=== PATIENT | male | born 1940 | race Caucasian/White ===

== ENCOUNTER → 2024-06-09 10:58 | Outpatient (REF) | payer MEDICARE, SELFPAY | LOC: RAD 10:58 | PROVIDERS: ATTENDING PHYSICIAN Family Medicine | DX: R05.3 Chronic cough (principal); R06.00 Dyspnea, unspecified | CPT/HCPCS: 71046 ==

== ENCOUNTER 2024-06-13 14:07 | Inpatient (IN) | payer MEDICARE, SELFPAY ==
[2024-06-13] VITALS (38 sets, daily range): BP systolic 80–170; BP diastolic 52–147; PULSE 2–159
[2024-06-13] MEDS: NITROGLYCERIN PREMIX 250 IV (13:13)
[2024-06-13] MEDS: LASIX 40 MG IV ×3 (13:15→22:29)
[2024-06-13 13:16] LABS: % Basophils 0.7 % (0-2); % Eosinophils 1.8 % (0-6); % Immature Granulocytes 0.8 % (0-0.5); % Lymphocytes 9.5 % (20.5-51.1); % Monocytes 8.6 % (1.7-9.3); % Neutrophils 78.6 % (42.2-75.2); Absolute Basophils 0.1 10^3/uL (0-0.2); Absolute Eosinophils 0.2 10^3/uL (0-0.7); Absolute Immature Granulocytes 0.1 10^3/uL (0-0.05); Absolute Lymphocytes 1.1 10^3/uL (1.2-3.4); Absolute Neutrophils 9.4 10^3/uL (1.4-6.5); Hematocrit 46.2 % (39.0-52.0); Mean Corp Hgb Conc. 30.3 g/dL (33.0-37.0); Mean Corpuscular Hgb 27.7 pg (27.0-31.0); Mean Corpuscular Volume 91.5 fL (80.0-94.0); Mean Platelet Volume 10.5 fL (7.4-10.4); Nucleated Red Blood Cells % 0.2 % (-); Platelet Count 299 10^3/uL (130-400); Red Blood Cell Count 5.05 10^6/uL (4.70-6.10); Red Cell Dist. Width 17.2 % (11.5-14.5); White Blood Cell Count 11.9 10^3/uL (4.8-10.8)
[2024-06-13 13:26] LABS: Venous Blood Gas B.E. -7.9 mmol/L (-4 to +4); Venous Blood Gas HCO3 22.6 mmol/L (22-27); Venous Blood Gas O2 Sat % 56.8 %; Venous Blood Gas pCO2 68 mmHg (35-48); Venous Blood Gas pO2 42 mmHg (30-50)
--- NOTE | 2024-06-13 13:27 | ED.GENMED ---
History of Present Illness
<Jarrell Addison PA-C - Last Filed: 06/13/24 14:35>
General
Chief Complaint: Cold/Flu/URI Symptoms
Source: patient, records, spouse and family
Time Seen by Provider: 06/13/24 13:00
History of Present Illness
History of Present Illness:
83 year old male with PMH of atrial fibrillation, HTN, hypothyroidism presenting to ED with his for evaluation after he has been having SOB, cough, sputum production and URIAS over the last 5 weeks or so not responding to oral antibiotics, oral
steroids, nebulizers despite multiple rounds. states that today at home patient became acutely more short of breath, shaking, rapid breathing so brought patient to the ER for further evaluation. Upon arrival to the emergency department and
while in triage patient was found to have a pulse ox in the 60s, mottled, difficult time speaking full sentences and was brought back into the emergency department immediately for my evaluation. notes that the patient stopped taking his
diuretic about a month or so ago because he was having small blood in his stool which she thought was related. Patient is on Eliquis due to his A-fib and reports good compliance with this medication.
Past History
<Jarrell Addison PA-C - Last Filed: 06/13/24 14:35>
Past History
ED Past Medical History: Arrthythmia (Atrial fibrillation), HTN, Hypothyroidism, Other (renal cyst) and Other (Sepsis January 2021)
ED Past Surgical History: Cardiac (pacemaker implantation December 2020)
Social History
Tobacco: Non-smoker
Alcohol: None
Drug: None
Personal:
Living: with family
Family History
Family History: Other (reviewed and noncontributory)
Review of Systems
<Jarrell Addison PA-C - Last Filed: 06/13/24 14:35>
Review of Systems
All Other Systems: ROS reviewed and negative except as documented in HPI and ROS
Phy Exam
<Jarrell Addison PA-C - Last Filed: 06/13/24 14:35>
Physical Exam
Physical Exam:
GENERAL: Alert , significantly tachypneic, accessory muscle use, mottled and very ill in appearance
EYE: Clear conjunct
NECK: Supple
ENT: o/p clr, mmm.
CARDIAC: Tachycardic rate between 130 and 160 bpm, irregular
LUNGS: Rales throughout anterior and posterior lung cheung, tachypneic, accessory muscle use
ABDOMEN: Soft, without focal tenderness, no r/g, no cvat
NEUROLOGICAL: Alert and oriented x 3, answering questions appropriate
SKIN: Warm and dry, skin intact.
MUSCULOSKELETAL: Significant 3+ pitting edema past the knees bilateral, mottled
PSYCH: Normal and appropriate interaction.
Scores
<Jarrell Addison PA-C - Last Filed: 06/13/24 14:35>
Heart Failure Risk
Heart Failure Risk Score: Yes
History of Stroke or TIA: No
History of intubation for respiratory distress: No
Heart rate on ED arrival >/= 110: Yes
SaO2 <90% on arrival on room air: Yes
HR >/=110 during 3min walk test (or too ill to perform test): Yes
ECG has acute ischemic changes: No
Urea >/=12mmol/L (BUN 33.6mg/dL): No
Serum CO2>/=35mmol/L: No
Troponin I or T elevated to VT Level (0.4mg/dL): No
NT-proBNP >/=5,000ng/L (5,000pg/ml): Yes
HF Risk Score: 4
Admission Status: HIGH RISK 26.1% Consider SNF treatment or admission to hospital
Heart Score for Chest Pain Patients
STEMI patient?: Not applicable
Withdrawal Assessment of Alcohol
Withdrawal Assessment Completed?: Not applicable
Course
<Jarrell Addison PA-C - Last Filed: 06/13/24 14:35>
Orders/Labs/Results
Orders:
Orders
06/13/24 13:03
Cr Chest Portable [CR Chest Portable - 1 View] Urgent
Comment:
Reason For Exam: sob
Reason Study Needs to be Portable: Patient Unstable
06/13/24 13:06
Nitroglycerin 100 mg/250 ml [Nitroglycerin Premix] 100 mg in 250 ml .ROUTE .STK-MED
06/13/24 13:09
Complete Blood Count/With Diff Urgent
Comprehensive Metabolic Panel Urgent
Furosemide [Lasix] 40 mg .ROUTE .STK-MED ONE
06/13/24 13:19
NT-proBNP Urgent
Comment: ADD ON
Troponin I Urgent
Comment: ADD ON
Venous Blood Gas Urgent
%Oxygen/Room Air: bipap
06/13/24 13:21
Furosemide [Lasix] 40 mg IV NOW STA
06/13/24 13:23
Add On- LAB Urgent
Tests Added?: BNP, troponin I
06/13/24 13:30
Nitroglycerin 100 mg/250 ml [Nitroglycerin Premix] 100 mg in 250 ml IV PER PROTOCOL
Initial dose in mcg/min, then titrate:: 100
Titrate to keep:: SBP < 160 mmHg
Titrate by mcg/min:: 5 mcg/min, may increase by 10 mcg/min if dose > 20 mcg/min
Frequency of titrations (minutes):: every 3-5 minutes
Maximum dose in mcg/min:: 200
Begin to taper infusion when:: Remained at goal for 2hrs
Taper by mcg/min:: 5 mcg/min
Frequency of taper (minutes) if patient maintains goal:: 30
Taper to off?: Yes
If infusion off & no longer maintaining goal:: Contact Provider
06/13/24 13:39
Bipap [RESP] Urgent
Patient to use own unit?: No
Inspiratory Pressure (cm H2O): 14
Expiratory Pressure (cm H2O): 8
06/13/24 13:42
Ondansetron Injectable [Zofran] 8 mg .ROUTE .STK-MED ONE
06/13/24 13:44
Ondansetron Injectable [Zofran] 8 mg IV NOW STA
06/13/24 13:50
Electrocardiogram (*1) Urgent
Reason for Study: Shortness of Breath
06/13/24 13:51
EKG- Treatment ONCE
06/13/24 13:52
Admit/Transfer Patient As Directed
Co-Sign Provider:
Level of Care: Inpatient admission
Assign to:: ICU
Physician / Group: corbin
Diagnosis: hypercarcbic respiratory failure chf
Reason for Hospitalization: hypercarcbic respiratory failure chf
Expected length of stay greater than two midnights?: Yes
ELOS- Estimated Length of Stay in days: 2
I certify the patient meets the requirements for IP care: Yes
PRN Pain Medication Management As Directed
May give lesser potent ordered pain med per pt: Yes
preference::
Protocol:: Medication orders for pain may be administered in a
manner that supports deferring to patient preference
when the pt is:
- Requesting an ordered lesser potent pain medication.
Least to most potent pain medications are defined
as: acetaminophen < NSAID < tramadol < opioids
(morphine, oxycodone, hydromorphone).
- Requesting a lesser dose of the same medication IF
ORDERED.
- Requesting a less intrusive route of administration
if both routes are prescribed by the provider (PO <
IV).
06/13/24 13:53
Code Status As Directed
Resuscitation Status: Do not resuscitate
Reached after discussion with pt or family/Healthcare POA: Yes
DNR Bracelet Application ONCE
Abnormal Lab Results
06/13/24 06/13/24
13:09 13:19
WBC 11.9 H 10^3/uL
(4.8-10.8)
MCHC 30.3 L g/dL
(33.0-37.0)
RDW 17.2 H %
(11.5-14.5)
MPV 10.5 H fL
(7.4-10.4)
Abs Immat Gran (auto) 0.1 H 10^3/uL
(0-0.05)
Absolute Neuts (auto) 9.4 H 10^3/uL
(1.4-6.5)
Absolute Lymphs (auto) 1.1 L 10^3/uL
(1.2-3.4)
Absolute Monos (auto) 1.0 H 10^3/uL
(0.1-0.6)
Immature Gran % 0.8 H %
(0-0.5)
Neutrophils % 78.6 H %
(42.2-75.2)
Lymphocytes % 9.5 L %
(20.5-51.1)
VBG pH 7.13 L*
(7.32-7.43)
VBG pCO2 68 H mmHg
(35-48)
Potassium 5.2 H mmol/L
(3.5-5.1)
Carbon Dioxide 20 L mmol/L
(22-30)
BUN 22 H mg/dl
(9-20)
Glucose 180 H mg/dl
(70-99)
Total Protein 6.0 L g/dl
(6.3-8.2)
06/13/24 13:09
06/13/24 13:09
Vital Signs
Initial and Last Documented VS:
Initial Vital Signs
Pulse Resp
143 40
06/13/24 13:23 06/13/24 13:23
Last Documented Vital Signs
Pulse Resp BP Pulse Ox
108 26 98/65 98
06/13/24 14:18 06/13/24 14:18 06/13/24 14:18 06/13/24 14:18
<Arsen Wyatt MD - Last Filed: 06/13/24 13:35>
Orders/Labs/Results
Orders:
Orders
06/13/24 13:03
Cr Chest Portable [CR Chest Portable - 1 View] Urgent
Comment:
Reason For Exam: sob
Reason Study Needs to be Portable: Patient Unstable
06/13/24 13:06
Nitroglycerin 100 mg/250 ml [Nitroglycerin Premix] 100 mg in 250 ml .ROUTE .STK-MED
06/13/24 13:09
Complete Blood Count/With Diff Urgent
Comprehensive Metabolic Panel Urgent
Furosemide [Lasix] 40 mg .ROUTE .STK-MED ONE
06/13/24 13:19
NT-proBNP Urgent
Comment: ADD ON
Troponin I Urgent
Comment: ADD ON
Venous Blood Gas Urgent
%Oxygen/Room Air: bipap
06/13/24 13:21
Furosemide [Lasix] 40 mg IV NOW STA
06/13/24 13:23
Add On- LAB Urgent
Tests Added?: BNP, troponin I
06/13/24 13:30
Nitroglycerin 100 mg/250 ml [Nitroglycerin Premix] 100 mg in 250 ml IV PER PROTOCOL
Initial dose in mcg/min, then titrate:: 100
Titrate to keep:: SBP < 160 mmHg
Titrate by mcg/min:: 5 mcg/min, may increase by 10 mcg/min if dose > 20 mcg/min
Frequency of titrations (minutes):: every 3-5 minutes
Maximum dose in mcg/min:: 200
Begin to taper infusion when:: Remained at goal for 2hrs
Taper by mcg/min:: 5 mcg/min
Frequency of taper (minutes) if patient maintains goal:: 30
Taper to off?: Yes
If infusion off & no longer maintaining goal:: Contact Provider
06/13/24 13:39
Bipap [RESP] Urgent
Patient to use own unit?: No
Inspiratory Pressure (cm H2O): 14
Expiratory Pressure (cm H2O): 8
06/13/24 13:42
Ondansetron Injectable [Zofran] 8 mg .ROUTE .STK-MED ONE
06/13/24 13:44
Ondansetron Injectable [Zofran] 8 mg IV NOW STA
06/13/24 13:50
Electrocardiogram (*1) Urgent
Reason for Study: Shortness of Breath
06/13/24 13:51
EKG- Treatment ONCE
06/13/24 13:52
Admit/Transfer Patient As Directed
Co-Sign Provider:
Level of Care: Inpatient admission
Assign to:: ICU
Physician / Group: corbin
Diagnosis: hypercarcbic respiratory failure chf
Reason for Hospitalization: hypercarcbic respiratory failure chf
Expected length of stay greater than two midnights?: Yes
ELOS- Estimated Length of Stay in days: 2
I certify the patient meets the requirements for IP care: Yes
PRN Pain Medication Management As Directed
May give lesser potent ordered pain med per pt: Yes
preference::
Protocol:: Medication orders for pain may be administered in a
manner that supports deferring to patient preference
when the pt is:
- Requesting an ordered lesser potent pain medication.
Least to most potent pain medications are defined
as: acetaminophen < NSAID < tramadol < opioids
(morphine, oxycodone, hydromorphone).
- Requesting a lesser dose of the same medication IF
ORDERED.
- Requesting a less intrusive route of administration
if both routes are prescribed by the provider (PO <
IV).
06/13/24 13:53
Code Status As Directed
Resuscitation Status: Do not resuscitate
Reached after discussion with pt or family/Healthcare POA: Yes
DNR Bracelet Application ONCE
Abnormal Lab Results
06/13/24 06/13/24
13:09 13:19
WBC 11.9 H 10^3/uL
(4.8-10.8)
MCHC 30.3 L g/dL
(33.0-37.0)
RDW 17.2 H %
(11.5-14.5)
MPV 10.5 H fL
(7.4-10.4)
Abs Immat Gran (auto) 0.1 H 10^3/uL
(0-0.05)
Absolute Neuts (auto) 9.4 H 10^3/uL
(1.4-6.5)
Absolute Lymphs (auto) 1.1 L 10^3/uL
(1.2-3.4)
Absolute Monos (auto) 1.0 H 10^3/uL
(0.1-0.6)
Immature Gran % 0.8 H %
(0-0.5)
Neutrophils % 78.6 H %
(42.2-75.2)
Lymphocytes % 9.5 L %
(20.5-51.1)
VBG pH 7.13 L*
(7.32-7.43)
VBG pCO2 68 H mmHg
(35-48)
Potassium 5.2 H mmol/L
(3.5-5.1)
Carbon Dioxide 20 L mmol/L
(22-30)
BUN 22 H mg/dl
(9-20)
Glucose 180 H mg/dl
(70-99)
Total Protein 6.0 L g/dl
(6.3-8.2)
06/13/24 13:09
06/13/24 13:09
Vital Signs
Initial and Last Documented VS:
Initial Vital Signs
Pulse Resp
143 40
06/13/24 13:23 06/13/24 13:23
Last Documented Vital Signs
Pulse Resp BP Pulse Ox
108 26 98/65 98
06/13/24 14:18 06/13/24 14:18 06/13/24 14:18 06/13/24 14:18
<Jarrell Addison PA-C - Last Filed: 06/13/24 14:35>
MDM/Problems Addressed
Differential Diagnosis Includes:
Pulmonary edema, valvular dysfunction, PE, pneumonia, aspiration
MDM/Problems Addressed:
83-year-old male presenting emergency department for evaluation of respiratory symptoms that have been ongoing for the last 5 or so weeks, acutely worse this morning with significant respiratory difficulty prompting to bring him to the ER.
Patient with severe respiratory distress on arrival. I was brought into the room immediately due to patient's current condition. Patient noted to be hypertensive, suspected to be in a rapid A-fib and respiratory rate into the 40s-50s. Clinical
concern for flash pulmonary edema. Patient was immediately started on nitro infusion at 100 mcg/min. Respiratory was paged to initiate BiPAP. Radiology was notified for stat portable chest x-ray. Lasix 40 mg IV ordered.
Chronic conditions affecting care: Cardiomyopathy
Acute Exacerbation and/or Progression of Chronic Illness: Cardiomyopathy
<Jarrell Addison PA-C - Last Filed: 06/13/24 14:35>
*Radiology
Radiology exam reviewed: preliminary read by ED provider (Pulmonary edema)
*Pulse Oximetry
Patient hypoxic: yes
*EKG
Interpreted by ED Provider?: Yes
Heart Rate: 105
Rate: tachycardiac
Rhythm: a-fib and PVC's
Presho: left axis deviation
QRS Pattern: right bundle branch block
*Voice And Data Technician Interpretation
Rate: tachycardiac
Rhythm: a-fib
*Critical Care Note
Total Time (30-74mins, 75-104mins- exclusive of procedures): 40
comment:
Critical care statement: A total of 40 minutes of critical care time was provided for this patient. This includes management of unstable vital signs, evaluation of the patient at bedside, reviewing the patient's pertinent medical records, discussion
with consultants, review of old EKGs and review of pertinent medical records. This time with separate from time utilized to perform the aforementioned documented procedures
Data Reviewed
Review of Other/Old Records Reveals: Records and Radiology Studies
Source: patient
<Jarrell Addison PA-C - Last Filed: 06/13/24 14:35>
Patient Management
Discussion with other providers: Hospitalist
Escalation/DeEscalation of care consider admission/obs:
Following BiPAP and nitro infusion patient's skin color is much that her perfused, respiratory rate is significantly improved and heart rate is now down to around 115 bpm. He is still tachypneic but this is much improved from initial. Clinical
suspicion for flash pulmonary edema. Patient to be admitted to ICU for close monitoring. Hospitalist team is aware and accepts for continued evaluation and treatment.
ED Attending Note
<Jarrell Addison PA-C - Last Filed: 06/13/24 14:35>
-
Portions of this chart may have been created with voice recognition software.� Occasional wrong word or��sound alike� substitutions may have occurred due to the inherent limitations of voice recognition software.
<Arsen Wyatt MD - Last Filed: 06/13/24 13:35>
ED Attending Note
ED Attending Note:
I saw and evaluated patient independently. Patient is an 83-year-old male with a history of hypertension, atrial fibrillation on Eliquis, CHF has not been taking his furosemide for about 1-1/2 months. He presents with anasarca and respiratory
distress. He was cyanotic and hypoxic but awake on arrival. Blood pressure is noted to be in the 200s systolic. He was tachycardic to the 140s. Bedside ultrasound showed diminished EF with diffuse B-lines. This was consistent with likely acute
on chronic CHF and flash pulmonary edema. Patient placed on BiPAP and nitroglycerin drip with improvement in his color medical status. Will continue to monitor and admit to the ICU. No evidence of right heart strain and patient on Eliquis making
acute PE less likely.
Discharge Plan
Departure
Patient Disposition: Admit
Date of Disposition: 06/13/24
Time of Disposition: 13:28
Presentation/result/management discussed w/ accepting MD/DO: Hospitalist
Discharge Problem:
Flash pulmonary edema, Respiratory failure
Interventions
Interventions:
*Risk Screen - Suicide Last Done: 06/13/24 13:32
*General Assessment Last Done: 06/13/24 13:32
*Neglect/Abuse Screening Last Done: 06/13/24 13:32
*ED COVID-19 Vaccine History Last Done: 06/13/24 13:32
ED- Pulmonary Assessment Last Done: 06/13/24 13:15
[2024-06-13 13:29] LABS: ALT (SGPT) 24 U/L (0-50); AST (SGOT) 29 U/L (17-59); Alkaline Phosphatase 100 U/L (38-126); Blood Urea Nitrogen 22 mg/dl (9-20); Calcium 9.4 mg/dl (8.4-10.2); Carbon Dioxide 20 mmol/L (22-30); Chloride 99 mmol/L (98-107); Glucose 180 mg/dl (70-99); Potassium 5.2 mmol/L (3.5-5.1); Sodium 138 mmol/L (135-145); Total Bilirubin 1.3 mg/dl (0.2-1.3); eGFR > 60.00
[2024-06-13 13:35] LABS: Venous Blood Gas pH 7.13 (7.32-7.43)
[2024-06-13] MEDS: ZOFRAN 8 MG IV (13:45)
--- NOTE | 2024-06-13 13:57 | HPS.HSE ---
Addendum entered and electronically signed by Rigoberto Mac MD 06/13/24 14:00:
Patient currently in atrial fibrillation with RVR although heart rate is improved with current medications.
Original Note:
Family Physician
-
Family Physician: Stephen Bingham
Chief Complaint
-
cough, shortness of breath
History of Present Illness
83-year-old male past medical history of paroxysmal atrial fibrillation, AV block status post pacemaker, hypertension, hypothyroidism, presenting with productive cough for the past month socially with shortness of breath. He noticed blood in his
stool a month ago Lasix was causing this so he stopped taking it a month ago. He has gained 10 pounds since then. He has also been having episodes of nausea and vomiting secondary to the cough for which he saw his primary care physician. He
denies any abdominal pain or diarrhea.
He has increased lower extremity edema. He denies any chest pain or dizziness.
He used to drink alcohol. He denies smoking.
Medical History
Past Medical History
Past Medical History: Reports Other (paroxysmal atrial fibrillation, AV block status post pacemaker, hypertension, hypothyroidism)
Past Surgical History: Reports Other (pacemaker implantation December 2020))
Social History
Tobacco: Non-smoker
Alcohol: Former
Drug: None
Family History
Family History: Not pertinent
Allergies / Home Medications
Allergies reflects when Allergies were last updated in [employer].
Home Medications with original date entered in [employer]
Allergy/Medication List:
Allergies
Allergy/AdvReac Type Severity Reaction Status Date / Time
unknown antibiotic Allergy confusion Uncoded 06/13/24 12:58
Home Medications
ascorbic acid (vitamin C) 500 mg tablet (Vitamin C) 500 mg PO DAILY Supplement 01/06/21
apixaban 5 mg tablet (Eliquis) 5 mg PO BID Blood clot prevention/tx 03/21/21
cyanocobalamin (vitamin B-12) 1,000 mcg tablet 1,000 mcg PO DAILY #30 tabs 03/26/21
levothyroxine 100 mcg tablet 100 mcg PO DAILY@0700 #30 tabs 03/26/21
metoprolol succinate 50 mg tablet,extended release 24 hr 50 mg PO BID #60 tabs 03/26/21
melatonin 5 mg tablet 5 mg PO HS #14 tabs 08/26/21
zinc sulfate 50 mg zinc (220 mg) capsule 220 mg (4.4 x 50 mg zinc (220 mg)) PO DAILY #14 caps 08/26/21
cholecalciferol (vitamin D3) 25 mcg (1,000 unit) tablet 25 mcg PO DAILY 06/13/24
Review of Systems
-
History Source: Patient
A 12 point ROS was completed and negative except as noted: Yes
Constitutional: Reports No Symptoms
EENT: Reports No Symptoms
Respiratory: Reports See HPI
Cardiac: Reports See HPI
Abdomen/GI: Reports No Symptoms
: Reports No Symptoms
Musculoskeletal: Reports No Symptoms
Skin: Reports No Symptoms
Neurological: Reports No Symptoms
Endocrine: Reports No Symptoms
Hematologic/Lymphatic: Reports No Symptoms
Psych: Reports No Symptoms
Physical Exam
Vital Signs
Vital Signs
Pulse Resp BP
134 41 165/73
06/13/24 13:30 06/13/24 13:30 06/13/24 13:27
Physical Exam
General: Well Developed, Well Nourished and No Apparent Distress
HEENT: NormoCephalic, Moist mucous membranes and Atraumatic
Respiratory: Rales
Cardiac: S1/S2, Regular Rhythm and Peripheral Edema; No Murmur or Rub
GI: Soft, Non Tender, Non Distended and Normal Bowel Sounds; No Organomegaly
Rectal: Deferred by Provider
Musculoskeletal: No Clubbing, No Cyanosis and No Edema
Skin: No Rash
Neuro: Nonfocal/grossly intact
Laboratory Results
-
06/13/24 13:09
06/13/24 13:09
Laboratory Results
Total Bilirubin 1.3 mg/dl (0.2-1.3) 06/13/24 13:09
AST 29 U/L (17-59) 06/13/24 13:09
ALT 24 U/L (0-50) 06/13/24 13:09
Alkaline Phosphatase 100 U/L (38-126) 06/13/24 13:09
Data Reviewed
-
Lab Data: Labs Reviewed by me
Old Records: Reviewed
Impression/Plan
-
IMPRESSION:
PLAN:
# Flash pulmonary edema/hypercarbic respiratory failure secondary to acute on chronic HFpEF exacerbation secondary to Lasix noncompliance
# Hypertensive emergency
-Systolic blood pressure up to 170
-Chest x-ray shows pulmonary edema, report pending
-Cardiac BNP pending
-VBG shows pH of 7.13, pCO2 of 68
-Patient on BiPAP with significant improvement
-Lasix 40 IV twice daily
-Nitroglycerin drip started
-Check EKG
-Update echo
-Cardiology consulted
-Mucinex
# Nausea/vomiting secondary to coughing episodes
-Zofran as needed
# Mild hyperkalemia secondary to CHF exacerbation
-Observe with diuresis
Paroxysmal atrial fibrillation
-Continue Eliquis
-Continue metoprolol
AV block status post pacemaker
Essential hypertension
Hypothyroidism
-Continue levothyroxine
DNR/DNI
DVT prophylaxis�Eliquis
N.p.o.
[2024-06-13 13:58] LABS: NT-proBNP 5370 pg/ml; Troponin I 0.028 ng/ml
--- NOTE | 2024-06-13 14:58 | CON.INTV ---
Consultation
Consultation Request
Date/Time Consultation Requested: 06/13/2024-3 PM
Date/Time Consultation Performed: 06/13/2024-3 PM
Requesting Provider: Hospitalist
Performing Provider: Dr. Liu
Reason for Consultation: CHF/respiratory failure/critical care management
Medical History
-
Chief Complaint: Shortness of breath
History of Present Illness:
83-year-old male with a history of PAF, hypertension, hypothyroid and permanent pacemaker who noticed blood in his stool and stopped Lasix instead of Eliquis and slowly gained 10 pounds presented with CHF requiring noninvasive
ventilation-cadmium burner consulted for respiratory failure/noninvasive ventilation/CHF/critical care management 06/13/2024. Patient feels improved since he came, on noninvasive ventilation, no complaints of chest pain, chest congestion, productive
cough, abdominal pain, nausea, focal weakness but he does admit to significant weight gain and lower extremity edema since he stopped his Lasix. Stopped his Lasix accidentally as he thought he was stopping his Eliquis because he was having some GI
bleeding.
Past Medical History
Past Medical History: None (Hypertension. Hypothyroid. PAF. Chronic anticoagulation. AV block status post PPI 2020.)
Social History
Tobacco: Non-smoker
Alcohol: None
Drug: None
Living: With Family
Occupational Exposures: No known asbestos exposure
Environmental Exposures: No known tuberculosis exposure
Family History
Family History: Reviewed & Not Pertinent
Allergies / Home Medications
Allergies
Allergy/AdvReac Type Severity Reaction Status Date / Time
unknown antibiotic Allergy confusion Uncoded 06/13/24 12:58
Home Medications
�Medication �Instructions �Recorded �Confirmed �Last Taken �Type
ascorbic acid (vitamin C) 500 mg 500 mg PO DAILY Supplement 01/06/21 06/13/24 06/13/24 History
tablet (Vitamin C)
apixaban 5 mg tablet (Eliquis) 5 mg PO BID Blood clot 03/21/21 06/13/24 06/13/24 History
prevention/tx
cyanocobalamin (vitamin B-12) 1,000 mcg PO DAILY #30 tabs 03/26/21 06/13/24 06/13/24 Rx
1,000 mcg tablet
levothyroxine 100 mcg tablet 100 mcg PO DAILY@0700 #30 tabs 03/26/21 06/13/24 06/13/24 Rx
metoprolol succinate 50 mg 50 mg PO BID #60 tabs 03/26/21 06/13/24 06/13/24 Rx
tablet,extended release 24 hr
melatonin 5 mg tablet 5 mg PO HS #14 tabs 08/26/21 06/13/24 06/12/24 Rx
zinc sulfate 50 mg zinc (220 mg) 220 mg (4.4 x 50 mg zinc (220 mg)) 08/26/21 06/13/24 06/13/24 Rx
capsule PO DAILY #14 caps
cholecalciferol (vitamin D3) 25 25 mcg PO DAILY 06/13/24 06/13/24 06/13/24 History
mcg (1,000 unit) tablet
Review of Systems
-
Unable to Obtain full review of systems at this time due to: Other (Per HPI)
Vitals / Labs / Diagnostic Testing
Vital Signs
Pulse Resp BP Pulse Ox
107 20 113/77 99
06/13/24 14:30 06/13/24 14:22 06/13/24 14:30 06/13/24 14:30
Lab Data
06/13/24 13:09
06/13/24 13:09
Diagnostic Testing:
Physical Exam
-
Exam:
Well-nourished and well-developed in no apparent distress
HEENT-atraumatic, normocephalic
Neck-supple, no JVD, no bruit
Heart-regular rate and rhythm-no murmurs, rubs or gallops
Chest with diminished breath sounds, crackles, no wheezes
Back without tenderness
Abdomen-soft, nontender, nondistended, no hepatosplenomegaly
Extremities-no cyanosis, clubbing, peripheral edema
Integument-intact, no rashes, lesions or ecchymosis
Neurology-alert and oriented, nonfocal motor and sensory exam
Assessment
-
83-year-old male with a history of PAF, hypertension, hypothyroid and permanent pacemaker who noticed blood in his stool and stopped Lasix instead of Eliquis and slowly gained 10 pounds presented with CHF requiring noninvasive
ventilation-cadmium burner consulted for respiratory failure/noninvasive ventilation/CHF/critical care management 06/13/2024.
CHF preserved EF requiring noninvasive ventilation
Respiratory failure-hypoxemic and hypercapnic--VBG 06/13/2024--13
Hypertensive urgency
Metabolic acidosis
Hyperglycemia
Nausea/vomiting
Hyperkalemia
Mild leukocytosis
DNR
Conditions present prior to admission:
Hypertension.
Hypothyroid.
PAF.
Heart failure preserved EF
Mitral regurgitation-moderate
Pulmonary hypertension
Chronic anticoagulation.
Obesity
Central sleep apnea-severe
Obstructive sleep apnea
Periodic limb movements of sleep
AV block status post PPI 2020.
Plan
Respiratory decompensation likely due to CHF with preserved EF
Supplemental oxygen as needed
High flow oxygen if needed
BiPAP/noninvasive ventilation-attempt to liberate
Follow ABG
DO NOT INTUBATE-patient a DNR
Aspiration precautions
Nebulizers as needed
Mucolytic's
Follow chest x-ray
Diuresis as tolerated
Monitor renal function, electrolytes, intake/output, lower extremity edema and weight
Replace electrolytes as needed
Cardiology evaluation
Monitor blood pressure closely
Monitor for end organ effect of severe hypertension
Hydralazine as needed
Labetalol as needed
Consider nicardipine drip
Nitroprusside less attractive with potential for cyanide toxicity especially with renal insufficiency
Nitroglycerin initiated with cardiac issues
Consider Nephrology consultation if hypertension persists
Consider workup of secondary causes including renal vascular/primary hyperaldosteronism/Rodger's/pheochromocytoma/etc. if hypertension is difficult to control
DVT prophylaxis-on Eliquis
Early nutrition
Early mobilization
Last saw Dr. Sanches 08/04/2021 for severe central and obstructive sleep apnea-maintained on auto SV-he was told to follow-up but never did-he said he forgot during the COVID era-will have him follow back up-he is willing
Critical care statement: A total of 55 minutes of critical care time was provided for this patient today. This includes management of unstable vital signs, evaluation of the patient at bedside, reviewing the patient's pertinent medical records
including radiographs, management of noninvasive ventilation, microbiology, laboratory evaluations, and discussion with primary team, consultants, pharmacy, nutrition, physical therapy, case management, charge nurse, critical care nursing, and
respiratory therapy.
Diagnostic data:
Chest x-ray 06/09/2024-NAD, mild cardiomegaly
Chest x-ray 06/13/2024-right basilar interstitial airspace disease
CT chest 01/06/2021-no significant abnormalities within the chest
Brain MRI 03/22/2021-no acute intracranial abnormalities, no infarct
Echocardiogram 02/05/2023-EF 50-55%, moderate mitral regurgitation, aortic sclerosis, PA systolic 61
PSG 05/24/2021-sleep efficiency 72%, AHI-57.3, desaturation zackery 82%, 300 central apneas, 15% of time less than 90% saturation
Sleep study-complexity study 06/21/2021-sleep efficiency 81.6%, REM latency 51 minutes, AHI 2.8, desaturation zackery 90%, ASV-EPAP min 4, EPAP max 15, pressure support min 0, pressure support max 20-reduced AHI to 0.4 and 0% less than 90% saturation
PFT 08/04/21: FVC 2.45/70%, FEV1 1.83/74%, ratio 75. TLC 3.89/60%, DLCO 14.95/60%. When compared to 2020, TLC has decreased from 4.43-3.89. DLCO has decreased from 18.81 14.95.�������
[place] 05/03/21: FVC 2.48/66%, FEV1 1.96/74%, ratio 79. There is mild reactive airways disease.�������
PFT 03/10/20 (): FVC 2.72/72%, FEV1 2.13/80%, ratio 78. There is reactive airways disease.TLC 4.43/66%, DLCO 18.81/79%.
Data Reviewed
-
PFT: Report reviewed by me
EKG: Report reviewed by me
Radiology: Report reviewed by me
CT Scan: Report reviewed by me
MRI: Report reviewed by me
Medical Tests (Nuc Med, Echo etc): Report reviewed by me
Labs: Labs reviewed by me
Old Records: Reviewed
Critical Care Time (in minutes): 55
[2024-06-13 15:39] LABS: APTT 36.5 Sec (23.4-35.0); INR 2.12; PT 23.6 Sec (11.4-14.6)
--- NOTE | 2024-06-13 15:45 | PTCARENOTE ---
Received patient from ED via stretcher. Pt AAOX3. Pox: 98% 6 L NC. Afib on monitor. Pt denies pain/SOB. Call collazo within reach. Plan of care ongoing.
[2024-06-13] MEDS: FLUSH (NSS) 1 FLUSH IV (16:12)
--- NOTE | 2024-06-13 19:27 | PTCARENOTE ---
Pt with rigors, HR 140-160's. Pt cyanotic and tachypneic, pursed-lip breathing. Temp 100.8 PO, rechecked axillary 101.7. Resp therapist notified and pt placed on bipap. ICU BUSINESS EDITOR notified, Ofirmev ordered, nightshift RN updated of current events.
[2024-06-13] MEDS: OFIRMEV 100 IV (19:28)
--- NOTE | 2024-06-13 20:00 | PTCARENOTE ---
Received pt resting in bed with rigors and febrile. HR 140s, AFib. Was on 6L NC but required bipap being placed back on due to distress- 08/04 15L. Ofirmev ordered and given. Quickly recovered after ofirmev and stated he felt much better. AAOx3, CRANE
but weak. +4 LE edema and +2 UE edema. Lungs diminished throughout with crackles bibasilar. Remains on bipap. + bowel sounds. Cholesterol lowering diet ordered. Removed bipap momentarily to give pt. sip of water and try to take pills but pt. coughed
with small sip of water. Did not administer pills. PICKER AND PACKER notified. Urinal at bedside. Call collazo in reach
[2024-06-13] MEDS: ELIQUIS PO ×2 (20:09→23:57)
[2024-06-13] MEDS: DESENEX/MITRAZOL/ZEASORB 1 APPLIC TOPICAL (20:09)
[2024-06-13] MEDS: MUCINEX PO ×2 (20:09→23:57)
[2024-06-13] MEDS: TOPROL XL PO ×2 (20:09→23:57)
[2024-06-13 20:48] LABS: COVID-19 Antigen Negative (Negative)
[2024-06-13 20:49] LABS: Carbon Dioxide 23 mmol/L (22-30); Chloride 97 mmol/L (98-107); Magnesium 1.7 mg/dl (1.6-2.3); Sodium 133 mmol/L (135-145)
[2024-06-13 20:51] LABS: Lactic Acid 2.4 mmol/L (0.7-2.0)
[2024-06-13 21:05] LABS: Procalcitonin 0.98 ng/ml (0.0-0.25)
[2024-06-13] MEDS: ZOSYN 50 IV (21:35)
--- NOTE | 2024-06-13 22:00 | W.PN.UPDATE ---
Update Note
Progress Note Update
06/13/24
2129- Patient spiked temp 101.7 with rigors and diaphoresis, tachycardia and hypotension. Ordered blood cultures, sputum, UA, influenza/covid, lactic, procalcitonin, levophed gtt for hypotension, and initiated zosyn IV for possible
pneumonia/aspiration. Patient having difficulty with swallowing was unable to take some oral medications overnight, gave Ofirmev for fever.
[2024-06-13] MEDS: DEMEROL 25 MG IV (22:06)
[2024-06-13] MEDS: MELATONIN PO (23:57)
[2024-06-14] VITALS (66 sets, daily range): BP systolic 62–132; BP diastolic 42–92; PULSE 2–104; BMI 31.6
--- NOTE | 2024-06-14 | PTCARENOTE ---
~0- pt with rigors, temp 101 via rectal probe for short time. TANK CAR MECHANIC notified. Demerol given.
~2220 pt. with no urine output since start of shift. Bladder scan = 75ml. TANK CAR MECHANIC aware. 40mg IV lasix ordered. #25 condom cath placed. Voided ~100ml clear urine. UA sent. BP dropped from 130/80s to 80s/50s. Levophed gtt started. Pt. with no change in
mentation with hypotension. He is without complaints except having a dry mouth. Remains on bipap 14/8 15L. Spo2 93-97%. Intermittent cough. Monitoring
[2024-06-14 00:19] LABS: Urine Albumin Negative (Neg - Trace); Urine Bilirubin Negative (Negative); Urine Character Clear (Clear); Urine Color Yellow; Urine Glucose Negative (Negative); Urine Ketone Negative (Negative); Urine Leukocyte Negative (Negative); Urine Nitrite Negative (Negative); Urine Occult Blood Negative (Negative); Urine Urobilinogen Negative (Neg - 1+)
[2024-06-14 02:11] LABS: Lactic Acid 2.4 mmol/L (0.7-2.0)
[2024-06-14] MEDS: ZOSYN 50 IV ×4 (04:35→21:17)
[2024-06-14 05:25] LABS: Venous Blood Gas B.E. 0.8 mmol/L (-4 to +4); Venous Blood Gas HCO3 26.6 mmol/L (22-27); Venous Blood Gas O2 Sat % 80.5 %; Venous Blood Gas pCO2 46 mmHg (35-48); Venous Blood Gas pH 7.37 (7.32-7.43); Venous Blood Gas pO2 49 mmHg (30-50)
--- NOTE | 2024-06-14 05:46 | PTCARENOTE ---
Rested calmly on bipap (14/8, 6L) for the last few hours. Pt. without complaints. Weaning levophed gtt. Afebrile. HR improved 80s-90s. Bathed with CHG. Condom cath fell off. Small open area on top of penis. Did not replace condom cath. Pt. agreeable
to try to use urinal. AM labs sent.
[2024-06-14 05:59] LABS: Lactic Acid 2.5 mmol/L (0.7-2.0)
[2024-06-14] MEDS: SYNTHROID PO (06:18)
[2024-06-14 06:23] LABS: Hematocrit 40.6 % (39.0-52.0); Hemoglobin 13.1 g/dL (13.0-18.0); Mean Corp Hgb Conc. 32.3 g/dL (33.0-37.0); Mean Corpuscular Hgb 28.4 pg (27.0-31.0); Mean Corpuscular Volume 88.1 fL (80.0-94.0); Platelet Count 214 10^3/uL (130-400); Red Blood Cell Count 4.61 10^6/uL (4.70-6.10); Red Cell Dist. Width 16.8 % (11.5-14.5); White Blood Cell Count 13.6 10^3/uL (4.8-10.8)
--- NOTE | 2024-06-14 06:55 | W.PN.HOSP.TC ---
Today's Communication/Plan
-
Remains critical
Repeat Troponin, EKG and BMP
c/w empiric IV ABx, pending blood cultures
Echo of heart
Replace Mg
DC Nitro gtt
Pressure support as needed with IV Diuretic therapy
Doppler US of legs
C/w O2 support
Daily weight
Will follow
Assessment / Plan
Assessment / Plan
Physical Exam
General: On BI pap this morning, not in pain
HEENT: Normocephalic, Moist mucous membranes and Atraumatic
Respiratory: Rales, limited
Cardiac: S1/S2,
GI: Soft, Non Tender, Non Distended, obese.
Rectal: No bleeding
Musculoskeletal: ++ Edema in LEs.
Neuro: Awake, followed commands
Psych: no agitation
# Acute hypoxemic and hypercapnic respiratory failure secondary to acute on chronic HFpEF exacerbation/ cardiogenic pulmonary edema
Hx of Lasix noncompliance
# Hypertensive emergency, then became hypotensive
Hx of severe central and obstructive sleep apnea
Fever overnight.
He reports feeling better
Denies chest pain
c/w O2 support and Bi pap, adjust pressures, reviewed blood gases
Chest x-ray this morning showed mild cardiomegaly, mild interstitial pulmonary edema, mild bilateral pleural effusion. No definitive infiltrates
Daily weight, empiric IV antibiotics.
Check Troponin again this morning, initial troponin 0.028. Initial Pro-BNP 5370
EKG conduction defects, recheck this AM
Order Echo of the heart
Doppler US of legs to rule out DVT, swelling in both legs
Blood cultures pending. Negative influenza and COVID screen. Negative urine analysis
C/W aggressive Diuretic therapy as BP tolerates and monitor closely electrolytes and kidney function.
Aspiration precautions
Nebulizers as needed
Mucolytic's
Appreciate pulmonary and cardiology help
# Sepsis/septic shock/lactic acidosis present on admission
Tachycardia, hypoxia, leukocytosis, fevers
Possibly respiratory source. Negative urine. Negative influenza and COVID. Chest x-ray no definitive infiltrate
Follow-up with the blood culture
Empiric antibiotics
Pressure support
Monitor temperature curve and WBC
# Hyponatremia, mild
# Hypomagnesemia
repplace
# Nausea/vomiting secondary to coughing episodes
-Zofran as needed
# Mild hyperkalemia
Potassium is 5.0, recheck
Continue with Lasix
# Paroxysmal atrial fibrillation
-Continue Eliquis
-Continue metoprolol
#AV block status post pacemaker
#Essential hypertension
Low BP
#Hypothyroidism
-Continue levothyroxine
DNR/DNI
DVT prophylaxis�Eliquis
Total time spent to see the patient on the floor, examine the patient, review data and lab results, discuss treatment plan with patient, nursing staff around 55 minutes
Anticipated Discharge: > 48 hours
Subjective/Interval History
-
Date of Service: June 14, 2024
He feels better
Using Bipap
Objective Data
-
Labs:
Laboratory Results
06/13/24 06/14/24 06/14/24
20:24 05:17 06:43
WBC 13.6 H
Hgb 13.1
Hct 40.6
Plt Count 214 D
Sodium 133 L Cancelled Pending
Potassium 5.0 Cancelled Pending
Chloride 97 L Cancelled Pending
Carbon Dioxide 23 Cancelled Pending
BUN Cancelled Pending
Creatinine Cancelled Pending
Glucose Cancelled Pending
Calcium Cancelled Pending
Total Bilirubin Cancelled Pending
AST Cancelled Pending
ALT Cancelled Pending
Alkaline Phosphatase Cancelled Pending
Vital Signs:
Vital Signs
Temp Pulse Resp BP Pulse Ox
96.7 F L 95 27 109/75 94
06/14/24 03:37 06/14/24 04:00 06/14/24 04:00 06/14/24 04:00 06/14/24 04:00
I&O
06/12/24 06/13/24 06/14/24
06:59 06:59 06:59
Intake Total 468.9 / 468.9
Output Total 200 / 200
Balance 268.9 / 268.9
--- NOTE | 2024-06-14 07:47 | W.PN.INTV ---
Today's Communication / Plan
Recommendations
Wean nitroglycerin drip
Check cultures
Empiric antibiotics
Liberate from BiPAP-continue at nighttime
Diuresis as tolerated
Consider infectious disease consultation
Assessment
-
83-year-old male with a history of PAF, hypertension, hypothyroid and permanent pacemaker who noticed blood in his stool and stopped Lasix instead of Eliquis and slowly gained 10 pounds presented with CHF requiring noninvasive
ventilation-swimming instructor consulted for respiratory failure/noninvasive ventilation/CHF/critical care management 06/13/2024.
CHF preserved EF requiring noninvasive ventilation
Respiratory failure-hypoxemic and hypercapnic--VBG 06/13/2024--68/42/7.13
Hypertensive urgency
Sepsis with tachycardia, hypoxemia, leukocytosis, fevers, chills, rigors
Metabolic acidosis
Hyperglycemia
Nausea/vomiting
Hyperkalemia
Leukocytosis
DNR
Conditions present prior to admission:
Hypertension.
Hypothyroid.
PAF.
Heart failure preserved EF
Mitral regurgitation-moderate
Pulmonary hypertension
Chronic anticoagulation.
Obesity
Central sleep apnea-severe
Obstructive sleep apnea
Periodic limb movements of sleep
AV block status post PPI 2020.
Plan
Respiratory decompensation likely due to CHF with preserved EF in addition to sepsis-remains critically ill with blood pressure issues, sepsis, rigors, chills, nitroglycerin drip and maintained on noninvasive ventilation
Supplemental oxygen as needed
High flow oxygen if needed
BiPAP/noninvasive ventilation--tolerating at night-liberate during the daytime and continue as needed during the daytime
Follow ABG or VBG-VBG 06/14/2024--46/49/7.37
DO NOT INTUBATE-patient a DNR
Aspiration precautions
Nebulizers as needed
Mucolytic's
Chest x-ray 06/14/2024-mild cardiomegaly, mild CHF, minimal bilateral pleural effusions, no focal airspace disease
Diuresis as tolerated
Monitor renal function, electrolytes, intake/output, lower extremity edema and weight
Replace electrolytes as needed
Cardiology evaluation
Monitor blood pressure closely
Check cultures
Sputum culture 06/14/2024-pending
Influenza negative
Blood cultures negative
I do not see a urine culture, however, urine analysis 06/13/2024 was negative
Empiric antibiotics initiated-Zosyn 06/14/2024
Consider infectious disease consultation-no clear source yet
Monitor for end organ effect of severe hypertension-slowly improving
Hydralazine as needed
Labetalol as needed
Nitroglycerin initiated with cardiac issues
Consider Nephrology consultation if hypertension persists
Consider workup of secondary causes including renal vascular/primary hyperaldosteronism/Rodger's/pheochromocytoma/etc. if hypertension is difficult to control
DVT prophylaxis-on Eliquis
Early nutrition
Early mobilization
Last saw Dr. Sanches 08/04/2021 for severe central and obstructive sleep apnea-maintained on auto SV-he was told to follow-up but never did-he said he forgot during the COVID era-will have him follow back up-he is willing
Critical care statement: A total of 45 minutes of critical care time was provided for this patient today. This includes management of unstable vital signs, evaluation of the patient at bedside, reviewing the patient's pertinent medical records
including radiographs, blood pressure management, sepsis management, BiPAP management, management of noninvasive ventilation, microbiology, laboratory evaluations, and discussion with primary team, consultants, pharmacy, nutrition, physical
therapy, case management, charge nurse, critical care nursing, and respiratory therapy.
Diagnostic data:
Chest x-ray 06/09/2024-NAD, mild cardiomegaly
Chest x-ray 06/13/2024-right basilar interstitial airspace disease
CT chest 01/06/2021-no significant abnormalities within the chest
Brain MRI 03/22/2021-no acute intracranial abnormalities, no infarct
Echocardiogram 02/05/2023-EF 50-55%, moderate mitral regurgitation, aortic sclerosis, PA systolic 61
PSG 05/24/2021-sleep efficiency 72%, AHI-57.3, desaturation zackery 82%, 300 central apneas, 15% of time less than 90% saturation
Sleep study-complexity study 06/21/2021-sleep efficiency 81.6%, REM latency 51 minutes, AHI 2.8, desaturation zackery 90%, ASV-EPAP min 4, EPAP max 15, pressure support min 0, pressure support max 20-reduced AHI to 0.4 and 0% less than 90% saturation
PFT 08/04/21: FVC 2.45/70%, FEV1 1.83/74%, ratio 75. TLC 3.89/60%, DLCO 14.95/60%. When compared to 2019, TLC has decreased from 4.43-3.89. DLCO has decreased from 18.81 14.95.�������
[place] 05/03/21: FVC 2.48/66%, FEV1 1.96/74%, ratio 79. There is mild reactive airways disease.�������
PFT 03/10/20 (): FVC 2.72/72%, FEV1 2.13/80%, ratio 78. There is reactive airways disease.TLC 4.43/66%, DLCO 18.81/79%.
Subjective Dataa
Subjective Data
Date of Service:
Date of Service: June 14, 2024
Chief Complaint: Filter Filler Follow Up and Pulmonary Follow Up
Subjective:
Had episode of fever, chills, rigors, tolerated BiPAP, feels improved this morning, no complaints of shortness of breath, chest pain, productive cough, or abdominal pain
Review of Systems
General: Other (Per HPI)
Objective Data
Data Reviewed
Vital Signs / I&O / Oxygen:
Vital Signs
Temp Pulse Resp BP Pulse Ox
95.8 F L 89 22 91/67 98
06/14/24 07:00 06/14/24 07:30 06/14/24 07:30 06/14/24 07:30 06/14/24 07:30
Intake and Output
06/13/24 06/14/24 06/15/24
06:59 06:59 06:59
Intake Total 480.2 / 480.2
Output Total 200 / 200
Balance 280.2 / 280.2
SaO2 98
Nasal Cannula flow liters per 6
minute
Labs/Micro/Reports
Lab Data
06/14/24 05:17
Laboratory Results
06/13/24
15:17
PT 23.6 H
INR 2.12
APTT 36.5 H
Microbiology
06/13/24 20:24 Nasal Swab Influenza Types A & B (MEG) - Final
Negative for Influenza A & B, NAAT
Negative results must be combined with clinical observations
and patient history.
Nucleic Acid Amplification test (NAAT)performed on the
[employer] platform.
[2024-06-14 08:24] LABS: Nucleated Red Blood Cells % 0.1 % (-)
[2024-06-14 08:25] LABS: Absolute Neutrophils -Man Diff 12.1 10^3/uL (1.4-6.5); Band Neutrophils 45 % (0-3); Lymphocytes 2 % (20-51); Metamyelocytes 2 % (-); Monocytes 6 % (2-9); Myelocytes 1 % (-); Platelets Checked Yes; Segmented Neutrophils 44 % (42-75)
[2024-06-14 08:27] LABS: Normal RBC Morphology Yes; Total Cells Counted 100
[2024-06-14] MEDS: DESENEX/MITRAZOL/ZEASORB 1 APPLIC TOPICAL ×2 (08:31→20:08)
[2024-06-14] MEDS: ZINC 50 MG PO (08:31)
[2024-06-14] MEDS: VITAMIN C 500 MG PO (08:32)
[2024-06-14] MEDS: LASIX 40 MG IV ×2 (08:32→16:16)
[2024-06-14] MEDS: VITAMIN D3 (cholecalciferol) 25 MCG PO (08:32)
[2024-06-14] MEDS: MUCINEX 1200 MG PO ×2 (08:32→19:24)
[2024-06-14] MEDS: VITAMIN B-12 1000 MCG PO (08:32)
[2024-06-14] MEDS: ELIQUIS 5 MG PO ×2 (08:32→19:24)
[2024-06-14] MEDS: FLUSH (NSS) 2 FLUSH IV (08:33)
--- NOTE | 2024-06-14 09:19 | CON.CAR ---
Consultation
Consultation Request
Date/Time Consultation Requested: 06/13/2024
Date/Time Consultation Performed: 06/14/2024
Reason for Consultation: Atrial fibrillation
Medical History
-
Chief Complaint: Shortness of breath
History of Present Illness:
83-year-old male past medical history of paroxysmal atrial fibrillation, bradycardia status post single-chamber Medtronic pacemaker, hypertension, hypothyroidism, presenting with productive cough for the past month socially with shortness of breath.
He noticed blood in his stool a month ago Lasix was causing this so he stopped taking it a month ago.
He has gained 10 pounds since then. He has also been having episodes of nausea and vomiting secondary to the cough for which he saw his primary care physician. He denies any abdominal pain or diarrhea.
He has increased lower extremity edema. He denies any chest pain or dizziness.
He used to drink alcohol. He denies smoking.
Echo: 02/05/2023: Normal systolic function with LVEF of 55% moderate MR; severe biatrial enlargement
Pacemaker on 01/16/2021: Single-chamber Medtronic -(Dr. Juarez)
Past Medical History
Past Medical History: Arrhythmias (Permanent atrial fibrillation, single-chamber pacemaker for bradycardia.), HTN and Hypothyroidism
Past Surgical History: Cardiac (Status post single-chamber Medtronic pacemaker by Dr. Juarez on 12/2020)
Social History
Tobacco: Non-Smoker
Alcohol: Former
Drug: None
Family History
Family History: Reviewed & Not Pertinent
Allergies / Home Medications
Allergy/AdvReac Type Severity Reaction Status Date / Time
unknown antibiotic Allergy confusion Uncoded 06/13/24 12:58
�Medication �Instructions �Recorded �Confirmed �Type
ascorbic acid (vitamin C) 500 mg 500 mg PO DAILY Supplement 01/06/21 06/13/24 History
tablet (Vitamin C)
apixaban 5 mg tablet (Eliquis) 5 mg PO BID Blood clot 03/21/21 06/13/24 History
prevention/tx
cyanocobalamin (vitamin B-12) 1,000 mcg PO DAILY #30 tabs 03/26/21 06/13/24 Rx
1,000 mcg tablet
levothyroxine 100 mcg tablet 100 mcg PO DAILY@0700 #30 tabs 03/26/21 06/13/24 Rx
metoprolol succinate 50 mg 50 mg PO BID #60 tabs 03/26/21 06/13/24 Rx
tablet,extended release 24 hr
melatonin 5 mg tablet 5 mg PO HS #14 tabs 08/26/21 06/13/24 Rx
zinc sulfate 50 mg zinc (220 mg) 220 mg (4.4 x 50 mg zinc (220 mg)) 08/26/21 06/13/24 Rx
capsule PO DAILY #14 caps
cholecalciferol (vitamin D3) 25 25 mcg PO DAILY 06/13/24 06/13/24 History
mcg (1,000 unit) tablet
Review of Systems
-
All other systems: Negative unless noted
Physical Exam
Vital Signs
Temp Pulse Resp BP Pulse Ox
95.8 F L 87 23 103/74 99
06/14/24 07:00 06/14/24 08:32 06/14/24 08:00 06/14/24 08:32 06/14/24 08:00
Lab Results
06/14/24 05:17
Troponin I 0.028 ng/ml 06/13/24 13:19
Wbj-I-Aemmwvpwsjj Pept 5370 pg/ml 06/13/24 13:19
Physical Exam
General: Well Developed, Well Nourished and No Apparent Distress (At the time of my evaluation patient's respiratory distress has dissipated/resolved)
HEENT: Normocephalic, Anicteric and Moist Mucous Membranes
Respiratory: Clear
Cardiac: S1/S2 and Irregular Rhythm
GI: Soft, Non Tender and Non Distended
Musculoskeletal: No Clubbing, No Cyanosis and No Edema
Skin: Warm and Dry
Neuro: Awake, Alert, Oriented and AO x 3
Impression / Plan
-
83-year-old gentleman with history of permanent atrial fibrillation, history of bradycardia status post single-chamber pacemaker in 2020, hypothyroidism who presented with acute heart failure with flash pulmonary edema and 10 pound weight gain.
Acute hypoxic respiratory failure
-Likely related to pulmonary edema with fluid retention.
-Required BiPAP briefly.
-Patient had stopped Lasix and continue Eliquis when he was bleeding.
-Likely bleeding has stopped but he gained significant amount of fluid and developed pulmonary edema with respiratory distress.
-Clinically improved. He does have a history of severe central sleep apnea and obstructive sleep apnea
�Tachycardia, hypoxemia, leukocytosis, fevers and chills could be a possibility of infectious etiology as well. On antibiotics per ICU.
Hypertensive urgency
-Patient presented with respiratory failure and hypertensive of 170/117
-Nitroglycerin was started but improved clinically.
-Nitroglycerin was stopped.
-Currently somewhat hypotensive.
Pulmonary atrial fibrillation
-Patient was noted to be in RVR in the setting of respiratory failure and hypertensive urgency
-Likely high sympathetic tone responsible for RVR.
-Rates are much better controlled now.
Data Reviewed
-
EKG: Tracing Personally Visualized and interpreted and Report Reviewed by me
Radiology: Report Reviewed by me
Medical Tests (Nuc Med, Echo etc): Image Personally Visualized and interpreted
Labs: Labs Reviewed by me, Discussed with Patient and Discussed with Family
Old Records: Reviewed
Critical Care Time (in minutes): 32
[2024-06-14] MEDS: TOPROL XL PO ×2 (09:25→20:22)
[2024-06-14 10:38] LABS: ALT (SGPT) 23 U/L (0-50); AST (SGOT) 29 U/L (17-59); Albumin 2.9 g/dl (3.5-5.0); Alkaline Phosphatase 76 U/L (38-126); Blood Urea Nitrogen 33 mg/dl (9-20); Calcium 8.6 mg/dl (8.4-10.2); Carbon Dioxide 28 mmol/L (22-30); Chloride 97 mmol/L (98-107); Estimated Creatinine Clearance 40 ml/min; Glucose 151 mg/dl (70-99); Potassium 4.4 mmol/L (3.5-5.1); Sodium 135 mmol/L (135-145); Total Bilirubin 1.7 mg/dl (0.2-1.3); Total Protein 4.8 g/dl (6.3-8.2); eGFR 42.75
[2024-06-14] MEDS: MAGNESIUM SULFATE 100 IV (10:41)
[2024-06-14 10:43] LABS: Magnesium 1.6 mg/dl (1.6-2.3)
[2024-06-14 10:51] LABS: Troponin I 0.077 ng/ml
--- NOTE | 2024-06-14 12:46 | PTCARENOTE ---
Assessment unchanged. Pt AAOX3. Pox: 97% 2L NC. Patient denies pain/SOB. A fib on monitor. Patient denies pain/SOB. Levophed gtt infusing at 3mcg/min. at bedside. Call collazo within reach.
[2024-06-14] MEDS: FLUSH (NSS) 1 FLUSH IV (16:17)
[2024-06-14] MEDS: LEVOPHED 250 IV (16:52)
--- NOTE | 2024-06-14 17:54 | PTCARENOTE ---
Patient remains on 2L. Pox: 96% RA. Levophed gtt infusing at 2mcg/min. A-fib on monitor. Pt able to walk to BR with one person assist and RW. Pt had BM. See Worklist. at bedside.
--- NOTE | 2024-06-14 19:00 | PTCARENOTE ---
Cannot verify vitals captured prior to 1900.
--- NOTE | 2024-06-14 20:00 | PTCARENOTE ---
Received pt resting in bed, AAOx3. Without complaints. CRANE but weak. Afib on tele. HR 90-100s. Temp 99.1. +4 LE pitting edema, + 2 UEs. Weak DP pulses. On levophed to maintain MAP>65. See worklist. On 2L NC, spo2 95%. Lungs coarse throughout. Moist
productive cough at times. + bowel sounds. Low chol. diet. Voiding yellow urine in urinal. Groin and buttocks with rash- desenex applied. R AC # 18 and L Hand #18. Assisted w brushing teeth. Call collazo in reach
[2024-06-14] MEDS: MELATONIN 5 MG PO (20:08)
[2024-06-14] MEDS: TYLENOL 650 MG PO (20:22)
[2024-06-15] VITALS (49 sets, daily range): BP systolic 75–108; BP diastolic 55–82; PULSE 2–100; BMI 32.8
--- NOTE | 2024-06-15 01:05 | PTCARENOTE ---
Pt. placed on bipap 08/04, 3L around 2100. Tylenol administered before falling asleep due to LLE pain. Pt. assisted to bedside commode- had small loose, brown BM. Now resting comfortably. Difficulty obtaining axillary or oral temp- rectal probe
placed - temp 97.8. Remains on low dose levophed.
[2024-06-15] MEDS: ZOSYN 50 IV ×2 (03:38→10:04)
[2024-06-15 04:16] LABS: Hematocrit 42.2 % (39.0-52.0); Hemoglobin 13.9 g/dL (13.0-18.0); Mean Corp Hgb Conc. 32.9 g/dL (33.0-37.0); Mean Corpuscular Hgb 28.4 pg (27.0-31.0); Mean Corpuscular Volume 86.1 fL (80.0-94.0); Mean Platelet Volume 11.4 fL (7.4-10.4); Platelet Count 186 10^3/uL (130-400); Red Cell Dist. Width 16.8 % (11.5-14.5); White Blood Cell Count 18.3 10^3/uL (4.8-10.8)
[2024-06-15 04:31] LABS: Troponin I 0.062 ng/ml
[2024-06-15 04:37] LABS: ALT (SGPT) 20 U/L (0-50); AST (SGOT) 22 U/L (17-59); Albumin 2.5 g/dl (3.5-5.0); Alkaline Phosphatase 77 U/L (38-126); Blood Urea Nitrogen 42 mg/dl (9-20); Calcium 8.2 mg/dl (8.4-10.2); Carbon Dioxide 24 mmol/L (22-30); Chloride 95 mmol/L (98-107); Estimated Creatinine Clearance 35 ml/min; Glucose 130 mg/dl (70-99); Magnesium 1.9 mg/dl (1.6-2.3); Potassium 4.4 mmol/L (3.5-5.1); Sodium 132 mmol/L (135-145); Total Bilirubin 1.3 mg/dl (0.2-1.3); Total Protein 4.4 g/dl (6.3-8.2); eGFR 37.12
[2024-06-15] MEDS: TYLENOL 650 MG PO (05:51)
[2024-06-15] MEDS: SYNTHROID 100 MCG PO (05:51)
--- NOTE | 2024-06-15 06:13 | PTCARENOTE ---
Assisted to commode. Had small amount loose burgundy stool. H&H stable on AM labs. GLAZE CARRIER notified. Will pass onto dayshift. Remains on 3mcg levophed to maintain MAP>65. Otherwise, had uneventful night and slept calmly on bipap.
--- NOTE | 2024-06-15 08:14 | W.PN.CD ---
Today's Communication / Plan
-
- Burgandy stool reported by nursing 06/15/24
- HOLD ELIQUIS WITH GI bleeding
- hold diuretic
- montior HB
- echo
=- wean pressor as tolerated
Impression / Plan
-
83-year-old gentleman with history of permanent atrial fibrillation, history of bradycardia status post single-chamber pacemaker in 2020, hypothyroidism who presented with acute heart failure with flash pulmonary edema and 10 pound weight gain.
Acute hypoxic respiratory failure
-CXR read as HF. May be combination of HF, resp infection , RUTH
- remains on levo and had burgandy stool in morning 06/15/24. Hold diuretic
- abx per primary tem.
.
Hypotension
- remains on levo
- monitor Hb
- echo tday
- follow cultures
- wean pressor as tolerated
atrial fibrillation
-Patient was noted to be in RVR in the setting of respiratory failure and hypertensive urgency
-mildly elevated. BB held due to Low BP
Pacemaker
GI bleed .
- reported intermittent bleeding over the last month
- Burgandy stool reported by nursing 06/15/24
- HOLD ELIQUIS WITH GI bleeding
Physical Exam
Vital Signs/Labs
Vital Signs
Temp Pulse Resp BP Pulse Ox
97.1 F 103 20 104/67 99
06/15/24 04:00 06/15/24 07:00 06/15/24 07:00 06/15/24 07:00 06/15/24 07:00
06/14/24 06/15/24 06/16/24
06:59 06:59 06:59
Actual Weight 94.3 kg 97.7 kg
06/15/24 03:50
06/15/24 03:50
PT 23.6 Sec (11.4-14.6) H 06/13/24 15:17
INR 2.12 06/13/24 15:17
APTT 36.5 Sec (23.4-35.0) H 06/13/24 15:17
Magnesium 1.9 mg/dl (1.6-2.3) 06/15/24 03:50
06/13/24
13:19
Vij-L-Djsefhwqzjn Pept 5370
LAB Results
06/13/24 06/14/24 06/15/24
13:19 10:12 03:50
Troponin I 0.028 0.077 H* 0.062 H*
Physical Exam
Constitutional: No acute distress
Cardiovascular: Rhythm/rate is irregular
Respiratory: Wheeze Absent and Rhonchi Absent
GI: Soft, Distention absent and Non tender
Neuro/Psych: Alert and Oriented
Data Reviewed
-
Date of Service: June 15, 2024
Medical Decision Making: Reviewed Test Results
Echo: Report Reviewed by me
Medical Tests (PFT, Pathology etc): Report Reviewed by me
Labs: Labs Reviewed by me
--- NOTE | 2024-06-15 08:14 | W.PN.HOSP.TC ---
Today's Communication/Plan
-
Continue antibiotics, pressor support as needed, holding Eliquis and Lasix as per cardiology given burgundy stools
Assessment / Plan
Assessment / Plan
Physical Exam
General: Not in acute distress
HEENT: Normocephalic, Moist mucous membranes and Atraumatic
Respiratory: Rales, limited
Cardiac: S1/S2,
GI: Soft, Non Tender, Non Distended, obese.
Musculoskeletal: ++ Edema in LEs.
Neuro: Awake, followed commands
Psych: Calm
Assessment/Plan
# Acute hypoxemic and hypercapnic respiratory failure secondary to acute on chronic HFpEF exacerbation/ cardiogenic pulmonary edema
History of Lasix non-compliance
# Hypertensive emergency, then became hypotensive
History of severe central and obstructive sleep apnea
Fever
#Cardiomegaly
#Pulmonary Edema
#Pleural Effusion
-Was on Lasix, Nitro drip --> but then fever and hypotenion needing Levophed and antibiotics
-Daily weights, I's and O's
-Echocardiogram
-Blood cultures with no growth to date. Negative influenza and COVID screen. Negative urinalysis.
-Continue with aggressive Diuretic therapy as blood pressure tolerates and monitor closely electrolytes and kidney function.
-Aspiration precautions
-Nebulizers as needed
-Mucolytics
-Appreciate pulmonary and cardiology help
#Severe Bilateral Lower Extremity Edema
#Sepsis/septic shock/lactic acidosis present on admission
Tachycardia, hypoxia, leukocytosis, fevers
Possibly respiratory source. Negative urine. Negative influenza and COVID. Chest x-ray no definitive infiltrate
Follow-up with the blood cultures (NGTD)
Empiric antibiotics with Rocephin and Doxycycline
Levophed support for blood pressure
Monitor temperature curve and WBC
#Burgundy Stools Reported on 06/15/24
-Eliquis held, as per cardiology
#Hyponatremia, mild
#Nausea/vomiting secondary to coughing episodes
-Zofran as needed
#Mild hyperkalemia - RESOLVED
-Potassium is 5.0, recheck
-Continue with Lasix
#Paroxysmal atrial fibrillation
-Hold Eliquis given burgundy stools on 06/15/24
-Continue metoprolol
#AV block status post pacemaker
#Essential hypertension
-Low BP
#Hypothyroidism
-Continue levothyroxine
DNR/DNI
DVT prophylaxis�Eliquis on hold as above. SCDs.
Anticipated Discharge: > 48 hours
Subjective/Interval History
-
Date of Service: June 15, 2024
Patient was seen and examined. He denied any symptoms or complaints.
Objective Data
-
Labs:
Laboratory Results
06/15/24
03:50
WBC 18.3 H
Hgb 13.9
Hct 42.2
Plt Count 186
Sodium 132 L
Potassium 4.4
Chloride 95 L
Carbon Dioxide 24
BUN 42 H
Creatinine 1.8 H
Glucose 130 H
Calcium 8.2 L
Total Bilirubin 1.3
AST 22
ALT 20
Alkaline Phosphatase 77
Vital Signs:
Vital Signs
Temp Pulse Resp BP Pulse Ox
97.1 F 103 20 104/67 99
06/15/24 04:00 06/15/24 07:00 06/15/24 07:00 06/15/24 07:00 06/15/24 07:00
I&O
06/14/24 06/15/24 06/16/24
06:59 06:59 06:59
Intake Total 480.2 / 491.5 1563.3 / 1563.3
Output Total 200 / 400 1450 / 1450
Balance 280.2 / 91.5 113.3 / 113.3
--- NOTE | 2024-06-15 08:15 | W.PN.INTV ---
Today's Communication / Plan
Recommendations
Abx
Follow up sputum and blood Cx
BiPAP at night
Diuresis on hold given ZULEIKA
Cardiology on board - recs appreciated
Vasopressors; start albumin; if unable to wean off low dose levo by tomorrow then start midodrine
Assessment
-
83-year-old male with a history of PAF, hypertension, hypothyroid and permanent pacemaker who noticed blood in his stool and stopped Lasix instead of Eliquis and slowly gained 10 pounds presented with CHF requiring noninvasive
ventilation-orthopedic shoe maker consulted for respiratory failure/noninvasive ventilation/CHF/critical care management 06/13/2024.
Impression:
Axute HFmrEF exacerbation requiring noninvasive ventilation - now on room air with BiPAP use HS
Acute respiratory failure-hypoxemic and hypercapnic--VBG 06/13/2024--68/42/7.13
Hypertensive urgency
Sepsis with tachycardia, hypoxemia, leukocytosis, fevers, chills, rigors
CAP involving RLL
Metabolic acidosis
LLE non-purulent cellulitis
ZULEIKA
Hyponatremia
Elevated troponin - peaked at 0.077 on 06/14/2024
Hyperglycemia
Nausea/vomiting
Hyperkalemia - now resolved
Leukocytosis
DNR
Conditions present prior to admission:
Hypertension.
Hypothyroid.
PAF on Eliquis
Heart failure preserved EF
Mitral regurgitation-moderate
Pulmonary hypertension
Chronic anticoagulation.
Obesity
Central sleep apnea-severe
Severe obstructive sleep apnea (AHI: 57.3 events/hr via PSG from 04/2021)
Periodic limb movements of sleep
AV block status post PPI 2020.
Plan
Respiratory decompensation likely due to CHF with mildly reduced EF in addition to sepsis from RLL pneumonia
Supplemental oxygen as needed to keep SpO2 >90-94%
Continue BiPAP at night, and trend VBG to assess stability of pH and pCO2
DO NOT INTUBATE-patient a DNR/DNI
Aspiration precautions
Patient is wheezing today at bedside � start TID nebs with budesonide
Mucolytics
CXR personally reviewed from 06/13 + 06/14
Diuresis as tolerated - holding lasix given worsening ZULEIKA today
Monitor renal function, electrolytes, intake/output, lower extremity edema and weight
Replace electrolytes as needed
Cardiology consulted - recs appreciated
Monitor blood pressure closely with goal MAP>65
Apparently at home he was not taking his Eliquis, and was taking his Lasix. Story is unreliable given he p/w ADHF
Follow-up blood culture (06/13/2024 - NGTD) + sputum culture (06/14/2024 - NGTD)
Influenza negative
UA from 06/13/2024 was negative
Empiric antibiotics initiated-Zosyn 06/14/2024 --> will change ABx to ceftriaxone + doxy to cover his suspected RLL PNA and LLE cellulitis - will Tx for total of 7 days assuming he continues to clinically improve and remains afebrile for 48 hours
prior to stopping antibiotics
Continue with vasopressors and maintain MAP >65
May need vasopressin if levo requirements increase and approach 10 mcg/min
Start supplemental albumin to help improve oncotic pressure
Consider Nephrology consultation if Cr continues to worsen
Consider workup of secondary causes including renal vascular/primary hyperaldosteronism/Rodger's/pheochromocytoma/etc. if hypertension is difficult to control
Burgundy colored stool this AM - patient admits to this happening over last few weeks
Hb is stable - c/t to monitor
Hold Eliquis for now and if Hb remains stable with no e/o bleeding then can resume Eliquis tomorrow
DVT prophylaxis-SCDs; holding Eliquis (see above)
Early nutrition
Early mobilization
Last saw Dr. Sanches 08/04/2021 for severe central and obstructive sleep apnea-maintained on auto SV-he was told to follow-up but never did-he said he forgot during the COVID era-will have him follow back up-he is willing
Critical care statement: A total of 51 minutes of critical care time was provided for this patient today. This includes management of unstable vital signs, evaluation of the patient at bedside, reviewing the patient's pertinent medical records
including radiographs, blood pressure management, sepsis management, BiPAP management, management of noninvasive ventilation, microbiology, laboratory evaluations, and discussion with primary team, consultants, pharmacy, nutrition, physical
therapy, case management, charge nurse, critical care nursing, and respiratory therapy.
Diagnostic data:
Chest x-ray 06/09/2024-NAD, mild cardiomegaly
Chest x-ray 06/13/2024-right basilar interstitial airspace disease
CT chest 01/06/2021-no significant abnormalities within the chest
Brain MRI 03/22/2021-no acute intracranial abnormalities, no infarct
Echocardiogram 02/05/2023-EF 50-55%, moderate mitral regurgitation, aortic sclerosis, PA systolic 61
PSG 05/24/2021-sleep efficiency 72%, AHI-57.3, desaturation zackery 82%, 300 central apneas, 15% of time less than 90% saturation
Sleep study-complexity study 06/21/2021-sleep efficiency 81.6%, REM latency 51 minutes, AHI 2.8, desaturation zackery 90%, ASV-EPAP min 4, EPAP max 15, pressure support min 0, pressure support max 20-reduced AHI to 0.4 and 0% less than 90% saturation
PFT 08/04/21: FVC 2.45/70%, FEV1 1.83/74%, ratio 75. TLC 3.89/60%, DLCO 14.95/60%. When compared to 2019, TLC has decreased from 4.43-3.89. DLCO has decreased from 18.81 14.95.�������
Kevin 05/03/21: FVC 2.48/66%, FEV1 1.96/74%, ratio 79. There is mild reactive airways disease.�������
PFT 03/10/20 (): FVC 2.72/72%, FEV1 2.13/80%, ratio 78. There is reactive airways disease.TLC 4.43/66%, DLCO 18.81/79%.
Subjective Dataa
Subjective Data
Date of Service:
Date of Service: June 15, 2024
Chief Complaint: Tobacco Shaker Follow Up and Pulmonary Follow Up
Subjective:
Patient was seen and evaluated morning. Patient's , Daniela, at bedside. All questions were answered. Blister seen on his left lower leg this morning with some redness. He currently denies chest pain, shortness of breath, KRISHNAMURTHY, abdominal pain,
fevers or chills. Current VS show: heart rate 110, saturating 96% on room air, and BP is 92/61 on levo at 2mcg/min. Wore BiPAP overnight 08/04 bled with 3L/min.
Review of Systems
General: Other (Negative unless mentioned above)
Objective Data
Data Reviewed
Vital Signs / I&O / Oxygen:
Vital Signs
Temp Pulse Resp BP Pulse Ox
97.1 F 103 20 104/67 99
06/15/24 04:00 06/15/24 07:00 06/15/24 07:00 06/15/24 07:00 06/15/24 07:00
Intake and Output
06/14/24 06/15/24 06/16/24
06:59 06:59 06:59
Intake Total 480.2 / 491.5 1563.3 / 1563.3
Output Total 200 / 400 1450 / 1450
Balance 280.2 / 91.5 113.3 / 113.3
SaO2 99
Nasal Cannula flow liters per 2
minute
Physical Exam
General: Respiratory Distress (negative), Comfortable, Chills (negative) and Sweats (negative)
HEENT: Normocephalic, Anicteric and Moist Mucous Membranes
Cardiovascular: Irregular Rhythm (Irregularly irregular) and Peripheral Edema (+3 lower extremity pitting edema bilaterally)
Respiratory: Wheeze (Expiratory (bilaterally)), Crackles (Bibasilar), Rhonchi (negative), Non-Labored Respirations and Stridor (negative)
GI: Soft, Non Distended, Non Tender and Normal Bowel Sounds
Neurology: AO x 3 and Tremors (negative)
Skin: Warm, Dry and Other (Area of patchy/circumferential erythema in the distal left lower extremity with few areas of blistered skin which appear purple, with no purulence appreciated)
Labs/Micro/Reports
Lab Data
06/15/24 03:50
06/15/24 03:50
Microbiology
06/13/24 20:24 Blood/Venous Blood Culture - Preliminary
No Growth in 24 hours- Final report to follow
06/14/24 10:39 Sputum Gram Stain - Preliminary
06/13/24 20:24 Nasal Swab Influenza Types A & B (MEG) - Final
Negative for Influenza A & B, NAAT
Negative results must be combined with clinical observations
and patient history.
Nucleic Acid Amplification test (NAAT)performed on the
[employer] platform.
[2024-06-15] MEDS: ELIQUIS PO (08:17)
[2024-06-15] MEDS: LASIX IV (08:17)
[2024-06-15] MEDS: TOPROL XL PO ×2 (08:18→20:15)
[2024-06-15] MEDS: MUCINEX 1200 MG PO ×2 (08:20→20:11)
[2024-06-15] MEDS: DESENEX/MITRAZOL/ZEASORB 1 APPLIC TOPICAL ×2 (08:21→20:15)
--- NOTE | 2024-06-15 08:30 | PTCARENOTE ---
Assumed care of patient. Pt rec'd A&Ox3. Pleasant. Denies any pain or SOB at rest. CRANE's...LE's weak and elevated on pillows. S1 S2 irregular w/ afib on monitor. Weak PP. +2 UE edema. +3 pitting LLE. Rec'd on bipap...placed on 2L N/C...sats
97%. Lungs clear but diminished posteriorly. Occasional dry NPC. Abdomen round...+BS. Good appetite...able to feed self and take pills w/o issue. Voids in urinal. Skin pale in color...sacrum intact. Left lower leg reddened w/ purple fluid
filled blisters. 18P RAC w/ levophed gtt infusing...see intervention. 18P LFA capped. VS documented. Call collazo within reach. Will continue to monitor closely.
--- NOTE | 2024-06-15 12:00 | PTCARENOTE ---
Echo done at bedside per MD order. No major changes in physical assessment. Remains on levophed gtt..see intervention. On R/A...sats 95%. at bedside and fully updated. Call collazo within reach.
--- NOTE | 2024-06-15 13:39 | CM ---
CM following re: discharge planning.
Reviewed pt's chart, met with pt and pt's spouse at bedside.
Pt is an 83 year old male, admitted with primary dx of Acute hypoxic respiratory failure/CHF
Pt reports he lives with spouse 2SH, 2 steps to enter, has 4 supportive children and 3 stepchildren. 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 Pt expressed his desire to return back home at discharge with [facility] if
recommended. A referral to [facility] made.
PCP: Stephen Bingham
Pharmacy: [facility].
D/C plan: home with [facility] and family support Spouse to transport at discharge.
CM will follow with discharge plan updates as hospitalization progresses
[2024-06-15] MEDS: FLEXBUMIN 100 IV ×3 (13:47→20:12)
[2024-06-15] MEDS: VIBRAMYCIN 100 MG PO ×2 (13:47→20:11)
--- NOTE | 2024-06-15 15:20 | VNURNOTE ---
Home Health Liaison spoke with patient. Discussed [facility] nurse/therapy, visits, schedule and homebound status. Patient is agreeable and understands that visits at home will be 2-3 x per week to assess and teach medical management. he confirms he has
a scale at home and his outpt office rental clerk is Dr Wayne. Mr. Pollard has had [facility] in the past. Patient is aware that [facility] will contact them for start of care in 1-2 days after discharge from . [facility] referral completed in [facility].
--- NOTE | 2024-06-15 16:00 | PTCARENOTE ---
Pt remains on levophed gtt @ 2mcg....albumin infusing per MD orders. Dry NPC noted. No major changes in physical assessment. Call collazo at bedside. Will continue to monitor closely.
[2024-06-15] MEDS: STERILE WATER FOR INJECTION 20 ML IV (16:13)
[2024-06-15] MEDS: ROCEPHIN 2000 MG IV (16:16)
[2024-06-15 17:40] LABS: Hemoglobin 12.1 g/dL (13.0-18.0)
[2024-06-15] MEDS: LEVOPHED 250 IV (19:23)
--- NOTE | 2024-06-15 20:00 | PTCARENOTE ---
rec'd pt restimg in bed, cooperative, follows commands, denies pain, afib, to keep map > 65 w/ levophed, see flow sheet for titrations, weak distal pulses, + edema, skin warm/ dry, RA, lungs w/ scat exp wheezes, decr in bases, productive cough for
clear secretions, sat 95, + bowel sounds, no bm, abd obese, soft, no n/v, elise diet, voids in urinal
[2024-06-15] MEDS: PULMICORT 0.5 MG INH (20:11)
[2024-06-15] MEDS: DUONEB 3 ML INH (20:11)
--- NOTE | 2024-06-15 21:00 | PTCARENOTE ---
Changes to bipap 14/8 w/ 3 liters nc for the night
[2024-06-15] MEDS: MELATONIN 5 MG PO (21:52)
[2024-06-16] VITALS (41 sets, daily range): BP systolic 87–130; BP diastolic 52–87; PULSE 2–101; BMI 32.7
--- NOTE | 2024-06-16 | PTCARENOTE ---
sys reviewed, lungs decr in bases, CHG bath done , linens changed, levo off at 2300
--- NOTE | 2024-06-16 00:20 | PTCARENOTE ---
run of Jovany Owens NP aware, labs ordered & sent
[2024-06-16 00:42] LABS: Hematocrit 32.9 % (39.0-52.0); Hemoglobin 11.4 g/dL (13.0-18.0); Mean Corp Hgb Conc. 34.7 g/dL (33.0-37.0); Mean Corpuscular Hgb 29.6 pg (27.0-31.0); Mean Corpuscular Volume 85.5 fL (80.0-94.0); Platelet Count 154 10^3/uL (130-400); Red Blood Cell Count 3.85 10^6/uL (4.70-6.10); Red Cell Dist. Width 16.4 % (11.5-14.5); White Blood Cell Count 14.1 10^3/uL (4.8-10.8)
[2024-06-16 00:50] LABS: Blood Urea Nitrogen 50 mg/dl (9-20); Calcium 7.8 mg/dl (8.4-10.2); Carbon Dioxide 25 mmol/L (22-30); Chloride 94 mmol/L (98-107); Estimated Creatinine Clearance 40 ml/min; Glucose 116 mg/dl (70-99); Potassium 3.9 mmol/L (3.5-5.1); Sodium 131 mmol/L (135-145); eGFR 42.75
[2024-06-16 01:11] LABS: ALT (SGPT) 16 U/L (0-50); AST (SGOT) 19 U/L (17-59); Alkaline Phosphatase 58 U/L (38-126); Total Bilirubin 0.9 mg/dl (0.2-1.3); Total Protein 4.6 g/dl (6.3-8.2)
[2024-06-16] MEDS: KCL 20 MEQ PO (01:15)
--- NOTE | 2024-06-16 01:22 | PTCARENOTE ---
20 kcl po given for K-3.9
--- NOTE | 2024-06-16 01:29 | PTCARENOTE ---
assisted to BSC, had sm loose burgundy stool, back to bed, URIAS
[2024-06-16] MEDS: SYNTHROID 100 MCG PO (04:06)
--- NOTE | 2024-06-16 04:13 | PTCARENOTE ---
sys reviewed, changes noted, comf on bipap
--- NOTE | 2024-06-16 07:35 | PTCARENOTE ---
Pt AAOx3 on bipap . Levo off as of 11 pm. Pt keeps urinal propped . no needs at this time on walking rounds
[2024-06-16] MEDS: DUONEB 3 ML INH (07:49)
[2024-06-16] MEDS: PULMICORT 0.5 MG INH ×2 (07:49→19:16)
--- NOTE | 2024-06-16 08:18 | W.PN.INTV ---
Today's Communication / Plan
Recommendations
Abx
Follow up sputum and blood Cx
BiPAP at night
Diuresis on hold given ZULEIKA
Cardiology on board - recs appreciated
Start midodrine
Nebs with plans to DC home with LABA/ICS
Outpatient pulmonary follow up
PPI, trend H/H, hold Eliquis, GI consult
Patient has been off vasopressors since 06/15/2024 and remains hemodynamically stable although still hypotensive, albeit asymptomatic. Starting midodrine today. Will downgrade out of ICU to telemetry. Pulmonary service will continue to briefly
follow along and ultimately will see us in the office for further management.
Assessment
-
83-year-old male with a history of PAF, hypertension, hypothyroid and permanent pacemaker who noticed blood in his stool and stopped Lasix instead of Eliquis and slowly gained 10 pounds presented with CHF requiring noninvasive
ventilation-turret punch press operator consulted for respiratory failure/noninvasive ventilation/CHF/critical care management 06/13/2024.
Impression:
Axute HFmrEF exacerbation requiring noninvasive ventilation - now on room air with BiPAP use HS
Acute respiratory failure-hypoxemic and hypercapnic--VBG 06/13/2024--68/42/7.13
Hypertensive urgency - resolved
Sepsis with tachycardia, hypoxemia, leukocytosis, fevers, chills, rigors
CAP involving RLL
Metabolic acidosis - resolved
LLE non-purulent cellulitis
ZULEIKA - improving
Hyponatremia
Elevated troponin - peaked at 0.077 on 06/14/2024
Hyperglycemia - resolved
Nausea/vomiting
Hyperkalemia - now resolved
Leukocytosis
DNR
Conditions present prior to admission:
Hypertension.
Hypothyroid.
PAF on Eliquis
Heart failure preserved EF
Mitral regurgitation-moderate
Pulmonary hypertension
Chronic anticoagulation.
Obesity
Central sleep apnea-severe
Severe obstructive sleep apnea (AHI: 57.3 events/hr via PSG from 04/2021)
Periodic limb movements of sleep
AV block status post PPI 2020.
Plan
Respiratory decompensation likely due to CHF with mildly reduced EF in addition to sepsis from RLL pneumonia
Supplemental oxygen as needed to keep SpO2 >90-94%
Continue BiPAP at night, and trend VBG to assess stability of pH and pCO2
DO NOT INTUBATE-patient a DNR/DNI
Aspiration precautions
Patient is wheezing today at bedside � continue nebulized bronchodilators however given his tachycardia we will change albuterol to Xopenex, and continue with Atrovent + budesonide
- Given his wheezing on exam with improvement with nebulized bronchodilators + budesonide, please DC home on LABA/ICS with, for example, Symbicort, Dulera, Advair, or Breo
Mucolytics
CXR personally reviewed from 06/13 + 06/14
Diuresis as tolerated - holding lasix given worsening ZULEIKA today
Monitor renal function, electrolytes, intake/output, lower extremity edema and weight
Replace electrolytes as needed
Cardiology consulted - recs appreciated
Monitor blood pressure closely with goal MAP>65
Apparently at home he was not taking his Eliquis, and was taking his Lasix. Story is unreliable given he p/w ADHF
Follow-up blood culture (06/13/2024 - NGTD) + sputum culture (06/14/2024 - NGTD)
Influenza negative
UA from 06/13/2024 was negative
Empiric antibiotics initiated-Zosyn 06/14/2024 --> on 06/15 I changed ABx to ceftriaxone + doxy to cover his suspected RLL PNA and LLE cellulitis - will Tx for total of 7 days assuming he continues to clinically improve and remains afebrile for 48
hours prior to stopping antibiotics
Off vasopressors since 11 PM on 06/15/2024
Maintain MAP >65
s/p supplemental albumin to help improve oncotic pressure
Start midodrine with wean over the next several days to avoid him being on for a prolonged period of time
Consider Nephrology consultation if Cr continues to worsen
Consider workup of secondary causes including renal vascular/primary hyperaldosteronism/[place]'s/pheochromocytoma/etc. if hypertension is difficult to control
Burgundy colored stool overnight and yesterday AM (06/15) - patient admits to this happening over last few weeks
Hb is slowly downtrending - c/t to monitor, and transfuse if needed to keep Hb>7, plt>50k
Start PPI IV BID and consult GI given the rising BUN despite drop in sCr
Continue to hold Eliquis and if Hb remains stable with no e/o bleeding then can resume Eliquis in next 1-2 days
DVT prophylaxis-SCDs; holding Eliquis (see above)
Early nutrition
Early mobilization
Last saw Dr. Sanches 08/04/2021 for severe central and obstructive sleep apnea-maintained on auto SV-he was told to follow-up but never did-he said he forgot during the COVID era-will have him follow back up-he is willing
Patient has been off vasopressors since 06/15/2024 and remains hemodynamically stable although still hypotensive, albeit asymptomatic. Starting midodrine today. Will downgrade out of ICU to telemetry. Pulmonary service will continue to briefly
follow along and ultimately will see us in the office for further management.
Patient was seen and evaluated on 06/16/2024
Total time spent today was 75 minutes for this encounter. Time includes reviewing laboratory test/imaging results, reviewing pertinent medical records, obtaining and reviewing medical history, performing an appropriate exam, ordering medications,
tests and procedures. Time also includes documentation of this encounter, coordinating patient care and communicating with other healthcare professionals. Total time does not include separately billed tests performed on this date of service.
Diagnostic data:
Chest x-ray 06/09/2024-NAD, mild cardiomegaly
Chest x-ray 06/13/2024-right basilar interstitial airspace disease
CT chest 01/06/2021-no significant abnormalities within the chest
Brain MRI 03/22/2021-no acute intracranial abnormalities, no infarct
Echocardiogram 02/05/2023-EF 50-55%, moderate mitral regurgitation, aortic sclerosis, PA systolic 61
PSG 05/24/2021-sleep efficiency 72%, AHI-57.3, desaturation zackery 82%, 300 central apneas, 15% of time less than 90% saturation
Sleep study-complexity study 06/21/2021-sleep efficiency 81.6%, REM latency 51 minutes, AHI 2.8, desaturation zackery 90%, ASV-EPAP min 4, EPAP max 15, pressure support min 0, pressure support max 20-reduced AHI to 0.4 and 0% less than 90% saturation
PFT 08/04/21: FVC 2.45/70%, FEV1 1.83/74%, ratio 75. TLC 3.89/60%, DLCO 14.95/60%. When compared to 2019, TLC has decreased from 4.43-3.89. DLCO has decreased from 18.81 14.95.�������
Kevin 05/03/21: FVC 2.48/66%, FEV1 1.96/74%, ratio 79. There is mild reactive airways disease.�������
PFT 03/10/20 (): FVC 2.72/72%, FEV1 2.13/80%, ratio 78. There is reactive airways disease.TLC 4.43/66%, DLCO 18.81/79%.
Subjective Dataa
Subjective Data
Date of Service:
Date of Service: June 16, 2024
Chief Complaint: Premium Service Representative Follow Up and Pulmonary Follow Up
Subjective:
Patient seen and evaluated this morning. BP 93/56, heart rate 104, saturating 96% on room air. Sitting in the chair no acute distress. Brown stools noted this morning but burgundy colored stool noted overnight. Eliquis currently being held.
Daughter, Janice, and , Daniela, at bedside - all questions were answered. He feels much better overall since admission. Denies SOB, chest pain, KRISHNAMURTHY, abd pain, N/V/f/c.
Review of Systems
General: Other (Negative unless mentioned above)
Objective Data
Data Reviewed
Vital Signs / I&O / Oxygen:
Vital Signs
Temp Pulse Resp BP Pulse Ox
97.9 F 138 33 109/80 94
06/16/24 08:26 06/16/24 08:45 06/16/24 08:43 06/16/24 08:45 06/16/24 08:42
Intake and Output
06/15/24 06/16/24 06/17/24
06:59 06:59 06:59
Intake Total 1563.3 / 1574.6 1136.5 / 1136.5
Output Total 1450 / 1450 1150 / 1150
Balance 113.3 / 124.6 -13.5 / -13.5
SaO2 94
Nasal Cannula flow liters per 3
minute
Physical Exam
General: Respiratory Distress (negative), Comfortable, Chills (negative) and Sweats (negative)
HEENT: Normocephalic, Anicteric and Moist Mucous Membranes
Cardiovascular: Irregular Rhythm (Irregularly irregular) and Peripheral Edema (+2 lower extremity pitting edema bilaterally)
Respiratory: Wheeze (negative today), Crackles (Bibasilar), Rhonchi (negative), Non-Labored Respirations and Stridor (negative)
GI: Soft, Non Distended, Non Tender and Normal Bowel Sounds
Neurology: AO x 3 and Tremors (negative)
Skin: Warm, Dry and Other (Area of patchy/circumferential erythema in the distal left lower extremity with few areas of blistered skin which appear purple, with no purulence appreciated)
Labs/Micro/Reports
Lab Data
06/16/24 00:29
06/16/24 00:35
Microbiology
06/13/24 20:24 Blood/Venous Blood Culture - Preliminary
No Growth in 48 hours- Final report to follow
06/14/24 10:39 Sputum Respiratory Culture - Preliminary
Usual Respiratory Marisela
06/14/24 10:39 Sputum Gram Stain - Preliminary
06/13/24 20:24 Nasal Swab Influenza Types A & B (MEG) - Final
Negative for Influenza A & B, NAAT
Negative results must be combined with clinical observations
and patient history.
Nucleic Acid Amplification test (NAAT)performed on the
[employer] platform.
[2024-06-16] MEDS: VIBRAMYCIN 100 MG PO ×2 (08:22→21:06)
[2024-06-16] MEDS: MUCINEX 1200 MG PO ×2 (08:22→21:06)
[2024-06-16] MEDS: DESENEX/MITRAZOL/ZEASORB 1 APPLIC TOPICAL ×2 (08:23→21:09)
--- NOTE | 2024-06-16 08:33 | W.PN.CD ---
Today's Communication / Plan
-
Patient still with relatively low blood pressures which is limiting use of metoprolol.
Patient off Eliquis due to reported burgundy stool yesterday
Hemoglobin 11.4 and no report of acute bleeding this morning. Consider additional GI input regarding bleeding issue
Impression / Plan
-
83-year-old gentleman with history of permanent atrial fibrillation, history of bradycardia status post single-chamber pacemaker in 2020, hypothyroidism who presented with acute heart failure with flash pulmonary edema and 10 pound weight gain.
Acute hypoxic respiratory failure
-CXR read as HF. May be combination of HF, resp infection , RUTH
- on levo and had burgandy stool in morning 06/15/24. Diuretic held 06/15/2024. Blood pressure now stable and off pressors.
- abx per primary tem.
.
Hypotension improved. Now off pressors.
-No acute bleeding this morning. Hemoglobin 11.4 which is down from 12.1
- follow cultures
atrial fibrillation
-Patient was noted to be in RVR in the setting of respiratory failure and hypertensive urgency
-mildly elevated rates
-Estimated EF 45 to 50%. Technical limitations to wall motion analysis. Previous echo with estimated EF 50-55
-With creatinine greater than 1.5 would use Eliquis 2.5 mg twice daily when safe to restart anticoagulation
Pacemaker
GI bleed .
- reported intermittent bleeding over the last month
- Burgandy stool reported by nursing 06/15/24
-Hemoglobin currently 11.4 without active bleeding this morning.
-Eliquis remains on hold? GI input regarding bleeding issue
Physical Exam
Vital Signs/Labs
Vital Signs
Temp Pulse Resp BP Pulse Ox
97.9 F 106 18 90/61 97
06/16/24 08:26 06/16/24 07:53 06/16/24 07:53 06/16/24 06:30 06/16/24 07:53
06/15/24 06/16/24 06/17/24
06:59 06:59 06:59
Actual Weight 97.7 kg 97.4 kg
06/16/24 00:29
06/16/24 00:35
PT 23.6 Sec (11.4-14.6) H 06/13/24 15:17
INR 2.12 06/13/24 15:17
APTT 36.5 Sec (23.4-35.0) H 06/13/24 15:17
Magnesium 2.0 mg/dl (1.6-2.3) 06/16/24 00:29
06/13/24
13:19
Eax-Q-Ydswnhybsqg Pept 5370
LAB Results
06/13/24 06/14/24 06/15/24
13:19 10:12 03:50
Troponin I 0.028 0.077 H* 0.062 H*
Physical Exam
Constitutional: No acute distress
EENT: Anicteric
Cardiovascular: Rhythm/rate is irregular
Respiratory: Wheeze Absent and Rhonchi Absent
GI: Soft, Non tender and Normal bowel sounds
Neuro/Psych: Alert, Oriented and AO x 3
Data Reviewed
-
Date of Service: June 16, 2024
Medical Decision Making: Reviewed Test Results
Echo: Report Reviewed by me
Medical Tests (PFT, Pathology etc): Report Reviewed by me
Labs: Labs Reviewed by me
[2024-06-16] MEDS: TOPROL XL 50 MG PO ×2 (08:45→21:06)
--- NOTE | 2024-06-16 11:05 | PN.CDI ---
CDI
- -
CDI:
Physician Documentation Request
Admit Date: 06/13/24 14:07
Dear Doctor Ja,
Clinical Indicators:
Patient admitted with sepsis and acute on chronic HFpEF.
Troponin trend:
06/13/24 06/14/24 06/15/24
13:19 10:12 03:50
Troponin I 0.028 0.077 H* 0.062 H*
Based on the above, could you clarify in the progress notes, the appropriate diagnosis, if significant, that supports the above lab abnormalities and additional evaluation, monitoring and/or treatment rendered:
Non ischemic myocardial injury
Elevated troponin only
Other, please specify
Use of terms such as suspected, likely, concern for, or probable (associated with a specific diagnosis that is being evaluated, monitored, or treated as if it exists) are acceptable and can be coded in the inpatient setting, when documented at the
time of discharge.
Thank you,
Alea Mittal RN BSN
CDI Specialist
available via tiger text
Please use your independent medical judgment in providing your response.
--- NOTE | 2024-06-16 11:09 | PN.CDI ---
CDI
- -
CDI:
Physician Documentation Request
Admit Date: 06/13/24 14:07
Dear Doctor Ja,
Clinical Indicators:
Patient admitted with sepsis and acute on chronic HFpEF.
06/15 PN, 'Paroxysmal atrial fibrillation'
06/15 Cardiology PN,'... history of permanent atrial fibrillation'
EKG/tele monitoring: Atrial Fibrillation only
Based on the above, could you clarify in the progress notes, the appropriate diagnosis, if significant, that supports the above abnormalities and additional evaluation, monitoring and/or treatment rendered:
Permanent Atrial Fibrillation
Paroxysmal Atrial Fibrillation (documentation complete)
Other, please specify
Use of terms such as suspected, likely, concern for, or probable (associated with a specific diagnosis that is being evaluated, monitored, or treated as if it exists) are acceptable and can be coded in the inpatient setting, when documented at the
time of discharge.
Thank you,
Alea Mittal RN BSN
CDI Specialist
available via tiger text
Please use your independent medical judgment in providing your response.
[2024-06-16] MEDS: ProAmatine 5 MG PO ×3 (12:19→17:16)
[2024-06-16] MEDS: CALCIUM GLUCONATE 100 IV (12:34)
[2024-06-16] MEDS: XOPENEX 1.25 MG INHALANT SOLUTION INH ×2 (13:46→19:16)
[2024-06-16] MEDS: ATROVENT NEBULES 0.5 MG INH ×2 (13:46→19:16)
--- NOTE | 2024-06-16 13:50 | CON.GI ---
Addendum entered and electronically signed by Nitin Hood MD 06/16/24 15:58:
I saw and examined the patient.
The DRYING MACHINE OPERATOR or PA's note was reviewed and I agree with the note.
Comment: 83yo male presents with flash pulmonary edema after stopping lasix as outpt due to passing dark BM/possible blood. Treated for CHF and pulmonary edema. Nursing noted burgundy stool. Hgb down from 13 to 11. BUN increased to 50, albeit
with diuresis. Brown stool today
REC:
Continue to monitor BMs and Hgb
If not actively bleeding, would prefer to defer GI procedures after d/c when he has recovered from CHF exacerbation and respiratory status has been more stabilized
If active bleeding, will discuss EGD or colonoscopy then
Cont PPI
Hold Eliquis for now.
Original Note:
Consultation
-
Date/Time Consultation Requested: 06/16/24 1300
Date/Time Consultation Performed: 06/16/24 1400
Requesting Provider: Amos Montero MD
Performing Provider: GIOVANNA Morris, Nitin Hood MD
Reason for Consultation: anemia
Medical History
Chief Complaint / HPI
Chief Complaint: rectal bleeding
History of Present Illness:
Pt is an 83yo presents with Afib on Eliquis, AV block with prior pacer, hypothyroidism, HTN, with onset of cough for past month with concern for flash pulm edema and 10 lbs wt gain and sepsis with tachycardia/leukocytosis, fever and chills. . He
admits to stopping Lasix prior to admission with concern for bleeding. Noted on on admission with hbg 13.9 and drop to 11.4 after admission and rise in BUN to 50. He was also noted with burgundy stool. In review with patient he is noted with
intermittent rectal bleeding possible hemorrhoid over last few months. 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
Pt admits to alternating diarrhea and constipation but denies odynophagia, dysphagia, GERD, nausea, vomiting, abdominal pain or black stools.
Past Medical History
Past Medical History: Arrhythmias (PAF, AV block), HTN, Hypothyroidism and Other (sleep apnea, obesity )
Past Surgical History: Cardiac (pacer December 2020)
Social History
Tobacco: Non-Smoker
Alcohol: Former (social ETOH 1 drink daily quit last years )
Drug: None
Personal:
Living: With Family
Employment: Retired
Family History
Family History: Other (no family hx colon CA or polyps )
Allergies / Home Medications
Allergy/AdvReac Type Severity Reaction Status Date / Time
unknown antibiotic Allergy confusion Uncoded 06/13/24 12:58
�Medication �Instructions �Recorded
ascorbic acid (vitamin C) 500 mg 500 mg PO DAILY Supplement 01/06/21
tablet (Vitamin C)
apixaban 5 mg tablet (Eliquis) 5 mg PO BID Blood clot 03/21/21
prevention/tx
cyanocobalamin (vitamin B-12) 1,000 mcg PO DAILY #30 tabs 03/26/21
1,000 mcg tablet
levothyroxine 100 mcg tablet 100 mcg PO DAILY@0700 #30 tabs 03/26/21
metoprolol succinate 50 mg 50 mg PO BID #60 tabs 03/26/21
tablet,extended release 24 hr
melatonin 5 mg tablet 5 mg PO HS #14 tabs 08/26/21
zinc sulfate 50 mg zinc (220 mg) 220 mg (4.4 x 50 mg zinc (220 mg)) 08/26/21
capsule PO DAILY #14 caps
cholecalciferol (vitamin D3) 25 25 mcg PO DAILY Supplement 06/13/24
mcg (1,000 unit) tablet
Review of Systems
-
History Source: Patient
Constitutional: Reports Weight Gain
EENT: Reports No Symptoms
Respiratory: Reports Cough and Trouble Breathing
Abdomen/GI: Reports Diarrhea, Constipated and Bloody Stools
: Reports No Symptoms
Musculoskeletal: Reports No Symptoms
Neurological: Reports Weakness
Endocrine: Reports No Symptoms
Hematologic/Lymphatic: Reports Bleeding
Vital Signs
Temp Pulse Resp BP Pulse Ox
98.0 F 89 31 99/59 93
06/16/24 12:08 06/16/24 12:19 06/16/24 11:30 06/16/24 12:19 06/16/24 11:30
Physical Exam
Exam
General: Well Developed, Well Nourished and No Apparent Distress
HEENT: Normocephalic and Anicteric
Respiratory: Other (cough with slight wheeze during exam )
Cardiac: Regular Rhythm
GI: Soft, Non Tender and Non Distended
Rectal: Deferred by Provider (pt in chair )
Musculoskeletal: No Clubbing and No Cyanosis
Skin: Warm and Dry
Neuro: Awake, Alert and AO x 3
Psych: Calm
Results
WBC 14.1 10^3/uL (4.8-10.8) H 06/16/24 00:29
Hgb 11.4 g/dL (13.0-18.0) L 06/16/24 00:29
Hct 32.9 % (39.0-52.0) L 06/16/24 00:29
MCV 85.5 fL (80.0-94.0) 06/16/24 00:29
Plt Count 154 10^3/uL (130-400) 06/16/24 00:29
Absolute Neuts (auto) 9.4 10^3/uL (1.4-6.5) H 06/13/24 13:09
PT 23.6 Sec (11.4-14.6) H 06/13/24 15:17
INR 2.12 06/13/24 15:17
APTT 36.5 Sec (23.4-35.0) H 06/13/24 15:17
Sodium Cancelled 06/16/24 00:35
Potassium Cancelled 06/16/24 00:35
Chloride Cancelled 06/16/24 00:35
Carbon Dioxide Cancelled 06/16/24 00:35
BUN Cancelled 06/16/24 00:35
Creatinine Cancelled 06/16/24 00:35
Calcium Cancelled 06/16/24 00:35
Total Bilirubin Cancelled 06/16/24 00:35
AST Cancelled 06/16/24 00:35
ALT Cancelled 06/16/24 00:35
Alkaline Phosphatase Cancelled 06/16/24 00:35
Prior GI Procedures:
EGD: none
Colonoscopy: 30 + years ago
Assessment / Plan
-
Pt is an 83yo presents with Afib on Eliquis, AV block with prior pacer, hypothyroidism, HTN, with onset of cough for past month with concern for flash pulm edema and 10 lbs wt gain and sepsis with tachycardia/leukocytosis, fever, and chills. He
admits to stopping Lasix prior to admission with concern for bleeding. Noted on on admission with hbg 13.9 and drop to 11.4 after admission and rise in BUN to 50. He was also noted with burgundy stool. In review with patient he is noted with
intermittent rectal bleeding possible hemorrhoid related though last colonoscopy was over 30 years ago.
-anemia with mild drop in hbg after admission
-intermittent rectal bleeding with red and burgundy stools
-rise in BUN
-flash pulm edema/ CHF with hypoxemia on admission
-concern for sepsis on admission with tachycardia, chills, fever, leukocytosis
-afib on Eliquis prior to admission
-LE blister on leg
other med problems:
-AV block
-pacer
-hypothyroidism
-HTN
-sleep apnea
-obesity
PLAN:
etiology of rectal bleeding related to local source- hemorrhoids vs other -- upper source such as PUD
reviewed wth patient and family with no screening for 30 + years cannot exclude colon mass, polyps, etc
cont rx for resp insufficiency and afib as still with some cough and tachycardia on exam
t/c EGD/colon when optimized from medical standpoint IP vs OP
pt current stable with brown stool no blood today and hbg 11.4 no signs of aggressive bleeding
cont to trend hbg
cont PPI
cont diet as tolerated
Eliquis remains on hold
-
-
Thank you for consultation and allowing me to participate in the patient's care. Please call the real estate utilization officer GI physician during the after hours with any questions or concerns.
--- NOTE | 2024-06-16 13:55 | CM ---
CM following re: discharge planning.
Reviewed pt's chart, met with pt.
D/C plan remains unchanged - home with [facility] and family support. Spouse to transport at discharge.
CM will follow with discharge plan updates as hospitalization progresses
[2024-06-16] MEDS: NSS (PRESERVATIVE FREE) 10 ML IV ×2 (14:13→21:06)
[2024-06-16] MEDS: PROTONIX IV 40 MG IV ×2 (14:13→21:07)
[2024-06-16] MEDS: ROCEPHIN 2000 MG IV (15:30)
[2024-06-16] MEDS: STERILE WATER FOR INJECTION 20 ML IV (15:30)
--- NOTE | 2024-06-16 17:02 | PTCARENOTE ---
report to gail on . pt EATING DINNER WILL TAKE OVER IB =N wc
[2024-06-16] MEDS: STERILE WATER FOR INJECTION IV (17:21)
[2024-06-16 17:23] LABS: INR 1.53; PT 18.2 Sec (11.4-14.6)
[2024-06-16 17:24] LABS: APTT 47.4 Sec (23.4-35.0)
[2024-06-16 17:42] LABS: Hematocrit 38.1 % (39.0-52.0); Hemoglobin 12.3 g/dL (13.0-18.0); Mean Corp Hgb Conc. 32.3 g/dL (33.0-37.0); Mean Corpuscular Hgb 27.6 pg (27.0-31.0); Mean Corpuscular Volume 85.6 fL (80.0-94.0); Mean Platelet Volume 11.4 fL (7.4-10.4); Platelet Count 193 10^3/uL (130-400); Red Blood Cell Count 4.45 10^6/uL (4.70-6.10); Red Cell Dist. Width 16.5 % (11.5-14.5)
[2024-06-16 17:45] LABS: Blood Urea Nitrogen 44 mg/dl (9-20); Calcium 8.8 mg/dl (8.4-10.2); Carbon Dioxide 24 mmol/L (22-30); Chloride 91 mmol/L (98-107); Estimated Creatinine Clearance 50 ml/min; Glucose 140 mg/dl (70-99); Magnesium 2.1 mg/dl (1.6-2.3); Phosphorus 3.2 mg/dl (2.5-4.5); Potassium 4.1 mmol/L (3.5-5.1); Sodium 131 mmol/L (135-145); eGFR 54.85
--- NOTE | 2024-06-16 18:28 | PTCARENOTE ---
Received patient to 419-2 awake and alert. Had c/o nausea and severe back pain. Ultram given and patient had some relief. Oriented to unit, accompanied by dtr. No distress at present.
--- NOTE | 2024-06-16 18:33 | PTCARENOTE ---
Patient received to [facility] at 1800 accompanied by . 1 assist to transfer from wheelchair to bed . at bedside at present . Oriented to room .
--- NOTE | 2024-06-16 18:35 | W.PN.HOSP.TC ---
Today's Communication/Plan
-
Continue antibiotics
Midodrine
Monitor Hgb
Assessment / Plan
Assessment / Plan
Physical Exam
General: Not in acute distress
HEENT: Normocephalic, Moist mucous membranes and Atraumatic
Respiratory: Rales, limited
Cardiac: S1/S2,
GI: Soft, Non Tender, Non Distended, obese.
Musculoskeletal: ++ Edema in LEs.
Neuro: Awake, followed commands
Psych: Calm
Assessment/Plan
# Acute hypoxemic and hypercapnic respiratory failure secondary to acute on chronic HFpEF exacerbation/ cardiogenic pulmonary edema
History of Lasix non-compliance
# Hypertensive emergency, then became hypotensive
History of severe central and obstructive sleep apnea
Fever
#Cardiomegaly
#Pulmonary Edema
#Pleural Effusion
-Was on Lasix, Nitro drip --> but then fever and hypotenion needing Levophed and antibiotics
-Daily weights, I's and O's
-Echocardiogram
-Blood cultures with no growth to date. Negative influenza and COVID screen. Negative urinalysis.
-Continue with aggressive Diuretic therapy as blood pressure tolerates and monitor closely electrolytes and kidney function.
-Aspiration precautions
-Nebulizers as needed
-Mucolytics
-Appreciate pulmonary and cardiology help
#Severe Bilateral Lower Extremity Edema
#Sepsis/septic shock/lactic acidosis present on admission
#Pneumonia
#LLE Cellulitis
Tachycardia, hypoxia, leukocytosis, fevers
Possibly respiratory source. Negative urine. Negative influenza and COVID. Chest x-ray no definitive infiltrate
Follow-up with the blood cultures (NGTD)
Empiric antibiotics with Rocephin and Doxycycline
Levophed weaned off
Monitor temperature curve and WBC
#Hypotension
-Continue Midodrine
#Burgundy Stools Reported on 06/15/24
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
-Eliquis held, as per cardiology
-GI consulted, appreciate recommendations: continue to hold anticoagulation
-Monitor CBC
#Non-ischemic myocardial injury
#Hyponatremia, mild
-Monitor BMP
#Nausea/vomiting secondary to coughing episodes
-Zofran as needed
#Mild hyperkalemia - RESOLVED
-Potassium is 5.0, recheck
-Continue with Lasix
#Paroxysmal atrial fibrillation
-Hold Eliquis given burgundy stools on 06/15/24
-Continue metoprolol
#AV block status post pacemaker
#Essential hypertension
-Low BP
#Hypothyroidism
-Continue levothyroxine
DNR/DNI
DVT prophylaxis�Eliquis on hold as above. SCDs cancelled by ICU team likely because of bilateral lower extremity edema and lower extremity cellulitis.
Anticipated Discharge: > 48 hours
Subjective/Interval History
-
Date of Service: June 16, 2024
Patient was seen and examined. He denied any new symptoms or complaints.
Objective Data
-
Labs:
Laboratory Results
06/16/24
17:05
WBC 15.0 H
Hgb 12.3 L
Hct 38.1 L
Plt Count 193 D
PT 18.2 H
INR 1.53
APTT 47.4 H
Sodium 131 L
Potassium 4.1
Chloride 91 L
Carbon Dioxide 24
BUN 44 H
Creatinine 1.3
Glucose 140 H
Calcium 8.8
Vital Signs:
Vital Signs
Temp Pulse Resp BP Pulse Ox
98.4 F 104 20 130/64 96
06/16/24 18:10 06/16/24 18:10 06/16/24 18:10 06/16/24 18:10 06/16/24 18:10
I&O
06/15/24 06/16/24 06/17/24
06:59 06:59 06:59
Intake Total 1563.3 / 1574.6 1136.5 / 1136.5 340 / 340
Output Total 1450 / 1450 1150 / 1150 700 / 700
Balance 113.3 / 124.6 -13.5 / -13.5 -360 / -360
[2024-06-16] MEDS: MELATONIN 5 MG PO (21:07)
[2024-06-17] VITALS (8 sets, daily range): BP systolic 97–114; BP diastolic 64–78; PULSE 2–101; BMI 32.1
[2024-06-17] MEDS: SYNTHROID 100 MCG PO (05:28)
[2024-06-17] MEDS: ATROVENT NEBULES 0.5 MG INH ×3 (07:22→19:41)
[2024-06-17] MEDS: XOPENEX 1.25 MG INHALANT SOLUTION INH ×3 (07:22→19:41)
[2024-06-17] MEDS: PULMICORT 0.5 MG INH ×2 (07:23→19:40)
[2024-06-17 07:48] LABS: Venous Blood Gas B.E. 2.8 mmol/L (-4 to +4); Venous Blood Gas HCO3 27.9 mmol/L (22-27); Venous Blood Gas pCO2 44 mmHg (35-48); Venous Blood Gas pH 7.41 (7.32-7.43); Venous Blood Gas pO2 67 mmHg (30-50)
[2024-06-17] MEDS: MUCINEX 1200 MG PO ×2 (08:48→19:58)
[2024-06-17] MEDS: VIBRAMYCIN 100 MG PO ×2 (08:48→19:59)
[2024-06-17] MEDS: ProAmatine 5 MG PO ×2 (08:48→12:57)
[2024-06-17] MEDS: TOPROL XL 50 MG PO ×2 (08:49→21:59)
[2024-06-17] MEDS: PROTONIX IV 40 MG IV ×2 (08:49→19:58)
[2024-06-17] MEDS: NSS (PRESERVATIVE FREE) 10 ML IV ×2 (08:49→19:58)
[2024-06-17] MEDS: DESENEX/MITRAZOL/ZEASORB 1 APPLIC TOPICAL ×2 (08:50→20:05)
[2024-06-17 09:31] LABS: % Basophils 0.5 % (0-2); % Eosinophils 0.8 % (0-6); % Immature Granulocytes 0.7 % (0-0.5); % Lymphocytes 3.3 % (20.5-51.1); % Monocytes 3.4 % (1.7-9.3); % Neutrophils 91.3 % (42.2-75.2); Absolute Basophils 0.1 10^3/uL (0-0.2); Absolute Eosinophils 0.1 10^3/uL (0-0.7); Absolute Immature Granulocytes 0.1 10^3/uL (0-0.05); Absolute Lymphocytes 0.5 10^3/uL (1.2-3.4); Absolute Monocytes 0.5 10^3/uL (0.1-0.6); Absolute Neutrophils 13.5 10^3/uL (1.4-6.5); Hematocrit 38.7 % (39.0-52.0); Hemoglobin 12.7 g/dL (13.0-18.0); Mean Corp Hgb Conc. 32.8 g/dL (33.0-37.0); Mean Corpuscular Hgb 28.3 pg (27.0-31.0); Mean Corpuscular Volume 86.4 fL (80.0-94.0); Nucleated Red Blood Cells % 0 % (-); Platelet Count 184 10^3/uL (130-400); Red Blood Cell Count 4.48 10^6/uL (4.70-6.10); Red Cell Dist. Width 16.4 % (11.5-14.5); White Blood Cell Count 14.8 10^3/uL (4.8-10.8)
--- NOTE | 2024-06-17 10:13 | W.PN.GI.CBS2 ---
Addendum entered and electronically signed by Nitin Hood MD 06/17/24 14:42:
I saw and examined the patient.
The SUPERVISOR FORMING AND TEMPERING or PA's note was reviewed and I agree with the note.
Comment: No complaints. Did have some more bleeding
RECTAL- firm mass in posterior position rectum
REC:
Hgb stable
Can proceed with colonoscopy if stable to have procedure this admission. Otherwise will set up as outpatient to dx likely rectal CA
Original Note:
Today's Communication / Plan
-
etiology of rectal bleeding with concern for mass noted on rectal exam today with some dark red blood, will have Dr. Hood repeat to confirm
reviewed with patient and family with no screening for 30 + years cannot exclude colon mass, polyps, etc
hbg stable 12.7 and noted burgundy stools overnight
t/c flex vs colon when medically stable
cont to trend hbg
cont PPI
cont diet as tolerated til medically optimized
Eliquis remains on hold
updated
Assessment / Plan
-
Pt is an 83yo presents with Afib on Eliquis, AV block with prior pacer, hypothyroidism, HTN, with onset of cough for past month with concern for flash pulm edema and 10 lbs wt gain and sepsis with tachycardia/leukocytosis, fever, and chills. He
admits to stopping Lasix prior to admission with concern for bleeding. Noted on on admission with hbg 13.9 and drop to 11.4 after admission and rise in BUN to 50. He was also noted with burgundy stool. In review with patient he is noted with
intermittent rectal bleeding possible hemorrhoid related though last colonoscopy was over 30 years ago.
-anemia with mild drop in hbg after admission
-intermittent rectal bleeding with red and burgundy stools
-rectal mass on exam
-rise in BUN
-flash pulm edema/ CHF with hypoxemia on admission
-LLE swelling, redness with blister
-concern for sepsis on admission with tachycardia, chills, fever, leukocytosis
-afib on Eliquis prior to admission
-LE blister on leg
other med problems:
-AV block
-pacer
-hypothyroidism
-HTN
-sleep apnea
-obesity
PLAN:
etiology of rectal bleeding with concern for mass noted on rectal exam today with some dark red blood, will have Dr. Hood repeat to confirm
reviewed with patient and family with no screening for 30 + years cannot exclude colon mass, polyps, etc
hbg stable 12.7 and noted burgundy stools overnight
t/c flex vs colon when medically stable
cont to trend hbg
cont PPI
cont diet as tolerated til medically optimized
Eliquis remains on hold
updated
Subjective
Subjective
Date of Service: June 17, 2024
06/17 burgundy stool on cholesterol lowering diet
Objective
Data Reviewed
Laboratory Data:
Laboratory Results
06/17/24 09:01
Laboratory Results
PT 18.2 Sec (11.4-14.6) H 06/16/24 17:05
INR 1.53 06/16/24 17:05
APTT 47.4 Sec (23.4-35.0) H 06/16/24 17:05
Phosphorus 3.2 mg/dl (2.5-4.5) 06/16/24 17:05
Magnesium 2.1 mg/dl (1.6-2.3) 06/16/24 17:05
Total Bilirubin Cancelled 06/16/24 00:35
AST Cancelled 06/16/24 00:35
ALT Cancelled 06/16/24 00:35
Alkaline Phosphatase Cancelled 06/16/24 00:35
Vital Signs and I&O:
Vital Signs
Temp Pulse Resp BP Pulse Ox
97.4 F 100 26 102/64 98
06/17/24 08:14 06/17/24 08:14 06/17/24 08:14 06/17/24 08:14 06/17/24 08:14
I&O
06/16/24 06/17/24 06/18/24
06:59 06:59 06:59
Intake Total 1136.5 / 1136.5 340 / 340
Output Total 1150 / 1150 700 / 700
Balance -13.5 / -13.5 -360 / -360
Physical Exam
Physical Exam
HEENT: Anicteric and Moist mucous membranes
Cardiology: Normal Sinus Rhythm
Pulmonary: Other (decreased )
GI: Soft, Non Distended and Non Tender
Rectal: Other (palpable rectal mass on exam with blood on finger )
Extremities: Edema and Other (LLQ with increased redness and blistered area )
Neuro: Non Focal
--- NOTE | 2024-06-17 10:46 | W.PN.CD ---
Today's Communication / Plan
-
- Low BP limiting med adjustment, on midodrine to support BP
- Will add SGLT2-I and MRA that should be well tolerated
- Continue diuresis
- Resume Eliquis once OK with GI
Impression / Plan
-
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
- Stopped his Lasix for 1 month
- Still with LOTS of edema
- Low BP limiting med adjustment, on midodrine to support BP
- Will add SGLT2-I and MRA that should be well tolerated
- Continue diuresis
Low BP
- On midodrine
Nonischemic cardiomyopathy
Permanent AFib
- Eliquis on hold
- GI anticipates resuming Eliquis soon
NSVT, asymptomatic
- No syncope, EF more than 40. No ICD for now
Bifascicular heart block (RBBB/LAFB)
Single chamber MDT pacer in place for periods of second degree AV block/pauses
Suspected intermittent rectal bleeding
- GI involved
Subjective:
No CP, no syncope/palps. URIAS.
Data:
Echo 06/15/2024: TDS, LVEF 45-50%, mild M
Single chamber PPM placed 01/16/2021, MDT
Cath 11/30/2020: No obstructive CAD, luminal diseasse present, LVEDP 16 mmHg
Physical Exam
Vital Signs/Labs
Vital Signs
Temp Pulse Resp BP Pulse Ox
97.4 F 100 26 102/64 98
06/17/24 08:14 06/17/24 08:14 06/17/24 08:14 06/17/24 08:14 06/17/24 08:14
06/16/24 06/17/24 06/18/24
06:59 06:59 06:59
Actual Weight 97.4 kg 95.85 kg
06/17/24 09:01
PT 18.2 Sec (11.4-14.6) H 06/16/24 17:05
INR 1.53 06/16/24 17:05
APTT 47.4 Sec (23.4-35.0) H 06/16/24 17:05
Magnesium 2.1 mg/dl (1.6-2.3) 06/16/24 17:05
06/13/24
13:19
Kda-A-[id number] Pept 5370
LAB Results
06/14/24 06/15/24
10:12 03:50
Troponin I 0.077 H* 0.062 H*
Physical Exam
Constitutional: No acute distress
EENT: Anicteric
Cardiovascular: Rhythm/rate is irregular and Pedal edema present (3+)
Respiratory: Respiratory effort normal and Lungs clear to auscul.
GI: Soft and Distention absent
Neuro/Psych: AO x 3
Other: Cardiac Device Site (normal pacer site)
Data Reviewed
-
Date of Service: June 17, 2024
[2024-06-17 11:22] LABS: Blood Urea Nitrogen 36 mg/dl (9-20); Calcium 8.9 mg/dl (8.4-10.2); Carbon Dioxide 26 mmol/L (22-30); Chloride 92 mmol/L (98-107); Estimated Creatinine Clearance 58 ml/min; Glucose 106 mg/dl (70-99); Magnesium 2.1 mg/dl (1.6-2.3); Potassium 4.2 mmol/L (3.5-5.1); Sodium 131 mmol/L (135-145); eGFR > 60.00
[2024-06-17] MEDS: STERILE WATER FOR INJECTION 20 ML IV (14:52)
[2024-06-17] MEDS: ROCEPHIN 2000 MG IV (14:52)
--- NOTE | 2024-06-17 15:56 | CM ---
Chart reviewed and plan is to home with [facility] when stable, Cost of Jardiance $158 copay and Farxiga $151 copay information provided to patient and physician, and patient is ok with copays and feels cardiology will choose the best drug for him.
Plan; Home with [facility].
--- NOTE | 2024-06-17 16:40 | W.PN.PUL3 ---
Today's Communication / Plan
-
Cleared for colonoscopy but remains high risk given severe sleep apnea
BiPAP therapy during procedure and head of bed elevated if possible
Continue with inhaler/nebulized therapy
If no improvement in cough with the above, will require CT chest. Hold for now
Eventual follow-up in pulmonary office. Patient has not been seen in 3 years
Assessment
-
83-year-old male with a history of PAF, hypertension, hypothyroid and permanent pacemaker who noticed blood in his stool and stopped Lasix instead of Eliquis and slowly gained 10 pounds presented with CHF requiring noninvasive
ventilation-wire drawing die maker consulted for respiratory failure/noninvasive ventilation/CHF/critical care management 06/13/2024.
Impression:
Axute HFmrEF exacerbation requiring noninvasive ventilation - now on room air with BiPAP use HS
Acute respiratory failure-hypoxemic and hypercapnic--VBG 06/13/2024--68/42/7.13
Hypertensive urgency - resolved
Sepsis with tachycardia, hypoxemia, leukocytosis, fevers, chills, rigors
CAP involving RLL
Metabolic acidosis - resolved
LLE non-purulent cellulitis
ZULEIKA - improving
Hyponatremia
Elevated troponin - peaked at 0.077 on 06/14/2024
Hyperglycemia - resolved
Nausea/vomiting
Hyperkalemia - now resolved
Leukocytosis
DNR
Conditions present prior to admission:
Hypertension.
Hypothyroid.
PAF on Eliquis
Heart failure preserved EF
Mitral regurgitation-moderate
Pulmonary hypertension
Chronic anticoagulation.
Obesity
Central sleep apnea-severe
Severe obstructive sleep apnea (AHI: 57.3 events/hr via PSG from 04/2021)
Periodic limb movements of sleep
AV block status post PPI 2020.
Plan
Respiratory decompensation likely due to CHF with mildly reduced EF in addition to sepsis from RLL pneumonia
Supplemental oxygen as needed to keep SpO2 >90-94%
Continue BiPAP at night, and trend VBG to assess stability of pH and pCO2
DO NOT INTUBATE-patient a DNR/DNI
Aspiration precautions
Patient appears to be improved with less wheeze on exam today
continue nebulized bronchodilators however given his tachycardia we will continue with Xopenex, and continue with Atrovent + budesonide
Given his wheezing on exam with improvement with nebulized bronchodilators please DC home on LABA/ICS with, for example, Symbicort, Dulera, Advair, or Breo
Mucolytics
CXR personally reviewed from 06/13 + 06/14
Diuresis as tolerated - holding lasix given worsening ZULEIKA today
Monitor renal function, electrolytes, intake/output, lower extremity edema and weight
Replace electrolytes as needed
Cardiology consulted - recs appreciated
Monitor blood pressure closely with goal MAP>65
Apparently at home he was not taking his Eliquis, and was taking his Lasix. Story is unreliable given he p/w ADHF
Follow-up blood culture (06/13/2024 - NGTD) + sputum culture (06/14/2024 - NGTD)
Influenza negative
UA from 06/13/2024 was negative
Empiric antibiotics initiated-Zosyn 06/14/2024 --> on 06/15 I changed ABx to ceftriaxone + doxy to cover his suspected RLL PNA and LLE cellulitis - will Tx for total of 7 days assuming he continues to clinically improve and remains afebrile for 48
hours prior to stopping antibiotics
Of note, if symptoms do not improve will require CT chest to rule out underlying pulmonary mass
Burgundy colored stool overnight and yesterday AM (06/15) - patient admits to this happening over last few weeks
Hb is slowly downtrending - c/t to monitor, and transfuse if needed to keep Hb>7, plt>50k
GI evaluation noted. Rectal mass.
Colonoscopy is recommended
Okay to proceed from pulmonary standpoint for colonoscopy
Patient cannot recall any issues with anesthesia but has not received in the last few years
Severe sleep apnea noted
Will require BiPAP during procedure and close monitoring with anesthesia, head of bed elevated if possible during colonoscopy
DVT prophylaxis-SCDs; holding Eliquis (see above)
Early nutrition
Early mobilization
Last saw Dr. Sanches 08/04/2021 for severe central and obstructive sleep apnea-maintained on auto SV-he was told to follow-up but never did-he said he forgot during the COVID era-will have him follow back up-he is willing
Diagnostic data:
Chest x-ray 06/09/2024-NAD, mild cardiomegaly
Chest x-ray 06/13/2024-right basilar interstitial airspace disease
CT chest 01/06/2021-no significant abnormalities within the chest
Brain MRI 03/22/2021-no acute intracranial abnormalities, no infarct
Echocardiogram 02/05/2023-EF 50-55%, moderate mitral regurgitation, aortic sclerosis, PA systolic 61
PSG 05/24/2021-sleep efficiency 72%, AHI-57.3, desaturation zackery 82%, 300 central apneas, 15% of time less than 90% saturation
Sleep study-complexity study 06/21/2021-sleep efficiency 81.6%, REM latency 51 minutes, AHI 2.8, desaturation zackery 90%, ASV-EPAP min 4, EPAP max 15, pressure support min 0, pressure support max 20-reduced AHI to 0.4 and 0% less than 90% saturation
PFT 08/04/21: FVC 2.45/70%, FEV1 1.83/74%, ratio 75. TLC 3.89/60%, DLCO 14.95/60%. When compared to 2019, TLC has decreased from 4.43-3.89. DLCO has decreased from 18.81 14.95.�������
[place] 05/03/21: FVC 2.48/66%, FEV1 1.96/74%, ratio 79. There is mild reactive airways disease.�������
PFT 03/10/20 (): FVC 2.72/72%, FEV1 2.13/80%, ratio 78. There is reactive airways disease.TLC 4.43/66%, DLCO 18.81/79%.
Subjective Data
-
Date of Service:
Date of Service: June 17, 2024
Subjective:
Patient continues to have dry cough. Chronic lower extremity swelling noted. Presently on room air. Tolerating CPAP overnight. at bedside
Objective Data
Data Reviewed
Vital Signs / I&O / Oxygen:
Vital Signs
Temp Pulse Resp BP Pulse Ox
98.0 F 76 16 107/71 94
06/17/24 15:30 06/17/24 15:30 06/17/24 15:30 06/17/24 15:30 06/17/24 15:30
Intake and Output
06/16/24 06/17/24 06/18/24
06:59 06:59 06:59
Intake Total 1136.5 / 1136.5 340 / 340
Output Total 1150 / 1150 700 / 700
Balance -13.5 / -13.5 -360 / -360
SaO2 94
Nasal Cannula flow liters per 3
minute
Physical Exam
General: Comfortable
HEENT: Normocephalic and Anicteric
Cardiovascular: S1-S2, Regular Rhythm, Murmur (n), Rub and Peripheral Edema (Anasarca)
Respiratory: Wheeze (n), Crackles (n), Rhonchi (n), Non-Labored Respirations and Other (Decreased at base)
GI: Soft and Non Distended
Neurology: Awake, Alert and No Motor Deficits (Generally weak)
Skin: Cyanosis (n), Jaundice (n) and Rash (Left lower extremity erythema)
Labs/Micro/Reports
Lab Data
06/17/24 09:01
06/17/24 09:01
Laboratory Results
06/16/24
17:05
PT 18.2 H
INR 1.53
APTT 47.4 H
Microbiology
06/13/24 20:24 Blood/Venous Blood Culture - Preliminary
No Growth in 72 hours- Final report to follow
06/14/24 10:39 Sputum Respiratory Culture - Final
Usual Respiratory Marisela
06/14/24 10:39 Sputum Gram Stain - Final
[2024-06-17] MEDS: ProAmatine PO (17:10)
--- NOTE | 2024-06-17 19:09 | W.PN.HOSP.TC ---
Today's Communication/Plan
-
Continue antibiotics
Lovenox for DVT Prophylaxis -- okay to do Lovenox as per GI
Continue to hold Eliquis as per GI
Assessment / Plan
Assessment / Plan
Physical Exam
General: Not in acute distress
HEENT: Normocephalic, Moist mucous membranes and Atraumatic
Respiratory: Rales, limited
Cardiac: S1/S2,
GI: Soft, Non Tender, Non Distended, obese.
Musculoskeletal: ++ Edema in LEs.
Neuro: Awake, followed commands
Psych: Calm
Assessment/Plan
# Acute hypoxemic and hypercapnic respiratory failure secondary to acute on chronic HFpEF exacerbation/ cardiogenic pulmonary edema
History of Lasix non-compliance
# Hypertensive emergency, then became hypotensive
History of severe central and obstructive sleep apnea
Fever
#Cardiomegaly
#Pulmonary Edema
#Pleural Effusion
-Was on Lasix, Nitro drip --> but then fever and hypotenion needing Levophed and antibiotics, weaned off Levophed and transferred out from the ICU
-Daily weights, I's and O's
-Echocardiogram
-Blood cultures with no growth to date. Negative influenza and COVID screen. Negative urinalysis.
-Continue with aggressive Diuretic therapy as blood pressure tolerates and monitor closely electrolytes and kidney function.
-Aspiration precautions
-Nebulizers as needed
-Mucolytics
-Appreciate pulmonary and cardiology help
#Severe Bilateral Lower Extremity Edema
#Sepsis/septic shock/lactic acidosis present on admission
#Pneumonia
#LLE Cellulitis
Tachycardia, hypoxia, leukocytosis, fevers
Possibly respiratory source. Negative urine. Negative influenza and COVID. Chest x-ray no definitive infiltrate
Follow-up with the blood cultures (NGTD)
-Empiric antibiotics with Rocephin and Doxycycline to cover patient's suspected RLL PNA and LLE cellulitis - total of 7 days of antibiotics, assuming patient continues to clinically improve and remains afebrile for 48 hours prior to stopping
antibiotics
-Levophed weaned off previously
Monitor temperature curve and WBC
#Hypotension
-Continue Midodrine
#Burgundy Stools Reported on 06/15/24
#Blood stools for a few weeks REINFORCING STEEL PLACER
-Eliquis held, as per cardiology and GI
-GI consulted, appreciate recommendations: continue to hold anticoagulation
-Monitor CBC
#Non-ischemic myocardial injury
#Hyponatremia, mild
-Monitor BMP
#Nausea/vomiting secondary to coughing episodes
-Zofran as needed
#Mild hyperkalemia - RESOLVED
-Potassium is 5.0, recheck
-Continue with Lasix
#Paroxysmal atrial fibrillation
-Hold Eliquis given burgundy stools on 06/15/24 -- will need to continue holding Eliquis as per GI
-Continue metoprolol
#AV block status post pacemaker
#Essential hypertension
-Low BP
#Hypothyroidism
-Continue levothyroxine
DNR/DNI
DVT prophylaxis�Eliquis on hold as above. Lovenox for DVT Prophylaxis started (confirmed that this is okay, as per GI). SCDs cancelled by ICU team because of bilateral lower extremity edema and lower extremity cellulitis.
Anticipated Discharge: > 48 hours
Subjective/Interval History
-
Date of Service: June 17, 2024
Patient was seen and examined. He denied any fever, chest pain, shortness of breath or any other complaints.
Objective Data
-
Labs:
Laboratory Results
06/17/24
09:01
WBC 14.8 H
Hgb 12.7 L
Hct 38.7 L
Plt Count 184
Sodium 131 L
Potassium 4.2
Chloride 92 L
Carbon Dioxide 26
BUN 36 H
Creatinine 1.1
Glucose 106 H
Calcium 8.9
Vital Signs:
Vital Signs
Temp Pulse Resp BP Pulse Ox
98.0 F 76 16 107/71 94
06/17/24 15:30 06/17/24 15:30 06/17/24 15:30 06/17/24 17:10 06/17/24 15:30
I&O
06/16/24 06/17/24 06/18/24
06:59 06:59 06:59
Intake Total 1136.5 / 1136.5 340 / 340 1440 / 1440
Output Total 1150 / 1150 700 / 700 480 / 480
Balance -13.5 / -13.5 -360 / -360 960 / 960
[2024-06-17] MEDS: LOVENOX 40 MG SC (19:59)
[2024-06-17] MEDS: MELATONIN 5 MG PO (21:59)
[2024-06-17] MEDS: TYLENOL 650 MG PO (22:00)
[2024-06-18] VITALS (10 sets, daily range): BP systolic 77–130; BP diastolic 62–82; PULSE 2; BMI 32.3
[2024-06-18] MEDS: SYNTHROID 100 MCG PO (05:47)
[2024-06-18] MEDS: XOPENEX 1.25 MG INHALANT SOLUTION INH ×3 (07:23→19:10)
[2024-06-18] MEDS: PULMICORT 0.5 MG INH ×2 (07:23→19:10)
[2024-06-18] MEDS: ATROVENT NEBULES 0.5 MG INH ×3 (07:23→19:10)
[2024-06-18] MEDS: FARXIGA 10 MG PO (09:06)
[2024-06-18] MEDS: PROTONIX IV 40 MG IV ×2 (09:10→20:46)
[2024-06-18] MEDS: VIBRAMYCIN 100 MG PO (09:11)
[2024-06-18] MEDS: NSS (PRESERVATIVE FREE) 10 ML IV ×2 (09:11→20:46)
--- NOTE | 2024-06-18 09:17 | W.PN.GI.CBS2 ---
Addendum entered and electronically signed by Nitin Hood MD 06/18/24 12:41:
I saw and examined the patient.
The MACHINE HEEL SPRAYER or PA's note was reviewed and I agree with the note.
Comment: Denies complaints
ABD soft NT
REC:
Plan colonoscopy tomorrow to evaluate rectal mass palpated on rectal exam
Continue to hold eliquis for now
Will keep HOB elevated and plan Bipap per pulmonary recommendations
Daughter in law concerned about LE wounds and will cover LE to prevent soilage during colonoscopy
Original Note:
Today's Communication / Plan
-
Plan for colonoscopy 06/19 for eval of rectal mass and GI bleeding
will give Miralax now then colyte later today
appreciate pulm and cards input for optimization-- sent pulm rec to GI lab for procedure tomorrow (bipap/upright as able)
hbg stable 12.7
cont PPI
clear diet with prep then NPO in AM
Eliquis remains on hold
family updated at bedside
LLE with redness/blistered area will consult wound care-- discussed with nursing to protect with bowel prep
Assessment / Plan
-
Pt is an 83yo presents with Afib on Eliquis, AV block with prior pacer, hypothyroidism, HTN, with onset of cough for past month with concern for flash pulm edema and 10 lbs wt gain and sepsis with tachycardia/leukocytosis, fever, and chills. He
admits to stopping Lasix prior to admission with concern for bleeding. Noted on on admission with mild drop in hbg and rise in BUN that is improving. . He was also noted with burgundy stool. In review with patient he is noted with
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 Last colonoscopy was over 30 years ago. 06/17 rectal mass noted on exam.
-anemia with mild drop in hbg after admission
-intermittent rectal bleeding with red and burgundy stools
-rectal mass on exam 06/17
-rise in BUN on admission improving
-flash pulm edema/ CHF with hypoxemia on admission
-LLE swelling, redness with blister -cellulitis
-concern for sepsis on admission with tachycardia, chills, fever, leukocytosis
-afib on Eliquis prior to admission
-LE blister on leg
-hyponatremia
other med problems:
-AV block
-pacer
-hypothyroidism
-HTN
-sleep apnea
-obesity
PLAN:
Plan for colonoscopy 06/19 for eval of rectal mass and GI bleeding
will give Miralax now then colyte later today
appreciate pulm and cards input for optimization-- sent pulm rec to GI lab for procedure tomorrow (bipap/upright as able)
hbg stable 12.7
cont PPI
clear diet with prep then NPO in AM
Eliquis remains on hold
family updated at bedside
LLE with redness/blistered area will consult wound care-- discussed with nursing to protect with bowel prep
Subjective
Subjective
Date of Service: June 18, 2024
06/17 burgundy stool on clear diet
Objective
Data Reviewed
Laboratory Data:
Laboratory Results
06/17/24 09:01
06/17/24 09:01
Laboratory Results
PT 18.2 Sec (11.4-14.6) H 06/16/24 17:05
INR 1.53 06/16/24 17:05
APTT 47.4 Sec (23.4-35.0) H 06/16/24 17:05
Phosphorus 3.2 mg/dl (2.5-4.5) 06/16/24 17:05
Magnesium 2.1 mg/dl (1.6-2.3) 06/17/24 09:01
Total Bilirubin Cancelled 06/16/24 00:35
AST Cancelled 06/16/24 00:35
ALT Cancelled 06/16/24 00:35
Alkaline Phosphatase Cancelled 06/16/24 00:35
Vital Signs and I&O:
Vital Signs
Temp Pulse Resp BP Pulse Ox
97.6 F 107 20 77/64 95
06/18/24 07:30 06/18/24 07:30 06/18/24 07:30 06/18/24 07:30 06/18/24 07:30
I&O
06/17/24 06/18/24 06/19/24
06:59 06:59 06:59
Intake Total 340 / 340 1720 / 1720
Output Total 700 / 700 1280 / 1280
Balance -360 / -360 440 / 440
Physical Exam
Physical Exam
HEENT: Anicteric and Moist mucous membranes
Cardiology: Other (tachy)
Pulmonary: Clear
GI: Soft, Non Distended and Non Tender
Extremities: Edema (with left redness and blistered area )
Neuro: Non Focal
[2024-06-18] MEDS: TOPROL XL PO (09:22)
[2024-06-18] MEDS: MUCINEX 1200 MG PO ×2 (09:25→20:46)
[2024-06-18] MEDS: ProAmatine 2.5 MG PO ×3 (09:25→17:20)
--- NOTE | 2024-06-18 09:27 | PN.CDI ---
CDI
- -
CDI:
Physician Documentation Request
Admit Date: 06/13/24 14:07
Dear Doctor Ja,
Clinical Indicators:
Patient admitted with sepsis.
06/15 Echocardiogram Report,'Left ventricular ejection fraction is 45-50%'
06/17 PN, '...acute on chronic HFpEF exacerbation'
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
Due to potentially conflicting documentation, please clarify type of CHF you are evaluating, treating or monitoring.
HFmrEF
HFpEF (documentation complete)
Other, pleas specify
Use of terms such as suspected, likely, concern for, or probable (associated with a specific diagnosis that is being evaluated, monitored, or treated as if it exists) are acceptable and can be coded in the inpatient setting, when documented at the
time of discharge.
Thank you,
Alea Mittal RN BSN
CDI Specialist
available via tiger text
Please use your independent medical judgment in providing your response.
[2024-06-18] MEDS: ALDACTONE PO (09:29)
[2024-06-18] MEDS: DESENEX/MITRAZOL/ZEASORB 1 APPLIC TOPICAL ×2 (09:31→20:47)
[2024-06-18] MEDS: MIRALAX 34 GRAMS PO (10:09)
--- NOTE | 2024-06-18 10:33 | W.PN.CD ---
Today's Communication / Plan
-
GI evaluation in progress. Plan for colonoscopy as scheduled
Cautious use of diuretics considering issues noted above
Continue to monitor edema closely. Note ultrasound negative for DVT
Wound care for left lower extremity.
Additional CARE left lower extremity being directed by primary team
Impression / Plan
-
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
-Still with significant edema. Patient initially placed on Lasix with some bleeding and lower blood pressure as it is held.
-Cautious with diuretic and GI prep.
-Resume IV Lasix with close monitoring of blood pressure and continued midodrine
- Will add SGLT2-I and MRA that should be well tolerated
GI bleeding. Noted earlier this admission. Rectal mass noted on exam GI evaluation in progress
-Plan for colonoscopy
-Remains off anticoagulation as GI workup in progress
Low BP
- On midodrine
Nonischemic cardiomyopathy
Permanent AFib
- Eliquis on hold
-Timing of restart of Eliquis depending on GI evaluation.
Bilateral lower extremity edema marked lower extremity edema. Left leg with significant erythema and areas of blistering
-Wound care
-Assess for possible cellulitis. Will review with primary team
NSVT, asymptomatic
- No syncope, EF more than 40. No ICD for now
Bifascicular heart block (RBBB/LAFB)
Single chamber MDT pacer in place for periods of second degree AV block/pauses
Suspected intermittent rectal bleeding
- GI involved
Subjective:
No CP, no syncope/palps. URIAS.
Data:
Echo 06/15/2024: TDS, LVEF 45-50%, mild M
Single chamber PPM placed 01/16/2021, MDT
Cath 11/30/2020: No obstructive CAD, luminal diseasse present, LVEDP 16 mmHg
Physical Exam
Vital Signs/Labs
Vital Signs
Temp Pulse Resp BP Pulse Ox
97.6 F 105 20 98/62 95
06/18/24 07:30 06/18/24 09:20 06/18/24 07:30 06/18/24 09:22 06/18/24 07:30
06/17/24 06/18/24 06/19/24
06:59 06:59 06:59
Actual Weight 95.85 kg 96.332 kg
06/17/24 09:01
06/17/24 09:01
PT 18.2 Sec (11.4-14.6) H 06/16/24 17:05
INR 1.53 06/16/24 17:05
APTT 47.4 Sec (23.4-35.0) H 06/16/24 17:05
Magnesium 2.1 mg/dl (1.6-2.3) 06/17/24 09:01
06/13/24
13:19
Ukh-H-Ecequdpdaxl Pept 5370
Physical Exam
Constitutional: No acute distress
Cardiovascular: Rhythm/rate is irregular
Respiratory: Wheeze Absent and Rhonchi Absent
GI: Soft, Non tender and Normal bowel sounds
Neuro/Psych: Alert, Oriented and AO x 3
Data Reviewed
-
Date of Service: June 18, 2024
Medical Decision Making: Reviewed Test Results
Medical Tests (PFT, Pathology etc): Report Reviewed by me
Labs: Labs Reviewed by me
--- NOTE | 2024-06-18 10:42 | W.PN.HOSP.TC ---
Today's Communication/Plan
-
SPECIAL CARE MUST BE TAKEN TO PREVENT STOOL OR ANY BOWEL MOVEMENTS OR URINE OR ANY OTHER CONTAMINANT FROM TOUCHING PATIENT'S LEFT LOWER EXTREMITY DUE TO WORSENING CELLULITIS AND WOUNDS ON THE LLE
Antibiotics broadened, ID consulted, appreciate their evaluation and recommendations
Appreciate cardiology
Colonoscopy planned for tomorrow
Continue to hold Eliquis as per GI
Lovenox for DVT prophylaxis
Assessment / Plan
Assessment / Plan
Physical Exam
General: Not in acute distress
HEENT: Normocephalic, Moist mucous membranes and Atraumatic
Respiratory: Rales, limited
Cardiac: S1/S2,
GI: Soft, Non Tender, Non Distended, obese.
Musculoskeletal: ++ Edema in LEs.
Skin: LLE with cellulitis with wounds and weeping, spreading erythema up the LLE
Neuro: Awake, followed commands
Psych: Calm
Assessment/Plan
# Acute hypoxemic and hypercapnic respiratory failure secondary to acute on chronic HFpEF exacerbation/ cardiogenic pulmonary edema
History of Lasix non-compliance
# Hypertensive emergency, then became hypotensive
History of severe central and obstructive sleep apnea
Fever
#Cardiomegaly
#Pulmonary Edema
#Pleural Effusion
-Was on Lasix, Nitro drip --> but then fever and hypotenion needing Levophed and antibiotics, weaned off Levophed and transferred out from the ICU
-Daily weights, I's and O's
-Echocardiogram noted
-Blood cultures with no growth to date. Negative influenza and COVID screen. Negative urinalysis.
-Continue with aggressive Diuretic therapy as blood pressure tolerates and monitor closely electrolytes and kidney function.
-Aspiration precautions
-Nebulizers as needed
-Mucolytics
-Appreciate pulmonary and cardiology help
#Severe Bilateral Lower Extremity Edema
#Sepsis/septic shock/lactic acidosis present on admission
#Pneumonia
#LLE Cellulitis - WORSENING
Tachycardia, hypoxia, leukocytosis, fevers
-Follow-up with the blood cultures (NGTD)
-Previously was on empiric antibiotics with Rocephin and Doxycycline to cover patient's suspected RLL PNA and LLE cellulitis
-Patient's pneumonia symptoms improved but LLE cellulitis symptoms have significantly worsened with erythema spreading up the LLE
-Therefore, switched antibiotics to Vancomycin, Cefepime and Flagyl for now
-ID consulted, appreciate their evaluation and recommendations
-Levophed weaned off previously
#Hypotension
-Continue Midodrine
#Burgundy Stools Reported on 06/15/24
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
-Eliquis held, as per cardiology and GI
-GI consulted, appreciate recommendations: continue to hold anticoagulation, colonoscopy for tomorrow
-Monitor CBC
-SPECIAL CARE MUST BE TAKEN TO PREVENT STOOL OR ANY BOWEL MOVEMENTS OR URINE FROM TOUCHING PATIENT'S LEFT LOWER EXTREMITY DUE TO WORSENING CELLULITIS AND WOUNDS
#Non-ischemic myocardial injury
#Hyponatremia, mild
-Monitor BMP
#Nausea/vomiting secondary to coughing episodes
-Zofran as needed
#Mild hyperkalemia - RESOLVED
-Potassium is 5.0, recheck
-Continue with Lasix
#Paroxysmal atrial fibrillation
-Hold Eliquis given burgundy stools on 06/15/24 -- will need to continue holding Eliquis as per GI, colonoscopy tomorrow
-Continue metoprolol
#AV block status post pacemaker
#Essential hypertension
-Low BP
#Hypothyroidism
-Continue levothyroxine
DNR/DNI
DVT prophylaxis�Eliquis on hold as above. Lovenox for DVT Prophylaxis started (confirmed that this is okay, as per GI). SCDs cancelled by ICU team because of bilateral lower extremity edema and lower extremity cellulitis.
I spoke with patient's family, including patient's daughter, all questions and concerns were answered to satisfaction.
Total time spent today on chart review, seeing and examining patient, speaking with patient's family, talking with cardiology and infectious disease, placing orders and documentation, was 65 minutes.
Anticipated Discharge: > 48 hours
Subjective/Interval History
-
Date of Service: June 18, 2024
Patient was seen and examined. His cough and respiratory symptoms have improved, but his left lower extremity cellulitis has been getting worse, with more drainage, wounds, and spreading erythema.
Objective Data
-
Vital Signs:
Vital Signs
Temp Pulse Resp BP Pulse Ox
97.6 F 105 20 98/62 95
06/18/24 07:30 06/18/24 09:20 06/18/24 07:30 06/18/24 09:22 06/18/24 07:30
I&O
06/17/24 06/18/24 06/19/24
06:59 06:59 06:59
Intake Total 340 / 340 1720 / 1720
Output Total 700 / 700 1280 / 1280
Balance -360 / -360 440 / 440
[2024-06-18 11:18] LABS: % Basophils 0.5 % (0-2); % Eosinophils 0.8 % (0-6); % Immature Granulocytes 1.7 % (0-0.5); % Lymphocytes 3.9 % (20.5-51.1); % Monocytes 4.7 % (1.7-9.3); % Neutrophils 88.4 % (42.2-75.2); Absolute Basophils 0.1 10^3/uL (0-0.2); Absolute Eosinophils 0.1 10^3/uL (0-0.7); Absolute Immature Granulocytes 0.2 10^3/uL (0-0.05); Absolute Lymphocytes 0.5 10^3/uL (1.2-3.4); Absolute Monocytes 0.6 10^3/uL (0.1-0.6); Absolute Neutrophils 12.1 10^3/uL (1.4-6.5); Hematocrit 38.2 % (39.0-52.0); Hemoglobin 12.5 g/dL (13.0-18.0); Mean Corp Hgb Conc. 32.7 g/dL (33.0-37.0); Mean Corpuscular Hgb 28.4 pg (27.0-31.0); Mean Corpuscular Volume 86.8 fL (80.0-94.0); Mean Platelet Volume 10.9 fL (7.4-10.4); Nucleated Red Blood Cells % 0.1 % (-); Platelet Count 212 10^3/uL (130-400); Red Cell Dist. Width 16.2 % (11.5-14.5); White Blood Cell Count 13.7 10^3/uL (4.8-10.8)
[2024-06-18 11:29] LABS: Blood Urea Nitrogen 26 mg/dl (9-20); Calcium 8.7 mg/dl (8.4-10.2); Carbon Dioxide 26 mmol/L (22-30); Chloride 94 mmol/L (98-107); Estimated Creatinine Clearance 64 ml/min; Glucose 139 mg/dl (70-99); Potassium 4.1 mmol/L (3.5-5.1); Sodium 131 mmol/L (135-145); eGFR > 60.00
--- NOTE | 2024-06-18 12:02 | WOUNDNOTE ---
[facility] RN note: Patient admitted with respiratory failure, CHF, increased LE edema. Patient is . Plan is home with VN if goes home when discharged.
See H&P for complete history.
PMH: a fib (Eliquis), pacer, HTN.
Wound Location and type/assessment: Patient admitted with: L medial calf with serous and purple ecchymotic intact and broken blisters with large amount of yellow serous drainage. +3 L leg edema. +2 RLE edema. L leg with diffuse erythema. Patient
denies leg pain. +Pedal pulses easily heard via portable Doppler. WBC trending down. 06/14/24 LE venous Doppler negative for DVT. Emohoiru-jr-gra stated the LLE blisters and redness started 2 days ago but looks worse today. ID has been consulted.
Sacrum with mild MASD.
Appetite: currently NPO. He has a colonoscopy planned tomorrow for GI bleed, mass.
Pressure redistribution devices in place: [employer] Air bed. Patient helps with turning.
Plan: Herman texted Dr. Ja Farmer leg pics indicated changes from Saturday as per family member. Hospitalist approved local wound care. Defer to ID if and when leg compression indicated. Dressing applied LLE. Patient turned with help from RN
Misty. Heels off bed with pillow.
Care plan to be updated and will follow as needed.
Note to case management of equipment requested for discharge: Air mattress at SNF unless mobility improves.
Recommend follow up at wound care center upon discharge.
--- NOTE | 2024-06-18 12:11 | PHA.VAN.IN ---
Assessment
- Assessment
Renal Function: Appears similar to baseline (resolving ZULEIKA)
Concomitant Antimicrobials: ceftriaxone
AUC Dosing Plan
- Dosing Variables
Dosing Weight (kg): 96
Dosing CrCl (ml/min): 64
Vd coefficient (L/kg): 0.6
- Empiric Dosing
Initial / Loading Dose: 1500mg - administration pending
Maintenance Regimen: Vanc 750mg Q12H starting 06/19 06
Estimated AUC (mcg*h/mL): 466
Estimated Peak (mcg*h/mL): 26.1
Estimated Trough (mcg/ml): 13.9
Estimated Half Life (H): 12
Patient currently borderline for Q12 vs Q24 dosing interval
SCR has been on downward trend since peaking at 1.8 on 06/15
Will tentatively schedule Q12H dosing. Patient may require further dose adjustment depending on trend of SCR over next few days
Pharmacokinetics Vancomycin I
- -
Patient Age: 83
Patient Sex: Male
Vancomycin Day #: 1
Indication: Skin And Soft Tissue
Requesting Provider: Dr. Peres
Pertinent Antimicrobial Allergies:
unknown antibiotic - confusion
Height / Weight:
Height 5 ft 8 in
Actual Weight 96.332 kg
Pertinent Past Medical History: BMI ~32
- Vital Signs / Lab Results
Temp Pulse Resp BP Pulse Ox
97.7 F 99 18 108/70 97
06/18/24 11:45 06/18/24 11:45 06/18/24 11:45 06/18/24 11:45 06/18/24 11:45
Lab Results - Hematology
06/16/24 06/16/24 06/17/24
00:29 17:05 09:01
WBC 14.1 H 15.0 H 14.8 H
06/18/24
10:58
WBC 13.7 H
Lab Results - Chemistry
06/16/24 06/16/24 06/16/24
00:29 00:35 17:05
BUN 50 H Cancelled 44 H
Creatinine 1.6 H Cancelled 1.3
Estimated Creat Clear 40 Cancelled 50
Albumin 3.0 L Cancelled
06/17/24 06/18/24
09:01 10:58
BUN 36 H 26 H
Creatinine 1.1 1.0
Estimated Creat Clear 58 64
Albumin
Microbiology Results
06/13/24 20:24 Blood Culture - Preliminary
Blood/Venous No Growth in 4 days- Final report to follow
06/14/24 10:39 Respiratory Culture - Final
Sputum Usual Respiratory Marisela
Gram Stain - Final
[2024-06-18] MEDS: VANCOCIN 300 MG IV (12:37)
[2024-06-18] MEDS: VANCOCIN 300 ML IV (12:37)
--- NOTE | 2024-06-18 14:39 | CM ---
Plan home with family and [facility].
Plan; Home with family and [facility].
--- NOTE | 2024-06-18 15:23 | W.PN.PUL3 ---
Today's Communication / Plan
-
Continue antibiotics until tomorrow
Colonoscopy
Continue nocturnal BiPAP
Avoid sedatives
Cautious diuresis as able
Nebulizers
Secretion clearance intervention
Will follow
Assessment
-
83-year-old male with a history of PAF, hypertension, hypothyroid and permanent pacemaker who noticed blood in his stool and stopped Lasix instead of Eliquis and slowly gained 10 pounds presented with CHF requiring noninvasive
ventilation-specialty sales representative consulted for respiratory failure/noninvasive ventilation/CHF/critical care management 06/13/2024.
Impression:
Axute HFmrEF exacerbation requiring noninvasive ventilation - now on room air with BiPAP use HS
Acute respiratory failure-hypoxemic and hypercapnic--VBG 06/13/2024--68/42/7.13
Hypertensive urgency - resolved
Sepsis with tachycardia, hypoxemia, leukocytosis, fevers, chills, rigors
CAP involving RLL
Metabolic acidosis - resolved
LLE non-purulent cellulitis
ZULEIKA - improving
Hyponatremia
Elevated troponin - peaked at 0.077 on 06/14/2024
Hyperglycemia - resolved
Nausea/vomiting
Hyperkalemia - now resolved
Leukocytosis
DNR
Conditions present prior to admission:
Hypertension.
Hypothyroid.
PAF on Eliquis
Heart failure preserved EF
Mitral regurgitation-moderate
Pulmonary hypertension
Chronic anticoagulation.
Obesity
Central sleep apnea-severe
Severe obstructive sleep apnea (AHI: 57.3 events/hr via PSG from 04/2021)
Periodic limb movements of sleep
AV block status post PPI 2020.
Plan
Respiratory decompensation likely due to CHF with mildly reduced EF in addition to sepsis from RLL pneumonia
Supplemental oxygen as needed to keep SpO2 >90-94%
Continue BiPAP at night while in the hospital, VBG compensated 06/17/2024
DO NOT INTUBATE-patient a DNR/DNI
Aspiration precautions
Improved bronchospasm.
On room air.
continue nebulized bronchodilators however given his tachycardia we will continue with Xopenex, and continue with Atrovent + budesonide
Given his wheezing on exam with improvement with nebulized bronchodilators would DC home on LABA/ICS with, - Dulera, Advair, or Breo
Continue mucolytics
Secretion clearance interventions-incentive spirometry
Acapella device.
Cautious diuresis.
Monitor renal function, electrolytes, intake/output, lower extremity edema and weight
Cardiology consulted - recs appreciated
Apparently at home he was not taking his Eliquis, and was taking his Lasix. Story is unreliable given he p/w ADHF
Cultures: (06/13/2024 - NGTD) + sputum culture (06/14/2024 - NGTD)
Influenza negative
UA from 06/13/2024 was negative
Empiric antibiotics initiated-Zosyn 06/14/2024 --> on 06/15 I changed ABx to ceftriaxone to cover his suspected RLL PNA and LLE cellulitis -he is clinically improving.
initially on doxycycline, now discontinued.
Now on vancomycin for left lower extremity erythema and swelling. Per primary team.
Complete antibiotics 06/19/2024 from the pulmonary perspective.
Of note, if symptoms do not improve will require CT chest to rule out underlying pulmonary mass, will need radiographic follow-up in the outpatient setting.
GI bleed/rectal mass:
Burgundy colored stool overnight and yesterday AM (06/15) - patient admits to this happening over last few weeks
Hb is slowly downtrending - c/t to monitor, and transfuse if needed to keep Hb>7, plt>50k
GI evaluation noted. Rectal mass.
Colonoscopy for tomorrow.
Okay to proceed from pulmonary standpoint for colonoscopy
Patient cannot recall any issues with anesthesia but has not received in the last few years
-
Severe sleep apnea noted
Will require BiPAP during procedure and close monitoring with anesthesia, head of bed elevated if possible during colonoscopy
DVT prophylaxis-SCDs; holding Eliquis (see above)
Last saw Dr. Sanches 08/04/2021 for severe central and obstructive sleep apnea-maintained on auto SV-he was told to follow-up but never did-he said he forgot during the COVID era-will have him follow back up-he is willing

Diagnostic data:
Chest x-ray 06/09/2024-NAD, mild cardiomegaly
Chest x-ray 06/13/2024-right basilar interstitial airspace disease
CT chest 01/06/2021-no significant abnormalities within the chest
Brain MRI 03/22/2021-no acute intracranial abnormalities, no infarct
Echocardiogram 02/05/2023-EF 50-55%, moderate mitral regurgitation, aortic sclerosis, PA systolic 61
PSG 05/24/2021-sleep efficiency 72%, AHI-57.3, desaturation zackery 82%, 300 central apneas, 15% of time less than 90% saturation
Sleep study-complexity study 06/21/2021-sleep efficiency 81.6%, REM latency 51 minutes, AHI 2.8, desaturation zackery 90%, ASV-EPAP min 4, EPAP max 15, pressure support min 0, pressure support max 20-reduced AHI to 0.4 and 0% less than 90% saturation
PFT 08/04/21: FVC 2.45/70%, FEV1 1.83/74%, ratio 75. TLC 3.89/60%, DLCO 14.95/60%. When compared to 2019, TLC has decreased from 4.43-3.89. DLCO has decreased from 18.81 14.95.�������
Kevin 05/03/21: FVC 2.48/66%, FEV1 1.96/74%, ratio 79. There is mild reactive airways disease.�������
PFT 03/10/20 (): FVC 2.72/72%, FEV1 2.13/80%, ratio 78. There is reactive airways disease.TLC 4.43/66%, DLCO 18.81/79%.
Subjective Data
-
Date of Service:
Date of Service: June 18, 2024
Chief Complaint: Pulmonary Follow Up (Hypoxemic respiratory failure)
Review of Systems
Cardiopulmonary: Dyspnea, Cough and Chest Pain (n)
GI: Abdominal Pain (n) and Nausea
Neuro: Headache (n)
Objective Data
Data Reviewed
Vital Signs / I&O / Oxygen:
Vital Signs
Temp Pulse Resp BP Pulse Ox
97.7 F 102 18 108/70 95
06/18/24 11:45 06/18/24 14:04 06/18/24 14:04 06/18/24 11:45 06/18/24 14:04
Intake and Output
06/17/24 06/18/24 06/19/24
06:59 06:59 06:59
Intake Total 340 / 340 1720 / 1720
Output Total 700 / 700 1280 / 1280
Balance -360 / -360 440 / 440
SaO2 95
Nasal Cannula flow liters per 3
minute
Physical Exam
General: Comfortable
HEENT: Normocephalic and Anicteric
Cardiovascular: S1-S2, Regular Rhythm, Murmur (n), Rub and Peripheral Edema (Anasarca)
Respiratory: Wheeze (n), Crackles (n), Rhonchi (n), Non-Labored Respirations and Other (Decreased at base)
GI: Soft and Non Distended
Neurology: Awake, Alert and No Motor Deficits (Generally weak)
Skin: Cyanosis (n), Jaundice (n) and Rash (Left lower extremity erythema)
Labs/Micro/Reports
Lab Data
06/18/24 10:58
06/18/24 10:58
Microbiology
06/13/24 20:24 Blood/Venous Blood Culture - Preliminary
No Growth in 4 days- Final report to follow
06/14/24 10:39 Sputum Respiratory Culture - Final
Usual Respiratory Marisela
06/14/24 10:39 Sputum Gram Stain - Final
--- NOTE | 2024-06-18 17:11 | WOUNDNOTE ---
[facility] RN note: [facility] texted ID Dr. Daly re: defer to ID if knee or thigh high compression (i.e. Valerio) appropriate for patient.
[2024-06-18] MEDS: STERILE WATER FOR INJECTION 20 ML IV (17:19)
[2024-06-18] MEDS: ROCEPHIN 2000 MG IV (17:19)
[2024-06-18] MEDS: LOVENOX 40 MG SC (17:20)
[2024-06-18] MEDS: NULYTELY SOLUTION 4 LITERS PO (17:20)
[2024-06-18] MEDS: FLAGYL 500 MG 100 IV (17:46)
--- NOTE | 2024-06-18 17:59 | CON.ID ---
Consultation
-
Date/Time Consultation Requested: 06/18/2024 1039
Date/Time Consultation Performed: 06/14/2024 1730
Requesting Provider: Dr. Wayne
Performing Provider: Dr. Gurrola
Reason for Consultation: Left leg cellulitis
Chief Complaint / Past History
History of Present Illness
Peter Pollard is an 83-year-old man being evaluated at the request of Dr. Wayne in regards to left lower extremity cellulitis. History is obtained from chart review, along with patient interview. Additional history was obtained from the patient's
who is at the bedside.
The patient evidently was in his usual state of health until approximately 6 weeks ago when he developed a cough. Approximately 10 days later he saw his PCP and was started on an antibiotic along with a course of steroids. The at present does
not know which antibiotic was prescribed. The patient took antibiotics for 10 days and seemed to improve and approximately 5 days after finishing his course he was back to see his PCP where a chest x-ray reportedly was clear. Despite this, he
thereafter developed worsening shortness of breath and generalized weakness. Ultimately, he presented to the emergency room on 06/13 following the acute worsening of shortness of breath associated with shaking. While in the ER the patient was
found to have a pulse ox in the 60s and was noted to be mottled. He was stabilized, and admitted to the intensive care unit where he remained for approximately 4 days. While there he began to have increasing lower extremity edema along with left
lower extremity erythema. He thereafter developed some blistering along the medial aspect of his left calf area. Since that time there has been spread of the erythema up the leg and along the lateral thigh. Currently there is noted to be some
serous drainage from the leg and bullae formation.
The patient admits to whitish sputum production. He denies any chest pain. He notes mild tenderness with palpation of the left lateral thigh area. He denies any inguinal pain or swelling.
Past History
Additional Past Medical History:
A-fib
HTN
Hypothyroidism
Renal cyst
Additional Past Surgical History:
PPM
Allergy History:
'unknown antibiotic' Allergy (Uncoded 06/13/24 12:58)
confusion
Medications Reviewed: Yes
Current Antibiotics:
Vancomycin
Cefepime
Metronidazole
Ceftriaxone (DC'd)
Social History
Tobacco: Non-Smoker
Alcohol: None
Drug: None
Personal:
Living: With Family
Employment: Retired
Family History
Family History: Not Pertinent
Review of Systems
Vital Signs
Temp Pulse Resp BP Pulse Ox
98.9 F 99 22 106/69 94
06/18/24 16:25 06/18/24 16:25 06/18/24 16:25 06/18/24 16:25 06/18/24 16:25
Physical Exam
Physical Exam
Constitutional: No Acute Distress, Comfortable and Non-toxic
Eyes: No Conjunctival Hemorrhage and Sclera Anicteric
Oral: No Thrush and No Ulcers
Cardiovascular: Regular Rate and S1/S2; Negative S3/S4
Pulmonary: Clear; Negative Wheezes, Rales or Rhonchi
Gastrointestinal: Soft, Non Tender and Non Distended
Genito-Urinary: Negative Hodges
Extremities: Edema (LLE) and Erythema (LLE); Negative Calf Swelling or Venous Insufficiency
Musculoskeletal: Negative Joint Swelling
Wound: Other (Medial left calf area with superficial wound and several areas of bullae formation.)
Neurological: Awake and Alert; Negative Meningeal Signs
Psychological: Calm
.
Lab / Diagnostic Study Results
06/18/24 10:58
06/18/24 10:58
Abs Immat Gran (auto) 0.2 10^3/uL (0-0.05) H 06/18/24 10:58
Absolute Neuts (auto) 12.1 10^3/uL (1.4-6.5) H 06/18/24 10:58
Absolute Lymphs (auto) 0.5 10^3/uL (1.2-3.4) L 06/18/24 10:58
Absolute Monos (auto) 0.6 10^3/uL (0.1-0.6) 06/18/24 10:58
Absolute Basos (auto) 0.1 10^3/uL (0-0.2) 06/18/24 10:58
Total Counted 100 06/14/24 05:17
Immature Gran % 1.7 % (0-0.5) H 06/18/24 10:58
Neutrophils % 88.4 % (42.2-75.2) H 06/18/24 10:58
Lymphocytes % 3.9 % (20.5-51.1) L 06/18/24 10:58
Monocytes % 4.7 % (1.7-9.3) 06/18/24 10:58
Eosinophils % 0.8 % (0-6) 06/18/24 10:58
Basophils % 0.5 % (0-2) 06/18/24 10:58
Abs Neuts (Manual) 12.1 10^3/uL (1.4-6.5) H 06/14/24 05:17
Segmented Neutrophils 44 % (42-75) 06/14/24 05:17
Band Neutrophils 45 % (0-3) H 06/14/24 05:17
Lymphocytes (Manual) 2 % (20-51) L 06/14/24 05:17
PT 18.2 Sec (11.4-14.6) H 06/16/24 17:05
INR 1.53 06/16/24 17:05
Lactic Acid 2.5 mmol/L (0.7-2.0) H 06/14/24 05:17
Procalcitonin 0.98 ng/ml (0.0-0.25) H 06/13/24 20:24
Microbiology Results
Micro:
06/13/24 20:24 Blood Culture - Preliminary
Blood/Venous No Growth in 4 days- Final report to follow
06/14/24 10:39 Respiratory Culture - Final
Sputum Usual Respiratory Marisela
Gram Stain - Final
06/13/24 20:24 Influenza Types A & B (MEG) - Final
Nasal Swab Negative for Influenza A & B, NAAT
Negative results must be combined with clinical observations
and patient history.
Nucleic Acid Amplification test (NAAT)performed on the
[employer] platform.
Imaging:
06/14/2024 CXR (portable): Mild cardiomegaly with suggestion of mild interstitial cardiogenic pulmonary edema. Minimal bilateral pleural effusions. Left-sided cardiac pacemaker in place. No focal dense airspace consolidation noted. Please see
full dictation for additional detail. Film personally viewed.
Assessment / Plan
Left lower extremity cellulitis
-Given appearance, suspect streptococcal or staphylococcal in etiology
Leukocytosis
-Overall improving with a downward trend.
Acute exacerbation CHF
Rectal mass/GI bleed
� For colonoscopy tomorrow
A-fib
HTN
Hypothyroidism
Hx Renal cyst
Recommendations:
Continue with vancomycin to cover for potential MRSA. Follow levels closely.
Discontinue further cefepime and metronidazole. Transition antibiotic to cefazolin 2 g IV every 8 hours for coverage of streptococcal and susceptible staphylococcal isolates.
Continue with local care to the wound.
Lower extremity elevation above the level of the heart to facilitate drainage.
Will apply Valerio wrap to the lower extremity (foot to above-knee) to decrease overall edema.
Monitor white count temperature curve.
[2024-06-18] MEDS: TOPROL XL 50 MG PO (20:45)
[2024-06-18] MEDS: ANCEF 10 IV (20:46)
[2024-06-18] MEDS: MELATONIN 5 MG PO (21:00)
[2024-06-19] VITALS (14 sets, daily range): BP systolic 22–145; BP diastolic 54–80; PULSE 2–101; BMI 32.8
[2024-06-19] MEDS: ANCEF 10 IV ×3 (04:36→20:37)
[2024-06-19] MEDS: SYNTHROID 100 MCG PO (05:08)
[2024-06-19] MEDS: VANCOCIN 150 IV ×2 (05:08→17:57)
--- NOTE | 2024-06-19 06:37 | PTCARENOTE ---
Patient is scheduled for today. But patient still having brown soft BM. Dr Mejias made aware. See MAR for orders.
[2024-06-19] MEDS: GAVILAX 125 GM PO (07:22)
[2024-06-19] MEDS: XOPENEX 1.25 MG INHALANT SOLUTION INH ×3 (07:50→20:19)
[2024-06-19] MEDS: ATROVENT NEBULES 0.5 MG INH ×3 (07:50→20:20)
[2024-06-19] MEDS: PULMICORT 0.5 MG INH ×2 (07:50→20:20)
[2024-06-19 08:14] LABS: Hematocrit 39.4 % (39.0-52.0); Hemoglobin 12.7 g/dL (13.0-18.0); Mean Corp Hgb Conc. 32.2 g/dL (33.0-37.0); Mean Corpuscular Hgb 27.3 pg (27.0-31.0); Mean Corpuscular Volume 84.7 fL (80.0-94.0); Mean Platelet Volume 10.4 fL (7.4-10.4); Platelet Count 245 10^3/uL (130-400); Red Blood Cell Count 4.65 10^6/uL (4.70-6.10); Red Cell Dist. Width 16.3 % (11.5-14.5); White Blood Cell Count 12.7 10^3/uL (4.8-10.8)
[2024-06-19] MEDS: NSS (PRESERVATIVE FREE) 10 ML IV ×2 (08:51→20:31)
[2024-06-19] MEDS: PROTONIX IV 40 MG IV ×2 (08:51→20:31)
[2024-06-19] MEDS: ProAmatine 2.5 MG PO ×3 (08:51→17:57)
[2024-06-19] MEDS: MUCINEX 1200 MG PO ×2 (08:52→20:24)
[2024-06-19] MEDS: ALDACTONE 12.5 MG PO (08:52)
[2024-06-19] MEDS: TOPROL XL 50 MG PO (08:52)
[2024-06-19] MEDS: DESENEX/MITRAZOL/ZEASORB 1 APPLIC TOPICAL ×2 (08:55→20:34)
[2024-06-19] MEDS: HYDROPHOR 1 APPLIC TOPICAL (08:59)
[2024-06-19 09:14] LABS: Blood Urea Nitrogen 23 mg/dl (9-20); Calcium 8.5 mg/dl (8.4-10.2); Carbon Dioxide 27 mmol/L (22-30); Chloride 94 mmol/L (98-107); Estimated Creatinine Clearance 65 ml/min; Glucose 119 mg/dl (70-99); Potassium 4.4 mmol/L (3.5-5.1); Sodium 131 mmol/L (135-145); eGFR > 60.00
--- NOTE | 2024-06-19 10:45 | PTCARENOTE ---
patient had 16 beat run of vtach, pt laying in bed, asymptomatic, MD Palomares notified. pt sent to colonoscopy. will check tele
--- NOTE | 2024-06-19 11:00 | PHA.VAN.FU ---
Vancomycin Assessment / Plan
- Assessment
Renal Function: Stable
WBC's are: Trending Down
In the past 24 hrs, patient has been: Afebrile
Concomitant Antimicrobials: cefazolin
- Dosing Plan
Continue: Vanc 750mg Q12H
- Monitoring Plan
No level(s) ordered at this time: consider levels in next few days
- Follow Up
Pharmacy will continue to follow.
Vancomycin Follow UP
- -
Patient Age: 83
Patient Sex: Male
Vancomycin Day #: 2
Indication: Skin And Soft Tissue
Requesting Provider: Dr. Peres
Pertinent Antimicrobial Allergies:
unknown antibiotic - confusion
Height / Weight:
Height 5 ft 8 in
Actual Weight 97.976 kg
Pertinent Past Medical History: BMI ~32
- Vital Signs / Lab Results
Temp Pulse Resp BP Pulse Ox
97.6 F 109 20 125/77 98
06/19/24 07:30 06/19/24 08:52 06/19/24 07:50 06/19/24 07:30 06/19/24 07:50
Lab Results - Hematology
06/16/24 06/17/24 06/18/24
17:05 09:01 10:58
WBC 15.0 H 14.8 H 13.7 H
06/19/24
07:51
WBC 12.7 H
Lab Results - Chemistry
06/16/24 06/17/24 06/18/24
17:05 09:01 10:58
BUN 44 H 36 H 26 H
Creatinine 1.3 1.1 1.0
Estimated Creat Clear 50 58 64
06/19/24
07:51
BUN 23 H
Creatinine 1.0
Estimated Creat Clear 65
Microbiology Results
06/13/24 20:24 Blood Culture - Final
Blood/Venous No Growth - Final Report
--- NOTE | 2024-06-19 11:27 | W.PN.HOSP.TC ---
Today's Communication/Plan
-
Continue Lasix
Continue antibiotics
Large rectal mass on colonoscopy today -- GI requested colorectal surgery and oncology to evaluate patient
Possibly resume Eliquis tomorrow
Continue Lovenox for DVT prophylaxis
Assessment / Plan
Assessment / Plan
Physical Exam
General: Not in acute distress
HEENT: Normocephalic, Moist mucous membranes and Atraumatic
Respiratory: Rales, limited
Cardiac: S1/S2,
GI: Soft, Non Tender, Non Distended, obese.
Musculoskeletal: ++ Edema in LEs.
Skin: LLE with cellulitis with wounds and weeping, spreading erythema up the LLE
Neuro: AAOx3
Psych: Calm
Assessment/Plan
# Acute hypoxemic and hypercapnic respiratory failure secondary to acute on chronic HFpEF exacerbation/ cardiogenic pulmonary edema
History of Lasix non-compliance
# Hypertensive emergency, then became hypotensive
History of severe central and obstructive sleep apnea
Fever
#Cardiomegaly
#Severe Bilateral Lower Extremity Edema
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
#Pulmonary Edema
#Pleural Effusion
-Was on Lasix, Nitro drip --> but then fever and hypotension needing Levophed and antibiotics, weaned off Levophed and transferred out from the ICU
-IV Lasix resumed on 06/19/24. Also continue SGLT2-I and MRA
-PO sodium and fluid restriction
-Daily weights, I's and O's
-Echocardiogram noted
-Continue with aggressive diuretic therapy as blood pressure tolerates and monitor closely electrolytes and kidney function.
-Aspiration precautions
-Continue nebulizers while in the hospital, transition to Symbicort 160/4.5 upon discharge
-Appreciate pulmonary
-Mucolytics
-Appreciate pulmonary and cardiology help
#Sepsis/septic shock/lactic acidosis present on admission
#Pneumonia
#LLE Cellulitis - WORSENING
-Tachycardia, hypoxia, leukocytosis, fevers
-Previously was on empiric antibiotics with Rocephin and Doxycycline to cover patient's suspected RLL PNA and LLE cellulitis
-Patient's pneumonia symptoms improved but LLE cellulitis symptoms have significantly worsened with erythema spreading up the LLE
-Now on Vancomycin and Cefazolin antibiotics
-ID consulted, appreciate their evaluation and recommendations
-Wound care, lower extremity elevation above the level of the heart, continue Valerio wrap to the lower extremity (foot to above-knee)
#Hypotension
-Continue Midodrine
#Burgundy Stools Reported on 06/15/24
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
#Diverticulosis in the sigmoid colon and in the descending colon.
-Continue Low Residue Diet
-Eliquis held, as per cardiology and GI --> per GI, do not resume Eliquis until maybe tomorrow, given colonoscopy today
-Monitor CBC
-SPECIAL CARE MUST BE TAKEN TO PREVENT STOOL OR ANY BOWEL MOVEMENTS OR URINE FROM TOUCHING PATIENT'S LEFT LOWER EXTREMITY DUE TO WORSENING CELLULITIS AND WOUNDS
-Due to large rectal mass, patient needs colorectal and oncology consult, and CT Chest/Abdomen/Pelvis with contrast imaging as per gastroenterology on 06/19/24
-Await biopsy results from colonoscopy on 06/19/24
#Non-ischemic myocardial injury
#Hyponatremia, mild
-Monitor BMP
#Nausea/vomiting secondary to coughing episodes
-Zofran as needed
#Mild hyperkalemia - RESOLVED
-Potassium is 5.0, recheck
-Continue with Lasix
#Permanent atrial fibrillation
-Hold Eliquis given GI bleed above -- will need to continue holding Eliquis as per GI
-Continue metoprolol
#AV block status post pacemaker
#NSVT
#Essential hypertension
-Low BP
#Hypothyroidism
-Continue levothyroxine
Code Status: DNR/DNI
DVT prophylaxis�Eliquis on hold as above. Lovenox for DVT Prophylaxis started (confirmed that this is okay, as per GI). No SCDs given bilateral lower extremity edema and lower extremity cellulitis.
Anticipated Discharge: > 48 hours
Subjective/Interval History
-
Date of Service: June 19, 2024
Patient was seen and examined. He reported that his left leg feels better, and overall, he feels better than when he came in.
Objective Data
-
Labs:
Laboratory Results
06/19/24
07:51
WBC 12.7 H
Hgb 12.7 L
Hct 39.4
Plt Count 245
Sodium 131 L
Potassium 4.4
Chloride 94 L
Carbon Dioxide 27
BUN 23 H
Creatinine 1.0
Glucose 119 H
Calcium 8.5
Vital Signs:
Vital Signs
Temp Pulse Resp BP Pulse Ox
97.6 F 109 20 125/77 98
06/19/24 07:30 06/19/24 08:52 06/19/24 07:50 06/19/24 07:30 06/19/24 07:50
I&O
06/18/24 06/19/24 06/20/24
06:59 06:59 06:59
Intake Total 1720 / 1720 1200 / 1200
Output Total 1280 / 1280
Balance 440 / 440 1200 / 1200
--- NOTE | 2024-06-19 12:33 | W.PN.PUL3 ---
Today's Communication / Plan
-
Continue nebulizers while in the hospital, transition to Symbicort 160/4.5 upon discharge.
Completed antibiotics for pneumonia 06/19/2024
Outpatient pulmonary follow-up
Sign off
Assessment
-
83-year-old male with a history of PAF, hypertension, hypothyroid and permanent pacemaker who noticed blood in his stool and stopped Lasix instead of Eliquis and slowly gained 10 pounds presented with CHF requiring noninvasive
ventilation-atm manager consulted for respiratory failure/noninvasive ventilation/CHF/critical care management 06/13/2024.
Impression:
Axute HFmrEF exacerbation requiring noninvasive ventilation - now on room air with BiPAP use HS
Acute respiratory failure-hypoxemic and hypercapnic--VBG 06/13/2024--68/42/7.13
Hypertensive urgency - resolved
Sepsis with tachycardia, hypoxemia, leukocytosis, fevers, chills, rigors
CAP involving RLL
Metabolic acidosis - resolved
LLE non-purulent cellulitis
ZULEIKA - improving
Hyponatremia
Elevated troponin - peaked at 0.077 on 06/14/2024
Hyperglycemia - resolved
Nausea/vomiting
Hyperkalemia - now resolved
Leukocytosis
DNR
Conditions present prior to admission:
Hypertension.
Hypothyroid.
PAF on Eliquis
Heart failure preserved EF
Mitral regurgitation-moderate
Pulmonary hypertension
Chronic anticoagulation.
Obesity
Central sleep apnea-severe
Severe obstructive sleep apnea (AHI: 57.3 events/hr via PSG from 04/2021)
Periodic limb movements of sleep
AV block status post PPI 2020.
Plan
Respiratory decompensation likely due to CHF with mildly reduced EF in addition to sepsis from RLL pneumonia
Supplemental oxygen as needed to keep SpO2 >90-94%
Continue BiPAP at night while in the hospital, VBG compensated 06/17/2024
DO NOT INTUBATE-patient a DNR/DNI
Aspiration precautions
Bronchospasm resolved.
Oxygen has been weaned off.
continue nebulized bronchodilators -Xopenex, and continue with Atrovent + budesonide
Given his wheezing on exam with improvement with nebulized bronchodilators would DC home on LABA/ICS with, - Dulera, Advair, or Breo
Continue mucolytics
Secretion clearance interventions-incentive spirometry
Acapella device.
Cautious diuresis. Diuresis as able.
Cardiology following
Cultures: (06/13/2024 - NGTD) + sputum culture (06/14/2024 - NGTD)
Influenza negative
UA from 06/13/2024 was negative
Empiric antibiotics initiated-Zosyn 06/14/2024 --> on 06/15 I changed ABx to ceftriaxone to cover his suspected RLL PNA and LLE cellulitis -he is clinically improving.
initially on doxycycline, now discontinued.
Now on vancomycin for left lower extremity erythema and swelling. Per primary team.
Completed antibiotics 06/19/2024 from the pulmonary perspective.
Of note, if symptoms do not improve will require CT chest to rule out underlying pulmonary mass, will need radiographic follow-up in the outpatient setting.
GI bleed/rectal mass:
Burgundy colored stool overnight and yesterday AM (06/15) - patient admits to this happening over last few weeks
Hb is slowly downtrending - c/t to monitor, and transfuse if needed to keep Hb>7, plt>50k
GI evaluation noted. Rectal mass.
Colonoscopy 06/19/2024-confirm rectal mass. Status post biopsy. Likely malignant
-
Severe sleep apnea noted
Will require BiPAP during procedure and close monitoring with anesthesia, head of bed elevated if possible during colonoscopy
DVT prophylaxis-SCDs; holding Eliquis (see above)
Last saw Dr. Sanches 08/04/2021 for severe central and obstructive sleep apnea-maintained on auto SV-he was told to follow-up but never did-he said he forgot during the COVID era-will have him follow back up-he is willing.
-
No additional recommendation from the pulmonary perspective.
At this point I will sign off.
Please call with questions.

Diagnostic data:
Chest x-ray 06/09/2024-NAD, mild cardiomegaly
Chest x-ray 06/13/2024-right basilar interstitial airspace disease
CT chest 01/06/2021-no significant abnormalities within the chest
Brain MRI 03/22/2021-no acute intracranial abnormalities, no infarct
Echocardiogram 02/05/2023-EF 50-55%, moderate mitral regurgitation, aortic sclerosis, PA systolic 61
PSG 05/24/2021-sleep efficiency 72%, AHI-57.3, desaturation zackery 82%, 300 central apneas, 15% of time less than 90% saturation
Sleep study-complexity study 06/21/2021-sleep efficiency 81.6%, REM latency 51 minutes, AHI 2.8, desaturation zackery 90%, ASV-EPAP min 4, EPAP max 15, pressure support min 0, pressure support max 20-reduced AHI to 0.4 and 0% less than 90% saturation
PFT 08/04/21: FVC 2.45/70%, FEV1 1.83/74%, ratio 75. TLC 3.89/60%, DLCO 14.95/60%. When compared to 2019, TLC has decreased from 4.43-3.89. DLCO has decreased from 18.81 14.95.�������
Kevin 05/03/21: FVC 2.48/66%, FEV1 1.96/74%, ratio 79. There is mild reactive airways disease.�������
PFT 03/10/20 (): FVC 2.72/72%, FEV1 2.13/80%, ratio 78. There is reactive airways disease.TLC 4.43/66%, DLCO 18.81/79%.
Subjective Data
-
Date of Service:
Date of Service: June 19, 2024
Chief Complaint: Pulmonary Follow Up (Hypoxemic respiratory failure)
Objective Data
Data Reviewed
Vital Signs / I&O / Oxygen:
Vital Signs
Temp Pulse Resp BP Pulse Ox
97.8 F 98 24 105/69 98
06/19/24 11:25 06/19/24 11:55 06/19/24 11:55 06/19/24 11:55 06/19/24 11:55
Intake and Output
06/18/24 06/19/24 06/20/24
06:59 06:59 06:59
Intake Total 1720 / 1720 1200 / 1200
Output Total 1280 / 1280
Balance 440 / 440 1200 / 1200
SaO2 98
Nasal Cannula flow liters per 3
minute
Physical Exam
General: Comfortable
HEENT: Normocephalic and Anicteric
Cardiovascular: S1-S2, Regular Rhythm, Murmur (n), Rub and Peripheral Edema (Anasarca)
Respiratory: Wheeze (n), Crackles (n), Rhonchi (n), Non-Labored Respirations and Other (Decreased at base)
GI: Soft and Non Distended
Neurology: Awake, Alert and No Motor Deficits (Generally weak)
Skin: Cyanosis (n), Jaundice (n) and Rash (Left lower extremity erythema)
Labs/Micro/Reports
Lab Data
06/19/24 07:51
06/19/24 07:51
Microbiology
06/13/24 20:24 Blood/Venous Blood Culture - Final
No Growth - Final Report
06/14/24 10:39 Sputum Respiratory Culture - Final
Usual Respiratory Marisela
06/14/24 10:39 Sputum Gram Stain - Final
[2024-06-19] MEDS: FARXIGA 10 MG PO (12:39)
[2024-06-19 13:05] LABS: CEA 14.6 ng/ml
--- NOTE | 2024-06-19 14:12 | W.PN.CD ---
Today's Communication / Plan
-
IV diuresis to resume
Eliquis resumption when OK with GI
Impression / Plan
-
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
- Still with significant edema. Patient initially placed on Lasix with some bleeding and lower blood pressure as it is held.
- Resume IV Lasix with close monitoring of blood pressure and continued midodrine
- Continue SGLT2-I and low dose MRA that should be well tolerated
- Na+/fluid restriction/education
GI bleeding=> h/h stable
Rectal mass
- Bx pending
- GI plans colorectal surgery eval/oncology eval/CT scans
Low BP
- On midodrine
Nonischemic cardiomyopathy
Permanent AFib
- Eliquis on hold
- Timing of restart of Eliquis depending on GI evaluation.
Bilateral lower extremity edema marked lower extremity edema.
- Suspect mostly hear failure
- But likely some lymphedema as well
- L>R
- Ultimately compression/lymphedema therapy
Left leg cellulitis
- ID now involved
NSVT, asymptomatic
- No syncope, EF more than 40. No ICD at this time
Bifascicular heart block (RBBB/LAFB)
Single chamber MDT pacer in place for periods of second degree AV block/pauses
Subjective:
No CP, no syncope/palps. URIAS. Still with lots of edema L>R
Data:
Echo 06/15/2024: TDS, LVEF 45-50%, mild M
Single chamber PPM placed 01/16/2021, MDT
Cath 11/30/2020: No obstructive CAD, luminal diseasse present, LVEDP 16 mmHg
Physical Exam
Vital Signs/Labs
Vital Signs
Temp Pulse Resp BP Pulse Ox
97.8 F 98 24 105/69 98
06/19/24 11:25 06/19/24 11:55 06/19/24 11:55 06/19/24 11:55 06/19/24 11:55
06/18/24 06/19/24 06/20/24
06:59 06:59 06:59
Actual Weight 96.332 kg 97.976 kg
06/19/24 07:51
06/19/24 07:51
PT 18.2 Sec (11.4-14.6) H 06/16/24 17:05
INR 1.53 06/16/24 17:05
APTT 47.4 Sec (23.4-35.0) H 06/16/24 17:05
Magnesium 2.1 mg/dl (1.6-2.3) 06/17/24 09:01
06/13/24
13:19
Uen-F-Umzlkeizloa Pept [id number]
Physical Exam
Constitutional: No acute distress
EENT: Anicteric
Cardiovascular: Rhythm/rate is irregular, Pedal edema present (3++ on left and 2+ on right. Edema involves the feet.) and S1S2 is normal
Respiratory: Respiratory effort normal and Crackles Present (at bases)
GI: Soft and Distention absent
Data Reviewed
-
Date of Service: June 19, 2024
--- NOTE | 2024-06-19 14:41 | W.PN.ID1 ---
Date of Service
Date of Service: June 19, 2024
Today's Communication
Continue antibiotics
Assessment / Plan
Left lower extremity cellulitis
-Given appearance, suspect streptococcal or staphylococcal in etiology
Leukocytosis
-Overall improving with a downward trend.
Acute exacerbation CHF
Rectal mass/GI bleed
� For colonoscopy tomorrow
A-fib
HTN
Hypothyroidism
Hx Renal cyst
Recommendations:
Continue with vancomycin to cover for potential MRSA. Follow levels closely.
Continue cefazolin 2 g IV q8 hours for coverage of streptococcal and susceptible staphylococcal isolates.
Continue with local care to the wound.
Lower extremity elevation above the level of the heart to facilitate drainage.
Continue Valerio wrap to the lower extremity (foot to above-knee) to decrease overall edema.
Monitor white count temperature curve.
Chief Complaint
-: Cellulitis
Subjective / Review of Systems
Patient seen and examined. Overall feels slightly improved from yesterday. Status post colonoscopy with finding of rectal mass.
Denies pain in leg.
Vital Signs / Physical Exam
Vital Signs
Vital Signs
Temp Pulse Resp BP Pulse Ox
97.8 F 98 24 105/69 98
06/19/24 11:25 06/19/24 11:55 06/19/24 11:55 06/19/24 11:55 06/19/24 11:55
Physical Exam
Constitutional: No Acute Distress and Comfortable
Eyes: Sclera Anicteric
Cardiovascular: S1/S2; Negative S3/S4
Pulmonary: Non Labored
Gastrointestinal: Soft and Non Tender
Extremities: Edema and Erythema
Neurological: Awake and Alert
Psychological: Calm
Objective Data
Lab Data
Lab Results
06/19/24 07:51
06/19/24 07:51
PT 18.2 Sec (11.4-14.6) H 06/16/24 17:05
INR 1.53 06/16/24 17:05
APTT 47.4 Sec (23.4-35.0) H 06/16/24 17:05
Estimated Creat Clear 65 ml/min 06/19/24 07:51
Lactic Acid 2.5 mmol/L (0.7-2.0) H 06/14/24 05:17
Total Bilirubin Cancelled 06/16/24 00:35
AST Cancelled 06/16/24 00:35
ALT Cancelled 06/16/24 00:35
Alkaline Phosphatase Cancelled 06/16/24 00:35
Most recent labs reviewed.
Micro Results:
06/13/24 20:24 Blood Culture - Final
Blood/Venous No Growth - Final Report
06/14/24 10:39 Respiratory Culture - Final
Sputum Usual Respiratory Marisela
Gram Stain - Final
06/13/24 20:24 Influenza Types A & B (MEG) - Final
Nasal Swab Negative for Influenza A & B, NAAT
Negative results must be combined with clinical observations
and patient history.
Nucleic Acid Amplification test (NAAT)performed on the
[employer] platform.
Imaging:
06/14/2024 CXR (portable): Mild cardiomegaly with suggestion of mild interstitial cardiogenic pulmonary edema. Minimal bilateral pleural effusions. Left-sided cardiac pacemaker in place. No focal dense airspace consolidation noted. Please see
full dictation for additional detail. Film personally viewed.
--- NOTE | 2024-06-19 15:55 | CM ---
Chart reviewed and plan is to home with [facility].
Plan; Home with [facility].
[2024-06-19] MEDS: LASIX 40 MG IV (16:05)
[2024-06-19] MEDS: LOVENOX 40 MG SC (17:57)
[2024-06-19] MEDS: FLUSH (NSS) 1 FLUSH IV (20:34)
[2024-06-19] MEDS: TOPROL XL PO (20:42)
[2024-06-19] MEDS: MELATONIN 5 MG PO (20:54)
[2024-06-20] VITALS (9 sets, daily range): BP systolic 102–129; BP diastolic 64–83; PULSE 2–100; BMI 32.8
[2024-06-20] MEDS: ANCEF 10 IV ×3 (04:10→20:03)
[2024-06-20] MEDS: VANCOCIN 150 IV ×2 (05:58→18:10)
[2024-06-20] MEDS: FLUSH (NSS) 2 FLUSH IV ×2 (05:59→20:04)
--- NOTE | 2024-06-20 06:03 | CON.ONC ---
Impression
Impression
Rectal mass/cancer
LLE Cellulitis
Permanent atrial fibrillation - Eliquis on HOLD
Acute on chronic HFpEF exacerbation/ cardiogenic pulmonary edema
Hypertensive emergency, then became hypotensive
Obstructive sleep apnea - CPAP
AV block status post pacemaker
Hypothyroidism
Code Status: DNR/DNI
Plan
Plan
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 CEA elevated. Staging CT C/A/P (ordered).
Patient once path confirmed will require MELCHOR most likely with combo chemo, XRT, and eventual surgery.
Card given. Office to be notified. Will need office F/U to review in more detail once workup completed.
Will need Port-O-Cath inserted prior to resuming Eliquis (currently on hold). No evidence for anemia.
Patient History
History of Present Illness
CC: Rectal mass
HPI: 83yo male presents with flash pulmonary edema after stopping Lasix as outpt due to passing dark BM/possible blood. Eliquis (Hx Perm AF) stopped. Treated for CHF and pulmonary edema. Nursing noted burgundy stool. Rectal exam revealed a 5 cm
rectal mass. Underwent colonoscopy yesterday 06/19. Findings showed a villous, fungating, infiltrative, polypoid and ulcerated non-obstructing large mass in the distal rectum. Biopsies pending. CEA = 14.6. LFTs WNL. For CT C/A/P scheduled for
today. Patient noted 10# weight gain (CHF).
Past-Medical/Surgical History
PMH: Perm Afib on Eliquis, AV block with prior pacer, hypothyroidism, HTN, sleep apnea uses CPAP, obesity
PSH: Cardiac pacemaker December 2020
SH
Tobacco: Non-Smoker
Alcohol: Former (social ETOH 1 drink daily quit last year
Drug: None
Personal:
Living: With Family
Employment: Retired
Patient Medication
�Medication �Instructions �Recorded �Confirmed �Last Taken �Type
ascorbic acid (vitamin C) 500 mg 500 mg PO DAILY Supplement 01/06/21 06/13/24 06/13/24 History
tablet (Vitamin C)
apixaban 5 mg tablet (Eliquis) 5 mg PO BID Blood clot 03/21/21 06/13/24 06/13/24 History
prevention/tx
cyanocobalamin (vitamin B-12) 1,000 mcg PO DAILY #30 tabs 03/26/21 06/13/24 06/13/24 Rx
1,000 mcg tablet
levothyroxine 100 mcg tablet 100 mcg PO DAILY@0700 #30 tabs 03/26/21 06/13/24 06/13/24 Rx
metoprolol succinate 50 mg 50 mg PO BID #60 tabs 03/26/21 06/13/24 06/13/24 Rx
tablet,extended release 24 hr
melatonin 5 mg tablet 5 mg PO HS #14 tabs 08/26/21 06/13/24 06/12/24 Rx
zinc sulfate 50 mg zinc (220 mg) 220 mg (4.4 x 50 mg zinc (220 mg)) 08/26/21 06/13/24 06/13/24 Rx
capsule PO DAILY #14 caps
cholecalciferol (vitamin D3) 25 25 mcg PO DAILY Supplement 06/13/24 06/13/24 06/13/24 History
mcg (1,000 unit) tablet
Active Medications
Generic Name Dose Route Start Last Admin
Trade Name Freq PRN Reason Stop Dose Admin
Acetaminophen 650 mg 06/14/24 20:18 06/17/24 22:00
Acetaminophen 325 Mg Tablet PO 07/12/24 20:17 650 mg
Q4HPRN PRN Administration
fever>100.3/mild pain
Apixaban 2.5 mg 06/15/24 20:00
Apixaban (Eliquis) 2.5 Mg Tablet PO 07/13/24 19:59
BID CHAD
Budesonide 0.5 mg 06/15/24 20:00 06/19/24 20:20
Budesonide (Pulmicort Respules) 0.5 Mg/2 Ml INH 0.5 mg
R BID CHAD Administration
Protocol
Dapagliflozin 10 mg 06/18/24 08:00 06/19/24 12:39
Dapagliflozin (Farxiga) 10 Mg Tablet PO 07/16/24 07:59 10 mg
DAILY CHAD Administration
Emollient Ointment 0 applic 06/19/24 08:00 06/19/24 08:59
Petrolatum/Mineral Oil (Hydrophor) Oint 100 Gram TOPICAL 07/17/24 07:59 1 applic
DAILY CHAD Administration
Enoxaparin Sodium 40 mg 06/17/24 20:00 06/19/24 17:57
Enoxaparin Sodium 40 Mg/0.4 Ml Syringe SC 07/15/24 19:59 40 mg
QPM CHAD Administration
Furosemide 40 mg 06/13/24 16:00 06/19/24 16:05
Furosemide 40 Mg (10 Mg/Ml) 4 Ml Vial IV 07/11/24 15:59 40 mg
BID AT 0800,1600 CHAD Administration
Guaifenesin 1,200 mg 06/13/24 20:00 06/19/24 20:24
Guaifenesin 600 Mg Extended Release Tablet PO 07/11/24 19:59 1,200 mg
Q12 CHAD Administration
Vancomycin HCl 750 mg in 150 mls @ 150 mls/hr 06/19/24 06:00 06/19/24 17:57
Vancocin IV 150 mls
Q12H CHAD Administration
Protocol
Cefazolin Sodium 2 grams in 10 mls @ 120 mls/hr 06/18/24 20:00 06/20/24 04:10
Ancef IV 10 mls
Q8H CHAD Administration
Ipratropium [place] 0.5 mg 06/16/24 14:00 06/19/24 20:20
Ipratropium Nebs 0.5 Mg/2.5 Ml Ampul INH 0.5 mg
R TID CHAD Administration
Protocol
Levalbuterol HCl 1.25 mg 06/16/24 14:00 06/19/24 20:19
Levalbuterol 1.25 Mg/3 Ml Ampul INH 1.25 mg
R TID CHAD Administration
Protocol
Levothyroxine Sodium 100 mcg 06/14/24 07:00 06/19/24 05:08
Levothyroxine 100 Mcg Tablet PO 07/12/24 06:59 100 mcg
DAILY@0700 CHAD Administration
Melatonin 5 mg 06/13/24 22:00 06/19/24 20:54
Melatonin 5 Mg Tablet PO 07/11/24 21:59 5 mg
HS CHAD Administration
Metoprolol Succinate 50 mg 06/13/24 20:00 06/19/24 20:42
Metoprolol 50 Mg Extended Release Tablet PO 07/11/24 19:59 Not Given
BID CHAD
Miconazole Nitrate 0 applic 06/13/24 20:00 06/19/24 20:34
Miconazole Powder Bottle TOPICAL 07/11/24 19:59 1 applic
BID CHAD Administration
Pantoprazole Sodium 40 mg 06/16/24 13:13 06/19/24 20:31
Pantoprazole Sodium 40 Mg/10 Ml Vial IV 07/14/24 13:12 40 mg
BID CHAD Administration
Sodium Chloride 0 flush 06/13/24 16:00 06/19/24 20:34
Sodium Chloride 0.9% (Flush) Syringe IV 07/11/24 15:59 1 flush
PER PROTOCOL CHAD Administration
Sodium Chloride 10 ml 06/16/24 13:13 06/19/24 20:31
Sodium Chloride 0.9% (Preservative Free) 10 Ml Vial IV 07/14/24 13:12 10 ml
BID CHAD Administration
Spironolactone 12.5 mg 06/18/24 08:00 06/19/24 08:52
Spironolactone 12.5 Mg Dose (1/2 Of 25 Mg Tablet) PO 07/16/24 07:59 12.5 mg
DAILY CHAD Administration
Physical Exam
-
General: Well Developed, Well Nourished and No Apparent Distress
HEENT: Negative Jaundice
Cardiology: Irregular Rate/Rhythm
Pulmonary: Clear
GI: Soft
Musculoskeletal: Edema. Left Upper Extrem
Extremities: Edema (LLE celllulitis)
Hematologic / Lymphatic: No Lymphadenopathy (neck or supraclav)
Labs
Lab Results
WBC 12.7 10^3/uL (4.8-10.8) H 06/19/24 07:51
RBC 4.65 10^6/uL (4.70-6.10) L 06/19/24 07:51
Hgb 12.7 g/dL (13.0-18.0) L 06/19/24 07:51
Hct 39.4 % (39.0-52.0) 06/19/24 07:51
MCV 84.7 fL (80.0-94.0) 06/19/24 07:51
MCH 27.3 pg (27.0-31.0) 06/19/24 07:51
MCHC 32.2 g/dL (33.0-37.0) L 06/19/24 07:51
RDW 16.3 % (11.5-14.5) H 06/19/24 07:51
Plt Count 245 10^3/uL (130-400) 06/19/24 07:51
MPV 10.4 fL (7.4-10.4) 06/19/24 07:51
Abs Immat Gran (auto) 0.2 10^3/uL (0-0.05) H 06/18/24 10:58
Absolute Neuts (auto) 12.1 10^3/uL (1.4-6.5) H 06/18/24 10:58
Absolute Lymphs (auto) 0.5 10^3/uL (1.2-3.4) L 06/18/24 10:58
Absolute Monos (auto) 0.6 10^3/uL (0.1-0.6) 06/18/24 10:58
Absolute Eos (auto) 0.1 10^3/uL (0-0.7) 06/18/24 10:58
Absolute Basos (auto) 0.1 10^3/uL (0-0.2) 06/18/24 10:58
Immature Gran % 1.7 % (0-0.5) H 06/18/24 10:58
Neutrophils % 88.4 % (42.2-75.2) H 06/18/24 10:58
Lymphocytes % 3.9 % (20.5-51.1) L 06/18/24 10:58
Monocytes % 4.7 % (1.7-9.3) 06/18/24 10:58
Eosinophils % 0.8 % (0-6) 06/18/24 10:58
Basophils % 0.5 % (0-2) 06/18/24 10:58
Creatinine 1.0 mg/dL (0.7-1.3) 06/19/24 07:51
Laboratory Tests
06/19/24
07:51
Carcinoembryonic Ag 14.6
Vital Signs
Vital Signs
Temp Pulse Resp BP Pulse Ox
98 F 112 20 102/64 95
06/20/24 03:45 06/20/24 03:45 06/20/24 03:45 06/20/24 03:45 06/20/24 03:45
[2024-06-20] MEDS: SYNTHROID 100 MCG PO (06:17)
[2024-06-20] MEDS: PULMICORT 0.5 MG INH ×2 (08:00→19:31)
[2024-06-20] MEDS: XOPENEX 1.25 MG INHALANT SOLUTION INH ×3 (08:00→19:27)
[2024-06-20] MEDS: ATROVENT NEBULES 0.5 MG INH ×2 (08:00→19:27)
[2024-06-20 08:28] LABS: Blood Urea Nitrogen 21 mg/dl (9-20); Carbon Dioxide 25 mmol/L (22-30); Chloride 96 mmol/L (98-107); Estimated Creatinine Clearance 65 ml/min; Glucose 118 mg/dl (70-99); Potassium 3.9 mmol/L (3.5-5.1); Sodium 131 mmol/L (135-145); eGFR > 60.00
[2024-06-20] MEDS: OMNIPAQUE 50 ML PO (11:17)
[2024-06-20] MEDS: NSS (PRESERVATIVE FREE) 10 ML IV (11:18)
[2024-06-20] MEDS: LASIX 40 MG IV ×2 (11:19→18:09)
[2024-06-20] MEDS: PROTONIX IV 40 MG IV (11:19)
[2024-06-20] MEDS: FARXIGA 10 MG PO (11:19)
[2024-06-20] MEDS: DESENEX/MITRAZOL/ZEASORB 1 APPLIC TOPICAL ×2 (11:20→20:05)
[2024-06-20] MEDS: ALDACTONE 12.5 MG PO (11:20)
[2024-06-20] MEDS: TOPROL XL 50 MG PO ×2 (11:20→20:31)
[2024-06-20] MEDS: HYDROPHOR 1 APPLIC TOPICAL (11:21)
[2024-06-20] MEDS: MUCINEX 1200 MG PO ×2 (11:22→20:04)
--- NOTE | 2024-06-20 11:57 | W.PN.ID1 ---
Date of Service
Date of Service: June 20, 2024
Today's Communication
Continue antibiotics. Follow-up for clinical improvement.
Assessment / Plan
Left lower extremity cellulitis
-Given appearance, suspect streptococcal or staphylococcal in etiology
Leukocytosis
-Overall improving with a downward trend.
Acute exacerbation CHF
Rectal mass/GI bleed
� For colonoscopy tomorrow
A-fib
HTN
Hypothyroidism
Hx Renal cyst
Recommendations:
Continue with vancomycin to cover for potential MRSA. Follow levels closely.
Continue cefazolin 2 g IV q8 hours for coverage of streptococcal and susceptible staphylococcal isolates.
Continue with local care to the wound.
Lower extremity elevation above the level of the heart to facilitate drainage.
Continue Valerio wrap to the lower extremity (foot to above-knee) to decrease overall edema. Would maintain on for 24 hours continuous.
Monitor white count temperature curve.
Chief Complaint
-: Cellulitis
Subjective / Review of Systems
Review of Systems: No Fever and No Chills
Vital Signs / Physical Exam
Vital Signs
Vital Signs
Temp Pulse Resp BP Pulse Ox
97 F 110 18 113/75 95
06/20/24 07:40 06/20/24 08:03 06/20/24 08:03 06/20/24 07:40 06/20/24 08:03
Physical Exam
Constitutional: No Acute Distress and Comfortable
Eyes: Sclera Anicteric
Cardiovascular: S1/S2; Negative S3/S4
Pulmonary: Non Labored
Gastrointestinal: Soft and Non Tender
Extremities: Edema and Erythema (Foot to proximal thigh. Swelling persists, but areas of erythema are not especially tender to touch.)
Neurological: Awake and Alert
Psychological: Calm
Objective Data
Lab Data
Lab Results
06/19/24 07:51
06/20/24 07:26
PT 18.2 Sec (11.4-14.6) H 06/16/24 17:05
INR 1.53 06/16/24 17:05
APTT 47.4 Sec (23.4-35.0) H 06/16/24 17:05
Estimated Creat Clear 65 ml/min 06/20/24 07:26
Lactic Acid 2.5 mmol/L (0.7-2.0) H 06/14/24 05:17
Total Bilirubin Cancelled 06/16/24 00:35
AST Cancelled 06/16/24 00:35
ALT Cancelled 06/16/24 00:35
Alkaline Phosphatase Cancelled 06/16/24 00:35
Most recent labs reviewed.
Micro Results:
06/13/24 20:24 Blood Culture - Final
Blood/Venous No Growth - Final Report
06/14/24 10:39 Respiratory Culture - Final
Sputum Usual Respiratory Marisela
Gram Stain - Final
06/13/24 20:24 Influenza Types A & B (MEG) - Final
Nasal Swab Negative for Influenza A & B, NAAT
Negative results must be combined with clinical observations
and patient history.
Nucleic Acid Amplification test (NAAT)performed on the
[employer] platform.
Imaging:
06/14/2024 CXR (portable): Mild cardiomegaly with suggestion of mild interstitial cardiogenic pulmonary edema. Minimal bilateral pleural effusions. Left-sided cardiac pacemaker in place. No focal dense airspace consolidation noted. Please see
full dictation for additional detail. Film personally viewed.
Care Review
Plan reviewed with: Nurse
--- NOTE | 2024-06-20 12:23 | PHA.VAN.FU ---
Vancomycin Assessment / Plan
- Assessment
Renal Function: Stable (1.0 to 1.0 (no CBC ordered))
In the past 24 hrs, patient has been: Afebrile
Concomitant Antimicrobials: Cefazolin
- Dosing Plan
Continue: Vancomcyin 750mg IV Q12hrs
- Monitoring Plan
Peak Level: Ordered for 06/20/24 today at 20:30
Trough Level: Ordered for 06/21/24 at 05:30
- Follow Up
Pharmacy will continue to follow.
Vancomycin Follow UP
- -
Patient Age: 83
Patient Sex: Male
Vancomycin Day #: 3
Indication: Skin And Soft Tissue
Requesting Provider: Dr. Peres
Pertinent Antimicrobial Allergies:
unknown antibiotic - confusion
Height / Weight:
Height 5 ft 8 in
Actual Weight 97.749 kg
Pertinent Past Medical History: BMI ~32
- Vital Signs / Lab Results
Temp Pulse Resp BP Pulse Ox
97 F 110 18 113/75 95
06/20/24 07:40 06/20/24 08:03 06/20/24 08:03 06/20/24 07:40 06/20/24 08:03
Lab Results - Hematology
06/18/24 06/19/24
10:58 07:51
WBC 13.7 H 12.7 H
Lab Results - Chemistry
06/18/24 06/19/24 06/20/24
10:58 07:51 07:26
BUN 26 H 23 H 21 H
Creatinine 1.0 1.0 1.0
Estimated Creat Clear 64 65 65
Microbiology Results
06/13/24 20:24 Blood Culture - Final
Blood/Venous No Growth - Final Report
--- NOTE | 2024-06-20 12:29 | W.PN.CD ---
Today's Communication / Plan
-
Add 3 days of metolazone
increase Aldactone
follow BMP
Impression / Plan
-
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
- Still with significant edema.
- Weight loss is minimal on Lasix 40 IV BID. Will add metolazone 5 mg for 3 days
- Continue SGLT2-I and low dose MRA that should be well tolerated
- Na+/fluid restriction/education
GI bleeding=> h/h stable
Rectal mass
- Bx pending
- GI plans colorectal surgery eval/oncology eval/CT scans
Low BP
- On midodrine
Nonischemic cardiomyopathy
Permanent AFib
- Eliquis on hold
- Timing of restart of Eliquis depending on GI evaluation.
Bilateral lower extremity edema marked lower extremity edema.
- Suspect mostly hear failure
- But likely some lymphedema as well
- L>R
- Ultimately compression/lymphedema therapy
Left leg cellulitis
- ID now involved
NSVT, asymptomatic
- No syncope, EF more than 40. No ICD at this time
Bifascicular heart block (RBBB/LAFB)
Single chamber MDT pacer in place for periods of second degree AV block/pauses
Subjective:
No CP, no syncope/palps. URIAS. Still with lots of edema L>R
Data:
Echo 06/15/2024: TDS, LVEF 45-50%, mild M
Single chamber PPM placed 01/16/2021, MDT
Cath 11/30/2020: No obstructive CAD, luminal diseasse present, LVEDP 16 mmHg
Physical Exam
Vital Signs/Labs
Vital Signs
Temp Pulse Resp BP Pulse Ox
97 F 110 18 113/75 95
06/20/24 07:40 06/20/24 08:03 06/20/24 08:03 06/20/24 07:40 06/20/24 08:03
06/19/24 06/20/24 06/21/24
06:59 06:59 06:59
Actual Weight 97.976 kg 97.749 kg
06/19/24 07:51
06/20/24 07:26
PT 18.2 Sec (11.4-14.6) H 06/16/24 17:05
INR 1.53 06/16/24 17:05
APTT 47.4 Sec (23.4-35.0) H 06/16/24 17:05
Magnesium 2.1 mg/dl (1.6-2.3) 06/17/24 09:01
06/13/24
13:19
[id number] Pept 5370
Physical Exam
Constitutional: No acute distress
Cardiovascular: Rhythm/rate is irregular, Pedal edema present (2-3+ left and 2+ right) and S1S2 is normal
Respiratory: Respiratory effort normal and Lungs clear to auscul.
GI: Soft and Distention absent
Neuro/Psych: AO x 3
Data Reviewed
-
Date of Service: June 20, 2024
--- NOTE | 2024-06-20 12:31 | W.PN.HOSP.TC ---
Today's Communication/Plan
-
Continue IV antibiotics
No need to get Port-O-Cath right now, as discussed via [place] Text with oncology, gastroenterology and colorectal surgery today -- port can be placed outpatient
CT imaging with no metastatic disease
RESUME ELIQUIS 5 MG BID TODAY
Assessment / Plan
Assessment / Plan
Physical Exam
General: Not in acute distress
HEENT: Normocephalic, Moist mucous membranes and Atraumatic
Respiratory: Rales, limited
Cardiac: S1/S2,
GI: Soft, Non Tender, Non Distended, obese.
Musculoskeletal: ++ Edema in LEs.
Skin: LLE with cellulitis with wounds (covered in wrap), spreading erythema up the left thigh
Neuro: AAOx3
Psych: Calm
Assessment/Plan
# Acute hypoxemic and hypercapnic respiratory failure secondary to acute on chronic HFpEF exacerbation/ cardiogenic pulmonary edema
History of Lasix non-compliance
# Hypertensive emergency, then became hypotensive
History of severe central and obstructive sleep apnea
Fever
#Cardiomegaly
#Severe Bilateral Lower Extremity Edema
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
#Pulmonary Edema
#Pleural Effusion
-Was on Lasix, Nitro drip --> but then fever and hypotension needing Levophed and antibiotics, weaned off Levophed and transferred out from the ICU
-IV Lasix resumed on 06/19/24. Also continue SGLT2-I
-Continue Aldactone -- dose increased
-Metolazone added on 06/20/24 for fluid overload and minimal weight loss so far
-PO sodium and fluid restriction
-Daily weights, I's and O's
-Echocardiogram noted
-Continue with aggressive diuretic therapy as blood pressure tolerates and monitor closely electrolytes and kidney function.
-Aspiration precautions
-Continue nebulizers while in the hospital, transition to Symbicort 160/4.5 upon discharge
-Appreciate pulmonary
-Mucolytics
-Appreciate pulmonary and cardiology help
#Sepsis/septic shock/lactic acidosis present on admission
#Pneumonia
#LLE Cellulitis - WORSENING
-Tachycardia, hypoxia, leukocytosis, fevers
-Previously was on empiric antibiotics with Rocephin and Doxycycline to cover patient's suspected RLL PNA and LLE cellulitis
-Patient's pneumonia symptoms improved but LLE cellulitis symptoms have significantly worsened with erythema spreading up the LLE
-Now on Vancomycin and Cefazolin antibiotics
-ID consulted, appreciate their evaluation and recommendations
-Wound care, lower extremity elevation above the level of the heart, continue Valerio wrap to the lower extremity (foot to above-knee)
#Hypotension
-If need for hypotension, continue Midodrine
#Burgundy Stools Reported on 06/15/24
#Blood stools for a few weeks [employer]
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
#Diverticulosis in the sigmoid colon and in the descending colon.
-Continue Low Residue Diet
-CEA elevated
-Eliquis held, as per cardiology and GI --> per GI, do not resume Eliquis until maybe tomorrow, given colonoscopy today
-Monitor CBC
-SPECIAL CARE MUST BE TAKEN TO PREVENT STOOL OR ANY BOWEL MOVEMENTS OR URINE FROM TOUCHING PATIENT'S LEFT LOWER EXTREMITY DUE TO WORSENING CELLULITIS AND WOUNDS
-Due to large rectal mass, CT Chest/Abdomen/Pelvis was done showing no metastatic disease
-Colorectal surgery and oncology consulted, appreciate their evaluation and recommendations
-Await biopsy results from colonoscopy on 06/19/24
-Patient will need MRI pelvis with/without contrast, can be done as an outpatient
-Colorectal surgery said they will place port as an outpatient, it is not a good idea to place the port while patient has a cellulitis.
-Okay to resume Eliquis on 06/20/24 evening (as discussed with GI, colorectal surgery and oncology who are all in agreement with this)
#Mild left hydroureteronephrosis with distal tapering without overt obstructing cause identified, as per radiologist report on CT Imaging
-Consulted urology, appreciate their evaluation and recommendations
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
-GI following
#Non-ischemic myocardial injury
#Hyponatremia, mild
-Monitor BMP
#Nausea/vomiting secondary to coughing episodes
-Zofran as needed
#Mild hyperkalemia - RESOLVED
-Potassium is 5.0, recheck
-Continue with Lasix
#Permanent atrial fibrillation
-RESUME ELIQUIS
-Continue metoprolol
#AV block status post pacemaker
#NSVT
#Essential hypertension
-Low BP
#Hypothyroidism
-Continue levothyroxine
Code Status: DNR/DNI
DVT prophylaxis�Eliquis. No SCDs given bilateral lower extremity edema and lower extremity cellulitis.
Anticipated Discharge: > 48 hours
Subjective/Interval History
-
Date of Service: June 20, 2024
Patient was seen and examined. He denied any new complaints, including no chest pain and no shortness of breath.
Objective Data
-
Labs:
Laboratory Results
06/20/24
07:26
Sodium 131 L
Potassium 3.9
Chloride 96 L
Carbon Dioxide 25
BUN 21 H
Creatinine 1.0
Glucose 118 H
Calcium 8.0 L
Vital Signs:
Vital Signs
Temp Pulse Resp BP Pulse Ox
97 F 110 18 113/75 95
06/20/24 07:40 06/20/24 08:03 06/20/24 08:03 06/20/24 07:40 06/20/24 08:03
I&O
06/19/24 06/20/24 06/21/24
06:59 06:59 06:59
Intake Total 1200 / 1200 1340 / 1340
Balance 1200 / 1200 1340 / 1340
--- NOTE | 2024-06-20 13:21 | CON.CRS ---
Medical History
-
Chief Complaint: bloody stools
History of Present Illness:
Mr Pollard is an 83 yo male with h/o AFib on Xarelto, HF, PPM who presented with pulmonary and cellulitis of the LLE with noted bloody stools. AC was held on admission and he was subsequently underwent colonoscopy by gastroenterology with distal
rectal fungating tumor noted and biopsied. NICO with palpable mass noted at bedside today. He has been evaluated by oncology this admission to begin oncologic work up. He denies nausea or vomiting. He denies abdominal pain. He notes passage of
flatus, no recent stool since colonoscopy prep.
Past Medical History
Past Medical History: Arrhythmias (AF on Elqiuis, AVB with PPM), CHF, HTN, Hypothyroidism and Other (RUTH, obesity)
Past Surgical History: Cardiac (PPM 12/2020)
Social History
Tobacco: Non-Smoker
Alcohol: None
Allergies / Home Medications
Allergy/AdvReac Type Severity Reaction Status Date / Time
unknown antibiotic Allergy confusion Uncoded 06/13/24 12:58
�Medication �Instructions �Recorded �Confirmed �Type
ascorbic acid (vitamin C) 500 mg 500 mg PO DAILY Supplement 01/06/21 06/13/24 History
tablet (Vitamin C)
apixaban 5 mg tablet (Eliquis) 5 mg PO BID Blood clot 03/21/21 06/13/24 History
prevention/tx
cyanocobalamin (vitamin B-12) 1,000 mcg PO DAILY #30 tabs 03/26/21 06/13/24 Rx
1,000 mcg tablet
levothyroxine 100 mcg tablet 100 mcg PO DAILY@0700 #30 tabs 03/26/21 06/13/24 Rx
metoprolol succinate 50 mg 50 mg PO BID #60 tabs 03/26/21 06/13/24 Rx
tablet,extended release 24 hr
melatonin 5 mg tablet 5 mg PO HS #14 tabs 08/26/21 06/13/24 Rx
zinc sulfate 50 mg zinc (220 mg) 220 mg (4.4 x 50 mg zinc (220 mg)) 08/26/21 06/13/24 Rx
capsule PO DAILY #14 caps
cholecalciferol (vitamin D3) 25 25 mcg PO DAILY Supplement 06/13/24 06/13/24 History
mcg (1,000 unit) tablet
Review of Systems
-
History Source: Patient
All other systems: Negative unless noted
A 10 point review of systems was completed, and was negative except as per HPI.
Physical Exam
Vital Signs
Temp 98.1 F 06/20/24 11:30
Pulse 107 06/20/24 11:30
Resp Rate 18 06/20/24 11:30
Blood pressure 105/69 06/20/24 11:30
SaO2 96 06/20/24 11:30
06/19/24 06/20/24 06/21/24
06:59 06:59 06:59
Actual Weight 97.976 kg 97.749 kg
Body Mass Index (BMI) 32.8
Lab Results / Allergies
06/19/24 07:51
06/20/24 07:26
WBC 12.7 10^3/uL (4.8-10.8) H 06/19/24 07:51
Hgb 12.7 g/dL (13.0-18.0) L 06/19/24 07:51
Hct 39.4 % (39.0-52.0) 06/19/24 07:51
Plt Count 245 10^3/uL (130-400) 06/19/24 07:51
Abs Immat Gran (auto) 0.2 10^3/uL (0-0.05) H 06/18/24 10:58
Neutrophils % 88.4 % (42.2-75.2) H 06/18/24 10:58
Allergy/AdvReac Type Severity Reaction Status Date / Time
unknown antibiotic Allergy confusion Uncoded 06/13/24 12:58
Physical Exam
General: Well Developed and Well Nourished
HEENT: Normocephalic
Respiratory: Non Labored Respirations
GI: Soft, Non Tender and Non Distended
Rectal: Brown and Other (mass palpated)
Skin: Warm and Other (Redness/weeping, from foot to lower abdomen on the left)
Neuro: Awake, Alert and AO x 3
Psych: Calm
Data Reviewed
-
CT Scan: Image Personally Visualized and interpreted, Report Reviewed by me, Discussed with Physician and Discussed with Patient
Labs: Labs Reviewed by me, Discussed with Physician and Discussed with Patient
Old Records: Reviewed
Assessment / Plan
-
Mr Pollard is an 83 yo male with h/o AFib on Xarelto, HF, PPM who presents with pulmonary edema and cellulitis of the LLE with noted bloody stools. Work up of melena with fungating rectal mass with biopsy taken during colonoscopy on 06/19. Await
pathology but suspected adenocarcinoma. CEA elevated at 14.6.
--Oncology following with us
--Staging CT C/A/P ordered and pending
--Will need OP MRI of pelvis
--Continued off Eliquis for port-o-cath placement
--Patient to be reviewed in tumor board, will continue to follow as outpatient
--- NOTE | 2024-06-20 13:46 | W.PN.GI.CBS2 ---
Today's Communication / Plan
-
Recommendation: - Await pathology results.
- Low residue diet.
-Await CT scan (computed tomography) of the Chest/Abdomen/Pelvis with contrast.
-CEA elevated at 14.6. Noted oncology evaluation. Outpatient follow-up.
-Okay to start anticoagulation from a GI standpoint but I do see plan for a port. Might need to start anticoagulation after the port placement.
Assessment / Plan
-
Pt is an 83yo presents with Afib on Eliquis, AV block with prior pacer, hypothyroidism, HTN, with onset of cough for past month with concern for flash pulm edema and 10 lbs wt gain and sepsis with tachycardia/leukocytosis, fever, and chills. He
admits to stopping Lasix prior to admission with concern for bleeding. Noted on on admission with mild drop in hbg and rise in BUN that is improving. . He was also noted with burgundy stool. In review with patient he is noted with
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 Last colonoscopy was over 30 years ago. 06/17 rectal mass noted on exam.
-anemia with mild drop in hbg after admission
-intermittent rectal bleeding with red and burgundy stools
-rectal mass on exam 06/17
-rise in BUN on admission improving
-flash pulm edema/ CHF with hypoxemia on admission
-LLE swelling, redness with blister -cellulitis
-concern for sepsis on admission with tachycardia, chills, fever, leukocytosis
-afib on Eliquis prior to admission
-LE blister on leg
-hyponatremia
other med problems:
-AV block
-pacer
-hypothyroidism
-HTN
-sleep apnea
-obesity
Colonoscopy 06/19/2024- Likely malignant tumor in the distal rectum.
Biopsied.
- Diverticulosis in the sigmoid colon and in the
descending colon.
Recommendation: - Await pathology results.
- Low residue diet.
-Await CT scan (computed tomography) of the Chest/Abdomen/Pelvis with contrast.
-CEA elevated at 14.6. Noted oncology evaluation. Outpatient follow-up.
-Okay to start anticoagulation from a GI standpoint but I do see plan for a port. Might need to start anticoagulation after the port placement.
Subjective
Subjective
Date of Service: June 20, 2024
Patient denies any complaints. Tolerated diet. No bowel movements yet
Objective
Data Reviewed
Laboratory Data:
Laboratory Results
06/19/24 07:51
06/20/24 07:26
Laboratory Results
PT 18.2 Sec (11.4-14.6) H 06/16/24 17:05
INR 1.53 06/16/24 17:05
APTT 47.4 Sec (23.4-35.0) H 06/16/24 17:05
Phosphorus 3.2 mg/dl (2.5-4.5) 06/16/24 17:05
Magnesium 2.1 mg/dl (1.6-2.3) 06/17/24 09:01
Total Bilirubin Cancelled 06/16/24 00:35
AST Cancelled 06/16/24 00:35
ALT Cancelled 06/16/24 00:35
Alkaline Phosphatase Cancelled 06/16/24 00:35
Vital Signs and I&O:
Vital Signs
Temp Pulse Resp BP Pulse Ox
98.1 F 107 18 105/69 96
06/20/24 11:30 06/20/24 11:30 06/20/24 11:30 06/20/24 11:30 06/20/24 11:30
I&O
06/19/24 06/20/24 06/21/24
06:59 06:59 06:59
Intake Total 1200 / 1200 1340 / 1340
Balance 1200 / 1200 1340 / 1340
Physical Exam
Physical Exam
GI: Soft, Non Distended and Non Tender
[2024-06-20] MEDS: ATROVENT NEBULES INH (14:10)
--- NOTE | 2024-06-20 17:50 | CON.MD ---
Consultation - Medical
-
see dictated note
pt admitted with CHF/pneumonia and cellulitis
developed rectal bleeding- colonoscopy + for 5cm rectal carcinoma
staging CT- no mets- but mild left hydro- ureteral dilation- bladder very distended
admit ua negative
pt reports some freq/urgency and leak
ALSO REPORTS HX OF PROSTATE CANCER- appears to have bx in 2018 with yasmine grade 6 dz- he has had no f/u since
plan
alvarez placed- 500cc clear urine
start flomax
check psa
hydro may be due to bladder distension- but malig obstruction- rectal/prostate- also possible
plan to leave alvarez and recheck ct with contrast in 48hrs- if hydro resolved- no further eval needed
if hydro persists despite bladder decompression- would plan for OR saturday for cysto/retograde and ureteroscopy
pt to maintained on sub lovenox for now
[2024-06-20] MEDS: ZAROXOLYN 5 MG PO (18:09)
[2024-06-20] MEDS: LOVENOX 40 MG SC (18:10)
[2024-06-20] MEDS: PROTONIX 40 MG PO (20:04)
[2024-06-20] MEDS: MELATONIN 5 MG PO (20:07)
[2024-06-20 20:54] LABS: Vancomycin Peak 22.3 ug/ml (18-26)
[2024-06-21] VITALS (8 sets, daily range): BP systolic 94–143; BP diastolic 61–77; PULSE 2–88; BMI 31.1
[2024-06-21] MEDS: FLUSH (NSS) 1 FLUSH IV (04:48)
[2024-06-21] MEDS: ANCEF 10 IV ×3 (04:48→20:19)
[2024-06-21] MEDS: SYNTHROID 100 MCG PO (06:26)
[2024-06-21 07:31] LABS: Vancomycin Trough 13.9 ug/ml (5-20)
[2024-06-21] MEDS: PULMICORT 0.5 MG INH ×2 (07:44→19:51)
[2024-06-21] MEDS: ATROVENT NEBULES 0.5 MG INH ×3 (07:44→19:51)
[2024-06-21] MEDS: XOPENEX 1.25 MG INHALANT SOLUTION INH ×3 (07:44→19:51)
[2024-06-21] MEDS: VANCOCIN 150 IV ×2 (08:00→17:38)
[2024-06-21] MEDS: ZAROXOLYN 5 MG PO (08:01)
[2024-06-21 08:16] LABS: Blood Urea Nitrogen 21 mg/dl (9-20); Calcium 8.3 mg/dl (8.4-10.2); Carbon Dioxide 25 mmol/L (22-30); Chloride 94 mmol/L (98-107); Estimated Creatinine Clearance 57 ml/min; Glucose 83 mg/dl (70-99); Potassium 3.9 mmol/L (3.5-5.1); Sodium 132 mmol/L (135-145); eGFR > 60.00
[2024-06-21 08:16] LABS: % Basophils 0.4 % (0-2); % Eosinophils 1.2 % (0-6); % Immature Granulocytes 3.9 % (0-0.5); % Lymphocytes 6.2 % (20.5-51.1); % Monocytes 3.4 % (1.7-9.3); % Neutrophils 84.9 % (42.2-75.2); Absolute Basophils 0.1 10^3/uL (0-0.2); Absolute Eosinophils 0.2 10^3/uL (0-0.7); Absolute Immature Granulocytes 0.6 10^3/uL (0-0.05); Absolute Monocytes 0.5 10^3/uL (0.1-0.6); Absolute Neutrophils 13.4 10^3/uL (1.4-6.5); Hematocrit 37.9 % (39.0-52.0); Hemoglobin 12.3 g/dL (13.0-18.0); Mean Corp Hgb Conc. 32.5 g/dL (33.0-37.0); Mean Corpuscular Volume 83.3 fL (80.0-94.0); Mean Platelet Volume 11.2 fL (7.4-10.4); Nucleated Red Blood Cells % 0 % (-); Platelet Count 363 10^3/uL (130-400); Red Blood Cell Count 4.55 10^6/uL (4.70-6.10); Red Cell Dist. Width 16.3 % (11.5-14.5); White Blood Cell Count 15.8 10^3/uL (4.8-10.8)
[2024-06-21] MEDS: FARXIGA 10 MG PO (08:30)
[2024-06-21] MEDS: PROTONIX 40 MG PO ×2 (08:30→20:19)
[2024-06-21] MEDS: ALDACTONE 25 MG PO (08:30)
[2024-06-21] MEDS: HYDROPHOR 1 APPLIC TOPICAL (08:31)
[2024-06-21] MEDS: DESENEX/MITRAZOL/ZEASORB 1 APPLIC TOPICAL ×2 (08:31→20:22)
[2024-06-21] MEDS: TOPROL XL 50 MG PO ×2 (08:32→20:20)
[2024-06-21] MEDS: LASIX 40 MG IV ×2 (08:32→17:37)
[2024-06-21] MEDS: MUCINEX 1200 MG PO ×2 (08:32→20:19)
--- NOTE | 2024-06-21 08:39 | W.PN.URO.CBU ---
Today's Communication / Plan
-
continue alvarez and flomax
start casodex
repeat urogram tomorrow
Assessment / Plan
-
recently diagnosed rectal ca
known prostate cancer- dx'd in 2018- no known intervening psa's
urinary retention
left hydro
pt's psa elevated- could be due to alvarez/retention- but in setting of known prostate cancer- will begin bicalutamide
continue alvarez and flomax- likely will need at time of d/c and when UOOB- TOV
in terms of hydro- possible due to retention- plan to repeat urogram tomorrow with delayed images- if resolved with alvarez- no further intervention needed- if not resolved- then would hold lovenox and take to OR saturday for cysto/retrograde/stent
hold eliquis until this determination is made
Diagnosis
-
Date of Service: June 21, 2024
-
Patient Diagnosis:
rectal cancer
urinary retention
prostate cancer
left hydro
Subjective
-
pt comfortable
high output from alvarez- fortunately clear
psa=17
Objective
-
Vital Signs
Temp Pulse Resp BP Pulse Ox
97.8 F 83 18 143/76 97
06/21/24 07:25 06/21/24 08:01 06/21/24 07:25 06/21/24 08:01 06/21/24 03:00
Intake and Output
06/20/24 06/21/24 06/22/24
06:59 06:59 06:59
Intake Total 1340 / 1340 1230 / 1230
Output Total 2100 / 2100
Balance 1340 / 1340 -870 / -870
Intake:
Oral fluids 1190 / 1190 1080 / 1080
IV piggybacks 150 / 150 150 / 150
Output:
Urine, Alvarez 2099 / 2099
Other:
How many times incontinent 4
MODERATE amount urine
How many times incontinent 2 4
SATURATED amount urine
Number of unmeasured liquid
stools
Rectum 1
Laboratory Results
06/21/24 05:23
06/21/24 07:55
Review of Systems
-
Constitutional: Fatigue
Respiratory: No Symptoms
Cardiac: No Symptoms
Abdomen/GI: No Symptoms
: Other (alvarez)
Physical Exam
-
General - no acute distress
Abdomen - soft, non-tender
Genitalia - normal- alvarez in place
Rectal - performed 06/20- prostate mildly enlarged- no discreet mass or nodule noted
Neuro - AOx3, no motor deficits
Extremities - swollen/red left leg
--- NOTE | 2024-06-21 10:01 | W.PN.CD ---
Today's Communication / Plan
-
Metolazone 06/21 and 06/22/2024. Lasix 40 IV BID
Once aggressive diuresis completed then 1-3 days later add RAAS-i (ARNI or JOCELYN-I or ARB)
Restart Eliquis when reasonable from /colorectal cancer perspective
Impression / Plan
-
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
- Edema is finally improved after metolazone 06/20/2024. Plan metolazone 06/21 and 06/22/2024
- Weight loss was minimal on Lasix 40 IV BID.
- Weight 97.7 => 92.7, still needs more diuresis
- Continue SGLT2-I, HF BB, and MRA
- Once aggressive diuresis completed then 1-3 days later add RAAS-i (ARNI or JOCELYN-I or ARB)
- Na+/fluid restriction/education
GI bleeding=> h/h stable
Hydronephrosis
- Urology now involved
Rectal mass
- Bx pending
- GI plans colorectal surgery eval/oncology eval/CT scans
Low BP
- On midodrine
Nonischemic cardiomyopathy
Permanent AFib
- Eliquis on hold
- Restart Eliquis when reasonable from /colorectal cancer perspective
Bilateral lower extremity edema marked lower extremity edema.
- Suspect mostly hear failure
- But likely some lymphedema as well
- L>R
- Ultimately compression/lymphedema therapy
Left leg cellulitis
- ID now involved
NSVT, asymptomatic
- No syncope, EF more than 40. No ICD at this time
Bifascicular heart block (RBBB/LAFB)
Single chamber MDT pacer in place for periods of second degree AV block/pauses
Subjective:
No CP, no syncope/palps. URIAS. Still with lots of edema L>R
Data:
Echo 06/15/2024: TDS, LVEF 45-50%, mild M
Single chamber PPM placed 01/16/2021, MDT
Cath 11/30/2020: No obstructive CAD, luminal diseasse present, LVEDP 16 mmHg
Physical Exam
Vital Signs/Labs
Vital Signs
Temp Pulse Resp BP Pulse Ox
97.8 F 78 16 143/76 100
06/21/24 07:25 06/21/24 09:02 06/21/24 09:02 06/21/24 08:30 06/21/24 09:02
06/20/24 06/21/24 06/22/24
06:59 06:59 06:59
Actual Weight 97.749 kg 92.76 kg
06/21/24 05:23
06/21/24 07:55
PT 18.2 Sec (11.4-14.6) H 06/16/24 17:05
INR 1.53 06/16/24 17:05
APTT 47.4 Sec (23.4-35.0) H 06/16/24 17:05
Magnesium Cancelled 06/21/24 07:55
06/13/24
13:19
Bks-[id number]-Epebxlghtkz Pept 5370
Physical Exam
Constitutional: No acute distress
EENT: Anicteric
Cardiovascular: Rhythm & rate is regular and Pedal edema present (still significant but clearly improved)
Respiratory: Respiratory effort normal and Lungs clear to auscul.
GI: Soft and Distention absent
Neuro/Psych: AO x 3
Data Reviewed
-
Date of Service: June 21, 2024
--- NOTE | 2024-06-21 10:28 | PHA.VAN.FU ---
Addendum entered and electronically signed by [facility] 06/21/24 10:40:
Will start new vancomycin 1250mg IV daily regimen tomorrow 06/22/24 at 06:00 continue vanco 750mg IV Q12h to complete tonight's 18:00 dose.
Original Note:
Vancomycin Assessment / Plan
- Assessment
Renal Function: SCR Increasing (1.0>1.1)
WBC's are: Trending Up (12.7>15.8)
In the past 24 hrs, patient has been: Hypothermic (96.6 06/21/24 AT 03:00 Axillary)
Concomitant Antimicrobials: Cefazolin
- Assessment - Therapeutic Drug Monitoring
Extrapolated Cmax (mcg/mL): 24
Peak level was drawn: Appropriately
Extrapolated Cmin (mcg/mL): 13
Trough Drawn: Appropriately
Levels were drawn: At steady state
Calculated AUC (mcg*h/mL): 434
Calculated ke: 0.0523
Calculated half life (H): 13.2
Calculated Vd (L): 66
Calculated Vanc CL (ml/min): 57.6
- Dosing Plan
Adjust Regimen to: Vancomycin 1250mg IV daily (13.5mg/kg)
Dosing Comments: changing dosing interval based on half life and possible accumulation
- Monitoring Plan
No level(s) ordered at this time: Will check levels according to vancomycin dosing protocol.
- Follow Up
Pharmacy will continue to follow.
Vancomycin Follow UP
- -
Patient Age: 83
Patient Sex: Male
Vancomycin Day #: 4
Indication: Skin And Soft Tissue
Requesting Provider: Dr. Peres
Pertinent Antimicrobial Allergies:
unknown antibiotic - confusion
Height / Weight:
Height 5 ft 8 in
Actual Weight 92.76 kg
Pertinent Past Medical History: BMI ~32
- Vital Signs / Lab Results
Temp Pulse Resp BP Pulse Ox
97.8 F 78 16 143/76 100
06/21/24 07:25 06/21/24 09:02 06/21/24 09:02 06/21/24 08:30 06/21/24 09:02
Lab Results - Hematology
06/18/24 06/19/24 06/21/24
10:58 07:51 05:23
WBC 13.7 H 12.7 H 15.8 H
Lab Results - Chemistry
06/18/24 06/19/24 06/20/24
10:58 07:51 07:26
BUN 26 H 23 H 21 H
Creatinine 1.0 1.0 1.0
Estimated Creat Clear 64 65 65
06/21/24 06/21/24
05:24 07:55
BUN 21 H Cancelled
Creatinine 1.1 Cancelled
Estimated Creat Clear 57 Cancelled
Therapeutic Drug Monitoring
Vancomycin Peak 22.3 ug/ml (18-26) 06/20/24 20:21
Vancomycin Trough 13.9 ug/ml (5-20) 06/21/24 05:23
--- NOTE | 2024-06-21 11:47 | W.PN.ID1 ---
Date of Service
Date of Service: June 21, 2024
Today's Communication
Continue antibiotics
Assessment / Plan
Left lower extremity cellulitis
-Given appearance, suspect streptococcal or staphylococcal in etiology
Leukocytosis
Acute exacerbation CHF
Rectal mass/GI bleed
A-fib
HTN
Hypothyroidism
Hx Renal cyst
Recommendations:
Continue with vancomycin to cover for potential MRSA. Follow levels closely.
Continue cefazolin 2 g IV q8 hours for coverage of streptococcal and susceptible staphylococcal isolates.
Continue with local care to the anterior medial leg wound wound.
Lower extremity elevation above the level of the heart to facilitate drainage.
Continue Valerio wrap to the lower extremity (foot to above-knee) to decrease overall edema. Would maintain on for 24 hours continuous.
Monitor white count temperature curve.
����������������������������������������������������������
Chief Complaint
-: Cellulitis
Subjective / Review of Systems
Review of Systems: No Fever and No Chills
Vital Signs / Physical Exam
Vital Signs
Vital Signs
Temp Pulse Resp BP Pulse Ox
97.7 F 96 18 106/66 100
06/21/24 11:29 06/21/24 11:29 06/21/24 11:29 06/21/24 11:29 06/21/24 11:29
Physical Exam
Constitutional: No Acute Distress and Comfortable
Eyes: Sclera Anicteric
Cardiovascular: S1/S2; Negative S3/S4
Pulmonary: Non Labored
Gastrointestinal: Soft and Non Tender
Extremities: Edema (Persists in left lower extremity) and Erythema (Foot to proximal thigh. Swelling persists, but areas of erythema are not especially tender to touch. Mild improvement in overall erythema intensity.)
Neurological: Awake and Alert
Psychological: Calm
Objective Data
Lab Data
Lab Results
06/21/24 05:23
06/21/24 07:55
PT 18.2 Sec (11.4-14.6) H 06/16/24 17:05
INR 1.53 06/16/24 17:05
APTT 47.4 Sec (23.4-35.0) H 06/16/24 17:05
Estimated Creat Clear Cancelled 06/21/24 07:55
Lactic Acid 2.5 mmol/L (0.7-2.0) H 06/14/24 05:17
Total Bilirubin Cancelled 06/16/24 00:35
AST Cancelled 06/16/24 00:35
ALT Cancelled 06/16/24 00:35
Alkaline Phosphatase Cancelled 06/16/24 00:35
Most recent labs reviewed.
Micro Results:
06/13/24 20:24 Blood Culture - Final
Blood/Venous No Growth - Final Report
06/14/24 10:39 Respiratory Culture - Final
Sputum Usual Respiratory Marisela
Gram Stain - Final
06/13/24 20:24 Influenza Types A & B (MEG) - Final
Nasal Swab Negative for Influenza A & B, NAAT
Negative results must be combined with clinical observations
and patient history.
Nucleic Acid Amplification test (NAAT)performed on the
[employer] platform.
Imaging:
06/14/2024 CXR (portable): Mild cardiomegaly with suggestion of mild interstitial cardiogenic pulmonary edema. Minimal bilateral pleural effusions. Left-sided cardiac pacemaker in place. No focal dense airspace consolidation noted. Please see
full dictation for additional detail. Film personally viewed.
--- NOTE | 2024-06-21 12:19 | W.PN.GS2 ---
Addendum entered and electronically signed by Ramses Bashir MD 06/21/24 13:14:
I saw and examined the patient.
The YACHT RIGGER's note was reviewed and I agree with the note.
Comment:
83-year-old male with PMH of A-fib (on Eliquis), CHF, AV block, HTN, RUTH, who initially presented after having episodes of blood per rectum and stopped his Lasix instead of his Eliquis, subsequently developing fluid retention and CHF exacerbation.
Additionally, developed a left lower extremity cellulitis. For workup of hematochezia, he underwent a colonoscopy, which showed a large, fungating ulcerated rectal mass, which was biopsied, and a poor prep of the remainder of the colon. He is
receiving Lasix and antibiotics for the left lower extremity. He has not had a BM since yesterday, no hematochezia either. Denies any abdominal pain, nausea or vomiting.
Afebrile, HR 100s to 110s, BP low normal, ABD S/ND/NT;
Rectal (performed 06/20)�palpable rectal mass in the left posterior position, fixed, ulcerated, distal extent at the edge of the anorectal ring, proximal extent is not palpable, no gross blood
� Rectal mass, biopsied, concerning for rectal cancer
�Follow-up path
�CEA 14.6, CT CAP - no evidence of disease
�Will need MRI pelvis with/without contrast, can be done as an outpatient
�Appreciate oncology; depending on results of CT scans and MRI, patient will likely need neoadjuvant chemo and radiation
�I can place port as an outpatient
-Due to the patient's current cellulitis, I would recommend resolution of the cellulitis prior to placing port to decrease risk of port infection
� Okay to restart Eliquis from colorectal standpoint; currently holding per urology due to hydroureter and possible need for procedure
� Okay for regular diet
� Appreciate hospitalist, urology and cardiology
Original Note:
Today's Communication / Plan
-
Continue diet
Assessment / Plan
-
Patient is an 83-year-old male with PMH of prostate ca, A-fib (on Eliquis), CHF, AV block, HTN, RUTH, who initially presented after having episodes of blood per rectum and stopped his Lasix instead of his Eliquis, subsequently developing fluid
retention and CHF exacerbation. Additionally, developed a left lower extremity cellulitis. For workup of hematochezia, he underwent a colonoscopy, which showed a large, fungating ulcerated rectal mass, which was biopsied, and a poor prep of the
remainder of the colon. He is receiving Lasix and antibiotics for the left lower extremity (cellulitis present).
+BM/Flatus
No abdominal pain
CT for staging with new hydro with urinary retention present. Urology following
� Rectal mass, pending biopsies, concerning for rectal cancer. Follow-up path
� CEA 14.6, no overt metastatic disease on CT's done for staging
�Will need MRI pelvis with/without contrast, can be done as an outpatient
� Appreciate oncology; patient will likely need neoadjuvant chemo and radiation
� Surgical team can place port as an outpatient once cellulitis resolved
� Okay to restart Eliquis from CRS standpoint once cleared by urology
� Okay for regular diet
� Appreciate hospitalist and cardiology
Subjective Data
-
Date of Service: June 21, 2024
Patient seen and examined at bedside with Dr. Bashir. Passing flatus/stools without pain. Denies n/v. Denies abdominal pain.
Objective Data
-
Intake and Output
06/20/24 06/21/24 06/22/24
06:59 06:59 06:59
Intake Total 1340 / 1340 1230 / 1230
Output Total 2099
Balance 1340 / 1340 -870 / -870
Intake:
Oral fluids 1190 / 1190 1080 / 1080
IV piggybacks 150 / 150 150 / 150
Output:
Urine, Hodges 2099
Other:
How many times incontinent 4
MODERATE amount urine
How many times incontinent 2 4
SATURATED amount urine
Number of unmeasured liquid
stools
Rectum 1
Vital Signs
Temp Pulse Resp BP Pulse Ox
97.7 F 96 18 106/66 100
06/21/24 11:29 06/21/24 11:29 06/21/24 11:29 06/21/24 11:29 06/21/24 11:29
Lab Results
06/21/24 05:23
06/21/24 07:55
Calcium Cancelled 06/21/24 07:55
Phosphorus 3.2 mg/dl (2.5-4.5) 06/16/24 17:05
Magnesium Cancelled 06/21/24 07:55
Total Bilirubin Cancelled 06/16/24 00:35
AST Cancelled 06/16/24 00:35
ALT Cancelled 06/16/24 00:35
Alkaline Phosphatase Cancelled 06/16/24 00:35
Total Protein Cancelled 06/16/24 00:35
Albumin Cancelled 06/16/24 00:35
Physical Exam
-
NAD
ABD soft, nt, nd
[2024-06-21] MEDS: CASODEX 50 MG PO (13:06)
--- NOTE | 2024-06-21 14:03 | W.PN.GI.CBS2 ---
Today's Communication / Plan
-
Recommendation: - Await pathology results.
- Low residue diet.
-CT scan of the abdomen and pelvis showing rectal wall thickening without any evidence of metastatic disease, mild left hydro uretero nephrosis noted. Nodularity of the liver, questionable cirrhosis
-CEA elevated at 14.6. Noted oncology evaluation. Outpatient follow-up.
-On Lovenox currently.
-Neurology workup in progress as well for this left mild hydro uretero nephrosis
-Colorectal surgery on board as well.
-Labs showing normal platelets and LFTs. Can do outpatient workup with FibroScan if there is any concern for cirrhosis. Will check hepatitis serologies for now
Assessment / Plan
-
Pt is an 83yo presents with Afib on Eliquis, AV block with prior pacer, hypothyroidism, HTN, with onset of cough for past month with concern for flash pulm edema and 10 lbs wt gain and sepsis with tachycardia/leukocytosis, fever, and chills. He
admits to stopping Lasix prior to admission with concern for bleeding. Noted on on admission with mild drop in hbg and rise in BUN that is improving. . He was also noted with burgundy stool. In review with patient he is noted with
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 Last colonoscopy was over 30 years ago. 06/17 rectal mass noted on exam.
-anemia with mild drop in hbg after admission
-intermittent rectal bleeding with red and burgundy stools
-rectal mass on exam 06/17
-rise in BUN on admission improving
-flash pulm edema/ CHF with hypoxemia on admission
-LLE swelling, redness with blister -cellulitis
-concern for sepsis on admission with tachycardia, chills, fever, leukocytosis
-afib on Eliquis prior to admission
-LE blister on leg
-hyponatremia
other med problems:
-AV block
-pacer
-hypothyroidism
-HTN
-sleep apnea
-obesity
Colonoscopy 06/19/2024- Likely malignant tumor in the distal rectum.
Biopsied.
- Diverticulosis in the sigmoid colon and in the
descending colon.
Recommendation: - Await pathology results.
- Low residue diet.
-CT scan of the abdomen and pelvis showing rectal wall thickening without any evidence of metastatic disease, mild left hydro uretero nephrosis noted. Nodularity of the liver, questionable cirrhosis
-CEA elevated at 14.6. Noted oncology evaluation. Outpatient follow-up.
-On Lovenox currently.
-Neurology workup in progress as well for this left mild hydro uretero nephrosis
-Colorectal surgery on board as well.
-Labs showing normal platelets and LFTs. Can do outpatient workup with FibroScan if there is any concern for cirrhosis. Will check hepatitis serologies for now
Subjective
Subjective
Date of Service: June 21, 2024
No new symptoms
Objective
Data Reviewed
Laboratory Data:
Laboratory Results
06/21/24 05:23
06/21/24 07:55
Laboratory Results
PT 18.2 Sec (11.4-14.6) H 06/16/24 17:05
INR 1.53 06/16/24 17:05
APTT 47.4 Sec (23.4-35.0) H 06/16/24 17:05
Phosphorus 3.2 mg/dl (2.5-4.5) 06/16/24 17:05
Magnesium Cancelled 06/21/24 07:55
Total Bilirubin Cancelled 06/16/24 00:35
AST Cancelled 06/16/24 00:35
ALT Cancelled 06/16/24 00:35
Alkaline Phosphatase Cancelled 06/16/24 00:35
Vital Signs and I&O:
Vital Signs
Temp Pulse Resp BP Pulse Ox
97.7 F 96 18 106/66 100
06/21/24 11:29 06/21/24 11:29 06/21/24 11:29 06/21/24 11:29 06/21/24 11:29
I&O
06/20/24 06/21/24 06/22/24
06:59 06:59 06:59
Intake Total 1340 / 1340 1230 / 1230
Output Total 2099 / 2099
Balance 1340 / 1340 -870 / -870
Physical Exam
Physical Exam
GI: Soft, Non Distended and Non Tender
[2024-06-21] MEDS: LOVENOX 40 MG SC (17:38)
--- NOTE | 2024-06-21 17:39 | W.PN.HOSP.TC ---
Today's Communication/Plan
-
Urogram tomorrow, appreciate urology
Continue Lovenox DVT prophylaxis. Hold Eliquis.
Continue antibiotics
Continue IV diuresis with Lasix and PO Diuresis with Metolazone
Assessment / Plan
Assessment / Plan
Physical Exam
General: Not in acute distress
HEENT: Normocephalic, Moist mucous membranes and Atraumatic
Respiratory: Rales, limited
Cardiac: S1/S2,
GI: Soft, Non Tender, Non Distended, obese.
Musculoskeletal: ++ Edema in LEs.
Skin: LLE with cellulitis with wounds (covered in wrap), spreading erythema up the left thigh
Neuro: AAOx3
Psych: Calm
Assessment/Plan
# Acute hypoxemic and hypercapnic respiratory failure secondary to acute on chronic HFpEF exacerbation/ cardiogenic pulmonary edema
History of Lasix non-compliance
# Hypertensive emergency, then became hypotensive
History of severe central and obstructive sleep apnea
Fever
#Cardiomegaly
#Severe Bilateral Lower Extremity Edema
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
#Pulmonary Edema
#Pleural Effusion
-Was on Lasix, Nitro drip --> but then fever and hypotension needing Levophed and antibiotics, weaned off Levophed and transferred out from the ICU
-IV Lasix resumed on 06/19/24. Also continue SGLT2-I
-Continue Aldactone -- dose was previously increased
-Metolazone added on 06/20/24 ---> continue
-PO sodium and fluid restriction
-Daily weights, I's and O's
-Echocardiogram noted
-Continue with aggressive diuretic therapy as blood pressure tolerates and monitor closely electrolytes and kidney function.
-Aspiration precautions
-Continue nebulizers while in the hospital, transition to Symbicort 160/4.5 upon discharge
-Appreciate pulmonary
-Mucolytics
-Appreciate pulmonary and cardiology help
#Sepsis/septic shock/lactic acidosis present on admission
#Pneumonia
#LLE Cellulitis - WORSENING
-Tachycardia, hypoxia, leukocytosis, fevers
-Previously was on empiric antibiotics with Rocephin and Doxycycline to cover patient's suspected RLL PNA and LLE cellulitis
-Patient's pneumonia symptoms improved but LLE cellulitis symptoms have significantly worsened with erythema spreading up the LLE
-Now on Vancomycin and Cefazolin antibiotics -- continue
-ID consulted, appreciate their evaluation and recommendations
-Wound care, lower extremity elevation above the level of the heart, continue Valerio wrap to the lower extremity (foot to above-knee)
#Hypotension
-If needs for hypotension, resume Midodrine
#Burgundy Stools Reported on 06/15/24
#Blood stools for a few weeks [employer]ING [employer]
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
#History of prostate cancer- diagnosed in 2018
#Diverticulosis in the sigmoid colon and in the descending colon.
-Continue Low Residue Diet
-CEA elevated
-Eliquis held, as per cardiology and GI --> per GI, do not resume Eliquis until maybe tomorrow, given colonoscopy today
-Monitor CBC
-SPECIAL CARE MUST BE TAKEN TO PREVENT STOOL OR ANY BOWEL MOVEMENTS OR URINE FROM TOUCHING PATIENT'S LEFT LOWER EXTREMITY DUE TO WORSENING CELLULITIS AND WOUNDS
-Due to large rectal mass, CT Chest/Abdomen/Pelvis was done showing no metastatic disease
-Colorectal surgery and oncology consulted, appreciate their evaluation and recommendations
-Await biopsy results from colonoscopy on 06/19/24
-Patient will need MRI pelvis with/without contrast, can be done as an outpatient
-Colorectal surgery said they will place port as an outpatient, it is not a good idea to place the port while patient has a cellulitis.
-Continue to hold Eliquis as per urology (see below), and no Heparin Drip at this time as per urology and GI recommendation (via [facility] [facility] on 06/20/24 and
06/21/24) due to high risk of bleeding
#Mild left hydroureteronephrosis with distal tapering without overt obstructing cause identified, as per radiologist report on CT Imaging
#Urinary Retention
#History of prostate cancer- diagnosed in 2018
-Consulted urology, appreciate their evaluation and recommendations
-Continue Alvarez catheter and Flomax as per urology
-Start Casodex given patient's history of known prostate cancer
-Repeat urogram tomorrow (because of patient's hydronephrosis which is possibly due to urinary retention) - urology plans to repeat urogram on 06/21/24 with
delayed images - if resolved with alvarez- no further intervention needed - but if not resolved- then would need to hold Lovenox and urology would need to take
patient to the operating room on 06/23/24 for cysto/retrograde/stent
-Given the above, will need to continue to hold Eliquis
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
-GI following
#Non-ischemic myocardial injury
#Hyponatremia, mild
-Monitor BMP
#Nausea/vomiting secondary to coughing episodes
-Zofran as needed
#Mild hyperkalemia - RESOLVED
-Monitor BMP
#Permanent atrial fibrillation
-Hold Eliquis as per urology, and hold Heparin Drip as per urology recommendation (via [facility] [facility]) given high risk of bleeding with Heparin Drip at this time
-Continue metoprolol
#AV block status post pacemaker
#NSVT
#Essential hypertension
-Low BP
#Hypothyroidism
-Continue levothyroxine
Code Status: DNR/DNI
DVT Prophylaxis: Lovenox subq for now. Hold Eliquis since urology intervention may be needed. No SCDs given bilateral lower extremity edema and lower extremity cellulitis.
Anticipated Discharge: > 48 hours
Subjective/Interval History
-
Date of Service: June 21, 2024
Patient was seen and examined. He denied any symptoms or complaints.
Objective Data
-
Labs:
Laboratory Results
06/21/24 06/21/24 06/21/24
05:23 05:24 07:55
WBC 15.8 H
Hgb 12.3 L
Hct 37.9 L
Plt Count 363 D
Sodium 132 L Cancelled
Potassium 3.9 Cancelled
Chloride 94 L Cancelled
Carbon Dioxide 25 Cancelled
BUN 21 H Cancelled
Creatinine 1.1 Cancelled
Glucose 83 Cancelled
Calcium 8.3 L Cancelled
Vital Signs:
Vital Signs
Temp Pulse Resp BP Pulse Ox
97.7 F 96 18 106/66 100
06/21/24 11:29 06/21/24 11:29 06/21/24 11:29 06/21/24 11:29 06/21/24 11:29
I&O
06/20/24 06/21/24 06/22/24
06:59 06:59 06:59
Intake Total 1340 / 1340 1230 / 1230 300 / 300
Output Total 2100 / 2100 1800 / 1800
Balance 1340 / 1340 -870 / -870 -1500 / -1500
[2024-06-21] MEDS: MELATONIN 5 MG PO (20:20)
[2024-06-22] VITALS (11 sets, daily range): BP systolic 87–113; BP diastolic 54–91; PULSE 2–88; O2SAT 97; BMI 31.1
[2024-06-22] MEDS: ANCEF 10 IV ×2 (03:07→11:57)
[2024-06-22] MEDS: VANCOCIN 275 MG IV (05:00)
[2024-06-22] MEDS: SYNTHROID 100 MCG PO (06:29)
--- NOTE | 2024-06-22 07:44 | W.PN.URO.CBU ---
Today's Communication / Plan
-
urogram
Assessment / Plan
-
recently diagnosed rectal ca
known prostate cancer- dx'd in 2018- no known intervening psa's
urinary retention
left hydro
pt's psa elevated- could be due to alvarez/retention- but in setting of known prostate cancer- will begin bicalutamide
continue alvarez and flomax- likely will need at time of d/c and when UOOB- TOV
in terms of hydro- possible due to retention- repeat urogram today- if hydro persists- plan for OR tomorrow for cysto/retrograde/ureteroscopy to determine etiology
Diagnosis
-
Date of Service: June 22, 2024
-
Patient Diagnosis:
rectal cancer
urinary retention
prostate cancer
left hydro
Subjective
-
pt stable
urine clear
on flomax and casodex
for urogram today
Objective
-
Vital Signs
Temp Pulse Resp BP Pulse Ox
97.4 F 96 20 90/71 97
06/22/24 03:39 06/22/24 03:39 06/22/24 03:39 06/22/24 03:39 06/22/24 03:39
Intake and Output
06/21/24 06/22/24 06/23/24
06:59 06:59 06:59
Intake Total 1230 / 1230 300 / 300
Output Total 2099 4650 / 4650
Balance -870 / -870 -4350 / -4350
Intake:
Oral fluids 1080 / 1080 300 / 300
IV piggybacks 150 / 150
Output:
Urine, Alvarez 2099 2850 / 2850
Urine, Voided 1800 / 1800
Other:
How many times incontinent 4
SATURATED amount urine
Number of unmeasured liquid
stools
Rectum 1
Review of Systems
-
Constitutional: Fatigue
Respiratory: No Symptoms
Cardiac: No Symptoms
Abdomen/GI: No Symptoms
Physical Exam
-
General - no acute distress
[2024-06-22] MEDS: ZAROXOLYN 5 MG PO (07:57)
[2024-06-22 08:02] LABS: % Basophils 0.6 % (0-2); % Eosinophils 1.3 % (0-6); % Immature Granulocytes 2.6 % (0-0.5); % Lymphocytes 6.1 % (20.5-51.1); % Monocytes 3.7 % (1.7-9.3); % Neutrophils 85.7 % (42.2-75.2); Absolute Basophils 0.1 10^3/uL (0-0.2); Absolute Eosinophils 0.2 10^3/uL (0-0.7); Absolute Immature Granulocytes 0.4 10^3/uL (0-0.05); Absolute Monocytes 0.6 10^3/uL (0.1-0.6); Absolute Neutrophils 13.5 10^3/uL (1.4-6.5); Hematocrit 39.1 % (39.0-52.0); Hemoglobin 13.1 g/dL (13.0-18.0); Mean Corp Hgb Conc. 33.5 g/dL (33.0-37.0); Mean Corpuscular Hgb 28.1 pg (27.0-31.0); Mean Corpuscular Volume 83.9 fL (80.0-94.0); Nucleated Red Blood Cells % 0 % (-); Platelet Count 375 10^3/uL (130-400); Red Blood Cell Count 4.66 10^6/uL (4.70-6.10); Red Cell Dist. Width 15.9 % (11.5-14.5); White Blood Cell Count 15.7 10^3/uL (4.8-10.8)
[2024-06-22] MEDS: XOPENEX 1.25 MG INHALANT SOLUTION INH ×3 (08:02→19:53)
[2024-06-22] MEDS: PULMICORT 0.5 MG INH ×2 (08:02→19:52)
[2024-06-22] MEDS: ATROVENT NEBULES 0.5 MG INH ×3 (08:02→19:52)
[2024-06-22 08:37] LABS: Blood Urea Nitrogen 22 mg/dl (9-20); Calcium 8.6 mg/dl (8.4-10.2); Carbon Dioxide 33 mmol/L (22-30); Chloride 89 mmol/L (98-107); Estimated Creatinine Clearance 52 ml/min; Glucose 113 mg/dl (70-99); Magnesium 1.8 mg/dl (1.6-2.3); Sodium 132 mmol/L (135-145); eGFR > 60.00
[2024-06-22] MEDS: MUCINEX 1200 MG PO ×2 (08:37→21:15)
[2024-06-22] MEDS: PROTONIX 40 MG PO ×2 (08:38→21:15)
[2024-06-22] MEDS: FARXIGA 10 MG PO (08:38)
[2024-06-22] MEDS: CASODEX 50 MG PO (08:38)
[2024-06-22] MEDS: HYDROPHOR 1 APPLIC TOPICAL (08:39)
[2024-06-22] MEDS: TOPROL XL PO (08:39)
[2024-06-22] MEDS: DESENEX/MITRAZOL/ZEASORB 1 APPLIC TOPICAL ×2 (08:40→22:12)
[2024-06-22] MEDS: LASIX IV (08:54)
--- NOTE | 2024-06-22 09:25 | W.PN.HOSP.TC ---
Today's Communication/Plan
-
dc planning
Assessment / Plan
Assessment / Plan
Physical Exam
General: Not in acute distress
HEENT: Normocephalic, Moist mucous membranes and Atraumatic
Respiratory: Rales, limited
Cardiac: S1/S2,
GI: Soft, Non Tender, Non Distended, obese.
Musculoskeletal: ++ Edema in LEs.
Skin: LLE with cellulitis with wounds (covered in wrap), spreading erythema up the left thigh
Neuro: AAOx3
Psych: Calm
Assessment/Plan
# Acute hypoxemic and hypercapnic respiratory failure secondary to acute on chronic HFpEF exacerbation/ cardiogenic pulmonary edema
History of Lasix non-compliance
# Hypertensive emergency, then became hypotensive
History of severe central and obstructive sleep apnea
Fever
#Cardiomegaly
#Severe Bilateral Lower Extremity Edema
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
#Pulmonary Edema
#Pleural Effusion
-Was on Lasix, Nitro drip --> but then fever and hypotension needing Levophed and antibiotics, weaned off Levophed and transferred out from the ICU
-IV Lasix resumed on 06/19/24. Also continue SGLT2-I
-Continue Aldactone -- dose was previously increased
-Metolazone added on 06/20/24 ---> continue
-PO sodium and fluid restriction
-Daily weights, I's and O's
-Echocardiogram noted
-Continue with aggressive diuretic therapy as blood pressure tolerates and monitor closely electrolytes and kidney function.
-Aspiration precautions
-Continue nebulizers while in the hospital, transition to Symbicort 160/4.5 upon discharge
-Appreciate pulmonary
-Mucolytics
-Appreciate pulmonary and cardiology help
#Sepsis/septic shock/lactic acidosis present on admission
#Pneumonia
#LLE Cellulitis - WORSENING
-Tachycardia, hypoxia, leukocytosis, fevers
-Previously was on empiric antibiotics with Rocephin and Doxycycline to cover patient's suspected RLL PNA and LLE cellulitis
-Patient's pneumonia symptoms improved but LLE cellulitis symptoms have significantly worsened with erythema spreading up the LLE
-Now on Vancomycin and Cefazolin antibiotics -- continue
-ID consulted, appreciate their evaluation and recommendations
-Wound care, lower extremity elevation above the level of the heart, continue Valerio wrap to the lower extremity (foot to above-knee)
#Hypotension
-If needs for hypotension, resume Midodrine
#Burgundy Stools Reported on 06/15/24
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
#History of prostate cancer- diagnosed in 2018
#Diverticulosis in the sigmoid colon and in the descending colon.
-Continue Low Residue Diet
-CEA elevated
-Eliquis held, as per cardiology and GI --> per GI, do not resume Eliquis until maybe tomorrow, given colonoscopy today
-Monitor CBC
-SPECIAL CARE MUST BE TAKEN TO PREVENT STOOL OR ANY BOWEL MOVEMENTS OR URINE FROM TOUCHING PATIENT'S LEFT LOWER EXTREMITY DUE TO WORSENING CELLULITIS AND WOUNDS
-Due to large rectal mass, CT Chest/Abdomen/Pelvis was done showing no metastatic disease
-Colorectal surgery and oncology consulted, appreciate their evaluation and recommendations
-Patient will need MRI pelvis with/without contrast, can be done as an outpatient
-Colorectal surgery said they will place port as an outpatient, it is not a good idea to place the port while patient has a cellulitis.
-Continue to hold Eliquis as per urology (see below), and no Heparin Drip at this time as per urology and GI recommendation (via [facility] on 06/20/24 and
06/21/24) due to high risk of bleeding
#Mild left hydroureteronephrosis with distal tapering without overt obstructing cause identified, as per radiologist report on CT Imaging
#Urinary Retention
#History of prostate cancer- diagnosed in 2018
-Consulted urology, appreciate their evaluation and recommendations
-Continue Hodges catheter and Flomax as per urology
-Started Casodex given patient's history of known prostate cancer
-Repeat urogram today, no need for intervention
patient to the operating room on 06/23/24 for cysto/retrograde/stent
- ok to resume Eliquis.
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
-GI followed. No nausea or jaundice.
#Non-ischemic myocardial injury
#Hyponatremia, mild
-Monitor BMP
#Nausea/vomiting secondary to coughing episodes
Resolved.
-Zofran as needed
#Mild hyperkalemia - RESOLVED
-Monitor BMP
#Permanent atrial fibrillation
resume Eliquis
-Continue metoprolol
#AV block status post pacemaker
#NSVT
#Essential hypertension
-Low BP
#Hypothyroidism
-Continue levothyroxine
Code Status: DNR/DNI
DVT Prophylaxis: back on Eliquis.
Total time spent to see the patient, examine the patient on the floor, review data and lab results, discuss treatment plan with patient, family at bed side, nursing staff around 55 minutes
Anticipated Discharge: 24 - 48 hours
Subjective/Interval History
-
Date of Service: June 22, 2024
No chest pain
No sob
No headache
Objective Data
-
Labs:
Laboratory Results
06/22/24
07:49
WBC 15.7 H
Hgb 13.1
Hct 39.1
Plt Count 375
Sodium 132 L
Potassium 4.0
Chloride 89 L
Carbon Dioxide 33 H
BUN 22 H
Creatinine 1.2
Glucose 113 H
Calcium 8.6
Vital Signs:
Vital Signs
Temp Pulse Resp BP Pulse Ox
97.4 F 89 18 97/66 98
06/22/24 07:51 06/22/24 08:31 06/22/24 08:31 06/22/24 07:57 06/22/24 08:31
I&O
06/21/24 06/22/24 06/23/24
06:59 06:59 06:59
Intake Total 1230 / 1230 300 / 300
Output Total 2099 / 2099 4650 / 4650
Balance -870 / -870 -4350 / -4350
--- NOTE | 2024-06-22 09:35 | PHA.VAN.FU ---
Vancomycin Assessment / Plan
- Assessment
Renal Function: Stable
WBC's are: Stable
In the past 24 hrs, patient has been: Afebrile
Concomitant Antimicrobials: cefazolin
- Dosing Plan
Continue: Vanc 1250mg Q24H
- Monitoring Plan
No level(s) ordered at this time: consider repeat levels in next few days
- Follow Up
Pharmacy will continue to follow.
Vancomycin Follow UP
- -
Patient Age: 83
Patient Sex: Male
Vancomycin Day #: 5
Indication: Skin And Soft Tissue
Requesting Provider: Dr. Peres / Izabela
Pertinent Antimicrobial Allergies:
unknown antibiotic - confusion
Height / Weight:
Height 5 ft 8 in
Actual Weight 92.618 kg
Pertinent Past Medical History: BMI ~32
- Vital Signs / Lab Results
Temp Pulse Resp BP Pulse Ox
97.4 F 89 18 97/66 98
06/22/24 07:51 06/22/24 08:31 06/22/24 08:31 06/22/24 07:57 06/22/24 08:31
Lab Results - Hematology
06/21/24 06/22/24
05:23 07:49
WBC 15.8 H 15.7 H
Lab Results - Chemistry
06/20/24 06/21/24 06/21/24
07:26 05:24 07:55
BUN 21 H 21 H Cancelled
Creatinine 1.0 1.1 Cancelled
Estimated Creat Clear 65 57 Cancelled
06/22/24
07:49
BUN 22 H
Creatinine 1.2
Estimated Creat Clear 52
Therapeutic Drug Monitoring
Vancomycin Peak 22.3 ug/ml (18-26) 06/20/24 20:21
Vancomycin Trough 13.9 ug/ml (5-20) 06/21/24 05:23
[2024-06-22] MEDS: ALDACTONE 25 MG PO (09:42)
--- NOTE | 2024-06-22 10:13 | W.PN.CD ---
Today's Communication / Plan
-
will slow diuresis given softer BP.�
Will stop diuretics now and start again with Lasix 60 mg once a day starting on 06/24/2024.��
We might find he needs Zaroxolyn 1-2 times a week
Hope to add RAAS-i (ARNI or JOCELYN-I or ARB) in several days if BP permits
Restart Eliquis when reasonable from /colorectal cancer perspective
Impression / Plan
-
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
- Edema is finally improved after metolazone with IV Lasix for 2 days
- Weight loss was minimal on Lasix 40 IV BID.
- Weight 97.7 => 92.6, still needs more diuresis => will slow diuresis given softer BP
- Continue SGLT2-I, HF BB, and MRA
- Hope to add RAAS-i (ARNI or JOCELYN-I or ARB) in several days if BP permits
- Na+/fluid restriction/education
- Will stop diuretics now and start again with Lasix 60 mg once a day starting on 06/24/2024. We might find he needs Zaroxolyn 1-2 times a week
GI bleeding=> h/h stable
Hydronephrosis
- Urology now involved
Rectal mass
- Bx pending
- GI plans colorectal surgery eval/oncology eval/CT scans
Low BP
- On midodrine
Nonischemic cardiomyopathy
Permanent AFib
- Eliquis on hold
- Restart Eliquis when reasonable from /colorectal cancer perspective
Bilateral lower extremity edema marked lower extremity edema.
- Suspect mostly hear failure
- But likely some lymphedema as well
- L>R
- Ultimately compression/lymphedema therapy
Left leg cellulitis
- ID now involved
NSVT, asymptomatic
- No syncope, EF more than 40. No ICD at this time
Bifascicular heart block (RBBB/LAFB)
Single chamber MDT pacer in place for periods of second degree AV block/pauses
Subjective:
No CP, no syncope/palps. URIAS. Edema much improved still L>R
Data:
Echo 06/15/2024: TDS, LVEF 45-50%, mild M
Single chamber PPM placed 01/16/2021, MDT
Cath 11/30/2020: No obstructive CAD, luminal diseasse present, LVEDP 16 mmHg
Physical Exam
Vital Signs/Labs
Vital Signs
Temp Pulse Resp BP Pulse Ox
97.4 F 93 18 106/70 98
06/22/24 07:51 06/22/24 09:41 06/22/24 08:31 06/22/24 09:41 06/22/24 08:31
06/21/24 06/22/24 06/23/24
06:59 06:59 06:59
Actual Weight 92.76 kg 92.618 kg
06/22/24 07:49
06/22/24 07:49
PT 18.2 Sec (11.4-14.6) H 06/16/24 17:05
INR 1.53 06/16/24 17:05
APTT 47.4 Sec (23.4-35.0) H 06/16/24 17:05
Magnesium 1.8 mg/dl (1.6-2.3) 06/22/24 07:49
06/13/24
13:19
Ryo-O-Zegtmonxwds Pept 5370
Physical Exam
Constitutional: No acute distress
Cardiovascular: Rhythm/rate is irregular, Pedal edema present (much improved) and S1S2 is normal
Respiratory: Respiratory effort normal and Lungs clear to auscul.
GI: Soft
Data Reviewed
-
Date of Service: June 22, 2024
--- NOTE | 2024-06-22 10:39 | W.PN.UPDATE ---
Addendum entered and electronically signed by Capo Hobbs Jr., MD 06/22/24 10:41:
may resume eliquis at any time
Original Note:
Update Note
Progress Note Update
ct urogram reviewed
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
plan to discharge with alvarez/flomax and casodex
f/u after discharge to discuss alvarez removal/prostate cancer f/u
--- NOTE | 2024-06-22 13:25 | W.PN.ONC2 ---
Today's Communication / Plan
-
Awaiting pathology. Will need port regardless of whether his treatment will be total neoadjuvant chemotherapy or, if MMR deficiency, immunotherapy.
Patient states that he has not been out of bed much at all, cannot walk due to leg difficulty.
Hopefullly he will recover performance status.
Impression
Impression
Rectal mass/cancer
LLE Cellulitis
Permanent atrial fibrillation - Eliquis on HOLD
Acute on chronic HFpEF exacerbation/ cardiogenic pulmonary edema
Hypertensive emergency, then became hypotensive
Obstructive sleep apnea - CPAP
AV block status post pacemaker
Hypothyroidism
Code Status: DNR/DNI
Plan
Plan
CT C/A/P reviewed with no evidence of metastatic disease.
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 This has the appearance of hydronephrosis on the CAT scan abdomen and pelvis. There is no hydronephrosis.
Case discussed with pathology, requested that microsatellite instability testing be performed as the path is resulted, assuming it is confirmed to be rectal cancer.
Discussed with patient and that treatment would usually be total neoadjuvant chemotherapy, pending performance status recovery. However, if there is evidence of mismatch repair enzyme deficiency, then he would be treated with immunotherapy
alone.
Await path.
Will need Port-A-Cath inserted prior to resuming Eliquis which is currently on hold.
Subjective/Objective
Chief Complaint
Hematology/oncology follow-up of rectal mass
Subjective
Patient states unable to walk due to pain in leg, otherwise without complaint.
Vital Signs:
Vital Signs
Temp Pulse Resp BP Pulse Ox
97.9 F 109 17 100/65 95
06/22/24 11:41 06/22/24 11:41 06/22/24 11:41 06/22/24 11:41 06/22/24 11:41
Lab Results:
Laboratory Data
WBC 15.7 10^3/uL (4.8-10.8) H 06/22/24 07:49
Hgb 13.1 g/dL (13.0-18.0) 06/22/24 07:49
Plt Count 375 10^3/uL (130-400) 06/22/24 07:49
PT 18.2 Sec (11.4-14.6) H 06/16/24 17:05
INR 1.53 06/16/24 17:05
APTT 47.4 Sec (23.4-35.0) H 06/16/24 17:05
eGFR > 60.00 06/22/24 07:49
Physical Exam
Awake, alert, nontoxic-appearing
Review of Systems
Review of Systems
Constitutional: Reports Fatigue; Denies Fever
--- NOTE | 2024-06-22 13:57 | W.PN.ID1 ---
Date of Service
Date of Service: June 22, 2024
Today's Communication
Continue antibiotics. Consolidate to once daily daptomycin.
Assessment / Plan
Left lower extremity cellulitis
-Given appearance, suspect streptococcal or staphylococcal in etiology
Leukocytosis
Acute exacerbation CHF
Rectal mass/GI bleed
A-fib
HTN
Hypothyroidism
Hx Renal cyst
Recommendations:
Remains on vancomycin and cefazolin at present.
Narrow to daptomycin 1 g IV every 24 hours
Check CPK.
May ultimately need a short course of IV antibiotics following discharge.
Continue with local care to the anterior medial leg wound wound.
Lower extremity elevation above the level of the heart to facilitate drainage.
Continue Valerio wrap to the lower extremity (foot to above-knee) to decrease overall edema. Would maintain on for 24 hours continuous.
Monitor white count temperature curve.
����������������������������������������������������������
Chief Complaint
-: Cellulitis
Subjective / Review of Systems
Patient seen and examined. Reports left leg is feeling somewhat improved.
Review of Systems: No Fever and No Chills
Vital Signs / Physical Exam
Vital Signs
Vital Signs
Temp Pulse Resp BP Pulse Ox
97.9 F 86 18 100/65 96
06/22/24 11:41 06/22/24 13:34 06/22/24 13:34 06/22/24 11:41 06/22/24 13:34
Physical Exam
Constitutional: No Acute Distress, Comfortable and Non-toxic
Eyes: No Conjunctival Hemorrhage and Sclera Anicteric
Cardiovascular: S1/S2; Negative S3/S4
Pulmonary: Non Labored
Gastrointestinal: Soft and Non Tender
Extremities: Edema (Improved with use of Valerio wrap's) and Erythema (Foot to proximal thigh. Swelling persists, but areas of erythema are not especially tender to touch. Mild improvement in overall erythema intensity continues today.)
Neurological: Awake and Alert
Psychological: Calm
Objective Data
Lab Data
Lab Results
06/22/24 07:49
06/22/24 07:49
PT 18.2 Sec (11.4-14.6) H 06/16/24 17:05
INR 1.53 06/16/24 17:05
APTT 47.4 Sec (23.4-35.0) H 06/16/24 17:05
Estimated Creat Clear 52 ml/min 06/22/24 07:49
Lactic Acid 2.5 mmol/L (0.7-2.0) H 06/14/24 05:17
Total Bilirubin Cancelled 06/16/24 00:35
AST Cancelled 06/16/24 00:35
ALT Cancelled 06/16/24 00:35
Alkaline Phosphatase Cancelled 06/16/24 00:35
Most recent labs reviewed.
Micro Results:
06/13/24 20:24 Blood Culture - Final
Blood/Venous No Growth - Final Report
06/14/24 10:39 Respiratory Culture - Final
Sputum Usual Respiratory Marisela
Gram Stain - Final
06/13/24 20:24 Influenza Types A & B (MEG) - Final
Nasal Swab Negative for Influenza A & B, NAAT
Negative results must be combined with clinical observations
and patient history.
Nucleic Acid Amplification test (NAAT)performed on the
[id number] NOW platform.
Imaging:
06/14/2024 CXR (portable): Mild cardiomegaly with suggestion of mild interstitial cardiogenic pulmonary edema. Minimal bilateral pleural effusions. Left-sided cardiac pacemaker in place. No focal dense airspace consolidation noted. Please see
full dictation for additional detail. Film personally viewed.
[2024-06-22] MEDS: CUBICIN 20 MG IV (15:06)
--- NOTE | 2024-06-22 16:08 | W.PN.GI.CBS2 ---
Today's Communication / Plan
-
Recommendation: - Await pathology results.
- continue Low residue diet.
-CT scan of the abdomen and pelvis showing rectal wall thickening without any evidence of metastatic disease,
mild left hydro uretero nephrosis noted. Nodularity of the liver, questionable cirrhosis
-CEA elevated at 14.6. Noted oncology evaluation. Outpatient follow-up.
-On Lovenox currently.
-Neurology workup in progress as well for this left mild hydro uretero nephrosis
-Colorectal surgery on board as well.
-Labs showing normal platelets and LFTs. Can do outpatient workup with FibroScan if there is any concern
for cirrhosis. hepatitis serologies pending
Assessment / Plan
-
Pt is an 83yo presents with Afib on Eliquis, AV block with prior pacer, hypothyroidism, HTN, with onset of cough for past month with concern for flash pulm edema and 10 lbs wt gain and sepsis with tachycardia/leukocytosis, fever, and chills. He
admits to stopping Lasix prior to admission with concern for bleeding. Noted on on admission with mild drop in hbg and rise in BUN that is improving. . He was also noted with burgundy stool. In review with patient he is noted with
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 Last colonoscopy was over 30 years ago. 06/17 rectal mass noted on exam.
-anemia with mild drop in hbg after admission
-intermittent rectal bleeding with red and burgundy stools
-rectal mass on exam 06/17
-rise in BUN on admission improving
-flash pulm edema/ CHF with hypoxemia on admission
-LLE swelling, redness with blister -cellulitis
-concern for sepsis on admission with tachycardia, chills, fever, leukocytosis
-afib on Eliquis prior to admission
-LE blister on leg
-hyponatremia
other med problems:
-AV block
-pacer
-hypothyroidism
-HTN
-sleep apnea
-obesity
Colonoscopy 06/19/2024- Likely malignant tumor in the distal rectum.
Biopsied.
- Diverticulosis in the sigmoid colon and in the
descending colon.
Recommendation: - Await pathology results.
- continue Low residue diet.
-CT scan of the abdomen and pelvis showing rectal wall thickening without any evidence of metastatic disease,
mild left hydro uretero nephrosis noted. Nodularity of the liver, questionable cirrhosis
-CEA elevated at 14.6. Noted oncology evaluation. Outpatient follow-up.
-On Lovenox currently.
-Neurology workup in progress as well for this left mild hydro uretero nephrosis
-Colorectal surgery on board as well.
-Labs showing normal platelets and LFTs. Can do outpatient workup with FibroScan if there is any concern
for cirrhosis. hepatitis serologies pending
Subjective
Subjective
Date of Service: June 22, 2024
No events overnight
Objective
Data Reviewed
Laboratory Data:
Laboratory Results
06/22/24 07:49
06/22/24 07:49
Laboratory Results
PT 18.2 Sec (11.4-14.6) H 06/16/24 17:05
INR 1.53 06/16/24 17:05
APTT 47.4 Sec (23.4-35.0) H 06/16/24 17:05
Phosphorus 3.2 mg/dl (2.5-4.5) 06/16/24 17:05
Magnesium 1.8 mg/dl (1.6-2.3) 06/22/24 07:49
Total Bilirubin Cancelled 06/16/24 00:35
AST Cancelled 06/16/24 00:35
ALT Cancelled 06/16/24 00:35
Alkaline Phosphatase Cancelled 06/16/24 00:35
Vital Signs and I&O:
Vital Signs
Temp Pulse Resp BP Pulse Ox
98.8 F 88 18 87/54 97
06/22/24 15:42 06/22/24 15:42 06/22/24 15:42 06/22/24 15:42 06/22/24 15:42
I&O
06/21/24 06/22/24 06/23/24
06:59 06:59 06:59
Intake Total 1230 / 1230 300 / 300
Output Total 2099 / 2099 4650 / 4650
Balance -870 / -870 -4350 / -4350
--- NOTE | 2024-06-22 17:00 | CM ---
funeral home general manager reviewed patient's chart and recommendation is for skilled placement options reviewed with patient and he has selected [facility].
Plan; Referral sent to [facility].
[2024-06-22 19:16] LABS: Hepatitis B Surface Antigen Negative (Negative)
[2024-06-22 19:33] LABS: Hepatitis B Surface Antibody Negative; Hepatitis C Antibody Negative (Negative)
[2024-06-22] MEDS: MELATONIN 5 MG PO (21:15)
[2024-06-22] MEDS: TOPROL XL 50 MG PO (21:15)
[2024-06-22] MEDS: ELIQUIS 5 MG PO (21:15)
--- NOTE | 2024-06-22 23:19 | PTCARENOTE ---
Patient ekg monitor alarmed a 16 beat of VTach, then back into AFib. Pt asymptomatic. afebrile, HR 90-100s, BP 113/71, pox 96% CPAP. No c/o pain. 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 Mag rider ordered (Mag 1.8).
[2024-06-22] MEDS: MAGNESIUM SULFATE 102 GRAMS IV (23:43)
[2024-06-23] VITALS (9 sets, daily range): BP systolic 95–120; BP diastolic 68–83; PULSE 2–105; O2SAT 94–95
[2024-06-23 05:35] LABS: Blood Urea Nitrogen 25 mg/dl (9-20); Calcium 8.8 mg/dl (8.4-10.2); Carbon Dioxide 31 mmol/L (22-30); Chloride 92 mmol/L (98-107); Estimated Creatinine Clearance 51 ml/min; Glucose 126 mg/dl (70-99); Potassium 3.9 mmol/L (3.5-5.1); Sodium 132 mmol/L (135-145); eGFR > 60.00
[2024-06-23 05:36] LABS: Creatine Phosphokinase 22 U/L (55-170)
--- NOTE | 2024-06-23 06:16 | PTCARENOTE ---
Pt ran 10 beat [facility] [employer] ordered second Mag Josep
[2024-06-23] MEDS: MAGNESIUM SULFATE 50 IV (06:17)
[2024-06-23] MEDS: SYNTHROID 100 MCG PO (06:17)
[2024-06-23] MEDS: PULMICORT 0.5 MG INH ×2 (08:01→19:18)
[2024-06-23] MEDS: ATROVENT NEBULES 0.5 MG INH ×3 (08:02→19:15)
[2024-06-23] MEDS: XOPENEX 1.25 MG INHALANT SOLUTION INH ×3 (08:02→19:15)
[2024-06-23] MEDS: FARXIGA 10 MG PO (08:05)
[2024-06-23] MEDS: ALDACTONE 25 MG PO (08:05)
[2024-06-23] MEDS: ELIQUIS 5 MG PO ×2 (08:05→21:00)
[2024-06-23] MEDS: CASODEX 50 MG PO (08:05)
[2024-06-23] MEDS: PROTONIX 40 MG PO ×2 (08:05→21:00)
[2024-06-23] MEDS: MUCINEX 1200 MG PO ×2 (08:05→21:00)
[2024-06-23] MEDS: TOPROL XL PO (08:06)
[2024-06-23] MEDS: DESENEX/MITRAZOL/ZEASORB 1 APPLIC TOPICAL ×2 (08:09→21:00)
[2024-06-23] MEDS: HYDROPHOR 1 APPLIC TOPICAL (08:10)
--- NOTE | 2024-06-23 09:59 | W.PN.HOSP.TC ---
Today's Communication/Plan
-
DC planning
Will likely need one week of Daptomycin
Resuming diuretics slowly , will accept low BP due to underlying liver disease ( expected )
Assessment / Plan
Assessment / Plan
Physical Exam
General: Not in acute distress
HEENT: Normocephalic, Moist mucous membranes and Atraumatic
Respiratory: Rales, limited
Cardiac: S1/S2,
GI: Soft, Non Tender, Non Distended, obese.
Musculoskeletal: less edema in LEs.
Skin: LLE with cellulitis with wounds (covered in wrap), no spreading erythema up the left thigh
Neuro: AAOx3
Psych: Calm
Assessment/Plan
# Acute hypoxemic and hypercapnic respiratory failure secondary to acute on chronic HFpEF exacerbation/ cardiogenic pulmonary edema
History of Lasix non-compliance
# Hypertensive emergency, then became hypotensive
History of severe central and obstructive sleep apnea
Fever
#Cardiomegaly
#Severe Bilateral Lower Extremity Edema
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
#Pulmonary Edema
#Pleural Effusion
-Was on Lasix, Nitro drip --> but then fever and hypotension needing Levophed and antibiotics, weaned off Levophed and transferred out from the ICU
-IV Lasix resumed on 06/19/24. Also continue SGLT2-I
-Continue Aldactone -- dose was previously increased
-Metolazone added on 06/20/24 ---> continue
-PO sodium and fluid restriction
-Daily weights, I's and O's
-Echocardiogram noted
-Continue with aggressive diuretic therapy as blood pressure tolerates and monitor closely electrolytes and kidney function.
-Aspiration precautions
-Continue nebulizers while in the hospital, transition to Symbicort 160/4.5 upon discharge
-Appreciate pulmonary
-Mucolytics
-Appreciate pulmonary and cardiology help
#Sepsis/septic shock/lactic acidosis present on admission
#Pneumonia
#LLE Cellulitis - WORSENING
Per ID, Given appearance, suspect streptococcal or staphylococcal in etiology, changed to Daptomycin. Midline placed 06/22, will need another week.
-Patient's pneumonia symptoms improved but LLE cellulitis symptoms have significantly worsened with erythema spreading up the LLE
-s/p Vancomycin and Cefazolin antibiotics.
-ID consulted, appreciate their evaluation and recommendations
-Wound care, lower extremity elevation above the level of the heart, continue Valerio wrap to the lower extremity (foot to above-knee)
#Hypotension
-If needs for hypotension, resume Midodrine
#Burgundy Stools Reported on 06/15/24
#Blood stools for a few weeks [facility]
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
#History of prostate cancer- diagnosed in 2018
#Diverticulosis in the sigmoid colon and in the descending colon.
-Continue Low Residue Diet
-CEA elevated
-Eliquis held, as per cardiology and GI --> per GI, do not resume Eliquis until maybe tomorrow, given colonoscopy today
-Monitor CBC
-SPECIAL CARE MUST BE TAKEN TO PREVENT STOOL OR ANY BOWEL MOVEMENTS OR URINE FROM TOUCHING PATIENT'S LEFT LOWER EXTREMITY DUE TO WORSENING CELLULITIS AND WOUNDS
-Due to large rectal mass, CT Chest/Abdomen/Pelvis was done showing no metastatic disease
-Colorectal surgery and oncology consulted, appreciate their evaluation and recommendations
-Patient will need MRI pelvis with/without contrast, can be done as an outpatient
-Colorectal surgery said they will place port as an outpatient, it is not a good idea to place the port while patient has a cellulitis.
-Continue to hold Eliquis as per urology (see below), and no Heparin Drip at this time as per urology and GI recommendation (via [place] Text on 06/20/24 and
06/21/24) due to high risk of bleeding
#Mild left hydroureteronephrosis with distal tapering without overt obstructing cause identified, as per radiologist report on CT Imaging
#Urinary Retention
#History of prostate cancer- diagnosed in 2018
-Consulted urology, appreciate their evaluation and recommendations
-Continue Hodges catheter and Flomax as per urology
-Started Casodex given patient's history of known prostate cancer
-Repeat urogram today, no need for intervention
patient to the operating room on 06/23/24 for cysto/retrograde/stent
- ok to resume Eliquis.
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
-GI followed. No nausea or jaundice.
#Non-ischemic myocardial injury
#Hyponatremia, mild
-Monitor BMP
#Nausea/vomiting secondary to coughing episodes
Resolved.
-Zofran as needed
#Mild hyperkalemia - RESOLVED
#Permanent atrial fibrillation
resume Eliquis
-Continue metoprolol, lower the dose as BP on low side.
#AV block status post pacemaker
#NSVT
c/w BB but will lower dose as BP tolerates.
#Essential hypertension
#Hypothyroidism
-Continue levothyroxine
Code Status: DNR/DNI
DVT Prophylaxis: back on Eliquis.
Total time spent to see the patient, examine the patient on the floor, review data and lab results, discuss treatment plan with patient, family at bed side, nursing staff around 55 minutes
Anticipated Discharge: Within 24 hours
Subjective/Interval History
-
Date of Service: June 23, 2024
No chest pain
No sob
Objective Data
-
Labs:
Laboratory Results
06/23/24
04:28
Sodium 132 L
Potassium 3.9
Chloride 92 L
Carbon Dioxide 31 H
BUN 25 H
Creatinine 1.2
Glucose 126 H
Calcium 8.8
Vital Signs:
Vital Signs
Temp Pulse Resp BP Pulse Ox
98.3 F 91 18 95/68 97
06/23/24 07:24 06/23/24 08:07 06/23/24 08:07 06/23/24 08:06 06/23/24 08:07
I&O
06/22/24 06/23/24 06/24/24
06:59 06:59 06:59
Intake Total 300 / 300 1058 / 1058
Output Total 4650 / 4650 1900 / 1900
Balance -4350 / -4350 -842 / -842
--- NOTE | 2024-06-23 10:08 | W.PN.CD ---
Today's Communication / Plan
-
-
Lasix 60 mg once a day starting on 06/24/2024.��
Continue current metoprolol ER, SGLT2-I (may need to switch to the other for insurance reasons), MRA (Aldactone)
Watch for the need to use Zaroxolyn (metolazone) 1-2 times a week
At discharge he should use bilateral compression to LE as some edema is likely venous insuf or lymphedema
Add RAAS-i (ARNI or JOCELYN-I or ARB) as outpatient (Dr. Wayne)
He is back on Eliquis
Cardiology will sign off. We will have office reach out to the patient for a followup OV in 2-3 weeks
Impression / Plan
-
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
- Edema much improved (took some Zaroxolyn on top of BID Lasix)
- Weight 97.7 => 92.6 => 89.4 if scale correct
- Continue SGLT2-I, HF BB, and MRA
- Hope to add RAAS-i (ARNI or JOCELYN-I or ARB) as outpatient
- Na+/fluid restriction/education
- Lasix 60 mg once a day starting on 06/24/2024.
- We might find he needs Zaroxolyn 1-2 times a week
Colorectal cancer/GI bleeding=> h/h stable, rectal mass
- Bx pending
- G/ colorectal surgery/oncology involved
- Back on Eliquis
- Outpatient workup and treatment
Hx of prostate Ca/Hydronephrosis (perhaps pseudo)
- Urology now involved
Low BP
- On midodrine has been used earlier, none recently, no symptoms
Nonischemic cardiomyopathy
Permanent AFib
- Eliquis on hold
- Back on Eliquis
Bilateral lower extremity edema marked lower extremity edema.
- Suspect mostly hear failure
- But likely some lymphedema or venous insuf as well
- L>R
- Ultimately compression/lymphedema therapy
Left leg cellulitis
- ID now involved, ATBs, improving
NSVT, asymptomatic
- No syncope, EF more than 40. No ICD at this time
Bifascicular heart block (RBBB/LAFB)
Single chamber MDT pacer in place for periods of second degree AV block/pauses
Subjective:
No CP, no syncope/palps. URIAS. Edema much improved still L>R
Data:
Echo 06/15/2024: TDS, LVEF 45-50%, mild M
Single chamber PPM placed 01/16/2021, MDT
Cath 11/30/2020: No obstructive CAD, luminal diseasse present, LVEDP 16 mmHg
Physical Exam
Vital Signs/Labs
Vital Signs
Temp Pulse Resp BP Pulse Ox
98.3 F 91 18 95/68 97
06/23/24 07:24 06/23/24 08:07 06/23/24 08:07 06/23/24 08:06 06/23/24 08:07
06/22/24 06/23/24 06/24/24
06:59 06:59 06:59
Actual Weight 92.618 kg 89.358 kg
06/22/24 07:49
06/23/24 04:28
PT 18.2 Sec (11.4-14.6) H 06/16/24 17:05
INR 1.53 06/16/24 17:05
APTT 47.4 Sec (23.4-35.0) H 06/16/24 17:05
Magnesium 1.8 mg/dl (1.6-2.3) 06/22/24 07:49
06/13/24
13:19
Fzh-[id number]-Etljrdspyzl Pept 5370
Physical Exam
Constitutional: No acute distress
EENT: Anicteric
Cardiovascular: Rhythm/rate is irregular and Pedal edema present (RLE minimal edema, left still some but wrapped)
Respiratory: Respiratory effort normal and Lungs clear to auscul.
GI: Soft and Distention absent
Neuro/Psych: AO x 3
Data Reviewed
-
Date of Service: June 23, 2024
--- NOTE | 2024-06-23 10:22 | W.PN.URO.CBU ---
Today's Communication / Plan
-
discharge with alvarez/meds when medically cleared
Assessment / Plan
-
recently diagnosed rectal ca
known prostate cancer- dx'd in 2018- no known intervening psa's
urinary retention
left hydro
pt's psa elevated- could be due to alvarez/retention- but in setting of known prostate cancer- will begin bicalutamide
continue alvarez and flomax- likely will need at time of d/c and when UOOB- TOV
no hydro on f/u ct
pt should be discharged with alvarez/flomax and bicalutamide and schedule outpt f/u with dr villeda
Diagnosis
-
Date of Service: June 23, 2024
-
\\
Patient Diagnosis:
rectal cancer
urinary retention
prostate cancer
left hydro
Subjective
-
pt's urine clear
CT yesterday showed no hydro- bilateral partial ureteral duplication
Objective
-
Vital Signs
Temp Pulse Resp BP Pulse Ox
98.3 F 91 18 95/68 97
06/23/24 07:24 06/23/24 08:07 06/23/24 08:07 06/23/24 08:06 06/23/24 08:07
Intake and Output
06/22/24 06/23/24 06/24/24
06:59 06:59 06:59
Intake Total 300 / 300 1058 / 1058
Output Total 4650 / 4650 1900 / 1900
Balance -4350 / -4350 -842 / -842
Intake:
Oral fluids 300 / 300 360 / 360
IV piggybacks 698 / 698
Output:
Urine, Alvarez 2850 / 2850 1900 / 1900
Urine, Voided 1800 / 1800
Laboratory Results
06/22/24 07:49
06/23/24 04:28
Physical Exam
-
General -no acute distress
Abdomen - soft, non-tender
Genitalia - alvarez in place
--- NOTE | 2024-06-23 11:24 | CM ---
Chart reviewed and recommendation from physicila therapy is skilled placement, options reviewed with patient and he has selected [facility], referral sent to [facility] for skilled placement. Needs Auth for skilled placement.
Plan; Skilled placement when stable.
[2024-06-23] MEDS: TYLENOL 650 MG PO (11:33)
[2024-06-23 11:35] LABS: NT-proBNP 4160 pg/ml
[2024-06-23] MEDS: CUBICIN 20 MG IV (14:46)
--- NOTE | 2024-06-23 15:17 | W.PN.ID1 ---
Date of Service
Date of Service: June 23, 2024
Today's Communication
Continue daptomycin 1 g IV every 24 hours (d2 of 7 to 10)
Assessment / Plan
Left lower extremity cellulitis
-Given appearance, suspect streptococcal or staphylococcal in etiology
Leukocytosis
Acute exacerbation CHF
Rectal mass/GI bleed
A-fib
HTN
Hypothyroidism
Hx Renal cyst
Recommendations:
s/p cefazolin/Vancomycin with slow improvement of cellulitis.
Continue daptomycin 1 g IV every 24 hours (d2 of 7 to 10)
CPK 22
Continue with local care to the anterior medial leg wound wound.
Lower extremity elevation above the level of the heart to facilitate drainage.
Continue Valerio wrap to the lower extremity (foot to above-knee) to decrease overall edema. Would maintain on for 24 hours continuous.
Monitor white count temperature curve.
����������������������������������������������������������
Chief Complaint
-: Cellulitis
Subjective / Review of Systems
Leg is better.
Vital Signs / Physical Exam
Vital Signs
Vital Signs
Temp Pulse Resp BP Pulse Ox
97.5 F 105 17 106/70 93
06/23/24 11:14 06/23/24 11:14 06/23/24 11:14 06/23/24 11:14 06/23/24 11:14
Physical Exam
Constitutional: No Acute Distress and Comfortable
Gastrointestinal: Non Tender and Non Distended
Extremities: Edema (LLE 3+) and Erythema (pink erythema to above knee, mildly warm)
Neurological: AO x 3
Objective Data
Lab Data
Lab Results
06/22/24 07:49
06/23/24 04:28
PT 18.2 Sec (11.4-14.6) H 06/16/24 17:05
INR 1.53 06/16/24 17:05
APTT 47.4 Sec (23.4-35.0) H 06/16/24 17:05
Estimated Creat Clear 51 ml/min 06/23/24 04:28
Lactic Acid 2.5 mmol/L (0.7-2.0) H 06/14/24 05:17
Total Bilirubin Cancelled 06/16/24 00:35
AST Cancelled 06/16/24 00:35
ALT Cancelled 06/16/24 00:35
Alkaline Phosphatase Cancelled 06/16/24 00:35
Most recent labs reviewed.
Micro Results:
06/13/24 20:24 Blood Culture - Final
Blood/Venous No Growth - Final Report
06/14/24 10:39 Respiratory Culture - Final
Sputum Usual Respiratory Marisela
Gram Stain - Final
06/13/24 20:24 Influenza Types A & B (MEG) - Final
Nasal Swab Negative for Influenza A & B, NAAT
Negative results must be combined with clinical observations
and patient history.
Nucleic Acid Amplification test (NAAT)performed on the
[employer] platform.
Imaging:
06/14/2024 CXR (portable): Mild cardiomegaly with suggestion of mild interstitial cardiogenic pulmonary edema. Minimal bilateral pleural effusions. Left-sided cardiac pacemaker in place. No focal dense airspace consolidation noted. Please see
full dictation for additional detail. Film personally viewed.
--- NOTE | 2024-06-23 17:14 | W.PN.ONC2 ---
Today's Communication / Plan
-
OP follow up upon discharge
follow for path
Impression
Impression
Rectal mass/cancer
LLE Cellulitis
Permanent atrial fibrillation on doac
Acute on chronic HFpEF exacerbation
Hypertensive emergency, then became hypotensive
Obstructive sleep apnea - CPAP
AV block status post pacemaker
Hypothyroidism
Code Status: DNR/DNI
Plan
Plan
CT C/A/P reviewed with no evidence of metastatic disease.
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 This has the appearance of hydronephrosis on the CAT scan abdomen and pelvis. There is no hydronephrosis.
Case discussed with pathology, requested that microsatellite instability testing be performed as the path is resulted, assuming it is confirmed to be rectal cancer.
Discussed with patient and that treatment would usually be total neoadjuvant chemotherapy, pending performance status recovery. However, if there is evidence of mismatch repair enzyme deficiency, then he would be treated with immunotherapy
alone.
Await path.
Will need Port-A-Cath
Subjective/Objective
Subjective
non-productive cough unchanged
at bedside during visit provided updates
Vital Signs:
Vital Signs
Temp Pulse Resp BP Pulse Ox
97.5 F 80 16 106/70 93
06/23/24 11:14 06/23/24 15:00 06/23/24 15:00 06/23/24 11:14 06/23/24 11:14
Lab Results:
Laboratory Data
WBC 15.7 10^3/uL (4.8-10.8) H 06/22/24 07:49
Hgb 13.1 g/dL (13.0-18.0) 06/22/24 07:49
Plt Count 375 10^3/uL (130-400) 06/22/24 07:49
PT 18.2 Sec (11.4-14.6) H 06/16/24 17:05
INR 1.53 06/16/24 17:05
APTT 47.4 Sec (23.4-35.0) H 06/16/24 17:05
eGFR > 60.00 06/23/24 04:28
Physical Exam
HEENT: Moist Mucous Membranes; No Jaundice
Cardiology: S1 and S2
GI: Soft
Extremities: No Edema
[2024-06-23] MEDS: TOPROL XL 50 MG PO (21:00)
[2024-06-23] MEDS: MELATONIN 5 MG PO (21:08)
[2024-06-24] VITALS (8 sets, daily range): BP systolic 99–116; BP diastolic 64–77; PULSE 2–95; BMI 30.4
[2024-06-24 06:01] LABS: Blood Urea Nitrogen 23 mg/dl (9-20); Calcium 8.8 mg/dl (8.4-10.2); Carbon Dioxide 29 mmol/L (22-30); Chloride 93 mmol/L (98-107); Estimated Creatinine Clearance 56 ml/min; Glucose 130 mg/dl (70-99); Potassium 4.3 mmol/L (3.5-5.1); Sodium 131 mmol/L (135-145); eGFR > 60.00
[2024-06-24] MEDS: SYNTHROID 100 MCG PO (06:04)
[2024-06-24 07:51] LABS: Glucose - Point of Care 134 mg/dl (70-99)
[2024-06-24] MEDS: ATROVENT NEBULES 0.5 MG INH ×2 (07:52→13:44)
[2024-06-24] MEDS: PULMICORT 0.5 MG INH (07:52)
[2024-06-24] MEDS: XOPENEX 1.25 MG INHALANT SOLUTION INH ×2 (07:52→13:45)
--- NOTE | 2024-06-24 09:29 | W.PN.HOSP.TC ---
Today's Communication/Plan
-
Dc planning today or tomorrow
Assessment / Plan
Assessment / Plan
Physical Exam
General: Not in acute distress
HEENT: Normocephalic, Moist mucous membranes and Atraumatic
Respiratory: Rales, limited
Cardiac: S1/S2,
GI: Soft, Non Tender, Non Distended, obese.
Musculoskeletal: less edema in LEs.
Skin: LLE with cellulitis with wounds (covered in wrap), no spreading erythema up the left thigh
Neuro: AAOx3
Psych: Calm
Assessment/Plan
# Acute hypoxemic and hypercapnic respiratory failure secondary to acute on chronic HFpEF exacerbation/ cardiogenic pulmonary edema
History of Lasix non-compliance
# Hypertensive emergency, then became hypotensive
History of severe central and obstructive sleep apnea
Fever
#Cardiomegaly
#Severe Bilateral Lower Extremity Edema
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
#Pulmonary Edema
#Pleural Effusion
-Was on Lasix, Nitro drip --> but then fever and hypotension needing Levophed and antibiotics, weaned off Levophed and transferred out from the ICU
-IV Lasix resumed on 06/19/24. Also continue SGLT2-I
-Continue Aldactone -- dose was previously increased
-Metolazone added on 06/20/24 ---> continue
-PO sodium and fluid restriction
-Daily weights, I's and O's
-Echocardiogram noted
-Continue with aggressive diuretic therapy as blood pressure tolerates and monitor closely electrolytes and kidney function.
-Aspiration precautions
-Continue nebulizers while in the hospital, transition to Symbicort 160/4.5 upon discharge
-Appreciate pulmonary
-Mucolytics
-Appreciate pulmonary and cardiology help
#Sepsis/septic shock/lactic acidosis present on admission
#Pneumonia
#LLE Cellulitis , c/w wound care
Per ID, Given appearance, suspect streptococcal or staphylococcal in etiology, changed to Daptomycin. Midline placed 06/22.
-Patient's pneumonia symptoms improved but LLE cellulitis symptoms have significantly worsened with erythema spreading up the LLE
-s/p Vancomycin and Cefazolin antibiotics.
-ID consulted, appreciate their evaluation and recommendations
-Wound care, lower extremity elevation above the level of the heart, continue Valerio wrap to the lower extremity (foot to above-knee)
#Hypotension
-If needs for hypotension, use Midodrine
#Burgundy Stools Reported on 06/15/24
#Blood stools for a few weeks [facility]
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
#History of prostate cancer- diagnosed in 2018
#Diverticulosis in the sigmoid colon and in the descending colon.
-Continue Low Residue Diet
-CEA elevated
-Eliquis held, as per cardiology and GI --> per GI, do not resume Eliquis until maybe tomorrow, given colonoscopy today
-Monitored CBC
-SPECIAL CARE MUST BE TAKEN TO PREVENT STOOL OR ANY BOWEL MOVEMENTS OR URINE FROM TOUCHING PATIENT'S LEFT LOWER EXTREMITY DUE TO WORSENING CELLULITIS AND WOUNDS
-Due to large rectal mass, CT Chest/Abdomen/Pelvis was done showing no metastatic disease
-Colorectal surgery and oncology consulted, appreciate their evaluation and recommendations
-Patient will need MRI pelvis with/without contrast, can be done as an outpatient
-Colorectal surgery said they will place port as an outpatient, it is not a good idea to place the port while patient has a cellulitis.
-Continue to hold Eliquis as per urology (see below), and no Heparin Drip at this time as per urology and GI recommendation (via [place] [facility] on 06/20/24 and
06/21/24) due to high risk of bleeding
#Mild left hydroureteronephrosis with distal tapering without overt obstructing cause identified, as per radiologist report on CT Imaging
#Urinary Retention
#History of prostate cancer- diagnosed in 2018
-Consulted urology, appreciate their evaluation and recommendations
-Continue Hodges catheter and Flomax as per urology
-Started Casodex given patient's history of known prostate cancer
-Repeat urogram today, no need for intervention
patient to the operating room on 06/23/24 for cysto/retrograde/stent
- ok to resume Eliquis.
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
-GI followed. No nausea or jaundice.
#Non-ischemic myocardial injury
#Hyponatremia, mild
-Monitor BMP
#Nausea/vomiting secondary to coughing episodes
Resolved.
-Zofran as needed
#Mild hyperkalemia - RESOLVED
#Permanent atrial fibrillation
resume Eliquis
-Continue metoprolol, lower the dose as BP on low side.
#AV block status post pacemaker
#NSVT
c/w BB but will lower dose as BP tolerates.
#Essential hypertension
#Hypothyroidism
-Continue levothyroxine
Code Status: DNR/DNI
DVT Prophylaxis: back on Eliquis.
Total time spent to see the patient, examine the patient on the floor, review data and lab results, discuss treatment plan with patient, family at bed side, nursing staff around 55 minutes
Anticipated Discharge: Today
Subjective/Interval History
-
Date of Service: June 24, 2024
No chest pain, No sob
No fevers
Objective Data
-
Labs:
Laboratory Results
06/24/24
05:15
Sodium 131 L
Potassium 4.3
Chloride 93 L
Carbon Dioxide 29
BUN 23 H
Creatinine 1.1
Glucose 130 H
Calcium 8.8
Vital Signs:
Vital Signs
Temp Pulse Resp BP Pulse Ox
97.8 F 73 17 116/77 96
06/24/24 07:00 06/24/24 07:54 06/24/24 07:54 06/24/24 07:00 06/24/24 07:54
I&O
06/23/24 06/24/24 06/25/24
06:59 06:59 06:59
Intake Total 1058 / 1058 840 / 840
Output Total 0 / 1900 2099 / 2099
Balance -842 / -842 -1260 / -1260
[2024-06-24] MEDS: ELIQUIS 5 MG PO ×2 (09:38→21:34)
[2024-06-24] MEDS: CASODEX 50 MG PO (09:38)
[2024-06-24] MEDS: TOPROL XL 50 MG PO ×2 (09:38→21:33)
[2024-06-24] MEDS: PROTONIX 40 MG PO ×2 (09:38→21:33)
[2024-06-24] MEDS: FARXIGA 10 MG PO (09:38)
[2024-06-24] MEDS: LASIX 60 MG PO (09:39)
[2024-06-24] MEDS: ALDACTONE 25 MG PO (09:39)
[2024-06-24] MEDS: MUCINEX 1200 MG PO ×2 (09:39→21:34)
[2024-06-24] MEDS: DESENEX/MITRAZOL/ZEASORB 1 APPLIC TOPICAL ×2 (09:40→21:33)
[2024-06-24] MEDS: HYDROPHOR 1 APPLIC TOPICAL (09:41)
[2024-06-24 11:24] LABS: Glucose - Point of Care 118 mg/dl (70-99)
--- NOTE | 2024-06-24 12:23 | W.PN.ID1 ---
Date of Service
Date of Service: June 24, 2024
Today's Communication
replace daptomycin with Linezolid 600mg po bid x 10 more days through 07/03/24.
Check CBCP x 1 while on Linezolid.
Avoid tyramine-rich foods while on Linezolid.
Assessment / Plan
Left lower extremity cellulitis
-Given appearance, suspect streptococcal or staphylococcal in etiology
Leukocytosis -
Acute exacerbation CHF
Rectal mass/GI bleed
A-fib
HTN
Hypothyroidism
Hx Renal cyst
Recommendations:
s/p cefazolin/Vancomycin with slow improvement of cellulitis.
On daptomycin 1 g IV every 24 hours (d3), however cost-prohibitive for [facility] ([facility])
Will replace daptomycin with Linezolid 600mg po bid x 10 more days through 07/03/24.
Cellulitis improving.
Check CBCP x 1 while on Linezolid.
Avoid tyramine-rich foods while on Linezolid.
Continue with local care to the anterior medial leg wound wound.
Lower extremity elevation above the level of the heart to facilitate drainage.
Continue Valerio wrap to the lower extremity (foot to above-knee) to decrease overall edema. Would maintain on for 24 hours continuous.
Monitor white count temperature curve.
����������������������������������������������������������
Chief Complaint
-: Cellulitis
Subjective / Review of Systems
No complaints today.
Vital Signs / Physical Exam
Vital Signs
Vital Signs
Temp Pulse Resp BP Pulse Ox
98.7 F 102 22 99/73 94
06/24/24 11:51 06/24/24 11:51 06/24/24 11:51 06/24/24 11:51 06/24/24 11:51
Physical Exam
Constitutional: No Acute Distress and Comfortable
Extremities: Edema (LLE decreased edema) and Erythema (LLE; decreasing, receding from upper leg, less warmth)
Wound: Other (LLE superficial wounds dry)
Objective Data
Lab Data
Lab Results
06/22/24 07:49
06/24/24 05:15
PT 18.2 Sec (11.4-14.6) H 06/16/24 17:05
INR 1.53 06/16/24 17:05
APTT 47.4 Sec (23.4-35.0) H 06/16/24 17:05
Estimated Creat Clear 56 ml/min 06/24/24 05:15
Lactic Acid 2.5 mmol/L (0.7-2.0) H 06/14/24 05:17
Total Bilirubin Cancelled 06/16/24 00:35
AST Cancelled 06/16/24 00:35
ALT Cancelled 06/16/24 00:35
Alkaline Phosphatase Cancelled 06/16/24 00:35
Most recent labs reviewed.
Micro Results:
06/13/24 20:24 Blood Culture - Final
Blood/Venous No Growth - Final Report
06/14/24 10:39 Respiratory Culture - Final
Sputum Usual Respiratory Marisela
Gram Stain - Final
06/13/24 20:24 Influenza Types A & B (MEG) - Final
Nasal Swab Negative for Influenza A & B, NAAT
Negative results must be combined with clinical observations
and patient history.
Nucleic Acid Amplification test (NAAT)performed on the
[employer] platform.
Imaging:
06/14/2024 CXR (portable): Mild cardiomegaly with suggestion of mild interstitial cardiogenic pulmonary edema. Minimal bilateral pleural effusions. Left-sided cardiac pacemaker in place. No focal dense airspace consolidation noted. Please see
full dictation for additional detail. Film personally viewed.
Care Review
Plan reviewed with: Nurse (Grecia Hi)
--- NOTE | 2024-06-24 13:09 | W.PN.UPDATE ---
Update Note
Progress Note Update
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
Sent message to colorectal/oncology/primary team.
GI will sign off, please call back if needed.
[2024-06-24] MEDS: ZYVOX 600 MG PO ×2 (15:09→21:33)
--- NOTE | 2024-06-24 15:40 | CM ---
Patient has been accepted at [facility], patient's benefit for skilled placement is as follows 1-20 days zero copay, 21-100 days $203 per day, patient made aware. coffee shop manager contacted patient's insurance for Auth for skilled placement at
[facility].
Plan; Skilled placement at [facility] pending Auth.
[2024-06-24 16:53] LABS: Glucose - Point of Care 137 mg/dl (70-99)
[2024-06-24] MEDS: MELATONIN 5 MG PO (21:34)
[2024-06-25 02:48] VITALS: BP 134/69
[2024-06-25 03:26] VITALS: PULSE 2
[2024-06-25] MEDS: SYNTHROID 100 MCG PO (04:33)
[2024-06-25 06:00] VITALS: BMI 29.1
[2024-06-25 07:30] VITALS: BP 115/64
--- NOTE | 2024-06-25 08:57 | W.PN.HOSP.TC ---
Today's Communication/Plan
-
DC
Assessment / Plan
Assessment / Plan
Physical Exam
General: Not in acute distress
HEENT: Normocephalic, Moist mucous membranes and Atraumatic
Respiratory: Rales, limited
Cardiac: S1/S2,
GI: Soft, Non Tender, Non Distended, obese.
Musculoskeletal: less edema in LEs.
Skin: LLE with cellulitis with wounds (covered in wrap), no spreading erythema up the left thigh, less swelling
Neuro: AAOx3
Psych: Calm
Assessment/Plan
# Acute hypoxemic and hypercapnic respiratory failure secondary to acute on chronic HFpEF exacerbation/ cardiogenic pulmonary edema
History of Lasix non-compliance
# Hypertensive emergency, then became hypotensive
History of severe central and obstructive sleep apnea
Fever
#Cardiomegaly
#Severe Bilateral Lower Extremity Edema
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
#Pulmonary Edema
#Pleural Effusion
-Was on Lasix, Nitro drip --> but then fever and hypotension needing Levophed and antibiotics, weaned off Levophed and transferred out from the ICU
- s/p IV Lasix, now on 60 mg oral Lasix & Aldactone. Continue Farxiga.
-Continue Aldactone -- dose was previously increased
-PO sodium and fluid restriction
-Echocardiogram noted
-Continue nebulizers while in the hospital, transition to Symbicort 160/4.5 upon discharge
-Appreciate pulmonary and cardiology help
#Sepsis/septic shock/lactic acidosis present on admission
#Pneumonia
#LLE Cellulitis , c/w wound care
Per ID, Given appearance, suspect streptococcal or staphylococcal in etiology, changed to Daptomycin then changed Linezolid 600mg po bid x 10 more days through 07/03/24. Midline placed 06/22. Check CBCP x 1 while on Linezolid.
-ID consulted, appreciate their evaluation and recommendations
-Wound care, lower extremity elevation above the level of the heart, continue Valerio wrap to the lower extremity (foot to above-knee)
#Hypotension
-If needs for hypotension, use Midodrine
#[place] Stools Reported on 06/15/24
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
#Large Rectal Mass, pathology showed intramucosal adenocarcinoma.
#History of prostate cancer- diagnosed in 2018
#Diverticulosis in the sigmoid colon and in the descending colon.
-Continue diet.
-CEA elevated
-Monitored CBC
-SPECIAL CARE MUST BE TAKEN TO PREVENT STOOL OR ANY BOWEL MOVEMENTS OR URINE FROM TOUCHING PATIENT'S LEFT LOWER EXTREMITY DUE TO WORSENING CELLULITIS AND WOUNDS
-Due to large rectal mass, CT Chest/Abdomen/Pelvis was done showing no metastatic disease
-Colorectal surgery and oncology consulted, appreciate their evaluation and recommendations
-Patient will need MRI pelvis with/without contrast, can be done as an outpatient
-Colorectal surgery said they will place port as an outpatient, it is not a good idea to place the port while patient has a cellulitis.
- No rectal bleeding.
#Mild left hydroureteronephrosis with distal tapering without overt obstructing cause identified, as per radiologist report on CT Imaging
#Urinary Retention
#History of prostate cancer- diagnosed in 2018
-Consulted urology, appreciate their evaluation and recommendations
-Continue Hodges catheter and Flomax as per urology
-Started Casodex given patient's history of known prostate cancer
-Repeat urogram, no need for intervention
patient went to the operating room on 06/23/24 for cysto/retrograde/stent
- ok to resume Eliquis.
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
-GI followed. No nausea or jaundice.
#Non-ischemic myocardial injury
#Hyponatremia, mild
#Nausea/vomiting secondary to coughing episodes
Resolved.
#Mild hyperkalemia - RESOLVED
#Permanent atrial fibrillation
resumed Eliquis
-Continue metoprolol.
#AV block status post pacemaker
#NSVT
c/w BB.
#Essential hypertension
#Hypothyroidism
-Continue levothyroxine
Code Status: DNR/DNI
[facility]
Total discharge time spent to see the patient, examine the patient on the floor, review data and lab results, discuss discharge plan with patient, family, showcase trimmer, nursing staff around 65 minutes
Anticipated Discharge: Today
Subjective/Interval History
-
Date of Service: June 25, 2024
He feels better
No chest pain
No sob
Objective Data
-
Vital Signs:
Vital Signs
Temp Pulse Resp BP Pulse Ox
97.5 F 78 22 115/64 97
06/25/24 07:30 06/25/24 07:30 06/25/24 07:30 06/25/24 07:30 06/25/24 07:30
I&O
06/24/24 06/25/24 06/26/24
06:59 06:59 06:59
Intake Total 840 / 840 1680 / 1680
Output Total 2099 / 2099 3700 / 3700
Balance -1260 / -1260 -2019 /
[2024-06-25] MEDS: MUCINEX 1200 MG PO (09:20)
[2024-06-25] MEDS: PROTONIX 40 MG PO (09:21)
[2024-06-25] MEDS: LASIX 60 MG PO (09:21)
--- NOTE | 2024-06-25 09:21 | WOUNDNOTE ---
L CALF (POSTERIOR0
[2024-06-25] MEDS: TOPROL XL 50 MG PO (09:22)
[2024-06-25] MEDS: CASODEX 50 MG PO (09:23)
[2024-06-25] MEDS: ZYVOX 600 MG PO (09:23)
[2024-06-25] MEDS: FARXIGA 10 MG PO (09:23)
[2024-06-25] MEDS: ALDACTONE 25 MG PO (09:23)
[2024-06-25] MEDS: ELIQUIS 5 MG PO (09:24)
[2024-06-25] MEDS: DESENEX/MITRAZOL/ZEASORB 1 APPLIC TOPICAL (09:24)
[2024-06-25] MEDS: HYDROPHOR 1 APPLIC TOPICAL (09:24)
--- NOTE | 2024-06-25 09:30 | WOUNDNOTE ---
WO RN note: Patient's LLE less red and less swollen. Distal half of L medial calf wounds have evolved to necrotic tissue (wounds had a purple hue last week). Moderate serous drainage. No odor. Patient's mobility has improved. +L palpable pedal
pulse. +1 LE edema. Sacral crease less red. Miconazole powder applied to sacrum. Skin on heels intact. L heel blanchable mild red and intact. LLE dressing changed and L thigh high Valerio applied with help from nurse Melissa. Heels off bed with pillows.
Patient instructed to follow up with [facility] (Dr. Cardenas rounds on Wednesdays at [facility]) and to take air chair cushion with him when discharged. [place] texted Dr. John and Dr. Daly wound picture asking hospitalist if Santyl can be added to wound care
and also R knee high Tubigrip as tolerated (may remove q hs). Await response.
--- NOTE | 2024-06-25 09:30 | WOUNDNOTE ---
WOC RN note: Patient's LLE less red and less swollen. Distal half of L medial calf wounds have evolved to necrotic tissue. Moderate serous drainage. No odor. Patient's mobility has improved. +L palpable pedal pulse. +1 LE edema.
--- NOTE | 2024-06-25 11:33 | W.PN.ONC ---
Today's Communication / Plan
-
Anticipate follow-up [facility] post rehab
As discussed potential neoadjuvant therapy
Will contact from new patient scheduling
Impression
Impression
Rectal mass/cancer
LLE Cellulitis
Permanent atrial fibrillation on doac
Acute on chronic HFpEF exacerbation
Hypertensive emergency, then became hypotensive
Obstructive sleep apnea - CPAP
AV block status post pacemaker
Hypothyroidism
Code Status: DNR/DNI
Subjective/Objective
Subjective/Objective
Patient comfortable eating breakfast.
Vital Signs:
Vital Signs
Temp Pulse Resp BP Pulse Ox
97.5 F 78 22 115/64 97
06/25/24 07:30 06/25/24 09:23 06/25/24 07:30 06/25/24 09:23 06/25/24 07:30
Physical examination
HEENT no scleral icterus
Heart regular
Lungs clear
Extremities symmetrical left extremity wrapped for edema
Lab Results:
Laboratory Data
WBC 15.7 10^3/uL (4.8-10.8) H 06/22/24 07:49
Hgb 13.1 g/dL (13.0-18.0) 06/22/24 07:49
Plt Count 375 10^3/uL (130-400) 06/22/24 07:49
PT 18.2 Sec (11.4-14.6) H 06/16/24 17:05
INR 1.53 06/16/24 17:05
APTT 47.4 Sec (23.4-35.0) H 06/16/24 17:05
eGFR > 60.00 06/24/24 05:15
--- NOTE | 2024-06-25 11:35 | CM ---
Addendum entered by Grecia Hi 06/25/24 15:11:
Patient has been approved for skilled placement at [facility], 06/25/24-06/29/24, NRD 06/29/24, refer # [id number], follow up with Maureen Flor [phone], .
[facility]
[phone]

Original Note:
Patient has been accepted at [facility]. Bed is available today. Patient to continue on po ABX, patient does require Bipap and has a Bipap machine at home, spouse to bring Bipap to [facility], Auth submitted to [facility],
pending reference number [id number].
Plan; Waiting on Auth from insurance, [facility] has a bed for patient.
[2024-06-25 12:00] VITALS: BP 93/56
[2024-06-25 12:01] VITALS: BP 93/56
--- NOTE | 2024-06-25 12:17 | W.PN.ID1 ---
Date of Service
Date of Service: June 25, 2024
Today's Communication
Continue Linezolid 600mg po bid x 9 more days through 07/03/24.
Assessment / Plan
Left lower extremity cellulitis
-Given appearance, suspect streptococcal or staphylococcal in etiology
Leukocytosis -
Acute exacerbation CHF
Rectal mass/GI bleed
A-fib
HTN
Hypothyroidism
Hx Renal cyst
Recommendations:
s/p cefazolin/Vancomycin with slow improvement of cellulitis.
s/p daptomycin 1 g IV every 24 hours (d3), however cost-prohibitive for SNF ([facility])
Continue Linezolid 600mg po bid x 9 more days through 07/03/24.
Check CBCP x 1 while on Linezolid.
Avoid tyramine-rich foods while on Linezolid.
Cellulitis improving.
Continue with local care to the anterior medial leg wound wound.
Appreciate wound care recs. Will follow-up with Dr. Cardenas at [facility].
Lower extremity elevation above the level of the heart to facilitate drainage.
Continue Valerio wrap to the lower extremity (foot to above-knee) to decrease overall edema.
����������������������������������������������������������
Chief Complaint
-: Cellulitis
Subjective / Review of Systems
No new complaints.
Vital Signs / Physical Exam
Vital Signs
Vital Signs
Temp Pulse Resp BP Pulse Ox
97.7 F 93 20 93/56 96
06/25/24 12:00 06/25/24 12:00 06/25/24 12:00 06/25/24 12:00 06/25/24 12:00
Physical Exam
Constitutional: No Acute Distress and Comfortable
Wound: Other (Reviewed today's wound photos: LLE wound now with areas of necrotic tissue)
Objective Data
Lab Data
Lab Results
06/22/24 07:49
06/24/24 05:15
PT 18.2 Sec (11.4-14.6) H 06/16/24 17:05
INR 1.53 06/16/24 17:05
APTT 47.4 Sec (23.4-35.0) H 06/16/24 17:05
Estimated Creat Clear 56 ml/min 06/24/24 05:15
Lactic Acid 2.5 mmol/L (0.7-2.0) H 06/14/24 05:17
Total Bilirubin Cancelled 06/16/24 00:35
AST Cancelled 06/16/24 00:35
ALT Cancelled 06/16/24 00:35
Alkaline Phosphatase Cancelled 06/16/24 00:35
Most recent labs reviewed.
Micro Results:
06/13/24 20:24 Blood Culture - Final
Blood/Venous No Growth - Final Report
06/14/24 10:39 Respiratory Culture - Final
Sputum Usual Respiratory Marisela
Gram Stain - Final
06/13/24 20:24 Influenza Types A & B (MEG) - Final
Nasal Swab Negative for Influenza A & B, NAAT
Negative results must be combined with clinical observations
and patient history.
Nucleic Acid Amplification test (NAAT)performed on the
[employer] platform.
Imaging:
06/14/2024 CXR (portable): Mild cardiomegaly with suggestion of mild interstitial cardiogenic pulmonary edema. Minimal bilateral pleural effusions. Left-sided cardiac pacemaker in place. No focal dense airspace consolidation noted. Please see
full dictation for additional detail. Film personally viewed.
Care Review
Plan reviewed with: Nurse (Carmen) and Physician (Dr. John)
[2024-06-25 13:21] LABS: Blood Urea Nitrogen 27 mg/dl (9-20); Calcium 8.7 mg/dl (8.4-10.2); Carbon Dioxide 32 mmol/L (22-30); Chloride 89 mmol/L (98-107); Estimated Creatinine Clearance 45 ml/min; Glucose 162 mg/dl (70-99); Magnesium 1.8 mg/dl (1.6-2.3); Potassium 4.3 mmol/L (3.5-5.1); Sodium 132 mmol/L (135-145); eGFR > 60.00
--- NOTE | 2024-06-25 15:09 | W.DCSUMMARY ---
Discharge Summary
Discharge Data
Date of Admission: 06/13/24
Date of Discharge: 06/25/24
-
Pending Results: No
Hospital Course
83years old male presented to the emergency room with history of rectal bleeding, weight gain, not taking Lasix and shortness of breath. He was in respiratory distress requiring noninvasive ventilation. He was found to have heart failure,
respiratory failure-hypoxemic and hypercapnic, hypertensive urgency, metabolic acidosis, hyperglycemia, nausea/vomiting, hyperkalemia and leukocytosis. Patient was admitted to ICU, seen by pulmonary, cardiology and GI doctors. He received Diuretic
therapy, nitroglycerine gtt, antibiotics, O2 support. He developed hypotension and was given Levophed. Patient was diagnosed with sepsis due to left lower extremity cellulitis. He was followed by ID doctor. Patient had colonoscopy that showed
rectal tumor. CT abdomen and pelvis with IV contrast that showed rectal wall thickening, no overt evidence for metastatic disease in the abdomen or pelvis, mild left hydroureteronephrosis with distal tapering without overt obstructing cause
identified and hepatic cirrhosis. Rectal bleeding stopped. Urologist evaluated the patient and after repeating CT urogram showed no evidence of hydronephrosis on either side. Scan of chest showed no metastatic disease. Echocardiogram showed LVEF
45-50%, Mild mitral regurgitation. Crusher [employer] Mica recommended to continue with Lasix, added Aldactone and Farxiga. Pathology of rectal mass showed adenocarcinoma. Oncology saw the patient and recommended therapy post rehab therapy. Patient remained
hemodynamically stable and was maintained on Toprol dose. His blood pressure was borderline low that prevented from add more medications for heart failure. Wound care nurse followed with patient and recommended outpatient wound care follow up.
Patient remained hemodynamically stable and was discharged to SNF in a stable condition.
Discharge Plan
-
Patient Disposition: Alf/SNF
Discharge Diagnosis/Procedures: Acute hypoxemic and hypercapnic respiratory failure secondary to acute on chronic HFpEF exacerbation/ cardiogenic pulmonary edema/Severe Bilateral Lower Extremity Edema
Permanent atrial fibrillation
Obstructive sleep apnea - CPAP
Sepsis/ left lower extremity cellulitis (Continue Linezolid 600mg po bid x 9 more days through 07/03/24. Check CBCP x 1 while on Linezolid. Avoid tyramine-rich foods while on Linezolid)
AV block status post pacemaker
Hypothyroidism
Lower GI bleeding/ diverticulosis
Rectal mass/cancer, adenocarcinoma
Diet: As tolerated
Activity Restrictions/Additional Instructions:
1. Linezolid 600mg po bid through 07/03/2024.
2. Check CBC with plt on 06/30/24.
3. Avoid tyramine-rich foods while on Linezolid.
Wound Care Instructions
LLE blisters/wounds-clean with saline or Vashe wound cleanser, Aquaphor ointment to surrounding skin, Santyl ointment to necrotic tissue, adaptic, alginate, ABD pad, secure with Kerlix, change twice a day and as needed for drainage. Elevate LLE on
pillows.
L thigh high Valerio wrap as tolerated; re-wrap daily.
R knee high Tubigrip as tolerated (may remove q hs; reapply q am).
Miconazole powder to abdominal/groin folds, sacral crease twice a day.
Elevate heels off bed with pillows and air chair cushion.
Pressure redistributing chair cushion (i.e. Air chair cushion).
Follow up at wound care center call for an appointment. Add to Dr. Cardenas's wound round list at [facility].
Instructions: *CBC Heart Failure Instructions
Referrals:
Erlin Sanches MD [Active] - in two to four weeks
(Sleep ELECTRICAL INSTALLATION INSPECTOR-on auto SV-needs checkup
and work up for cough
)
Joyce Whaley NP [Specified Professional Personl] - 07/14/24 11:40 am
Stephen Bingham MD [Family Provider] -
Nam Abad MD [Active] - in two to four weeks
Prescriptions:
New
furosemide 20 mg Tablet
60 mg PO DAILY Qty: 30 0RF
white petrolatum [Hydrophor] 42 % Ointment
1 applic topical DAILY Qty: 100 0RF
Santyl 250 unit/gram Ointment
1 applic topical BID Qty: 90 0RF
acetaminophen 325 mg Tablet
650 mg PO Q4HPRN PRN (Reason: fever>100.3/mild pain) Qty: 20 0RF
linezolid 600 mg Tablet
600 mg PO BID Qty: 17 0RF
dapagliflozin propanediol 10 mg Tablet
10 mg PO DAILY Qty: 30 0RF
miconazole nitrate [Miconazorb AF] 2 % Powder
1 applic topical BID Qty: 85 0RF
bicalutamide 50 mg Tablet
50 mg PO DAILY Qty: 30 0RF
spironolactone 25 mg Tablet
25 mg PO DAILY Qty: 30 0RF
Continued
ascorbic acid (vitamin C) [Vitamin C] 500 MG tablet
500 mg PO DAILY
Eliquis 5 MG tablet
5 mg PO BID
metoprolol succinate 50 MG tablet extended release 24 hr
50 mg PO BID Qty: 60 0RF
cyanocobalamin (vitamin B-12) 1,000 MCG tablet
1,000 mcg PO DAILY Qty: 30 0RF
levothyroxine 100 MCG tablet
100 mcg PO DAILY@0700 Qty: 30 0RF
zinc sulfate 220 MG capsule
220 mg PO DAILY Qty: 14 0RF
melatonin 5 MG tablet
5 mg PO HS Qty: 14 0RF
cholecalciferol (vitamin D3) 25 mcg (1,000 unit) Tablet
25 mcg PO DAILY
Discharge Orders:
Discharge Patient (As Directed); Ordered 06/25/24
Ordered By: Oscar John
Discharge Date and Time
Print Language: PANAMANIAN
[2024-06-25 15:42] VITALS: BP 96/66
--- NOTE | 2024-06-25 15:52 | VATNOTE ---
Per Primary care Nurse, patient transitioned to oral antibiotics and no longer needs Midline. Midline removed without incident.
--- NOTE | 2024-06-26 12:08 | W.HF.CON ---
Heart Failure
- LV Function
Left ventricular function study result: LV Ejection fraction 41-49%
Ejection Fraction Percentage: 45-50
- ARNI
Patient already on ARNI: No
Heart Failure ARNI Not Indicated: LV Ejection Fraction >/= 40%
- ACEI/ARB
Patient already on ACEI/ARB: No
Heart Failure ACEI/ARB Not Indicated: LV Ejection Fraction > 40%
- Beta Karol
Patient already on Evidence Based Beta Karol: Yes
- Mineralocorticord Receptor Antagonist
Patient already on MRA: Yes
- SGLT-2 Inhibitor
Patient already on SGLT-2 Inhibitor: Yes
- Afib Anticoagulation
Patient already on Anticoagulation for Afib: Yes
- NYHA CHF Classification
NYHA CHF Classification Level: Class III - Symptoms w/ min exertion, interferes w/ nml daily activity
- ACC/AHA Stage
ACC/AHA Stage: Stage C: Symptomatic Heart Failure
== END 2024-06-25 17:11 | DRG 871 ==
LOC: 4 WEST ACU 14:07
PROVIDERS: Hospitalist; Internal Medicine Cardiovascular Disease; Internal Medicine Critical Care Medicine; Internal Medicine Gastroenterology; Nurse Practitioner Adult Health; Nurse Practitioner Family; Nurse Practitioner Primary Care; Physician Assistant Medical; ADMITTING PHYSICIAN Hospitalist; ATTENDING PHYSICIAN Internal Medicine; CONSULT PHYSICIAN Internal Medicine Cardiovascular Disease; CONSULT PHYSICIAN Internal Medicine Hematology & Oncology; CONSULT PHYSICIAN Internal Medicine Infectious Disease; CONSULT PHYSICIAN Specialist; CONSULT PHYSICIAN Surgery; EMERGENCY PHYSICIAN Emergency Medicine; FAMILY PHYSICIAN Family Medicine; OTHER PHYSICIAN Internal Medicine Critical Care Medicine
PROC: 5A09357 Assistance with Respiratory Ventilation, Less than 24 Consecutive Hours, Continuous Positive Airway Pressure (ICD-10-PCS; 2024-06-13)
PROC: 0DBP8ZX Excision of Rectum, Via Natural or Artificial Opening Endoscopic, Diagnostic (ICD-10-PCS; 2024-06-19)
DX: A41.9 Sepsis, unspecified organism (principal); I50.23 Acute on chronic systolic (congestive) heart failure; J18.9 Pneumonia, unspecified organism; J96.01 Acute respiratory failure with hypoxia; J96.02 Acute respiratory failure with hypercapnia; R65.21 Severe sepsis with septic shock; I16.1 Hypertensive emergency; Z66 Do not resuscitate; E87.20 Acidosis, unspecified; E87.1 Hypo-osmolality and hyponatremia; L03.116 Cellulitis of left lower limb; N17.9 Acute kidney failure, unspecified; C20 Malignant neoplasm of rectum; I5A Non-ischemic myocardial injury (non-traumatic); I42.8 Other cardiomyopathies; I45.2 Bifascicular block; I47.19 Other supraventricular tachycardia; N13.30 Unspecified hydronephrosis; I48.21 Permanent atrial fibrillation; I11.0 Hypertensive heart disease with heart failure; E03.9 Hypothyroidism, unspecified; I44.30 Unspecified atrioventricular block; E87.5 Hyperkalemia; Z95.0 Presence of cardiac pacemaker; Z91.148 Patient's other noncompliance with medication regimen for other reason; Z85.46 Personal history of malignant neoplasm of prostate; Z79.890 Hormone replacement therapy; Z79.01 Long term (current) use of anticoagulants; Z79.899 Other long term (current) drug therapy; T50.1X6A Underdosing of loop [high-ceiling] diuretics, initial encounter; Z91.128 Patient's intentional underdosing of medication regimen for other reason; I34.0 Nonrheumatic mitral (valve) insufficiency; G47.31 Primary central sleep apnea; E83.42 Hypomagnesemia; R73.9 Hyperglycemia, unspecified; I95.9 Hypotension, unspecified; D50.9 Iron deficiency anemia, unspecified; K64.9 Unspecified hemorrhoids; Z11.52 Encounter for screening for COVID-19; K57.30 Diverticulosis of large intestine without perforation or abscess without bleeding
CPT/HCPCS: 88305; 71045; 71270; 74177; 74178; 80048; 80051; 80053; 80202; 81003; 82378; 82550; 82805; 82962; 83605; 83735; 83880; 84100; 84145; 84153; 84484; 85018; 85025; 85027; 85610; 85730; 86706; 86803; 87040; 87070; 87205; 87340; 87502; 87811; 88342; 93005; 93306; 93970; 94640; 94660; 96365; 96375; 97116; 97162; 97167; 99291; J0878; P9047; Q9967

== ENCOUNTER → 2024-06-30 11:01 | Outpatient (REF) | payer OTHER, MEDICARE, SELFPAY ==
[2024-06-30 11:48] LABS: % Basophils 3.1 % (0-2); % Eosinophils 5.9 % (0-6); % Immature Granulocytes 0.5 % (0-0.5); % Lymphocytes 15.8 % (20.5-51.1); % Monocytes 10.5 % (1.7-9.3); % Neutrophils 64.2 % (42.2-75.2); Absolute Basophils 0.2 10^3/uL (0-0.2); Absolute Eosinophils 0.3 10^3/uL (0-0.7); Absolute Lymphocytes 0.9 10^3/uL (1.2-3.4); Absolute Monocytes 0.6 10^3/uL (0.1-0.6); Absolute Neutrophils 3.7 10^3/uL (1.4-6.5); Hematocrit 36.4 % (39.0-52.0); Mean Corpuscular Hgb 27.8 pg (27.0-31.0); Mean Corpuscular Volume 84.3 fL (80.0-94.0); Mean Platelet Volume 11.2 fL (7.4-10.4); Nucleated Red Blood Cells % 0 % (-); Platelet Count 437 10^3/uL (130-400); Red Blood Cell Count 4.32 10^6/uL (4.70-6.10); Red Cell Dist. Width 15.5 % (11.5-14.5); White Blood Cell Count 5.8 10^3/uL (4.8-10.8)
== END ==
LOC: CLAB 11:01
PROVIDERS: ATTENDING PHYSICIAN Family Medicine
DX: I50.33 Acute on chronic diastolic (congestive) heart failure (principal); A41.9 Sepsis, unspecified organism; J81.0 Acute pulmonary edema; J18.9 Pneumonia, unspecified organism; N13.30 Unspecified hydronephrosis; K74.60 Unspecified cirrhosis of liver; E87.1 Hypo-osmolality and hyponatremia; E87.5 Hyperkalemia; I48.21 Permanent atrial fibrillation; I10 Essential (primary) hypertension; I44.2 Atrioventricular block, complete; Z95.0 Presence of cardiac pacemaker; I47.29 Other ventricular tachycardia; Z85.46 Personal history of malignant neoplasm of prostate
CPT/HCPCS: 36415; 85025

== ENCOUNTER 2024-06-30 15:02 | Inpatient (IN) | payer MEDICARE, SELFPAY ==
[2024-06-30 12:00] VITALS: BP 100/71
[2024-06-30 12:09] VITALS: BP 100/71
[2024-06-30 12:39] LABS: % Basophils 2.6 % (0-2); % Eosinophils 3.7 % (0-6); % Immature Granulocytes 0.4 % (0-0.5); % Lymphocytes 10.6 % (20.5-51.1); % Monocytes 9.1 % (1.7-9.3); % Neutrophils 73.6 % (42.2-75.2); Absolute Basophils 0.2 10^3/uL (0-0.2); Absolute Eosinophils 0.3 10^3/uL (0-0.7); Absolute Lymphocytes 0.8 10^3/uL (1.2-3.4); Absolute Monocytes 0.7 10^3/uL (0.1-0.6); Absolute Neutrophils 5.4 10^3/uL (1.4-6.5); Hematocrit 39.1 % (39.0-52.0); Hemoglobin 12.9 g/dL (13.0-18.0); Mean Corpuscular Hgb 26.6 pg (27.0-31.0); Mean Corpuscular Volume 80.6 fL (80.0-94.0); Mean Platelet Volume 10.3 fL (7.4-10.4); Nucleated Red Blood Cells % 0 % (-); Platelet Count 453 10^3/uL (130-400); Red Blood Cell Count 4.85 10^6/uL (4.70-6.10); Red Cell Dist. Width 15.6 % (11.5-14.5); White Blood Cell Count 7.3 10^3/uL (4.8-10.8)
[2024-06-30 12:56] LABS: Lactic Acid 2.4 mmol/L (0.7-2.0)
[2024-06-30 12:57] LABS: ALT (SGPT) 19 U/L (0-50); AST (SGOT) 25 U/L (17-59); Albumin 3.4 g/dl (3.5-5.0); Alkaline Phosphatase 91 U/L (38-126); Blood Urea Nitrogen 35 mg/dl (9-20); Calcium 9.2 mg/dl (8.4-10.2); Carbon Dioxide 25 mmol/L (22-30); Chloride 92 mmol/L (98-107); Glucose 150 mg/dl (70-99); Potassium 4.4 mmol/L (3.5-5.1); Sodium 130 mmol/L (135-145); Total Bilirubin 0.6 mg/dl (0.2-1.3); Total Protein 6.3 g/dl (6.3-8.2); eGFR 54.51
[2024-06-30 13:00] VITALS: BP 100/68
[2024-06-30 14:00] VITALS: BP 100/80
--- NOTE | 2024-06-30 14:44 | ED.GENMED ---
History of Present Illness
General
Chief Complaint: Skin Problem
Source: patient
Time Seen by Provider: 06/30/24 12:40
History of Present Illness
History of Present Illness:
84-year-old male presents the emergency room from [facility] due to concerns infection of his left leg is not improving and possibly worsening. Patient was hospitalized here at [place] on June 13 with his initial presentation being for
respiratory failure. While hospitalized patient developed sepsis thought to be secondary to left lower extremity DVT as well as some other complications. Patient was discharged from the hospital on oral antibiotics. He has been receiving dressing
changes but feels that the wounds are not getting better and in fact getting worse. His leg is quite erythematous. He does not believe that the erythema has gotten significantly worse. No fever nausea or vomiting.
Past History
Past History
ED Past Medical History: Arrthythmia (Atrial fibrillation), HTN, Hypothyroidism, Other (renal cyst) and Other (Sepsis January 2021)
ED Past Surgical History: Cardiac (pacemaker implantation December 2020)
Social History
Tobacco: Non-smoker
Alcohol: None
Drug: None
Personal:
Living: with family
Family History
Family History: Other (reviewed and noncontributory)
Phy Exam
Physical Exam
Physical Exam:
General: Awake, Alert, Oriented X3. No acute distress.
Vitals: unremarkable
Head: Atraumatic
Eyes: Pupils equal, EOMI
Throat: Airway intact, no exudates
Neck: Trachea midline
Lungs: Clear and equal b/l
Heart: Regular rate, no murmurs
Abd: Soft, Nontender, No pulsatile mass
Neuro: Nonfocal
Skin: Warm, dry, no rash
Extremities: Right lower extremity appears essentially normal. Left lower extremity has significant erythema from the foot up to the mid thigh. There is some red streaking medially. Lower extremity has several ulcerated wounds with thick black
eschar in the wounds. There is no apparent purulent material at this time.
Course
Orders/Labs/Results
Orders:
Orders
06/30/24 12:26
Complete Blood Count/With Diff Urgent
Comprehensive Metabolic Panel Urgent
Lactic Acid Urgent
06/30/24 14:57
Admit/Transfer Patient As Directed
Co-Sign Provider:
Level of Care: Inpatient admission
Assign to:: Medical/Surgical
Physician / Group: corbin
Diagnosis: left lower extremity wounds
Reason for Hospitalization: left lower extremity wounds
Expected length of stay greater than two midnights?: Yes
ELOS- Estimated Length of Stay in days: 2
I certify the patient meets the requirements for IP care: Yes
PRN Pain Medication Management As Directed
May give lesser potent ordered pain med per pt: Yes
preference::
Protocol:: Medication orders for pain may be administered in a
manner that supports deferring to patient preference
when the pt is:
- Requesting an ordered lesser potent pain medication.
Least to most potent pain medications are defined
as: acetaminophen < NSAID < tramadol < opioids
(morphine, oxycodone, hydromorphone).
- Requesting a lesser dose of the same medication IF
ORDERED.
- Requesting a less intrusive route of administration
if both routes are prescribed by the provider (PO <
IV).
06/30/24 14:58
Code Status As Directed
Resuscitation Status: Full Code
Abnormal Lab Results
06/30/24
12:26
Hgb 12.9 L g/dL
(13.0-18.0)
MCH 26.6 L pg
(27.0-31.0)
RDW 15.6 H %
(11.5-14.5)
Plt Count 453 H 10^3/uL
(130-400)
Absolute Lymphs (auto) 0.8 L 10^3/uL
(1.2-3.4)
Absolute Monos (auto) 0.7 H 10^3/uL
(0.1-0.6)
Lymphocytes % 10.6 L %
(20.5-51.1)
Basophils % 2.6 H %
(0-2)
Sodium 130 L mmol/L
(135-145)
Chloride 92 L mmol/L
(98-107)
BUN 35 H mg/dl
(9-20)
Glucose 150 H mg/dl
(70-99)
Lactic Acid 2.4 H mmol/L
(0.7-2.0)
Albumin 3.4 L g/dl
(3.5-5.0)
06/30/24 12:26
06/30/24 12:26
Vital Signs
Initial and Last Documented VS:
Initial Vital Signs
Pulse Resp BP
80 21 100/71
06/30/24 12:00 06/30/24 12:00 06/30/24 12:00
Last Documented Vital Signs
Temp Pulse Resp BP Pulse Ox
97.8 F 78 16 100/80 96
06/30/24 12:09 06/30/24 14:00 06/30/24 14:00 06/30/24 14:00 06/30/24 14:00
MDM/Problems Addressed
Differential Diagnosis Includes:
Worsening cellulitis, chronic wounds,
MDM/Problems Addressed:
Patient presents with left lower extremity cellulitis wounds. I sent some pictures of the patient's lower extremity Dr. Daly who is on for infectious disease today and cared for the patient during his hospitalization. She feels like his legs look
pretty similar to when he was discharged. However she agrees that the wounds themselves require debridement. Patient is supposed to see wound care at [facility] tomorrow. I communicated with Dr. Leal who is the wound care physician there. He
responded that he is unable to perform debridement of these wounds at [facility]. We will therefore hospitalize the patient to the hospitalist service with general surgery consultation. I sent a [place] text to general surgery to inform them about the
patient
*Pulse Oximetry
Patient hypoxic: no
*Critical Care Note
Total Time (30-74mins, 75-104mins- exclusive of procedures): Not Applicable
ED Attending Note
-
Portions of this chart may have been created with voice recognition software.� Occasional wrong word or��sound alike� substitutions may have occurred due to the inherent limitations of voice recognition software.
Discharge Plan
Departure
Patient Disposition: Admit
Date of Disposition: 06/30/24
Time of Disposition: 14:44
Admit to: Med/Surg
Presentation/result/management discussed w/ accepting MD/DO: Hospitalist
Condition: Fair
Discharge Problem:
Cellulitis, Open wound of lower extremity
Interventions
Interventions:
*Risk Screen - Suicide Last Done: 06/30/24 12:12
*General Assessment Last Done: 06/30/24 12:11
*Neglect/Abuse Screening Last Done: 06/30/24 12:12
*ED COVID-19 Vaccine History Last Done: 06/30/24 12:11
--- NOTE | 2024-06-30 15:01 | HPS.HSE ---
Family Physician
-
Family Physician: Larry Starr MD
Chief Complaint
-
left leg wounds
History of Present Illness
84-year-old male past medical history of chronic HFpEF, permanent atrial fibrillation, AV block status post pacemaker, nonsustained ventricular tachycardia, essential hypertension, hypothyroidism, rectal intramucosal adenocarcinoma, prostate cancer,
diverticulosis, hyponatremia, presenting for nonhealing/worsening wounds on the left lower extremity. He thinks the redness has been increasing but he is not sure. He denies any fevers or chills. He states that he was supposed to have Dr.
Theresa a wound care debride the wounds appointment was not set up to do that.
Patient was recently admitted from 06/13 to 06/25 for rectal bleeding, weight gain and shortness of breath. He was in hypercapnic/hypoxemic respiratory failure, hypertensive urgency treated with diuretics, nitroglycerin drip, antibiotics and BiPAP.
He developed hypotension and was on Levophed. He was diagnosed with sepsis secondary to left lower extremity cellulitis. He had a colonoscopy that showed rectal tumor and CT abdomen pelvis showed rectal wall thickening without evidence of
metastatic disease. In the abdomen pelvis. There is mild left hydroureteronephrosis with distal tapering without overt obstruction hepatic cirrhosis. Urologist repeated CT urogram which showed no evidence of hydronephrosis on either side.
Cardiology added Aldactone and Farxiga. Pathology of rectal mass showed adenocarcinoma. Oncology recommended therapy after rehab.
He denies smoking or alcohol use in the recent future.
Medical History
Past Medical History
Past Medical History: Reports Other (chronic HFpEF, permanent atrial fibrillation, AV block status post pacemaker, nonsustained ventricular tachycardia, essential hypertension, hypothyroidism, rectal intramucosal adenocarcinoma, prostate cancer,
diverticulosis, hyponatremia)
Past Surgical History: Reports Other (Cardiac (pacemaker implantation December 2020))
Social History
Tobacco: Non-smoker
Alcohol: None
Drug: None
Family History
Family History: Not pertinent
Allergies / Home Medications
Allergies reflects when Allergies were last updated in [facility].
Home Medications with original date entered in [facility]
Allergy/Medication List:
Allergies
Allergy/AdvReac Type Severity Reaction Status Date / Time
unknown antibiotic Allergy confusion Uncoded 06/13/24 12:58
Home Medications
ascorbic acid (vitamin C) 500 mg tablet (Vitamin C) 500 mg PO DAILY Supplement 01/06/21
apixaban 5 mg tablet (Eliquis) 5 mg PO BID Blood clot prevention/tx 03/21/21
cyanocobalamin (vitamin B-12) 1,000 mcg tablet 1,000 mcg PO DAILY #30 tabs 03/26/21
levothyroxine 100 mcg tablet 100 mcg PO DAILY@0700 #30 tabs 03/26/21
metoprolol succinate 50 mg tablet,extended release 24 hr 50 mg PO BID #60 tabs 03/26/21
melatonin 5 mg tablet 5 mg PO HS #14 tabs 08/26/21
zinc sulfate 50 mg zinc (220 mg) capsule 220 mg (4.4 x 50 mg zinc (220 mg)) PO DAILY #14 caps 08/26/21
cholecalciferol (vitamin D3) 25 mcg (1,000 unit) tablet 25 mcg PO DAILY Supplement 06/13/24
acetaminophen 325 mg tablet 650 mg (2 x 325 mg) PO Q4HPRN PRN fever>100.3/mild pain #20 tabs 06/25/24
bicalutamide 50 mg tablet 50 mg PO DAILY #30 tabs 06/25/24
dapagliflozin propanediol 10 mg tablet 10 mg PO DAILY #30 tabs 06/25/24
furosemide 20 mg tablet 60 mg (3 x 20 mg) PO DAILY #30 tabs 06/25/24
linezolid 600 mg tablet 600 mg PO BID #17 tabs 06/25/24
spironolactone 25 mg tablet 25 mg PO DAILY #30 tabs 06/25/24
bisacodyl 10 mg rectal suppository (Dulcolax (bisacodyl)) 10 mg [place] DAILYPRN PRN if no bm aftr mom 06/30/24
collagenase clostridium histo. 250 unit/gram topical ointment (Santyl) 1 applic topical BID l le wound 06/30/24
miconazole nitrate 2 % topical powder (Miconazorb AF) 1 applic topical BID rash 06/30/24
sodium phosphates 19 gram-7 gram/118 mL enema (Fleet Enema) 118 ml [place] DAILYPRN PRN if no on 6th day 06/30/24
white petrolatum 42 % topical ointment (Hydrophor) 1 applic topical DAILY lle intact skin 06/30/24
Review of Systems
-
History Source: Patient
A 12 point ROS was completed and negative except as noted: Yes
Constitutional: Reports No Symptoms
EENT: Reports No Symptoms
Respiratory: Reports No Symptoms
Cardiac: Reports No Symptoms
Abdomen/GI: Reports No Symptoms
: Reports No Symptoms
Musculoskeletal: Reports No Symptoms
Skin: Reports See HPI and Other
Neurological: Reports No Symptoms
Endocrine: Reports No Symptoms
Hematologic/Lymphatic: Reports No Symptoms
Psych: Reports No Symptoms
Physical Exam
Vital Signs
Vital Signs
Temp Pulse Resp BP Pulse Ox
97.8 F 78 16 100/80 96
06/30/24 12:09 06/30/24 14:00 06/30/24 14:00 06/30/24 14:00 06/30/24 14:00
Physical Exam
General: Well Developed, Well Nourished and No Apparent Distress
HEENT: NormoCephalic, Moist mucous membranes and Atraumatic
Respiratory: Clear
Cardiac: S1/S2 and Regular Rhythm; No Murmur or Rub
GI: Soft, Non Tender, Non Distended and Normal Bowel Sounds; No Organomegaly
Rectal: Deferred by Provider
Musculoskeletal: No Clubbing, No Cyanosis and No Edema
Skin: Other (left lower extremity wounds/blisters with surround erythema); No Rash
Neuro: Nonfocal/grossly intact
Laboratory Results
-
06/30/24 12:26
06/30/24 12:26
Laboratory Results
Lactic Acid 2.4 mmol/L (0.7-2.0) H 06/30/24 12:26
Total Bilirubin 0.6 mg/dl (0.2-1.3) 06/30/24 12:26
AST 25 U/L (17-59) 06/30/24 12:26
ALT 19 U/L (0-50) 06/30/24 12:26
Alkaline Phosphatase 91 U/L (38-126) 06/30/24 12:26
Data Reviewed
-
Lab Data: Labs Reviewed by me
Old Records: Reviewed
Impression/Plan
-
IMPRESSION:
PLAN:
# Worsening/chronic left lower extremity blisters/wounds
-Patient discharged on linezolid which is to be continued until 07/03
-Wound care consulted
-General Surgery for potential debridement
-Hold Eliquis
-ID consulted
Chronic HFpEF with recent hypercarbic/hypoxemic respiratory failure since resolved
-Continue spironolactone
-Continue Lasix
-Continue dapagliflozin
Permanent atrial fibrillation
-Continue metoprolol
-Hold Eliquis for potential debridement
AV block status post pacemaker
Nonsustained ventricular tachycardia
Essential hypertension
Hypothyroidism
-Continue levothyroxine
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
-Patient intends on pursuing treatment once the wounds are treated
Prostate cancer
-Continue clindamycin
History of diverticulosis
History of hyponatremia
Full code
DVT prophylaxis�heparin
Cardiac diet
[2024-06-30] MEDS: ZYVOX 600 MG PO (15:15)
--- NOTE | 2024-06-30 16:09 | CON.ID ---
Consultation
-
Date/Time Consultation Requested: June 30, 2024 1615
Date/Time Consultation Performed: June 30, 2024 1600
Requesting Provider: Dr. Rigoberto Traylor
Performing Provider: Dr. Cassidy Daly
Reason for Consultation: LLE wound necrosis
Chief Complaint / Past History
Chief Complaint
Left leg wound
History of Present Illness
84 year old male with hx Afib, HFpEF, PPM who was recently hospitalized 06/13 to 06/25 when he presented with heart failure, LE edema, respiratory failure-hypoxemic and hypercapnic, hypertensive urgency. Pt also with GIB; CT a/p with incidental
finding of rectal mass which was biopsied and showed adenocarcinoma. During hospital stay, ID was consulted for severe LLE cellulitis. He had blisters on LLE which drained leaving wounds. Cellulitis was slow to improve and therefore abx changed to
IV daptomycin. However, daptomycin was too costly for [facility] ([facility]) acceptance and therefore replaced with linezolid. The wound developed some necrosis and wound RN recommended collagenase. He was discharged to SNF 06/25. Today at [facility], wound noted
to be necrotic and he was sent to ED. Pt reports leg is feeling better. No fever or chills. He is tolerating the linezolid without visual changes or neuropathy.
Past History
Additional Past Medical History:
New dx of rectal cancer (05/2024)
A-fib
HTN
HFpEF
AV block s/p PPM
Hypothyroidism
Renal cyst
hx prostate CA
Additional Past Surgical History:
PPM
Allergy History:
unknown antibiotic Allergy (Uncoded 06/13/24 12:58)
confusion
Medications Reviewed: Yes
Current Antibiotics:
Linezolid
Social History
Tobacco: Non-Smoker
Alcohol: None
Drug: None
Personal:
Living: With Family
Employment: Retired
Family History
Family History: Not Pertinent
Review of Systems
Review of Systems
General: Negative Fever, Chills or Change in Appetite
HEENT: Negative Sinus Problems, Headache or Pharyngitis
Cardiovascular: Negative Chest Pain
Respiratory: Negative Dyspnea or Cough
Gasteroenterology: Negative Nausea, Vomiting or Diarrhea
Genital / Urological: Negative Dysuria or Flank Pain
Endocrine: Weakness
Neurological: Negative Dizziness
All systems: All other systems were reviewed and were negative
Vital Signs
Temp Pulse Resp BP Pulse Ox
97.8 F 78 16 100/80 96
06/30/24 12:09 06/30/24 14:00 06/30/24 14:00 06/30/24 14:00 06/30/24 14:00
Physical Exam
Physical Exam
Constitutional: No Acute Distress and Comfortable
Eyes: No Conjunctival Hemorrhage and Sclera Anicteric
Cardiovascular: Irregular Rate and S1/S2
Pulmonary: Other (Decreased BS at bases)
Gastrointestinal: Soft, Non Tender and Non Distended
Extremities: Edema (LLE edema significantly improved now 1+) and Erythema (LLE erythema resolving -light pink)
Wound: Other (LLE: 3 wounds; the distal two wounds covered with necrotic tissue, no malodor)
Neurological: AO x 3
Lab / Diagnostic Study Results
06/30/24 12:26
06/30/24 12:26
Abs Immat Gran (auto) 0.0 10^3/uL (0-0.05) 06/30/24 12:26
Absolute Neuts (auto) 5.4 10^3/uL (1.4-6.5) 06/30/24 12:26
Absolute Lymphs (auto) 0.8 10^3/uL (1.2-3.4) L 06/30/24 12:26
Absolute Monos (auto) 0.7 10^3/uL (0.1-0.6) H 06/30/24 12:26
Absolute Basos (auto) 0.2 10^3/uL (0-0.2) 06/30/24 12:26
Immature Gran % 0.4 % (0-0.5) 06/30/24 12:26
Neutrophils % 73.6 % (42.2-75.2) 06/30/24 12:26
Lymphocytes % 10.6 % (20.5-51.1) L 06/30/24 12:26
Monocytes % 9.1 % (1.7-9.3) 06/30/24 12:26
Eosinophils % 3.7 % (0-6) 06/30/24 12:
Basophils % 2.6 % (0-2) H 06/30/24 12:26
Lactic Acid 2.4 mmol/L (0.7-2.0) H 06/30/24 12:26
Assessment / Plan
# Left lower extremity cellulitis
- resolving
- continue linezolid through 07/03/24 as previously planned.
# LLE wounds with necrosis
- Needs wound debridement
# Conditions [employer]
New dx of rectal cancer (05/2024)
A-fib
HTN
HFpEF
AV block s/p PPM
Hypothyroidism
Renal cyst
hx prostate CA
[2024-06-30 16:23] VITALS: BP 108/77
[2024-06-30] MEDS: HEPARIN 5000 UNITS SC (19:23)
[2024-06-30] MEDS: DESENEX/MITRAZOL/ZEASORB 1 APPLIC TOPICAL (19:37)
[2024-06-30] MEDS: TOPROL XL PO (19:37)
[2024-06-30] MEDS: SANTYL OINTMENT 1 APPLIC TOPICAL (19:38)
[2024-06-30] MEDS: MELATONIN 5 MG PO (21:32)
--- NOTE | 2024-06-30 22:00 | PTCARENOTE ---
Patient has a bloody stool. Patient stated this was normal for him. TRANSCRIPTION TYPIST Vidya Guzmán notified, gi consult added and TRANSCRIPTION TYPIST trending hemoglobin. Will continue with current plan.
--- NOTE | 2024-06-30 22:54 | W.PN.UPDATE ---
Update Note
Progress Note Update
Reported by the nursing staff that the patient has bloody bm.
-Patient has history of rectal tumor and adenocarcinoma.
-Per chart review, patient was hospitalized recently, had rectal bleeding that was stopped before discharge time on 06/25.
-Will monitor h&h, started daily IV pantoprazole. Discussed with the admitting physician and will add GI consult.
[2024-06-30] MEDS: PROTONIX IV 40 MG IV (23:05)
[2024-06-30] MEDS: NSS (PRESERVATIVE FREE) 10 ML IV (23:06)
[2024-06-30 23:12] VITALS: BP 109/71
[2024-06-30 23:18] LABS: Hematocrit 39.4 % (39.0-52.0)
[2024-07-01] MEDS: SYNTHROID 100 MCG PO (05:11)
[2024-07-01 07:00] VITALS: BP 107/74
[2024-07-01 08:13] LABS: % Basophils 2.9 % (0-2); % Eosinophils 4.9 % (0-6); % Immature Granulocytes 0.3 % (0-0.5); % Lymphocytes 11.7 % (20.5-51.1); % Monocytes 8.3 % (1.7-9.3); % Neutrophils 71.9 % (42.2-75.2); Absolute Basophils 0.2 10^3/uL (0-0.2); Absolute Eosinophils 0.3 10^3/uL (0-0.7); Absolute Lymphocytes 0.7 10^3/uL (1.2-3.4); Absolute Monocytes 0.5 10^3/uL (0.1-0.6); Absolute Neutrophils 4.2 10^3/uL (1.4-6.5); Hematocrit 39.2 % (39.0-52.0); Mean Corp Hgb Conc. 33.2 g/dL (33.0-37.0); Mean Corpuscular Hgb 27.5 pg (27.0-31.0); Mean Corpuscular Volume 83.1 fL (80.0-94.0); Mean Platelet Volume 10.1 fL (7.4-10.4); Nucleated Red Blood Cells % 0 % (-); Platelet Count 409 10^3/uL (130-400); Red Blood Cell Count 4.72 10^6/uL (4.70-6.10); Red Cell Dist. Width 15.3 % (11.5-14.5); White Blood Cell Count 5.9 10^3/uL (4.8-10.8)
[2024-07-01] MEDS: PROTONIX IV 40 MG IV (08:39)
[2024-07-01] MEDS: ALDACTONE 25 MG PO (08:40)
[2024-07-01] MEDS: FARXIGA 10 MG PO (08:40)
[2024-07-01] MEDS: VITAMIN B-12 1000 MCG PO (08:40)
[2024-07-01] MEDS: NSS (PRESERVATIVE FREE) 10 ML IV (08:40)
[2024-07-01] MEDS: CASODEX 50 MG PO (08:40)
[2024-07-01] MEDS: ZYVOX 600 MG PO ×2 (08:40→20:51)
[2024-07-01] MEDS: LASIX 60 MG PO (08:40)
[2024-07-01] MEDS: VITAMIN C 500 MG PO (08:40)
[2024-07-01] MEDS: TOPROL XL 50 MG PO ×2 (08:41→20:44)
[2024-07-01] MEDS: HYDROPHOR 1 APPLIC TOPICAL (08:41)
[2024-07-01] MEDS: HEPARIN 5000 UNITS SC ×2 (08:41→20:43)
[2024-07-01] MEDS: VITAMIN D3 (cholecalciferol) 25 MCG PO (08:41)
[2024-07-01] MEDS: DESENEX/MITRAZOL/ZEASORB 1 APPLIC TOPICAL ×2 (08:42→20:52)
[2024-07-01] MEDS: SANTYL OINTMENT TOPICAL (09:01)
[2024-07-01] MEDS: SANTYL OINTMENT 1 APPLIC TOPICAL ×2 (09:05→20:51)
[2024-07-01] MEDS: ZINC 50 MG PO (09:40)
[2024-07-01 09:45] VITALS: BMI 28.0
[2024-07-01 09:49] LABS: ALT (SGPT) 20 U/L (0-50); AST (SGOT) 25 U/L (17-59); Albumin 3.3 g/dl (3.5-5.0); Alkaline Phosphatase 97 U/L (38-126); Blood Urea Nitrogen 31 mg/dl (9-20); Calcium 9.2 mg/dl (8.4-10.2); Carbon Dioxide 26 mmol/L (22-30); Chloride 92 mmol/L (98-107); Estimated Creatinine Clearance 42 ml/min; Glucose 93 mg/dl (70-99); Potassium 4.9 mmol/L (3.5-5.1); Sodium 132 mmol/L (135-145); Total Bilirubin 0.6 mg/dl (0.2-1.3); Total Protein 6.3 g/dl (6.3-8.2); eGFR 54.51
--- NOTE | 2024-07-01 09:51 | WOUNDNOTE ---
[facility] RN note: Patient admitted with cellulitis of L leg wound.
See H&P for complete history.
PMH: a fib (Eliquis), pacer, HTN, L leg wound.
Wound Location and type/assessment: Patient known to service, last seen 06/25/24 for same L leg surgical wound, debrided last admission. Today appears more shallow with sanchez and brown eschar, less redness and swelling to leg. Periwound with dry
flaky skin, mineral oil on order. Assessed patient along with Dr. Cormier, plan is for bedside debridement in next few days, patient was on Eliquis. Santyl already on order confirmed to continue with Santyl and local wound care. Hold off on
compression for now per Dr. Cormier. Patient turned self in bed, brief removed, has Hodges and patient continent with stool. Sacrum with mild MASD. Heels are intact.
Appetite: Good.
Pressure redistribution devices in place: Accumax, pillows under calves. Ambulated self to BR using walker.
Plan: L leg wound care with Santyl and local wound care, leg elevation.
Care plan to be updated and will follow along with surgery and update wound care as needed.
Note to case management of equipment requested for discharge: wound care.
Recommend follow up at wound care center upon discharge.
--- NOTE | 2024-07-01 11:17 | CON.GS ---
Consultation
-
Requesting Provider: amelie
Performing Provider: elyse
Reason for Consultation: LLE superficial wound eschar
Medical History
-
Chief Complaint: LLE wound eschar
History of Present Illness:
84M with slow healing LLE wound. It began with LLE cellulitis during his last admission. Eventually developed bullae that ruptured and now has some dark eschar. He was directed to the wound center but never set anything up. He denies f/c/n/v. He is
on eliquis. He has a recently dx'ed rectal tumor, he is on eliquis.
From ID consultation last admit 06/13/24): He presented to the emergency room on 06/13 following the acute worsening of shortness of breath associated with shaking. While in the ER the patient was found to have a pulse ox in the 60s and was noted
to be mottled. He was stabilized, and admitted to the intensive care unit... While there he began to have increasing lower extremity edema along with left lower extremity erythema. He thereafter developed some blistering along the medial aspect
of his left calf area. Since that time there has been spread of the erythema up the leg and along the lateral thigh. Currently there is noted to be some serous drainage from the leg and bullae formation.
Past Medical History
Past Medical History: Other (chronic HFpEF, permanent atrial fibrillation, AV block status post pacemaker, nonsustained ventricular tachycardia, essential hypertension, hypothyroidism, rectal intramucosal adenocarcinoma, prostate cancer,
diverticulosis, hyponatremia)
Past Surgical History: Other (Cardiac (pacemaker implantation December 2020))
Social History
Tobacco: Non-Smoker
Alcohol: None
Drug: None
Family History
Family History: Reviewed & Noncontributory
Allergies / Home Medications
Allergy/AdvReac Type Severity Reaction Status Date / Time
unknown antibiotic Allergy confusion Uncoded 06/13/24 12:58
�Medication �Instructions �Recorded �Confirmed �Type
ascorbic acid (vitamin C) 500 mg 500 mg PO DAILY Supplement 01/06/21 06/30/24 History
tablet (Vitamin C)
apixaban 5 mg tablet (Eliquis) 5 mg PO BID Blood clot 03/21/21 06/30/24 History
prevention/tx
cholecalciferol (vitamin D3) 25 25 mcg PO DAILY Supplement 06/13/24 06/30/24 History
mcg (1,000 unit) tablet
acetaminophen 325 mg tablet 650 mg (2 x 325 mg) PO Q4HPRN PRN 06/25/24 06/30/24 Rx
fever>100.3/mild pain #20 tabs
bicalutamide 50 mg tablet 50 mg PO DAILY Cancer 06/30/24 06/30/24 History
bisacodyl 10 mg rectal suppository 10 mg [place] DAILYPRN PRN if no bm 06/30/24 06/30/24 History
(Dulcolax (bisacodyl)) aftr mom
collagenase clostridium histo. 250 1 applic topical BID l le wound 06/30/24 06/30/24 History
unit/gram topical ointment (Santyl)
cyanocobalamin (vitamin B-12) 1,000 mcg PO DAILY Supplement 06/30/24 06/30/24 History
1,000 mcg tablet
dapagliflozin propanediol 10 mg 10 mg PO DAILY Heart Failure 06/30/24 06/30/24 History
tablet
furosemide 20 mg tablet 60 mg PO DAILY Fluid 06/30/24 06/30/24 History
Retention/Swelling
levothyroxine 100 mcg tablet 100 mcg PO DAILY@0700 Thyroid 06/30/24 06/30/24 History
linezolid 600 mg tablet 600 mg PO BID infection 06/30/24 06/30/24 History
melatonin 5 mg tablet 5 mg PO HS sleep 06/30/24 06/30/24 History
metoprolol succinate 50 mg 50 mg PO BID Blood Pressure 06/30/24 06/30/24 History
tablet,extended release 24 hr
miconazole nitrate 2 % topical 1 applic topical BID rash 06/30/24 06/30/24 History
powder (Miconazorb AF)
sodium phosphates 19 gram-7 118 ml [place] DAILYPRN PRN if no on 06/30/24 06/30/24 History
gram/118 mL enema (Fleet Enema) 6th day
spironolactone 25 mg tablet 25 mg PO DAILY heart failure/BP 06/30/24 06/30/24 History
white petrolatum 42 % topical 1 applic topical DAILY lle intact 06/30/24 06/30/24 History
ointment (Hydrophor) skin
zinc sulfate 50 mg zinc (220 mg) 220 mg PO DAILY Supplement 06/30/24 06/30/24 History
capsule
Review of Systems
-
A 10 point review of systems was completed, and was negative except as per HPI.
Physical Exam
Vital Signs
Temp Pulse Resp BP Pulse Ox
97.7 F 61 18 107/74 96
07/01/24 07:00 07/01/24 08:40 07/01/24 07:00 07/01/24 08:40 07/01/24 07:00
06/30/24 07/01/24 07/02/24
06:59 06:59 06:59
Actual Weight 87.4 kg 83.659 kg
Body Mass Index (BMI) 28.0
Lab Results
07/01/24 07:31
07/01/24 07:31
WBC 5.9 10^3/uL (4.8-10.8) 07/01/24 07:31
Hgb 13.0 g/dL (13.0-18.0) 07/01/24 07:31
Hct 39.2 % (39.0-52.0) 07/01/24 07:31
Plt Count 409 10^3/uL (130-400) H 07/01/24 07:31
Abs Immat Gran (auto) 0.0 10^3/uL (0-0.05) 07/01/24 07:31
Neutrophils % 71.9 % (42.2-75.2) 07/01/24 07:31
Physical Exam
General: Well Developed, Well Nourished and No Apparent Distress
Skin: Other (LLE medial aspect, patchy areas of apparently thin dark eschar, no erythema or fluctuance, no odor, no drainage)
Neuro: AO x 3
Psych: Calm
Data Reviewed
-
Old Records: Reviewed
Assessment / Plan
-
84M with slow healing wounds to LLE on eliquis
AFVSS, thin dark eschar in patchy areas to medial left calf
Last dose eliquis yesterday am
Wound will benefit from debridement. Difficult to discern the depth of the wound given the dark eschar, but could consider bedside debridement after eliquis washout
Hold eliquis
Will follow
--- NOTE | 2024-07-01 14:07 | W.PN.CD ---
Today's Communication / Plan
-
-
H and P dictated
Will add back his HF meds that he should be on per very recent discharge summary
Eliquis hold was underway for LLE wound debridement
Colorectal surgery feels rectal cancer will bleed until it is treated but amount of bleeding may not preclude anticoagulation
I suggest no heparin bridge. Resume Eliquis once OK with wound debridement
80 min spent caring for pt today: review records, studies, discuss with team members, prepare document
-
-
Impression / Plan
-
Chronic HFmidrangeEF
- Last admit his severe edema needed some Zaroxolyn on top of BID Lasix
- Dry weight still uncertain and may change as nutritional status changes. Looks good from HF standpoint at 83.7 kg
- Should be on SGLT2-I, HF BB, and MRA
- Hope to add RAAS-i (ARNI or JOCELYN-I or ARB) as outpatient
- Na+/fluid restriction/education
- Watch for need of Zaroxolyn 1-2 times a week
Colorectal cancer/GI bleeding
Hx of prostate Ca/Hydronephrosis (perhaps pseudo), urology saw pt last admit
Hypotension
- Last admit he required some midodrine
- Watch for need to add midodrine
Nonischemic cardiomyopathy
Permanent AFib, on metoprolol for rate control
- Eliquis on hold
- Resume when OK with surgery
LLE wound, likely a venous wound
- Wound care
- Surgery
- Was complicated by cellulitis => ATBs
LE edema, mostly heart failure but some lymphedema seems likely
- compression, later lymphedema therapy if needed
Hx of NSVT, asymptomatic: No syncope, EF more than 40. No ICD at this time
Bifascicular heart block (RBBB/LAFB)
Single chamber MDT pacer in place for periods of second degree AV block/pauses
Subjective:
No CP, no syncope/palps. URIAS. Edema much improved compared to when I saw him last on 06/23/2024
Data:
Echo 06/15/2024: TDS, LVEF 45-50%, mild M
Single chamber PPM placed 01/16/2021, MDT
Cath 11/30/2020: No obstructive CAD, luminal disease present, LVEDP 16 mmHg
Physical Exam
Vital Signs/Labs
Vital Signs
Temp Pulse Resp BP Pulse Ox
97.7 F 61 18 107/74 96
07/01/24 07:00 07/01/24 08:40 07/01/24 07:00 07/01/24 08:40 07/01/24 07:00
06/30/24 07/01/24 07/02/24
06:59 06:59 06:59
Actual Weight 87.4 kg 83.659 kg
07/01/24 07:31
07/01/24 07:31
Data Reviewed
-
Date of Service: July 01, 2024
[2024-07-01 14:58] VITALS: BP 92/60
--- NOTE | 2024-07-01 16:27 | CM ---
general merchandise manager reviewed patient's chart and met with patient and patient was transferred from [facility], prior to skilled placement, patient lived with spouse in a 2 story home with 2 steps to enter, patient is independent with
adl's and ambulation. Patient needed BID wound care and ABX, along with PT and OT patient was sent to [facility], rn field case manager will follow with patient and assist with discharge planning.
PCP; Dr Bingham
Pharmacy [facility] in [place].
Plan: To follow with progress and assist with discharge planning.
--- NOTE | 2024-07-01 17:16 | CON.CRS ---
Consultation
-
Date/Time Consultation Requested: 07/01/2024 @ 9:47
Date/Time Consultation Performed: 07/01/2024 @11:00
Requesting Provider: Pee Peres MD
Performing Provider: Wale Mitchell MD
Reason for Consultation: Bleeding rectal cancer
Medical History
-
Chief Complaint: Rectal bleeding/cancer
History of Present Illness:
84-year-old male with multiple medical problems recently discharged (06/25/24) with rectal bleeding and CHF. He was found to have a rectal cancer on a colonoscopy performed for burgundy stools and a drop in hemoglobin from 13 to 11 g/dL. His Eliquis
was held and he underwent a colonoscopy on 06/13/24 and was found a large distal rectal mass. Biopsies reveal at least intramucosal carcinoma. He was seen by Dr. Bashir from colorectal surgery and there was a large rectal mass in the left posterior
quadrant that was fixed, ulcerated with the distal edge at the anorectal ring. The proximal extent was not palpable. A CT scan of the abdomen and pelvis with contrast on 06/20/24 was negative for metastatic disease. There was mild left
hydroureteronephrosis and mild hepatic cirrhosis. A chest CT the same day revealed small bilateral pleural effusions, a hiatal hernia, and no mets. A CEA was 14.6 ng/ml. His hemoglobin remained stable and he was discharged with the plan for an
outpatient pelvic MRI. 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
follow-up. An Infusaport was not placed as the patient had a significant LLE cellulitis
He was discharged to [facility] but returns with worsening of the cellulitis. He continues on Eliquis and has had intermittent rectal bleeding. He remains hemodynamically stable and his hemoglobin remains at 13 g/dL on since last admission. General
surgery is planning on surgery tomorrow and the Eliquis is on hold. We have been consulted for the management of his rectal bleeding.
Past Medical History
Past Medical History: Arrhythmias (atrial fibrillation), Cancer (rectal, prostate), CHF, HTN, Hypothyroidism and Other (LLL cellulitis)
Past Surgical History: Cardiac (PPM)
Social History
Tobacco: Non-Smoker
Alcohol: None
Personal:
Living: With Family
Family History
Family History: Reviewed & Not Pertinent
Allergies / Home Medications
Allergy/AdvReac Type Severity Reaction Status Date / Time
unknown antibiotic Allergy confusion Uncoded 06/13/24 12:58
�Medication �Instructions �Recorded �Confirmed �Type
ascorbic acid (vitamin C) 500 mg 500 mg PO DAILY Supplement 01/06/21 06/30/24 History
tablet (Vitamin C)
apixaban 5 mg tablet (Eliquis) 5 mg PO BID Blood clot 03/21/21 06/30/24 History
prevention/tx
cholecalciferol (vitamin D3) 25 25 mcg PO DAILY Supplement 06/13/24 06/30/24 History
mcg (1,000 unit) tablet
acetaminophen 325 mg tablet 650 mg (2 x 325 mg) PO Q4HPRN PRN 06/25/24 06/30/24 Rx
fever>100.3/mild pain #20 tabs
bicalutamide 50 mg tablet 50 mg PO DAILY Cancer 06/30/24 06/30/24 History
bisacodyl 10 mg rectal suppository 10 mg CA DAILYPRN PRN if no bm 06/30/24 06/30/24 History
(Dulcolax (bisacodyl)) aftr mom
collagenase clostridium histo. 250 1 applic topical BID l le wound 06/30/24 06/30/24 History
unit/gram topical ointment (Santyl)
cyanocobalamin (vitamin B-12) 1,000 mcg PO DAILY Supplement 06/30/24 06/30/24 History
1,000 mcg tablet
dapagliflozin propanediol 10 mg 10 mg PO DAILY Heart Failure 06/30/24 06/30/24 History
tablet
furosemide 20 mg tablet 60 mg PO DAILY Fluid 06/30/24 06/30/24 History
Retention/Swelling
levothyroxine 100 mcg tablet 100 mcg PO DAILY@0700 Thyroid 06/30/24 06/30/24 History
linezolid 600 mg tablet 600 mg PO BID infection 06/30/24 06/30/24 History
melatonin 5 mg tablet 5 mg PO HS sleep 06/30/24 06/30/24 History
metoprolol succinate 50 mg 50 mg PO BID Blood Pressure 06/30/24 06/30/24 History
tablet,extended release 24 hr
miconazole nitrate 2 % topical 1 applic topical BID rash 06/30/24 06/30/24 History
powder (Miconazorb AF)
sodium phosphates 19 gram-7 118 ml CA DAILYPRN PRN if no on 06/30/24 06/30/24 History
gram/118 mL enema (Fleet Enema) 6th day
spironolactone 25 mg tablet 25 mg PO DAILY heart failure/BP 06/30/24 06/30/24 History
white petrolatum 42 % topical 1 applic topical DAILY lle intact 06/30/24 06/30/24 History
ointment (Hydrophor) skin
zinc sulfate 50 mg zinc (220 mg) 220 mg PO DAILY Supplement 06/30/24 06/30/24 History
capsule
Review of Systems
-
History Source: Patient
All other systems: Negative unless noted
A 10 point review of systems was completed, and was negative except as per HPI.
Physical Exam
Vital Signs
Temp 97.5 F 07/01/24 14:58
Pulse 89 07/01/24 14:58
Resp Rate 18 07/01/24 14:58
Blood pressure 92/60 07/01/24 14:58
SaO2 96 07/01/24 14:58
06/30/24 07/01/24 07/02/24
06:59 06:59 06:59
Actual Weight 87.4 kg 83.659 kg
Body Mass Index (BMI) 28.0
Lab Results / Allergies
07/01/24 07:
07/01/24:
WBC 5.9 10^3/uL (4.8-10.8) 07/01/24 07:
Hgb 13.0 g/dL (13.0-18.0) 07/01/24:
Hct 39.2 % (39.0-52.0) 07/01/24:
Plt Count 409 10^3/uL (130-400) H 07/01/24:
Abs Immat Gran (auto) 0.0 10^3/uL (0-0.05) 07/01/24:
Neutrophils % 71.9 % (42.2-75.2) 07/01/24:
Allergy/AdvReac Type Severity Reaction Status Date / Time
unknown antibiotic Allergy confusion Uncoded 06/13/24 12:58
Physical Exam
General: Well Developed, Well Nourished and No Apparent Distress
HEENT: Anicteric
Cardiac: Irregular Rhythm
GI: Soft, Non Tender and Non Distended
Neuro: Awake and Alert
Data Reviewed
-
Labs: Labs Reviewed by me, Discussed with Patient and Discussed with Family
Assessment / Plan
-
Rectal mass with bleeding, on OAC for atrial fibrillation.
I suspect there will be some bleeding until the mass is managed, either with radiation, surgery, or a combination. He needs a pelvic MRI to complete staging and I will arrange for one in the near future. For now, the plan is for surgery tomorrow
with general surgery.
Resume anticoagulation when able and will continue to monitor the bleeding. His family was present, all questions answered.
--- NOTE | 2024-07-01 19:22 | W.PN.HOSP.TC ---
Today's Communication/Plan
-
Holding Eliquis for debridement
Continue chemical DVT prophylaxis
Monitor for any significant bleeding
Assessment / Plan
Assessment / Plan
Physical Exam
General: Not in acute distress
HEENT: Normocephalic
Respiratory: Clear
Cardiac: S1/S2 and Regular Rhythm
GI: Soft, Non Tender, Non Distended and Normal Bowel Sounds
Musculoskeletal: No Cyanosis and No Edema
Skin: Left lower extremity wounds/blisters with surround erythema -- covered in dressing
Neuro: Nonfocal/grossly intact
Assessment/Plan
# Worsening/chronic left lower extremity blisters/wounds
# Lower extremity edema
-Patient discharged on linezolid which is to be continued until 07/03
-Wound care consulted
-General Surgery for potential debridement
-Hold Eliquis in preparation of surgery for necrotic wounds (last dose of Eliquis was 06/30/24 morning)
-ID consulted, appreciate their evaluation and recommendations
-Continue linezolid through 07/03/24 as previously planned in recent hospitalization
Chronic HFpEF with recent hypercarbic/hypoxemic respiratory failure since resolved
-Continue spironolactone
-Continue Lasix
-Continue dapagliflozin
-Watch for need for Zaroxylyn
-Cardiology hopes to add RAAS-i (ARNI or JOCELYN-I or ARB) as outpatient
-Na+/fluid restriction/education
Permanent atrial fibrillation
-Continue metoprolol
-Hold Eliquis for potential debridement (last dose of Eliquis was 06/30/24 morning)
AV block status post pacemaker
Nonsustained ventricular tachycardia
History of NSVT, asymptomatic: No syncope, EF more than 40. No ICD at this time
Bifascicular heart block (RBBB/LAFB)
Single chamber MDT pacer in place for periods of second degree AV block/pauses
Essential hypertension
Hypothyroidism
-Continue levothyroxine
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
Bloody bowel movements secondary to rectal mass
-Patient intends on pursuing treatment once the wounds are treated
-Discussed case with GI, no need for GI consult at this time, and no need for PPI
-Colorectal surgery consulted, appreciate their evaluation and recommendations
Prostate cancer
-Continue Casodex
History of diverticulosis
History of hyponatremia
Renal cyst
Code Status: Full code
DVT prophylaxis�heparin
Cardiac diet
Anticipated Discharge: > 48 hours
Subjective/Interval History
-
Date of Service: July 01, 2024
Patient was seen and examined. He reported doing okay, denied any new symptoms or complaints. He was noted to have a bloody bowel movement earlier.
Objective Data
-
Labs:
Laboratory Results
07/01/24
07:31
WBC 5.9
Hgb 13.0
Hct 39.2
Plt Count 409 H
Sodium 132 L
Potassium 4.9
Chloride 92 L
Carbon Dioxide 26
BUN 31 H
Creatinine 1.3
Glucose 93
Calcium 9.2
Total Bilirubin 0.6
AST 25
ALT 20
Alkaline Phosphatase 97
Vital Signs:
Vital Signs
Temp Pulse Resp BP Pulse Ox
97.5 F 89 18 92/60 96
07/01/24 14:58 07/01/24 14:58 07/01/24 14:58 07/01/24 14:58 07/01/24 14:58
I&O
06/30/24 07/01/24 07/02/24
06:59 06:59 06:59
Intake Total 900 / 900 1440 / 1440
Output Total 2400 / 2400 2400 / 2400
Balance -1500 / -1500 -960 / -960
[2024-07-01 20:12] VITALS: BMI 28.0
[2024-07-01] MEDS: MELATONIN 5 MG PO (21:02)
[2024-07-01 22:54] VITALS: BP 105/72
[2024-07-02] MEDS: SYNTHROID 100 MCG PO (05:05)
[2024-07-02 06:00] VITALS: BMI 27.8
[2024-07-02 07:00] VITALS: BP 103/69
[2024-07-02] MEDS: DESENEX/MITRAZOL/ZEASORB 1 APPLIC TOPICAL ×2 (08:17→21:14)
[2024-07-02] MEDS: CASODEX 50 MG PO (08:17)
[2024-07-02] MEDS: ALDACTONE 25 MG PO (08:17)
[2024-07-02] MEDS: FARXIGA 10 MG PO (08:18)
[2024-07-02] MEDS: HEPARIN 5000 UNITS SC (08:18)
[2024-07-02] MEDS: LASIX 60 MG PO (08:19)
[2024-07-02] MEDS: SANTYL OINTMENT 1 APPLIC TOPICAL ×2 (08:19→21:14)
[2024-07-02] MEDS: TOPROL XL 50 MG PO ×2 (08:20→20:39)
[2024-07-02] MEDS: VITAMIN B-12 1000 MCG PO (08:20)
[2024-07-02] MEDS: VITAMIN D3 (cholecalciferol) 25 MCG PO (08:20)
[2024-07-02] MEDS: VITAMIN C 500 MG PO (08:20)
[2024-07-02] MEDS: ZYVOX 600 MG PO ×2 (08:20→20:40)
[2024-07-02] MEDS: ZINC 50 MG PO (08:20)
[2024-07-02] MEDS: HYDROPHOR 1 APPLIC TOPICAL (08:22)
[2024-07-02 09:36] LABS: ALT (SGPT) 18 U/L (0-50); AST (SGOT) 22 U/L (17-59); Albumin 3.4 g/dl (3.5-5.0); Alkaline Phosphatase 98 U/L (38-126); Blood Urea Nitrogen 27 mg/dl (9-20); Calcium 9.1 mg/dl (8.4-10.2); Carbon Dioxide 30 mmol/L (22-30); Chloride 89 mmol/L (98-107); Estimated Creatinine Clearance 39 ml/min; Glucose 140 mg/dl (70-99); Magnesium 1.9 mg/dl (1.6-2.3); Potassium 4.7 mmol/L (3.5-5.1); Sodium 129 mmol/L (135-145); Total Bilirubin 0.8 mg/dl (0.2-1.3); Total Protein 6.3 g/dl (6.3-8.2); eGFR 49.87
[2024-07-02 09:39] LABS: % Basophils 2.6 % (0-2); % Eosinophils 4.8 % (0-6); % Immature Granulocytes 0.7 % (0-0.5); % Lymphocytes 14.8 % (20.5-51.1); % Monocytes 8.4 % (1.7-9.3); % Neutrophils 68.7 % (42.2-75.2); Absolute Basophils 0.1 10^3/uL (0-0.2); Absolute Eosinophils 0.3 10^3/uL (0-0.7); Absolute Lymphocytes 0.8 10^3/uL (1.2-3.4); Absolute Monocytes 0.5 10^3/uL (0.1-0.6); Absolute Neutrophils 3.8 10^3/uL (1.4-6.5); Hematocrit 39.4 % (39.0-52.0); Hemoglobin 12.8 g/dL (13.0-18.0); Mean Corp Hgb Conc. 32.5 g/dL (33.0-37.0); Mean Corpuscular Hgb 26.8 pg (27.0-31.0); Mean Corpuscular Volume 82.4 fL (80.0-94.0); Mean Platelet Volume 10.2 fL (7.4-10.4); Nucleated Red Blood Cells % 0 % (-); Platelet Count 433 10^3/uL (130-400); Red Blood Cell Count 4.78 10^6/uL (4.70-6.10); Red Cell Dist. Width 15.5 % (11.5-14.5); White Blood Cell Count 5.5 10^3/uL (4.8-10.8)
--- NOTE | 2024-07-02 10:16 | W.PN.CD ---
Today's Communication / Plan
-
resp status stable
patient remains off eliquis . Resume when it is felt to be safe.
Impression / Plan
-
Chronic HFmidrangeEF
- Nonischemic cardiomyopathy
- Last admit his severe edema needed some Zaroxolyn on top of BID Lasix
- Dry weight still uncertain and may change as nutritional status changes.
- appears stable from HF standpoint at 83.7 kg
- Should be on SGLT2-I, HF BB, and MRA
- Hope to add RAAS-i (ARNI or JOCELYN-I or ARB) as outpatient
- Na+/fluid restriction/education
- Watch for need of Zaroxolyn 1-2 times a week
Colorectal cancer/GI bleeding - large rectal mass noted on prio admit
- please see Dr Mcnamara consult fromn this admission.
.
Hypotension
- Last admit he required some midodrine
- Watch for need to add midodrine
Permanent AFib, on metoprolol for rate control
- Eliquis on hold
- Resume when OK with surgery post debridement. . Note that patient will have some increased risk of bleeding related to rectal mass.
LLE wound, likely a venous wound
- Wound care and debridement as oulined by gen surgery / Dr Cormier
- Surgery
- Was complicated by cellulitis => ATBs
LE edema, mostly heart failure but some lymphedema seems likely
- compression, later lymphedema therapy if needed
Hx of prostate Ca/Hydronephrosis (perhaps pseudo), urology saw pt last admit
Hx of NSVT, asymptomatic: No syncope, EF more than 40. No ICD at this time
Bifascicular heart block (RBBB/LAFB)
Single chamber [employer] pacer
Subjective:
No CP, no syncope/palps. URIAS. Edema much improved compared to when I saw him last on 06/23/2024
Data:
Echo 06/15/2024: TDS, LVEF 45-50%, mild M
Single chamber PPM placed 01/16/2021, MDT
Cath 11/30/2020: No obstructive CAD, luminal disease present, LVEDP 16 mmHg
Physical Exam
Vital Signs/Labs
Vital Signs
Temp Pulse Resp BP Pulse Ox
97.5 F 79 20 103/69 100
07/02/24 07:00 07/02/24 07:00 07/02/24 07:00 07/02/24 07:00 07/02/24 08:25
07/01/24 07/02/24 07/03/24
06:59 06:59 06:59
Actual Weight 87.4 kg 83.007 kg
07/02/24 09:08
07/02/24 09:08
Magnesium 1.9 mg/dl (1.6-2.3) 07/02/24 09:08
Physical Exam
Constitutional: No acute distress
Cardiovascular: Rhythm/rate is irregular
Respiratory: Wheeze Absent and Rhonchi Absent
GI: Soft and Non tender
Neuro/Psych: Alert
Other: Other (left lower extremity dressing)
Data Reviewed
-
Date of Service: July 02, 2024
Medical Decision Making: Reviewed Test Results
Echo: Report Reviewed by me
Medical Tests (PFT, Pathology etc): Report Reviewed by me
Labs: Labs Reviewed by me
--- NOTE | 2024-07-02 11:04 | CM ---
Chart reviewed and case checker will follow with patient progress and assist with discharge planning. manager zone will await PT/OT evaluations and recommendations, patient lives with his spouse.
Plan; To follow with patient progress and assist with discharge planning.
--- NOTE | 2024-07-02 11:18 | W.PN.GS2 ---
Today's Communication / Plan
-
`
Assessment / Plan
-
Assessment: 84-year-old male with left lower extremity wound after recent severe cellulitis during previous hospitalization.
Reviewed with patient treatment options which would include either continued local wound care versus partial debridement of areas of eschar. Advised that even with debridement eschar will likely reform rather promptly given location and lower
extremity edema but debridement of darker areas may promote some degree of healing sooner.
Verbal consent obtained for bedside debridement.
Plan: Excisional sharp debridement performed at bedside with 15 blade. No anesthetic required as patient is insensate in the area.
Inferior most eschar debrided through the dermis with exposed subcutaneous fat underlying necrotic areas. Debridement performed over area measuring approximately 3 cm x 3 cm. No purulence, no tunneling or undermining, subcutaneous edema
visualized.
The central eschar which measures 2 x 2 cm approximately was sharply debrided to excise thin layer of built up white eschar but not full-thickness as did not want to expose subcutaneous fat in this area.
No further surgical debridement recommended
Continue to apply Santyl to areas of eschar with nonadherent skin dressing. Dry gauze. Dressing changes twice daily.
JOCELYN bandage for compressive wrap and elevate extremity to minimize edema.
Outpatient wound care follow-up will be necessary
From a wound care standpoint therapeutic anticoagulation okay to continue starting this evening.
Please call if can be of further assistance of wound care during hospitalization.
Subjective Data
-
Date of Service: July 02, 2024
Patient seen and examined. Offers no complaints.
Not much sensation at baseline in the left lower extremity
Objective Data
-
Intake and Output
07/01/24 07/02/24 07/03/24
06:59 06:59 06:59
Intake Total 900 / 900 1440 / 1440
Output Total 2400 / 2400 3150 / 3150
Balance -1500 / -1500 -1710 / -1710
Intake:
Oral fluids 900 / 900 1440 / 1440
Output:
Urine, Hodges 2400 / 2400 2400 / 2400
Urine, Voided 750 / 750
Vital Signs
Temp Pulse Resp BP Pulse Ox
97.5 F 79 20 103/69 100
07/02/24 07:00 07/02/24 07:00 07/02/24 07:00 07/02/24 07:00 07/02/24 08:25
Lab Results
07/02/24 09:08
07/02/24 09:08
Calcium 9.1 mg/dl (8.4-10.2) 07/02/24 09:08
Magnesium 1.9 mg/dl (1.6-2.3) 07/02/24 09:08
Total Bilirubin 0.8 mg/dl (0.2-1.3) 07/02/24 09:08
AST 22 U/L (17-59) 07/02/24 09:08
ALT 18 U/L (0-50) 07/02/24 09:08
Alkaline Phosphatase 98 U/L (38-126) 07/02/24 09:08
Total Protein 6.3 g/dl (6.3-8.2) 07/02/24 09:08
Albumin 3.4 g/dl (3.5-5.0) L 07/02/24 09:08
Physical Exam
-
NAD AAOx3
Left lower extremity wound predominantly with dry white eschar and few areas of dry black eschar. Surrounding erythema and edema.
No malodor, no fluctuance, no drainage or significant exudate.
--- NOTE | 2024-07-02 11:44 | PN.CDI ---
CDI
- -
CDI:
Physician Documentation Request
Admit Date: 06/30/24 15:02
Dear Doctor Ja,
Please review the following and provide your response in the progress notes.
Clinical Indicators:
Pt admitted with left lower extremity cellulitis.
07/01 Cardiology: 'Chronic HFmidrangeEF...Echo 06/15/2024: TDS, LVEF 45-50%, mild M'
07/01 Progress note: 'Chronic HFpEF'
Due to potential conflicting documentation, please clarify he type of CHF you are evaluating, treating or monitoring.
Chronic HFmidrangeEF
Chronic HFpEF
Other
Use of terms such as suspected, likely, concern for, or probable (associated with a specific diagnosis that is being evaluated, monitored, or treated as if it exists) are acceptable and can be coded in the inpatient setting, when documented at the
time of discharge.
Thank you,
Sydnee Hoover RN, BSN
CDI Specialist
Available via [place] [employer]
Please use your independent medical judgment in providing your response.
--- NOTE | 2024-07-02 11:55 | PN.CDI ---
CDI
- -
CDI:
Physician Documentation Request
Admit Date: 06/30/24 15:02
Dear Doctor Ja,
Please review the following and provide your response in the progress notes.
Clinical Indicators:
Pt admitted with left lower extremity cellulitis.
Laboratory Tests
06/30/24
12:26
Lactic Acid 2.4 H
Based on the above, could you clarify in the progress notes, the appropriate diagnosis, if significant, that supports the above abnormal lab value and additional evaluation, monitoring and/or treatment rendered:
Lactic Acidosis
Insignificant abnormal lab value
Other
Use of terms such as suspected, likely, concern for, or probable (associated with a specific diagnosis that is being evaluated, monitored, or treated as if it exists) are acceptable and can be coded in the inpatient setting, when documented at the
time of discharge.
Thank you,
Sydnee Hoover RN, BSN
CDI Specialist
Available via [place] [employer]
Please use your independent medical judgment in providing your response.
--- NOTE | 2024-07-02 12:22 | W.PN.ID1 ---
Date of Service
Date of Service: July 02, 2024
Today's Communication
Tomorrow last day of Linezolid.
ID will sign off.
Assessment / Plan
# Left lower extremity cellulitis
- resolved
- Completing linezolid through 07/03/24 as previously planned.
# LLE wounds with necrosis
- s/p bedside wound debridement today by Surgery. No infection encountered.
# Rectal bleeding
# Recent dx of rectal cancer
ID will sign off.
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
New dx of rectal cancer (05/2024)
A-fib
HTN
HFpEF
AV block s/p PPM
Hypothyroidism
Renal cyst
hx prostate CA
Chief Complaint
-: Other (Leg wound)
Subjective / Review of Systems
Leg wounds debridement this morning.
Still with mild rectal bleeding.
Vital Signs / Physical Exam
Vital Signs
Vital Signs
Temp Pulse Resp BP Pulse Ox
97.5 F 79 20 103/69 100
07/02/24 07:00 07/02/24 07:00 07/02/24 07:00 07/02/24 07:00 07/02/24 08:25
Physical Exam
Constitutional: No Acute Distress and Comfortable
Pulmonary: Other (Decreased BS at bases)
Gastrointestinal: Soft, Non Tender, Non Distended and Normal Bowel Sounds
Wound: Other (LLE dressing dry)
Neurological: AO x 3
Objective Data
Lab Data
Lab Results
07/02/24 09:08
07/02/24 09:08
Estimated Creat Clear 39 ml/min 07/02/24 09:08
Lactic Acid 2.4 mmol/L (0.7-2.0) H 06/30/24 12:26
Total Bilirubin 0.8 mg/dl (0.2-1.3) 07/02/24 09:08
AST 22 U/L (17-59) 07/02/24 09:08
ALT 18 U/L (0-50) 07/02/24 09:08
Alkaline Phosphatase 98 U/L (38-126) 07/02/24 09:08
Most recent labs reviewed.
[2024-07-02 15:00] VITALS: BP 96/53
--- NOTE | 2024-07-02 15:43 | WOUNDNOTE ---
KUSUM RN note: Reviewed Dr. Bradley's note for any changes in wound care orders. Updated discharge wound care instructions as ordered by surgeon.
--- NOTE | 2024-07-02 17:55 | W.PN.HOSP.TC ---
Today's Communication/Plan
-
Debridement by surgery today
Resume Eliquis tonight
Assessment / Plan
Assessment / Plan
Physical Exam
General: Not in acute distress
HEENT: Normocephalic
Respiratory: Clear
Cardiac: S1/S2 and Regular Rhythm
GI: Soft, Non Tender, Non Distended and Normal Bowel Sounds
Musculoskeletal: No Cyanosis and No Edema
Skin: Left lower extremity wounds/blisters with surround erythema -- covered in dressing
Neuro: Nonfocal/grossly intact
Assessment/Plan
# Worsening/chronic left lower extremity blisters/wounds
# Lower extremity edema
-Patient discharged on linezolid which is to be continued until 07/03
-Wound care consulted
-General Surgery performed debridement today July 02, 2024
-Resume Eliquis this evening
-ID consulted, appreciate their evaluation and recommendations
-Continue linezolid through 07/03/24 as previously planned in recent hospitalization
#Chronic HFmidrangeEF with recent hypercarbic/hypoxemic respiratory failure since resolved
-Continue spironolactone
-Continue Lasix
-Continue dapagliflozin
-Watch for need for Zaroxylyn
-Cardiology hopes to add RAAS-i (ARNI or JOCELYN-I or ARB) as outpatient
-Na+/fluid restriction/education
#Permanent atrial fibrillation
-Continue metoprolol
-Resume Eliquis
AV block status post pacemaker
Nonsustained ventricular tachycardia
History of NSVT, asymptomatic: No syncope, EF more than 40. No ICD at this time
Bifascicular heart block (RBBB/LAFB)
Single chamber MDT pacer in place for periods of second degree AV block/pauses
Lactic Acidosis
-Recheck lactic acid
Essential hypertension
Hypothyroidism
-Continue levothyroxine
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
Bloody bowel movements secondary to rectal mass
-Patient intends on pursuing treatment once the wounds are treated
-Discussed case with GI, no need for GI consult at this time, and no need for PPI
-Colorectal surgery consulted, appreciate their evaluation and recommendations
Prostate cancer
-Continue Casodex
History of diverticulosis
History of hyponatremia
Renal cyst
Code Status: Full code
DVT prophylaxis�Eliquis
Cardiac diet
Anticipated Discharge: 24 - 48 hours
Subjective/Interval History
-
Date of Service: July 02, 2024
Patient was seen and examined. He reported no new symptoms or complaints.
Objective Data
-
Labs:
Laboratory Results
07/02/24
09:08
WBC 5.5
Hgb 12.8 L
Hct 39.4
Plt Count 433 H
Sodium 129 L
Potassium 4.7
Chloride 89 L
Carbon Dioxide 30
BUN 27 H
Creatinine 1.4 H
Glucose 140 H
Calcium 9.1
Total Bilirubin 0.8
AST 22
ALT 18
Alkaline Phosphatase 98
Vital Signs:
Vital Signs
Temp Pulse Resp BP Pulse Ox
97.8 F 76 19 96/53 97
07/02/24 15:00 07/02/24 15:00 07/02/24 15:00 07/02/24 15:00 07/02/24 15:00
I&O
07/01/24 07/02/24 07/03/24
06:59 06:59 06:59
Intake Total 900 / 900 1440 / 1440 480 / 480
Output Total 2400 / 2400 3150 / 3150 1250 / 1250
Balance -1500 / -1500 -1710 / -1710 -770 / -770
[2024-07-02 20:05] VITALS: BMI 27.8
[2024-07-02] MEDS: ELIQUIS 5 MG PO (20:40)
[2024-07-02] MEDS: MELATONIN 5 MG PO (21:59)
[2024-07-02 22:35] VITALS: BP 97/68
[2024-07-03] MEDS: SYNTHROID 100 MCG PO (05:00)
[2024-07-03 06:00] VITALS: BMI 27.4
[2024-07-03 07:00] VITALS: BP 104/66
[2024-07-03 08:14] LABS: % Basophils 2.2 % (0-2); % Eosinophils 4.3 % (0-6); % Immature Granulocytes 0.4 % (0-0.5); % Lymphocytes 17.3 % (20.5-51.1); % Monocytes 8.7 % (1.7-9.3); % Neutrophils 67.1 % (42.2-75.2); Absolute Basophils 0.1 10^3/uL (0-0.2); Absolute Eosinophils 0.2 10^3/uL (0-0.7); Absolute Lymphocytes 0.9 10^3/uL (1.2-3.4); Absolute Monocytes 0.5 10^3/uL (0.1-0.6); Absolute Neutrophils 3.6 10^3/uL (1.4-6.5); Hematocrit 41.5 % (39.0-52.0); Hemoglobin 13.4 g/dL (13.0-18.0); Mean Corp Hgb Conc. 32.3 g/dL (33.0-37.0); Mean Corpuscular Hgb 27.5 pg (27.0-31.0); Mean Corpuscular Volume 85.2 fL (80.0-94.0); Nucleated Red Blood Cells % 0 % (-); Platelet Count 395 10^3/uL (130-400); Red Blood Cell Count 4.87 10^6/uL (4.70-6.10); Red Cell Dist. Width 15.6 % (11.5-14.5); White Blood Cell Count 5.4 10^3/uL (4.8-10.8)
[2024-07-03] MEDS: CASODEX 50 MG PO (08:22)
[2024-07-03] MEDS: ALDACTONE 25 MG PO (08:22)
[2024-07-03 08:23] LABS: Lactic Acid 1.5 mmol/L (0.7-2.0)
[2024-07-03] MEDS: DESENEX/MITRAZOL/ZEASORB 1 APPLIC TOPICAL ×2 (08:23→20:23)
[2024-07-03] MEDS: FARXIGA 10 MG PO (08:23)
[2024-07-03] MEDS: ELIQUIS 5 MG PO ×2 (08:23→20:25)
[2024-07-03] MEDS: HYDROPHOR 1 APPLIC TOPICAL (08:23)
[2024-07-03] MEDS: SANTYL OINTMENT 1 APPLIC TOPICAL ×2 (08:24→20:25)
[2024-07-03] MEDS: LASIX 60 MG PO (08:24)
[2024-07-03] MEDS: VITAMIN B-12 1000 MCG PO (08:24)
[2024-07-03] MEDS: VITAMIN D3 (cholecalciferol) 25 MCG PO (08:24)
[2024-07-03] MEDS: VITAMIN C 500 MG PO (08:24)
[2024-07-03] MEDS: TOPROL XL 50 MG PO ×2 (08:24→20:26)
[2024-07-03] MEDS: ZINC 50 MG PO (08:25)
[2024-07-03] MEDS: ZYVOX 600 MG PO ×2 (08:25→20:26)
[2024-07-03 09:30] LABS: Blood Urea Nitrogen 33 mg/dl (9-20); Calcium 9.5 mg/dl (8.4-10.2); Carbon Dioxide 28 mmol/L (22-30); Chloride 90 mmol/L (98-107); Estimated Creatinine Clearance 42 ml/min; Glucose 100 mg/dl (70-99); Sodium 129 mmol/L (135-145); eGFR 54.51
--- NOTE | 2024-07-03 09:56 | W.PN.CD ---
Today's Communication / Plan
-
- Continue Toprol-XL, spironolactone, and Farxiga.
- Continue Lasix 60 mg PO daily.
- No further cardiac recommendations at this time; outpatient follow-up with Cardiology.
Impression / Plan
-
Chronic HFmrEF/nonischemic cardiomyopathy (EF 45-50%):
- Dry weight still uncertain and may change as nutritional status changes.
- Appears stable from HF standpoint at 81.8 kg.
- Continue Toprol-XL, spironolactone, and Farxiga.
- Hope to add RAAS-i (ARNI or JOCELYN-I or ARB) as outpatient; holding off for now due to blood pressure limitations.
- Continue Lasix 60 mg PO daily.
.
Permanent AFib:
-Continue current dose of Toprol-XL.
-Eliquis resumed (note that patient will have some increased risk of bleeding related to rectal mass).
Single chamber [employer] pacer :
-Stable.
LLE wound, likely a venous wound
- Wound care and debridement as oulined by gen surgery / Dr Cormier
Colorectal cancer/GI bleeding - large rectal mass noted on prior admit
- please see Dr Mcnamara consult fromn this admission.
Hx of prostate Ca/Hydronephrosis (perhaps pseudo), urology saw pt last admit
Hx of NSVT, asymptomatic: No syncope, EF more than 40. No ICD at this time
Bifascicular heart block (RBBB/LAFB)
Subjective:
No major events overnight. No cardiac complaints this a.m.
Data:
Echo 06/15/2024: TDS, LVEF 45-50%, mild M
Single chamber PPM placed 01/16/2021, MDT
Cath 11/30/2020: No obstructive CAD, luminal disease present, LVEDP 16 mmHg
Physical Exam
Vital Signs/Labs
Vital Signs
Temp Pulse Resp BP Pulse Ox
97.5 F 69 19 104/66 96
07/03/24 07:00 07/03/24 07:00 07/03/24 07:00 07/03/24 07:00 07/03/24 07:00
07/02/24 07/03/24 07/04/24
06:59 06:59 06:59
Actual Weight 83.007 kg 81.817 kg
07/03/24 08:01
07/03/24 08:01
Magnesium 2.0 mg/dl (1.6-2.3) 07/03/24 08:01
Physical Exam
Constitutional: No acute distress and Comfortable
EENT: Anicteric
Cardiovascular: Systolic murmur absent, Rhythm/rate is irregular, Pedal edema present (1+) and S1S2 is normal
Respiratory: Respiratory effort normal and Lungs clear to auscul.
GI: Soft
Neuro/Psych: AO x 3
Other: Skin (warm)
Data Reviewed
-
Date of Service: July 03, 2024
Labs: Labs Reviewed by me
--- NOTE | 2024-07-03 10:15 | WOUNDNOTE ---
WO RN note: Patient's L medial calf wound improved compared to previous wound photos. s/p bedside debridement of distal wound by Dr. Bradley yesterday. LLE erythema less. LLE dressing changed as ordered. Sacral/coccyx dull light red and intact.
Miconazole powder applied. Heels off bed with pillows. Patient turns self in bed. Patient declined air chair cushion. Patient instructed pressure injury prevention measures. Will follow as needed. Discussed with KORY Dietrich.
--- NOTE | 2024-07-03 11:25 | W.PN.HOSP.TC ---
Today's Communication/Plan
-
Discharge today
Assessment / Plan
Assessment / Plan
Physical Exam
General: Not in acute distress
HEENT: Normocephalic
Respiratory: Clear
Cardiac: S1/S2 and Regular Rhythm
GI: Soft, Non Tender, Non Distended and Normal Bowel Sounds
Musculoskeletal: No Cyanosis and No Edema
Skin: Left lower extremity wounds/blisters with surround erythema -- covered in dressing
Neuro: Nonfocal/grossly intact
Assessment/Plan
# Worsening/chronic left lower extremity blisters/wounds
# Lower extremity edema
-Patient discharged on linezolid which is to be continued until 07/03
-Wound care consulted
-General Surgery performed debridement today July 02, 2024 -- no further surgical debridement recommended, but rather wound care has been recommended
-ID consulted, appreciate their evaluation and recommendations
-Continue linezolid through today as previously planned in recent hospitalization
#Chronic HFmidrangeEF with recent hypercarbic/hypoxemic respiratory failure since resolved
-Continue spironolactone
-Continue Lasix 60 mg PO daily
-Continue dapagliflozin
-Watch for need for Zaroxylyn
-Cardiology hopes to add RAAS-i (ARNI or JOCELYN-I or ARB) as outpatient cardiology follow-up
-Na+/fluid restriction/education
#Permanent atrial fibrillation
-Continue Toprol-XL
-Continue Eliquis
AV block status post pacemaker
Nonsustained ventricular tachycardia
History of NSVT, asymptomatic: No syncope, EF more than 40. No ICD at this time
Bifascicular heart block (RBBB/LAFB)
Single chamber MDT pacer in place for periods of second degree AV block/pauses
Lactic Acidosis - RESOLVED
Essential hypertension
Hypothyroidism
-Continue levothyroxine
Hyponatremia, Chronic
History of Hyponatremia
-Likely multifactorial
-Close outpatient follow-up
-Sodium has been stable around 130
-Continue PO 48 ounce fluid restriction
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
Bloody bowel movements secondary to rectal mass
-Patient intends on pursuing treatment once the wounds are treated
-Discussed case with GI, no need for GI consult at this time, and no need for PPI
-Colorectal surgery consulted, appreciate their evaluation and recommendations
Prostate cancer
-Continue Casodex
History of diverticulosis
Renal cyst
History of prostate Ca/Hydronephrosis (perhaps pseudo)
History of NSVT, asymptomatic
Bifascicular heart block (RBBB/LAFB)
Code Status: Full code
DVT prophylaxis�Eliquis
Cardiac diet
More than 30 minutes spent in discharge including
Final examination of the patient
Summarizing hospital stay
Instructions for continuing care to all relevant caregivers
Preparation of discharge records, prescriptions, and referral forms
Total time spent (in minutes): 37
Anticipated Discharge: Today
Subjective/Interval History
-
Date of Service: July 03, 2024
Patient was seen and examined. He reported no chest pain, shortness of breath or any other complaints.
Objective Data
-
Labs:
Laboratory Results
07/03/24
08:01
WBC 5.4
Hgb 13.4
Hct 41.5
Plt Count 395
Sodium 129 L
Potassium 5.0
Chloride 90 L
Carbon Dioxide 28
BUN 33 H
Creatinine 1.3
Glucose 100 H
Calcium 9.5
Vital Signs:
Vital Signs
Temp Pulse Resp BP Pulse Ox
97.5 F 69 19 104/66 96
07/03/24 07:00 07/03/24 07:00 07/03/24 07:00 07/03/24 07:00 07/03/24 08:20
I&O
07/02/24 07/03/24 07/04/24
06:59 06:59 06:59
Intake Total 1440 / 1440 960 / 960
Output Total 3150 / 3150 1750 / 1750
Balance -1710 / -1710 -790 / -790
[2024-07-03 12:55] VITALS: BP 109/67; PULSE 87; O2SAT 97
--- NOTE | 2024-07-03 13:34 | CM ---
Addendum entered by Grecia Hi 07/03/24 15:03:
IMM provided to patient at 3pm, 07/03/24
Original Note:
Chart reviewed and patient was seen by physical therapy and recommendation is for home with home health, orders are for BID dressing changes, patient with [facility] cath orders to remove, family caseworker discussed with patient plan for home with visiting
nurses and patient reports that his spouse and daughter in law who lives nearby can assist with dressing changes, patient states that he has a walker in home.
Plan; Home with [facility].
--- NOTE | 2024-07-03 14:36 | VNURNOTE ---
Home Health Liaison met with patient at bedside to discuss [facility] nurse/therapy, visits, schedule and homebound status. Patient is agreeable and understands that visits at home will be 2-3 x per week to assess and teach medical management. Patient
stated daughter in law is a nurse and lives nearby, able to learn/provide wound care. [facility] brochure provided with contact information. Patient is aware that [facility] will contact them for start of care in 1-2 days after discharge from .
[facility] referral completed in [facility].
[2024-07-03 15:00] VITALS: BP 115/73
[2024-07-03 20:23] VITALS: BP 104/66
[2024-07-03] MEDS: MELATONIN 5 MG PO (21:18)
[2024-07-03 22:31] VITALS: BP 99/65
[2024-07-04 06:00] VITALS: BMI 27.3
[2024-07-04] MEDS: SYNTHROID 100 MCG PO (06:17)
[2024-07-04 07:09] LABS: % Basophils 2.4 % (0-2); % Eosinophils 5.3 % (0-6); % Immature Granulocytes 0.5 % (0-0.5); % Lymphocytes 15.3 % (20.5-51.1); % Monocytes 8.5 % (1.7-9.3); Absolute Basophils 0.1 10^3/uL (0-0.2); Absolute Eosinophils 0.3 10^3/uL (0-0.7); Absolute Lymphocytes 0.9 10^3/uL (1.2-3.4); Absolute Monocytes 0.5 10^3/uL (0.1-0.6); Hematocrit 40.8 % (39.0-52.0); Hemoglobin 13.2 g/dL (13.0-18.0); Mean Corp Hgb Conc. 32.4 g/dL (33.0-37.0); Mean Corpuscular Hgb 26.8 pg (27.0-31.0); Mean Corpuscular Volume 82.8 fL (80.0-94.0); Mean Platelet Volume 9.5 fL (7.4-10.4); Nucleated Red Blood Cells % 0 % (-); Platelet Count 362 10^3/uL (130-400); Red Blood Cell Count 4.93 10^6/uL (4.70-6.10); Red Cell Dist. Width 15.5 % (11.5-14.5); White Blood Cell Count 5.9 10^3/uL (4.8-10.8)
[2024-07-04 07:22] VITALS: BP 105/68
[2024-07-04 07:54] LABS: Blood Urea Nitrogen 33 mg/dl (9-20); Calcium 9.3 mg/dl (8.4-10.2); Carbon Dioxide 30 mmol/L (22-30); Chloride 88 mmol/L (98-107); Estimated Creatinine Clearance 39 ml/min; Glucose 91 mg/dl (70-99); Potassium 4.9 mmol/L (3.5-5.1); Sodium 129 mmol/L (135-145); eGFR 49.87
[2024-07-04 09:47] LABS: Osmolality Serum 278 mOsm/kg (275-300)
--- NOTE | 2024-07-04 09:56 | W.CON.NEPH ---
Consultation
-
Date/Time Consultation Requested: 07/04/2024 8:30 AM
Date/Time Consultation Performed: 07/04/2024 10:00
Requesting Provider: Dr. Peres
Performing Provider: Dr. Conti
Reason for Consultation: Hyponatremia
Medical History
-
Chief Complaint: Hyponatremia
History of Present Illness:
84-year-old male past medical history of chronic HFpEF (on furosemide), permanent atrial fibrillation (anticoagulated on Eliquis), AV block status post pacemaker, nonsustained ventricular tachycardia, essential hypertension, hypothyroidism, rectal
intramucosal adenocarcinoma, prostate cancer, diverticulosis, hyponatremia, presenting for nonhealing/worsening wounds on the left lower extremity. He thinks the redness has been increasing but he is not sure. He denies any fevers or chills. He
states that he was supposed to have Dr. Cardenas a wound care debride the wounds appointment was not set up to do that.
Patient was recently admitted from 06/13 to 06/25 for rectal bleeding, weight gain and shortness of breath. He was in hypercapnic/hypoxemic respiratory failure, hypertensive urgency treated with diuretics, nitroglycerin drip, antibiotics and BiPAP.
He developed hypotension and was on Levophed. He was diagnosed with sepsis secondary to left lower extremity cellulitis. He had a colonoscopy that showed rectal tumor and CT abdomen pelvis showed rectal wall thickening without evidence of
metastatic disease. In the abdomen pelvis. There is mild left hydroureteronephrosis with distal tapering without overt obstruction and hepatic cirrhosis. Urologist repeated CT urogram which showed no evidence of hydronephrosis on either side.
Cardiology added Aldactone and Farxiga. Pathology of rectal mass showed adenocarcinoma. The patient was admitted for planned debridement of his left lower extremity wound. The patient appears to have some degree of chronic kidney disease as noted
by a baseline creatinine anywhere from 1.1-1.3. nephrology was consulted for hyponatremia with a serum sodium level of 129 in the setting of chronic hyponatremia.
Past Medical History
chronic HFpEF, permanent atrial fibrillation, AV block status post pacemaker, nonsustained ventricular tachycardia, essential hypertension, hypothyroidism, rectal intramucosal adenocarcinoma, prostate cancer, diverticulosis, chronic kidney disease
with baseline creatinine 1.1-1.3, hyponatremia)
Past Surgical History: Reports Other (Cardiac (pacemaker implantation December 2020))
Social History
Social History
Tobacco: Non-Smoker
Alcohol: None
Drug: None
Family History
no ckd
Family History: Not Pertinent
Allergies / Home Medications
Allergy/AdvReac Type Severity Reaction Status Date / Time
unknown antibiotic Allergy confusion Uncoded 06/13/24 12:58
�Medication �Instructions �Recorded �Confirmed �Type
ascorbic acid (vitamin C) 500 mg 500 mg PO DAILY Supplement 01/06/21 06/30/24 History
tablet (Vitamin C)
apixaban 5 mg tablet (Eliquis) 5 mg PO BID Blood clot 03/21/21 06/30/24 History
prevention/tx
cholecalciferol (vitamin D3) 25 25 mcg PO DAILY Supplement 06/13/24 06/30/24 History
mcg (1,000 unit) tablet
acetaminophen 325 mg tablet 650 mg (2 x 325 mg) PO Q4HPRN PRN 06/25/24 06/30/24 Rx
fever>100.3/mild pain #20 tabs
bicalutamide 50 mg tablet 50 mg PO DAILY Cancer 06/30/24 06/30/24 History
bisacodyl 10 mg rectal suppository 10 mg LA DAILYPRN PRN if no bm 06/30/24 06/30/24 History
(Dulcolax (bisacodyl)) aftr mom
collagenase clostridium histo. 250 1 applic topical BID l le wound 06/30/24 06/30/24 History
unit/gram topical ointment (Santyl)
cyanocobalamin (vitamin B-12) 1,000 mcg PO DAILY Supplement 06/30/24 06/30/24 History
1,000 mcg tablet
dapagliflozin propanediol 10 mg 10 mg PO DAILY Heart Failure 06/30/24 06/30/24 History
tablet
furosemide 20 mg tablet 60 mg PO DAILY Fluid 06/30/24 06/30/24 History
Retention/Swelling
levothyroxine 100 mcg tablet 100 mcg PO DAILY@0700 Thyroid 06/30/24 06/30/24 History
melatonin 5 mg tablet 5 mg PO HS sleep 06/30/24 06/30/24 History
metoprolol succinate 50 mg 50 mg PO BID Blood Pressure 06/30/24 06/30/24 History
tablet,extended release 24 hr
miconazole nitrate 2 % topical 1 applic topical BID rash 06/30/24 06/30/24 History
powder (Miconazorb AF)
sodium phosphates 19 gram-7 118 ml LA DAILYPRN PRN if no on 06/30/24 06/30/24 History
gram/118 mL enema (Fleet Enema) 6th day
spironolactone 25 mg tablet 25 mg PO DAILY heart failure/BP 06/30/24 06/30/24 History
white petrolatum 42 % topical 1 applic topical DAILY lle intact 06/30/24 06/30/24 History
ointment (Hydrophor) skin
zinc sulfate 50 mg zinc (220 mg) 220 mg PO DAILY Supplement 06/30/24 06/30/24 History
capsule
linezolid 600 mg tablet 600 mg PO BID infection #1 tab 07/03/24 06/30/24 Rx
Review of Systems
-
History Source: Patient
All other systems: Negative unless noted
Musculoskeletal: Other (Left lower extremity wound with pain)
Physical Exam
Vital Signs
Vital Signs
Temp Pulse Resp BP Pulse Ox
97.2 F 81 16 105/68 96
07/04/24 07:22 07/04/24 07:22 07/04/24 07:22 07/04/24 07:22 07/04/24 07:22
Lab Results
07/04/24 05:59
07/04/24 05:59
WBC 5.9 10^3/uL (4.8-10.8) 07/04/24 05:59
RBC 4.93 10^6/uL (4.70-6.10) 11 05:59
Hgb 13.2 g/dL (13.0-18.0) 07/04/24 05:59
Hct 40.8 % (39.0-52.0) 07/04/24 05:59
Plt Count 362 10^3/uL (130-400) 07/04/24 05:59
Sodium 129 mmol/L (135-145) L 07/04/24 05:59
Potassium 4.9 mmol/L (3.5-5.1) 11 05:59
Chloride 88 mmol/L (98-107) L 07/04/24 05:59
Carbon Dioxide 30 mmol/L (22-30) 07/04/24 05:59
BUN 33 mg/dl (9-20) H 07/04/24 05:59
Creatinine 1.4 mg/dL (0.7-1.3) H 07/04/24 05:59
eGFR 49.87 07/04/24 05:59
Glucose 91 mg/dl (70-99) 07/04/24 05:59
Calcium 9.3 mg/dl (8.4-10.2) 07/04/24 05:59
Albumin 3.4 g/dl (3.5-5.0) L 07/02/24 09:08
Physical Exam
General: AOx3, Nontoxic , NAD
HEENT: PERRL, EOMI, Anicteric, Conjunctivae Clear, Ear/Nose Intact, Hearing Normal, Oropharynx Clear/Moist, Dentition Intact, Facial Symmetry, Neck Supple, Neck: Trachea Midline, No JVD and No Thyromegaly, no Bruits
Respiratory: coarse to auscultation bilaterally with normal lung exersion
Cardiac: S1/S2 and Regular Rate/Rhythm
Breast: Deferred by me
Abdomen: Soft, Nontender, Nondistended, Normal Bowel Sounds and No Hepatosplenomegaly
Rectal: Deferred by Provider
Genito-urinary: No Costovertebral Tenderness
Extremities: No Clubbing, No Cyanosis and No Edema. left lower extremity wound wrapped
Skin: No Rash or open lesions
Neuro: Nonfocal/Grossly Intact, CN II-XII (Intact) and Strength (Musculoskeletal exam 5 out of 5 both upper and lower extremities)
Hematologic/Lymphatic: No Cervical Lymphadenopathy, No Submandibular Lymphadenopathy and No Supraclavicular Lymphadenopathy
Psych: Mood/afflect pleasant, Insight/judgement good and Appropriate
Vascular: plus 1 pedal and radial pulses
Data Reviewed
-
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
evidence of hydronephrosis)
Labs: Labs Reviewed by me (BMP CBC)
Old Records: Reviewed (Reviewed previous lab work from 06/25/24: Sodium 132 creatinine 1.2)
Assessment/Plan
-
Impression:
Hyponatremia
CKD stage IIIa (1.2)
History of congestive heart failure with preserved ejection
Nonischemic cardiomyopathy
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
Hypotension
Permanent A-fib
Left lower extremity wound
History of prostate cancer/duplicated renal pelvis parapelvic cyst
History of nonsustained ventricular tachycardia/pacer
Plan:
Hyponatremia:
-Check serum osmolality, urine osmolality, TSH free T4
-maintain FR at 48oz
-Hyponatremia could be a function of SIADH from underlying malignancy versus congestive heart failure versus precipitated ADH increase in setting of hemodynamic instability
-I would ask cardiology to consider titrating back metoprolol given low mean arterial perfusion pressures which stimulates ADH
-Weights are significantly down since admission following previous diuresis with previous admission for decompensated congestive heart failure
-Okay to continue current Lasix dose
-If hyponatremia significantly exacerbates I can always provide [facility] as needed
CKD:
-at baseline
-Previous urinalysis was completely bland
[2024-07-04] MEDS: ZINC 50 MG PO (09:57)
[2024-07-04] MEDS: CASODEX 50 MG PO (09:57)
[2024-07-04] MEDS: VITAMIN C 500 MG PO (09:57)
[2024-07-04] MEDS: FARXIGA 10 MG PO (09:57)
[2024-07-04] MEDS: ELIQUIS 5 MG PO (09:58)
[2024-07-04] MEDS: TOPROL XL 50 MG PO (09:58)
[2024-07-04] MEDS: ALDACTONE 25 MG PO (09:58)
[2024-07-04] MEDS: LASIX 60 MG PO (09:58)
[2024-07-04] MEDS: VITAMIN D3 (cholecalciferol) 25 MCG PO (09:59)
[2024-07-04] MEDS: VITAMIN B-12 1000 MCG PO (09:59)
--- NOTE | 2024-07-04 12:24 | W.PN.HOSP.TC ---
Addendum entered and electronically signed by Pee Peres MD 07/04/24 15:42:
Urologist Dr. Whiting recommended holding patient's Eliquis, given hematuria. Dr. Whiting also recommended not starting chemical DVT prophylaxis today as the Eliquis will take at least 24 hours to wear off.
Addendum entered and electronically signed by Pee Peres MD 07/04/24 15:21:
Patient having gross hematuria per nurse -- will cancel discharge and consult urology.
Addendum entered and electronically signed by Pee Peres MD 07/04/24 14:23:
I discussed patient's hyponatremia which has been mainly in the range of sodium low 130s to most recently 129 (which is lower than before). On-call rehab trainer recommended decreasing Metoprolol given given patient's low mean arterial perfusion
pressures which stimulates Antidiuretic Hormone (ADH) which could result in hyponatremia. I discussed case with on-call assistant to the vice president Dr. Juarez via [employer] on July 04, 2024, and Dr. Juarez recommended decreasing patient's Toprol XL by 50% to
Toprol XL 25 mg BID -- this new prescription of the reduced dose Toprol XL has been sent to patient's pharmacy. I also sent a [employer] to GIOVANNA Orantes with outpatient cardiology office, to inform her of this change.
Original Note:
Today's Communication/Plan
-
Hyponatremia worsened
Check hyponatremia studies
PO FR
Reduced beta marivel to help with hyponatremia (as per nephrology)
Appreciate nephrology and cardiology)
Assessment / Plan
Assessment / Plan
Physical Exam
General: Not in acute distress
HEENT: Normocephalic
Respiratory: Clear
Cardiac: S1/S2 and Regular Rhythm
GI: Soft, Non Tender, Non Distended and Normal Bowel Sounds
Musculoskeletal: No Cyanosis and No Edema
Skin: Left lower extremity wounds/blisters with surround erythema -- covered in dressing
Neuro: Nonfocal/grossly intact
Assessment/Plan
# Worsening/chronic left lower extremity blisters/wounds
# Lower extremity edema
-Patient discharged on linezolid which is to be continued until 07/03
-Wound care consulted
-General Surgery performed debridement today July 02, 2024 -- no further surgical debridement recommended, but rather wound care has been recommended
-ID consulted, appreciate their evaluation and recommendations
-Course of Linezolid was completed on 07/03/24
#Chronic HFmidrangeEF with recent hypercarbic/hypoxemic respiratory failure since resolved
-Continue spironolactone
-Continue Lasix 60 mg PO daily
-Continue dapagliflozin
-Watch for need for Zaroxylyn
-Cardiology hopes to add RAAS-i (ARNI or JOCELYN-I or ARB) as outpatient cardiology follow-up
-Na+/fluid restriction/education
#Permanent atrial fibrillation
-Continue Toprol-XL -- was initially at 50 mg BID but changed on 07/04/24 to reduced dose of 25 mg BID (changed due to nephrology recommendations, given patient's hyponatremia and per [employer]
discussion on 07/04/24 with on-call assistant to the vice president Dr. Juarez)
-Continue Eliquis
AV block status post pacemaker
Nonsustained ventricular tachycardia
History of NSVT, asymptomatic: No syncope, EF more than 40. No ICD at this time
Bifascicular heart block (RBBB/LAFB)
Single chamber MDT pacer in place for periods of second degree AV block/pauses
Lactic Acidosis - RESOLVED
Essential hypertension
Hypothyroidism
-Continue levothyroxine
Hyponatremia suspected secondary to SIADH from malignancy versus CHF
History of Hyponatremia
-Likely multifactorial
-Continue PO 48 ounce fluid restriction
-Sodium has been gradually drifting down from low 130s to upper 120s, despite PO fluid restriction
-Ordered urine and serum osmoles, as well as urine sodium
-Check TSH and Free T4
-Consulted nephrology, appreciate their evaluation and recommendations
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
Bloody bowel movements secondary to rectal mass
-Patient intends on pursuing treatment once the wounds are treated
-Discussed case with GI, no need for GI consult at this time, and no need for PPI
-Colorectal surgery consulted, appreciate their evaluation and recommendations
Prostate cancer
-Continue Casodex
History of diverticulosis
Renal cyst
History of prostate Ca/Hydronephrosis (perhaps pseudo)
History of NSVT, asymptomatic
Bifascicular heart block (RBBB/LAFB)
Code Status: Full code
DVT prophylaxis�Eliquis
Cardiac diet
Anticipated Discharge: Within 24 hours
Subjective/Interval History
-
Date of Service: July 04, 2024
Patient was seen and examined. He reported feeling better today than before, denied any chest pain, SOB or any other complaints.
Objective Data
-
Labs:
Laboratory Results
07/04/24
05:59
WBC 5.9
Hgb 13.2
Hct 40.8
Plt Count 362
Sodium 129 L
Potassium 4.9
Chloride 88 L
Carbon Dioxide 30
BUN 33 H
Creatinine 1.4 H
Glucose 91
Calcium 9.3
Vital Signs:
Vital Signs
Temp Pulse Resp BP Pulse Ox
97.2 F 81 16 105/68 96
07/04/24 07:22 07/04/24 07:22 07/04/24 07:22 07/04/24 07:22 07/04/24 07:22
I&O
07/03/24 07/04/24 07/05/24
06:59 06:59 06:59
Intake Total 960 / 960 480 / 480
Output Total 1750 / 1750 1550 / 1550
Balance -790 / -790 -1070 / -1070
[2024-07-04] MEDS: HYDROPHOR 1 APPLIC TOPICAL (14:36)
[2024-07-04] MEDS: DESENEX/MITRAZOL/ZEASORB 1 APPLIC TOPICAL ×2 (14:36→20:36)
[2024-07-04] MEDS: SANTYL OINTMENT 1 APPLIC TOPICAL ×2 (14:36→20:36)
--- NOTE | 2024-07-04 15:23 | CM ---
Discharge order initially placed for today
Lengthy bedside meeting with pt, spouse, DIL/Janice and dtr/Regina
PARVIN/Janice is a nurse and many questions and concerns regarding wound care and plan moving forward
She would like consideration for pt to be see at the outpt wound center instead of home with [facility]
She is concerned that a nurse and not a physician will be assessing pt's wound weekly
CM attempted to call the wound center, closed on the weekends
PARVIN also requesting that a rollator and light weight wheelchair be arranged, requesting out of pocket costs and insurance coverage
Call with [employer]-equipment delivery and processing would not be done until Mon
Discharge later cancelled due to urine testing
CM to follow up with referral to outpt wound center and arrange for light weight wheelchair and rollator
[facility] updated on dc cancellation
Moving forward, pt requested dc planning through his DIL/Janice [phone]
Discharge Disposition- home with [facility] vs outpt wound center and new rollator/transport chair
[2024-07-04 15:32] LABS: Osmolality Urine 347 mOsm/kg (300-900)
[2024-07-04 15:33] VITALS: BP 111/82
[2024-07-04 15:56] LABS: Urine Sodium 53 mmol/L (30-90)
[2024-07-04 16:26] LABS: Urine Albumin 2+ (Neg - Trace); Urine Bilirubin Negative (Negative); Urine Character Very Cloudy (Clear); Urine Color Brown; Urine Glucose 2+ (Negative); Urine Ketone Negative (Negative); Urine Leukocyte 2+ (Negative); Urine Nitrite Positive (Negative); Urine Occult Blood 4+ (Negative); Urine Urobilinogen Negative (Neg - 1+); Urine pH 6.5 (5.0-9.0)
[2024-07-04 16:33] LABS: Urine Red Blood Cell >100 /HPF (0-2)
[2024-07-04 20:26] VITALS: BP 99/64
[2024-07-04] MEDS: TOPROL XL PO (20:36)
[2024-07-04] MEDS: MELATONIN 5 MG PO (21:23)
[2024-07-04 23:00] VITALS: BP 105/64
[2024-07-05] MEDS: SYNTHROID 100 MCG PO (05:37)
[2024-07-05 06:00] VITALS: BMI 27.1
--- NOTE | 2024-07-05 06:14 | PTCARENOTE ---
At 0545, patient urinated in toilet and urinal. Urine looked darker in color than previously in the shift. Prior Hgb was 13.2, morning labs drawn. See chart for most recent vitals. No complaints of dizziness or discomfort from patient. Plastics Technician nurse
practitioner made aware. Will make oncoming nurse aware.
[2024-07-05 06:27] LABS: % Eosinophils 3.8 % (0-6); % Immature Granulocytes 0.7 % (0-0.5); % Lymphocytes 12.1 % (20.5-51.1); % Monocytes 7.6 % (1.7-9.3); % Neutrophils 73.8 % (42.2-75.2); Absolute Basophils 0.1 10^3/uL (0-0.2); Absolute Eosinophils 0.3 10^3/uL (0-0.7); Absolute Immature Granulocytes 0.1 10^3/uL (0-0.05); Absolute Lymphocytes 0.9 10^3/uL (1.2-3.4); Absolute Monocytes 0.5 10^3/uL (0.1-0.6); Absolute Neutrophils 5.2 10^3/uL (1.4-6.5); Hematocrit 40.4 % (39.0-52.0); Hemoglobin 13.1 g/dL (13.0-18.0); Mean Corp Hgb Conc. 32.4 g/dL (33.0-37.0); Mean Corpuscular Hgb 27.2 pg (27.0-31.0); Mean Corpuscular Volume 83.8 fL (80.0-94.0); Mean Platelet Volume 10.3 fL (7.4-10.4); Nucleated Red Blood Cells % 0 % (-); Platelet Count 331 10^3/uL (130-400); Red Blood Cell Count 4.82 10^6/uL (4.70-6.10); Red Cell Dist. Width 15.4 % (11.5-14.5); White Blood Cell Count 7.1 10^3/uL (4.8-10.8)
[2024-07-05 06:44] LABS: Blood Urea Nitrogen 34 mg/dl (9-20); Calcium 9.3 mg/dl (8.4-10.2); Carbon Dioxide 28 mmol/L (22-30); Chloride 89 mmol/L (98-107); Estimated Creatinine Clearance 39 ml/min; Glucose 95 mg/dl (70-99); Potassium 4.6 mmol/L (3.5-5.1); Sodium 128 mmol/L (135-145); eGFR 49.87
[2024-07-05 07:17] LABS: TSH Reflex To Free T4 7.08 uIU/ml (0.47-4.68)
[2024-07-05 07:39] LABS: Urine Albumin 1+ (Neg - Trace); Urine Bilirubin Negative (Negative); Urine Color Amber; Urine Glucose 3+ (Negative); Urine Ketone Negative (Negative); Urine Leukocyte 2+ (Negative); Urine Nitrite Negative (Negative); Urine Occult Blood 4+ (Negative); Urine Urobilinogen Negative (Neg - 1+)
[2024-07-05 07:40] LABS: Urine Character Cloudy (Clear)
[2024-07-05 07:46] LABS: Free T4 1.28 ng/dl (0.78-2.19)
[2024-07-05 07:54] LABS: Urine Red Blood Cell >100 /HPF (0-2)
[2024-07-05 07:55] LABS: Urine Bacteria Moderate (Negative); Urine White Cell 26-30 /HPF (0-5)
[2024-07-05 08:20] VITALS: BP 102/78
[2024-07-05] MEDS: DESENEX/MITRAZOL/ZEASORB 1 APPLIC TOPICAL ×2 (09:21→19:44)
[2024-07-05] MEDS: ALDACTONE 25 MG PO (09:23)
[2024-07-05] MEDS: SANTYL OINTMENT 1 APPLIC TOPICAL ×2 (09:23→19:44)
[2024-07-05] MEDS: HYDROPHOR 1 APPLIC TOPICAL (09:23)
[2024-07-05] MEDS: CASODEX 50 MG PO (09:24)
[2024-07-05] MEDS: FARXIGA 10 MG PO (09:24)
[2024-07-05] MEDS: TOPROL XL 25 MG PO (09:24)
[2024-07-05] MEDS: LASIX 60 MG PO (09:24)
[2024-07-05] MEDS: VITAMIN D3 (cholecalciferol) 25 MCG PO (09:25)
[2024-07-05] MEDS: ZINC 50 MG PO (09:25)
[2024-07-05] MEDS: VITAMIN B-12 1000 MCG PO (09:25)
[2024-07-05] MEDS: VITAMIN C 500 MG PO (09:25)
--- NOTE | 2024-07-05 10:40 | W.PN.NEPH.PH ---
Today's Communication / Plan
-
Maintain fluid restriction
Follow BMP
Maintain current Lasix administered
Eliquis now held due to macroscopic hematuria
Assessment/Plan
-
Impression:
Hyponatremia
CKD stage IIIa (1.2)
History of congestive heart failure with preserved ejection
Nonischemic cardiomyopathy
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
Hypotension
Permanent A-fib
Left lower extremity wound
History of prostate cancer/duplicated renal pelvis parapelvic cyst
History of nonsustained ventricular tachycardia/pacer
Macrohematuria
Plan:
Hyponatremia:
-sodium down to 128
-Check serum osmolality, urine osmolality (347), TSH ~7 free T4:nml
-maintain FR at 48oz
-Hyponatremia could be a function of SIADH from underlying malignancy versus congestive heart failure versus precipitated ADH increase in setting of hemodynamic instability
-I would ask cardiology to consider titrating back metoprolol given low mean arterial perfusion pressures which stimulates ADH
-Weights are significantly down since admission following previous diuresis with previous admission for decompensated congestive heart failure
-Okay to continue current Lasix dose
-If hyponatremia significantly exacerbates I can always provide Samsca as needed
CKD:
-at baseline at 1.4
-Previous urinalysis was completely bland
Macrohematuria
-eliquis now held
-
-
Date of Service: July 05, 2024
CC / HPI / ROS
-
Chief Complaint:
CKD
Hyponatremia
History of Present Illness:
Serum sodium down to 128
Hemodynamically labile
Creatinine stable at 1.4
Review of Systems:
No overt shortness of breath
Microscopic hematuria noted on 07/04/2024
Nonoliguric
weights down
Labs
-
Labs:
WBC 7.1 10^3/uL (4.8-10.8) 07/05/24 05:27
RBC 4.82 10^6/uL (4.70-6.10) 07/05/24 05:27
Hgb 13.1 g/dL (13.0-18.0) 07/05/24 05:27
Hct 40.4 % (39.0-52.0) 07/05/24 05:27
Plt Count 331 10^3/uL (130-400) 07/05/24 05:27
Sodium 128 mmol/L (135-145) L 07/05/24 05:27
Potassium 4.6 mmol/L (3.5-5.1) 07/05/24 05:27
Chloride 89 mmol/L (98-107) L 07/05/24 05:27
Carbon Dioxide 28 mmol/L (22-30) 07/05/24 05:27
BUN 34 mg/dl (9-20) H 07/05/24 05:27
Creatinine 1.4 mg/dL (0.7-1.3) H 07/05/24 05:27
eGFR 49.87 07/05/24 05:27
Glucose 95 mg/dl (70-99) 07/05/24 05:27
Calcium 9.3 mg/dl (8.4-10.2) 07/05/24 05:27
Albumin 3.4 g/dl (3.5-5.0) L 07/02/24 09:08
Physical Exam
-
Vital Signs:
Vital Signs
Temp Pulse Resp BP Pulse Ox
97.6 F 92 18 102/78 97
07/05/24 08:20 07/05/24 08:20 07/05/24 08:20 07/05/24 08:20 07/05/24 08:20
Cardiovascular:: Regular rate and rhythm
Respiratory:: Bilateral: Coarse
Lung Excursion:: Normal
Abdomen:: Nontender and Soft
Bowel Sounds:: Normal
Extremity Edema:: +1: Bilateral: (trace edema)
Hodges Catheter: No
--- NOTE | 2024-07-05 11:45 | CONS.URO ---
Consultation
-
Performing Provider: Bessiefer
Reason for Consultation: Hematuria
Medical History
History of Present Illness
84M remote history of low risk prostate cancer for which he has not had any routine follow up for >6 years
recent admission for flash pulmonary edema/acute on chronic heart failure with significant
hypertension and LLE cullulitis
During his hospital course, he was noted to have rectal bleeding and dx with large rectal mass on colonoscopy. This was
biopsied, and final pathology is rectal cancer
Workup and possible treatment with colorectal is pending
He had incidentally found very distended bladder and mild left hydronephrosis down to the distal left ureter and alvarez was placed
Machias resolved on subsequent imaging
PSa found to be elevated to 17.5 and he was started on bicalutamide by Dr. Hobbs
He was started on tamsulosin with instruction to continue but for some reason was stopped bewteen last admission and now
Patient now readmitted for wound and cardiac issues and had debridement with surgery, antibiotic course per ID with linezolid
He was due to be discharged yesterday but had an episode of bright red blood in urine per nurse. Patient did not observe this
Since then urine has cleared
The patient himself reports no difficulty urinating or visible blood
Mild dysuria for a few days
Eliquis stopped and urology asked to evaluate
Past Medical History
Past Medical History: Other (chronic HFpEF, permanent atrial fibrillation, AV block status post pacemaker, nonsustained ventricular tachycardia, essential hypertension, hypothyroidism, rectal intramucosal adenocarcinoma, prostate cancer,
diverticulosis, hyponatremia)
Past Surgical History: Other (pacemaker)
Social History
Tobacco: Non-smoker
Drug: None
Personal:
Living: With Family
Family History
Family History: Reviewed & Not Pertinent
Allergies/Home Medications
Allergies
Allergy/AdvReac Type Severity Reaction Status Date / Time
unknown antibiotic Allergy confusion Uncoded 06/13/24 12:58
Home Medications
�Medication �Instructions �Recorded �Confirmed �Type
ascorbic acid (vitamin C) 500 mg 500 mg PO DAILY Supplement 01/06/21 06/30/24 History
tablet (Vitamin C)
apixaban 5 mg tablet (Eliquis) 5 mg PO BID Blood clot 03/21/21 06/30/24 History
prevention/tx
cholecalciferol (vitamin D3) 25 25 mcg PO DAILY Supplement 06/13/24 06/30/24 History
mcg (1,000 unit) tablet
acetaminophen 325 mg tablet 650 mg (2 x 325 mg) PO Q4HPRN PRN 06/25/24 06/30/24 Rx
fever>100.3/mild pain #20 tabs
bicalutamide 50 mg tablet 50 mg PO DAILY Cancer 06/30/24 06/30/24 History
bisacodyl 10 mg rectal suppository 10 mg MI DAILYPRN PRN if no bm 06/30/24 06/30/24 History
(Dulcolax (bisacodyl)) aftr mom
cyanocobalamin (vitamin B-12) 1,000 mcg PO DAILY Supplement 06/30/24 06/30/24 History
1,000 mcg tablet
dapagliflozin propanediol 10 mg 10 mg PO DAILY Heart Failure 06/30/24 06/30/24 History
tablet
furosemide 20 mg tablet 60 mg PO DAILY Fluid 06/30/24 06/30/24 History
Retention/Swelling
levothyroxine 100 mcg tablet 100 mcg PO DAILY@0700 Thyroid 06/30/24 06/30/24 History
melatonin 5 mg tablet 5 mg PO HS sleep 06/30/24 06/30/24 History
miconazole nitrate 2 % topical 1 applic topical BID rash 06/30/24 06/30/24 History
powder (Miconazorb AF)
sodium phosphates 19 gram-7 118 ml MI DAILYPRN PRN if no on 06/30/24 06/30/24 History
gram/118 mL enema (Fleet Enema) 6th day
spironolactone 25 mg tablet 25 mg PO DAILY heart failure/BP 06/30/24 06/30/24 History
white petrolatum 42 % topical 1 applic topical DAILY lle intact 06/30/24 06/30/24 History
ointment (Hydrophor) skin
zinc sulfate 50 mg zinc (220 mg) 220 mg PO DAILY Supplement 06/30/24 06/30/24 History
capsule
collagenase clostridium histo. 250 1 applic topical BID #90 grams 07/04/24 Rx
unit/gram topical ointment (Santyl)
metoprolol succinate 50 mg 25 mg (1/2 x 50 mg) PO BID Blood 07/04/24 Rx
tablet,extended release 24 hr Pressure #60 tabs
Physical Exam
Vital Signs
Vital Signs
Temp Pulse Resp BP Pulse Ox
97.6 F 92 18 102/78 97
07/05/24 08:20 07/05/24 08:20 07/05/24 08:20 07/05/24 08:20 07/05/24 09:05
Lab / Testing Results
Laboratory Results
07/05/24 05:27
07/05/24 05:27
Physical Exam
General: Well Developed, Well Nourished and No Apparent Distress
Respiratory: Clear
GI: Soft and Non Tender
Skin: Warm and Dry
Neuro: AO x 3
Psych: Calm and Intact Judgement
Assessment / Plan
-
84M with significant cardiac comorbidity and cellulitis
Newly diagnosed large rectal cancer
Prostate cancer history which has had no follow up since diagnosis 7 years ago with high PSA
Urinary retention and left hydronephrosis last admission s/p alvarez placement since removed
Urology consulted for episode of gross hematuria 07/04
Hematuria
- mild and self resolved after brief episode 07/04. No intervention needed
- Hold Eliquis for 3 days
- Okay to start DVT prophylaxis if he is to remain inpatient
- Start ceftriaxone for presumed UTI with nitrate + urine. Culture pending
Urinary retention/hydronephrosis
- Large volume retention with L hydro last admission 05/2024
- Recommendation per Dr. Hobbs was to maintain alvarez and continue tamsulosin until outpatient follow up
- Restart tamsulosin
- Trend PVR bladder scan to eval emptying - may need alvarez replaced after recent removal. Last PVR 220cc 07/04
Prostate cancer
- Continue bicalutamide. PSA 17.5 last month with remote history of low grade prostate cancer not properly followed. Needs outpatient follow up with Dr. Hobbs to discuss prostate cancer evaluation. Will be complicated by rectal cancer evaluation
and treatment
[2024-07-05 11:56] VITALS: BP 100/66; BP 98/62; PULSE 81; PULSE 84; O2SAT 97
--- NOTE | 2024-07-05 12:38 | W.PN.HOSP.TC ---
Today's Communication/Plan
-
As per [place] Text discussion with patient's nurse and Dr. Whiting (urologist) today, hold ALL blood thinners given patient's hematuria
Monitor sodium via AM labs
Monitor CBC
Assessment / Plan
Assessment / Plan
Physical Exam
General: Not in acute distress
HEENT: Normocephalic
Respiratory: Clear
Cardiac: S1/S2 and Regular Rhythm
GI: Soft, Non Tender, Non Distended and Normal Bowel Sounds
Musculoskeletal: No Cyanosis and No Edema
Skin: Left lower extremity wounds/blisters with surround erythema -- covered in dressing
Neuro: Nonfocal/grossly intact
Assessment/Plan
# Worsening/chronic left lower extremity blisters/wounds
# Lower extremity edema
-Wound care consulted
-General Surgery performed debridement today July 02, 2024 -- no further surgical debridement recommended, but rather wound care has been recommended
-ID consulted, appreciate their evaluation and recommendations
-Course of Linezolid was completed on 07/03/24
#Chronic HFmidrangeEF with recent hypercarbic/hypoxemic respiratory failure since resolved
-Continue spironolactone
-Continue Lasix 60 mg PO daily
-Continue dapagliflozin
-Watch for need for Zaroxylyn
-Cardiology hopes to add RAAS-i (ARNI or JOCELYN-I or ARB) as outpatient cardiology follow-up
-Na+/fluid restriction/education
#Permanent atrial fibrillation
-Continue Toprol-XL -- was initially at 50 mg BID but changed on 07/04/24 to reduced dose of 25 mg BID (changed due to nephrology recommendations, given patient's hyponatremia with low MAP and per [place] Text
discussion on 07/04/24 with on-call software configuration analyst Dr. Juarez)
-Holding Eliquis as below
#Gross Hematuria
-Hematuria persisting today as per patient's nurse
-Urology consulted, appreciate their evaluation and recommendations
-Hold Eliquis for 3 days -- last dose was on July 04, 2024 morning -- will need to confirm with urology regarding exact start date
-Urology recommended via [place] Text on 07/05/24 to hold blood thinners (including any chemical DVT prophylaxis) for 3 days -- will need to confirm with urology regarding exact start date
-Ceftriaxone for presumed UTI as per urology
-Follow urine cultures
AV block status post pacemaker
Nonsustained ventricular tachycardia
History of NSVT, asymptomatic: No syncope, EF more than 40. No ICD at this time
Bifascicular heart block (RBBB/LAFB)
Single chamber MDT pacer in place for periods of second degree AV block/pauses
Lactic Acidosis - RESOLVED
Essential hypertension
Hypothyroidism
-Continue levothyroxine
Hyponatremia suspected secondary to SIADH from underlying malignancy versus congestive heart failure versus precipitated ADH increase in setting of hemodynamic instability
History of Hyponatremia
-Likely multifactorial
-Continue PO 48 ounce fluid restriction
-Sodium has been gradually drifting down from low 130s to upper 120s, despite PO fluid restriction
-Ordered urine and serum osmoles, as well as urine sodium
-TSH ~7 and Free T4 is normal
-Consulted nephrology, appreciate their evaluation and recommendations: they will consider Samsca if needed
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
Bloody bowel movements secondary to rectal mass
-Patient intends on pursuing treatment once the wounds are treated
-Discussed case with GI, no need for GI consult at this time, and no need for PPI
-Colorectal surgery consulted, appreciate their evaluation and recommendations
Prostate cancer
-Continue Casodex
History of diverticulosis
Renal cyst
History of prostate Ca/Hydronephrosis (perhaps pseudo)
History of NSVT, asymptomatic
Bifascicular heart block (RBBB/LAFB)
Code Status: Full code
DVT prophylaxis�No Heparin or Lovenox DVT prophylaxis given patient's hematuria, as per [place] Text discussion on 07/05/[address] Whiting. Roby to be held for 3 days as above.
SCDs hard to do given patient's edema and wounds on LLE.
Cardiac diet
Anticipated Discharge: > 48 hours
Subjective/Interval History
-
Date of Service: July 05, 2024
Patient was seen and examined. He denied any new symptoms or complaints.
Objective Data
-
Labs:
Laboratory Results
07/05/24
05:27
WBC 7.1
Hgb 13.1
Hct 40.4
Plt Count 331
Sodium 128 L
Potassium 4.6
Chloride 89 L
Carbon Dioxide 28
BUN 34 H
Creatinine 1.4 H
Glucose 95
Calcium 9.3
Vital Signs:
Vital Signs
Temp Pulse Resp BP Pulse Ox
97.6 F 92 18 102/78 97
07/05/24 08:20 07/05/24 08:20 07/05/24 08:20 07/05/24 08:20 07/05/24 09:05
I&O
07/04/24 07/05/24 07/06/24
06:59 06:59 06:59
Intake Total 480 / 480 1280 / 1280
Output Total 1550 / 1550 1050 / 1050
Balance -1070 / -1070 230 / 230
[2024-07-05] MEDS: FLOMAX 0.4 MG PO (13:00)
[2024-07-05] MEDS: ROCEPHIN 1000 MG IV (13:00)
[2024-07-05] MEDS: STERILE WATER FOR INJECTION 10 ML IV (13:02)
[2024-07-05 15:00] VITALS: BP 90/59
[2024-07-05] MEDS: TOPROL XL PO (19:44)
[2024-07-05] MEDS: MELATONIN 5 MG PO (21:05)
[2024-07-05 23:00] VITALS: BP 92/59
[2024-07-06] MEDS: SYNTHROID 100 MCG PO (05:38)
[2024-07-06 06:00] VITALS: BMI 26.8
[2024-07-06 07:30] VITALS: BP 112/75
[2024-07-06 08:04] LABS: % Basophils 1.5 % (0-2); % Eosinophils 1.6 % (0-6); % Immature Granulocytes 0.4 % (0-0.5); % Monocytes 9.1 % (1.7-9.3); % Neutrophils 76.4 % (42.2-75.2); Absolute Basophils 0.1 10^3/uL (0-0.2); Absolute Eosinophils 0.1 10^3/uL (0-0.7); Absolute Lymphocytes 0.7 10^3/uL (1.2-3.4); Absolute Monocytes 0.6 10^3/uL (0.1-0.6); Absolute Neutrophils 5.1 10^3/uL (1.4-6.5); Hematocrit 39.1 % (39.0-52.0); Hemoglobin 12.9 g/dL (13.0-18.0); Mean Corpuscular Hgb 27.4 pg (27.0-31.0); Mean Corpuscular Volume 83.2 fL (80.0-94.0); Mean Platelet Volume 10.3 fL (7.4-10.4); Nucleated Red Blood Cells % 0 % (-); Platelet Count 277 10^3/uL (130-400); Red Cell Dist. Width 15.3 % (11.5-14.5); White Blood Cell Count 6.7 10^3/uL (4.8-10.8)
[2024-07-06 08:34] LABS: Blood Urea Nitrogen 32 mg/dl (9-20); Calcium 9.2 mg/dl (8.4-10.2); Carbon Dioxide 29 mmol/L (22-30); Chloride 91 mmol/L (98-107); Estimated Creatinine Clearance 42 ml/min; Glucose 113 mg/dl (70-99); Magnesium 1.9 mg/dl (1.6-2.3); Potassium 4.6 mmol/L (3.5-5.1); Sodium 131 mmol/L (135-145); eGFR 54.51
--- NOTE | 2024-07-06 08:50 | W.PN.HOSP.TC ---
Addendum entered and electronically signed by Oscar John MD 07/06/24 11:02:
Addendum
Patient requires a transport chair within the home to complete their daily activities due to mobility limitations related to left lower extremity cellulitis and weakness. Patient is unable to self propel. Patient has caregiver to propel them.
Patient also requires rollator walker within the home for short distances due to weakness.
Original Note:
Today's Communication/Plan
-
c/w wound care
f/w urology recommendations
Resume Eliquis 07/07
PT/OT
Resume regular diet . ok for salt to help with hyponatremia
Assessment / Plan
Assessment / Plan
Physical Exam
General: Not in acute distress
HEENT: Normocephalic
Respiratory: Clear
Cardiac: S1/S2 and Regular Rhythm
GI: Soft, Non Tender, Non Distended and Normal Bowel Sounds
Musculoskeletal: No Cyanosis and No Edema
Skin: Left lower extremity wounds/blisters with surround erythema -- covered in dressing
Neuro: Nonfocal/grossly intact
Psych: calm, pleasant
Assessment/Plan
# Worsening/chronic left lower extremity blisters/wounds
# Lower extremity edema
No pain over night. No fevers
-Wound care consulted
-General Surgery performed debridement today July 02, 2024 -- no further surgical debridement recommended, but rather wound care has been recommended
-ID consulted, appreciate their evaluation and recommendations
-Course of Linezolid was completed on 07/03/24
#Chronic HFmidrangeEF with recent hypercarbic/hypoxemic respiratory failure since resolved
-Continue spironolactone
-Continue Lasix 60 mg PO daily
-Continue dapagliflozin
-Cardiology hopes to add RAAS-i (ARNI or JOCELYN-I or ARB) as outpatient cardiology follow-up
-fluid restriction/education
#Permanent atrial fibrillation
-Continue Toprol-XL -- was initially at 50 mg BID but changed on 07/04/24 to reduced dose of 25 mg BID (changed due to nephrology recommendations, given patient's hyponatremia with low MAP and per [place] Text
discussion on 07/04/24 with on-call dot compliance manager Dr. Juarez)
-Holding Eliquis as below
#Gross Hematuria
-mild and self resolved after brief episode 07/04. No intervention needed
-Urology consulted, appreciate their evaluation and recommendations
-Hold Eliquis for 3 days -- last dose was on July 04, 2024 morning , resume 07/07
-Ceftriaxone for presumed UTI as per urology
-Follow urine cultures
#AV block status post pacemaker
Nonsustained ventricular tachycardia
History of NSVT, asymptomatic: No syncope, EF more than 40. No ICD at this time
Bifascicular heart block (RBBB/LAFB)
Single chamber MDT pacer in place for periods of second degree AV block/pauses
Lactic Acidosis - RESOLVED
Essential hypertension
Hypothyroidism
-Continue levothyroxine
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
History of Hyponatremia
-Likely multifactorial
-Continue PO 48 ounce fluid restriction, resume regular sodium intake to balance out his hyponatremia.
-Ordered urine and serum osmoles, as well as urine sodium
-TSH ~7 and Free T4 is normal
-Consulted nephrology, appreciate their evaluation and recommendations: they will consider Samsca if needed
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
Bloody bowel movements secondary to rectal mass
-Patient intends on pursuing treatment once the wounds are treated
-Discussed case with GI, no need for GI consult at this time, and no need for PPI
-Colorectal surgery consulted, appreciate their evaluation and recommendations
Prostate cancer
-Continue Casodex
History of diverticulosis
Renal cyst
History of prostate Ca/Hydronephrosis (perhaps pseudo)
History of NSVT, asymptomatic
Bifascicular heart block (RBBB/LAFB)
Code Status: Full code
DVT prophylaxis�No Heparin or Lovenox DVT prophylaxis given patient's hematuria, as per [place] Text discussion on 07/05/[address] Whiting. Roby to be held for 3 days as above.
SCDs hard to do given patient's edema and wounds on LLE.
Cardiac diet
Total time spent to see the patient on the floor, examine the patient, review data and lab results, discuss treatment plan with patient, nursing staff around 55 minutes
Anticipated Discharge: > 48 hours
Subjective/Interval History
-
Date of Service: July 06, 2024
No chest pain
No sob
No pain in his leg
No fever over night
Objective Data
-
Labs:
Laboratory Results
07/06/24
07:30
WBC 6.7
Hgb 12.9 L
Hct 39.1
Plt Count 277
Sodium 131 L
Potassium 4.6
Chloride 91 L
Carbon Dioxide 29
BUN 32 H
Creatinine 1.3
Glucose 113 H
Calcium 9.2
Vital Signs:
Vital Signs
Temp Pulse Resp BP Pulse Ox
98.7 F 102 20 112/75 98
07/06/24 07:30 07/06/24 07:30 07/06/24 07:30 07/06/24 07:30 07/06/24 07:30
I&O
07/05/24 07/06/24 07/07/24
06:59 06:59 06:59
Intake Total 1280 / 1280 1020 / 1020
Output Total 1050 / 1050 675 / 675
Balance 230 / 230 345 / 345
[2024-07-06] MEDS: CASODEX 50 MG PO (09:14)
[2024-07-06] MEDS: ALDACTONE 25 MG PO (09:14)
[2024-07-06] MEDS: DESENEX/MITRAZOL/ZEASORB 1 APPLIC TOPICAL ×2 (09:14→20:41)
[2024-07-06] MEDS: FLOMAX 0.4 MG PO (09:15)
[2024-07-06] MEDS: HYDROPHOR 1 APPLIC TOPICAL (09:15)
[2024-07-06] MEDS: SANTYL OINTMENT 1 APPLIC TOPICAL ×2 (09:15→20:44)
[2024-07-06] MEDS: LASIX 60 MG PO (09:15)
[2024-07-06] MEDS: FARXIGA 10 MG PO (09:15)
[2024-07-06] MEDS: VITAMIN B-12 1000 MCG PO (09:16)
[2024-07-06] MEDS: VITAMIN C 500 MG PO (09:16)
[2024-07-06] MEDS: VITAMIN D3 (cholecalciferol) 25 MCG PO (09:16)
[2024-07-06] MEDS: ZINC 50 MG PO (09:16)
[2024-07-06] MEDS: TOPROL XL 25 MG PO ×2 (09:16→20:44)
--- NOTE | 2024-07-06 10:46 | VNURNOTE ---
[facility] liaison met patient and daughter in law Janice at bedside. Patient's spouse on speakerphone as well. Explained frequency of [facility] nurse visits and that [facility] can see concurrently with wound center. All questions answered. Janice concerned about
waiting a ferry terminal supervisor to get into [facility] once discharged. [facility], spoke with Makayla. Arranged appt for 07/10 at 0815. DIL Janice aware. DME requested: Lightweight wc and rollator walker. Requested documentation from Hospitalist.
Sent to [facility].
--- NOTE | 2024-07-06 11:35 | W.PN.NEPH.PH ---
Today's Communication / Plan
-
samsca
Assessment/Plan
-
Impression:
Hyponatremia
CKD stage IIIa (1.2)
History of congestive heart failure with preserved ejection
Nonischemic cardiomyopathy
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
Hypotension
Permanent A-fib
Left lower extremity wound
History of prostate cancer/duplicated renal pelvis parapelvic cyst
History of nonsustained ventricular tachycardia/pacer
Macrohematuria
Plan:
samsca
follow BMP
FR
needs to be cautious with salt intake given HFpEF
continue lasix and spironolactone
urology eval for hematuria
-
-
Date of Service: July 06, 2024
CC / HPI / ROS
-
Chief Complaint:
CKD
Hyponatremia
History of Present Illness:
Serum sodium 131
Hemodynamically labile
Creatinine stable at 1.3
Review of Systems:
No overt shortness of breath
Microscopic hematuria noted on 07/04/2024, gross hematuria today
Nonoliguric
weights down
Labs
-
Labs:
WBC 6.7 10^3/uL (4.8-10.8) 07/06/24 07:30
RBC 4.70 10^6/uL (4.70-6.10) 07/06/24 07:30
Hgb 12.9 g/dL (13.0-18.0) L 07/06/24 07:30
Hct 39.1 % (39.0-52.0) 07/06/24 07:30
Plt Count 277 10^3/uL (130-400) 07/06/24 07:30
Sodium 131 mmol/L (135-145) L 07/06/24 07:30
Potassium 4.6 mmol/L (3.5-5.1) 07/06/24 07:30
Chloride 91 mmol/L (98-107) L 07/06/24 07:30
Carbon Dioxide 29 mmol/L (22-30) 07/06/24 07:30
BUN 32 mg/dl (9-20) H 07/06/24 07:30
Creatinine 1.3 mg/dL (0.7-1.3) 07/06/24 07:30
eGFR 54.51 07/06/24 07:30
Glucose 113 mg/dl (70-99) H 07/06/24 07:30
Calcium 9.2 mg/dl (8.4-10.2) 07/06/24 07:30
Albumin 3.4 g/dl (3.5-5.0) L 07/02/24 09:08
Physical Exam
-
Vital Signs:
Vital Signs
Temp Pulse Resp BP Pulse Ox
98.7 F 102 20 112/75 98
07/06/24 07:30 07/06/24 07:30 07/06/24 07:30 07/06/24 07:30 07/06/24 09:00
Cardiovascular:: Regular rate and rhythm
Respiratory:: Bilateral: CTA
Lung Excursion:: Normal
Abdomen:: Nontender and Soft
Bowel Sounds:: Normal
Extremity Edema:: +1: Bilateral:
[2024-07-06] MEDS: SAMSCA 15 MG PO (11:49)
--- NOTE | 2024-07-06 11:56 | W.PN.CRS1 ---
Today's Communication / Plan
-
As below
Assessment/Plan
-
� Care per primary and consultants
�No acute issues per colorectal standpoint; following peripherally for rectal cancer
� Awaiting MRI pelvis for staging; as patient has had delays due to recurrent admission and left lower extremity cellulitis, will order MRI pelvis with and without IV contrast while inpatient to expedite cancer care
Subjective Data
Subjective Data
Date of Service: July 06, 2024
No abdominal pain. Tolerating a diet with bowel function.
Objective Data
-
Vital Signs
Temp Pulse Resp BP Pulse Ox
98.7 F 102 20 112/75 98
07/06/24 07:30 07/06/24 07:30 07/06/24 07:30 07/06/24 07:30 07/06/24 09:00
Intake & Output
07/05/24 07/06/24 07/07/24
06:59 06:59 06:59
Intake Total 1280 / 1280 1020 / 1020
Output Total 1050 / 1050 675 / 675
Balance 230 / 230 345 / 345
Intake:
Oral fluids 1280 / 1280 1020 / 1020
Output:
Urine, Voided 1050 / 1050 675 / 675
Other:
Number of approximated MODERATE 2 1
amounts of urine
Lab Results
07/06/24 07:30
07/06/24 07:30
Physical Exam
-
General: No Acute Distress and AOx3
HEENT: Grossly Normal
Abdomen: Soft, Non Distended and Non Tender
Skin: Warm and Dry
[2024-07-06] MEDS: STERILE WATER FOR INJECTION 10 ML IV (13:09)
[2024-07-06] MEDS: ROCEPHIN 1000 MG IV (13:09)
--- NOTE | 2024-07-06 14:39 | CM ---
clinical documentation manager reviewed patient's chart and plan is for patient to return [facility] with [facility], and follow up with wound care center, appointment has been set up with wound care center [phone] on Saturday07/10/24. Patient's daughter in law and spouse
are aware of plan and have been participating in dressing changes.
Plan; Home with [facility]. Wound care center appointment on Saturday07/10/24, @ 8:15am.
[2024-07-06 15:25] VITALS: BP 92/63
[2024-07-06 21:00] VITALS: PULSE 107
[2024-07-06] MEDS: MELATONIN 5 MG PO (21:03)
[2024-07-06 23:54] VITALS: BP 102/69
[2024-07-07 06:00] VITALS: BMI 26.5
[2024-07-07] MEDS: SYNTHROID 100 MCG PO (06:06)
[2024-07-07 07:35] VITALS: BP 100/68
--- NOTE | 2024-07-07 08:06 | W.PN.URO.CBU ---
Today's Communication / Plan
-
observe on antibx/flomax and bicultamide
Assessment / Plan
-
84M with significant cardiac comorbidity and cellulitis
Newly diagnosed large rectal cancer
Prostate cancer history which has had no follow up since diagnosis 7 years ago with high PSA
Urinary retention and left hydronephrosis last admission s/p alvarez placement since removed
Urology consulted for episode of gross hematuria 07/04
Hematuria
seems to have resolved- likely due to UTI
hold eliquis until tomorrow- 07/08- then resume and observe
UTI
- Continue ceftriaxone - await ucx results
Urinary retention/hydronephrosis
- Large volume retention with L hydro last admission 05/2024
- Recommendation per Dr. Hobbs was to maintain alvarez and continue tamsulosin until outpatient follow up
- Restarted tamsulosin. Continue tamsulosin at discharge
- PVR's below 200cc- will observe
Prostate cancer
- Continue bicalutamide.
Diagnosis
-
Date of Service: July 07, 2024
-
Patient Diagnosis:
Hematuria
Prostate cancer
Urinary retention
Hydronephrosis
UTI- pseudomonas
Subjective
-
pt says he feels better
no toruble urinating
urine clear in urinal
pvr checks have been below 200cc
ucx + for pseudo- currently on rocephin
cr stable
Objective
-
Vital Signs
Temp Pulse Resp BP Pulse Ox
98 F 80 20 100/68 95
07/07/24 07:35 07/07/24 07:35 07/07/24 07:35 07/07/24 07:35 07/07/24 07:35
Intake and Output
07/06/24 07/07/2424
06:59 06:59 06:59
Intake Total 1020 / 1020 1440 / 1440
Output Total 675 / 675 2250 / 2250
Balance 345 / 345 -810 / -810
Intake:
Oral fluids 1020 / 1020 1440 / 1440
Output:
Urine, Voided 675 / 675 2250 / 2250
Other:
Number of approximated MODERATE 1
amounts of urine
Laboratory Results
07/06/24 07:30
Physical Exam
-
General -no acute distress
Abdomen - soft, non-tender
Genitalia - normal
[2024-07-07 08:42] LABS: Blood Urea Nitrogen 35 mg/dl (9-20); Calcium 9.4 mg/dl (8.4-10.2); Carbon Dioxide 28 mmol/L (22-30); Chloride 93 mmol/L (98-107); Estimated Creatinine Clearance 45 ml/min; Glucose 118 mg/dl (70-99); Potassium 4.9 mmol/L (3.5-5.1); Sodium 133 mmol/L (135-145); eGFR > 60.00
--- NOTE | 2024-07-07 09:01 | W.PN.HOSP.TC ---
Addendum entered and electronically signed by Oscar John MD 07/07/24 11:03:
Addendum
Patient requires light weight wheelchair within in the home to complete daily activities due to mobility limitations related to left lower extremity muscle weakness and cellulitis/nonhealing wounds. Patient is unable to self propel and has a
caregiver to propel him.
Original Note:
Today's Communication/Plan
-
Pelvic MRI study and f/w colorectal recommendations
DC planning, hope to dc in am or
c/w wound care as recommended by wound care nurse
c/w Lasix, Toprol, Aldactone
c/w regular diet
Assessment / Plan
Assessment / Plan
Physical Exam
General: Not in acute distress
HEENT: Normocephalic
Respiratory: Clear
Cardiac: S1/S2 and Regular Rhythm
GI: Soft, Non Tender, Non Distended and Normal Bowel Sounds
Musculoskeletal: No Cyanosis and No Edema
Skin: Left lower extremity wounds/blisters with surround erythema -- covered in dressing
Neuro: Nonfocal/grossly intact
Psych: calm, pleasant
Assessment/Plan
# Worsening/chronic left lower extremity blisters/wounds
# Lower extremity edema
No pain over night. No fevers
-Wound care consulted
-General Surgery performed debridement on 07/02/[address] Bradley, no further surgical debridement recommended.
-ID consulted, appreciate their evaluation and recommendations
-Course of Linezolid was completed on 07/03/24
#Chronic HFmidrangeEF with recent hypercarbic/hypoxemic respiratory failure since resolved
-Continue spironolactone
-Continue Lasix 60 mg PO daily
-Continue dapagliflozin
-Cardiology hopes to add RAAS-i (ARNI or JOCELYN-I or ARB) as outpatient cardiology follow-up
-fluid restriction/education
#Permanent atrial fibrillation
-Continue Toprol-XL -- was initially at 50 mg BID but changed on 07/04/24 to reduced dose of 25 mg BID (changed due to nephrology recommendations, given patient's hyponatremia with low MAP and per [place] [facility]
discussion on 07/04/24 with on-call senior sql server database developer Dr. Juarez)
-Holding Eliquis as below
#Gross Hematuria
UTI with pseudomonas
Await final culture data, c/w empiric Rocephin.
-Hematuria: mild and self resolved after brief episode 07/04. No intervention needed
-Urology consulted, appreciate their evaluation and recommendations
- per urology: hold Eliquis until tomorrow- 07/08- then resume and observe. Recommendation per Dr. Hobbs was to maintain alvarez and continue tamsulosin until outpatient follow up
#AV block status post pacemaker
Nonsustained ventricular tachycardia
History of NSVT, asymptomatic: No syncope, EF more than 40. No ICD at this time
Bifascicular heart block (RBBB/LAFB)
Single chamber MDT pacer in place for periods of second degree AV block/pauses
#Lactic Acidosis - RESOLVED
#Essential hypertension
His SBP runs low, ok to c/w current medications,
#Hypothyroidism
-Continue levothyroxine
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
History of Hyponatremia
-Likely multifactorial
-Continue PO 48 ounce fluid restriction, resume regular sodium intake to balance out his hyponatremia.
-Ordered urine and serum osmoles, as well as urine sodium
-TSH ~7 and Free T4 is normal
-Consulted nephrology, appreciate their evaluation and recommendations: they will consider Samsca if needed
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
-Patient intends on pursuing treatment once the wounds are treated
-Discussed case with GI, no need for GI consult at this time, and no need for PPI
-Colorectal surgery consulted, appreciate their evaluation and recommendations, await pelvic MRI study
#Prostate cancer
-Continue Casodex
#History of diverticulosis
Renal cyst
History of prostate Ca/Hydronephrosis (perhaps pseudo)
History of NSVT, asymptomatic
Bifascicular heart block (RBBB/LAFB)
Code Status: Full code
DVT prophylaxis�No Heparin or Lovenox DVT prophylaxis given patient's hematuria, as per [place] discussion on 07/05/[address] Whiting. Roby to be held for few days as above.
SCDs hard to do given patient's edema and wounds on LLE.
Total time spent to see the patient on the floor, examine the patient, review data and lab results, discuss treatment plan with patient, nursing staff around 55 minutes
Anticipated Discharge: 24 - 48 hours
Subjective/Interval History
-
Date of Service: July 07, 2024
No abd pain
No chest pain
No sob
Objective Data
-
Labs:
Laboratory Results
07/07/24
07:21
Sodium 133 L
Potassium 4.9
Chloride 93 L
Carbon Dioxide 28
BUN 35 H
Creatinine 1.2
Glucose 118 H
Calcium 9.4
Vital Signs:
Vital Signs
Temp Pulse Resp BP Pulse Ox
98 F 80 20 100/68 95
07/07/24 07:35 07/07/24 07:35 07/07/24 07:35 07/07/24 07:35 07/07/24 07:35
I&O
07/06/24 07/07/24 07/08/24
06:59 06:59 06:59
Intake Total 1020 / 1020 1440 / 1440
Output Total 675 / 675 2250 / 2250
Balance 345 / 345 -810 / -810
[2024-07-07] MEDS: LASIX 60 MG PO (09:50)
[2024-07-07] MEDS: SANTYL OINTMENT 1 APPLIC TOPICAL ×2 (09:50→20:23)
[2024-07-07] MEDS: VITAMIN B-12 1000 MCG PO (09:51)
[2024-07-07] MEDS: ALDACTONE 25 MG PO (09:52)
[2024-07-07] MEDS: DESENEX/MITRAZOL/ZEASORB 1 APPLIC TOPICAL ×2 (09:52→20:23)
[2024-07-07] MEDS: CASODEX 50 MG PO (09:52)
[2024-07-07] MEDS: VITAMIN D3 (cholecalciferol) 25 MCG PO (09:52)
[2024-07-07] MEDS: FARXIGA 10 MG PO (09:52)
[2024-07-07] MEDS: VITAMIN C 500 MG PO (09:52)
[2024-07-07] MEDS: ZINC 50 MG PO (09:53)
[2024-07-07] MEDS: TOPROL XL 25 MG PO ×2 (09:53→20:23)
[2024-07-07] MEDS: HYDROPHOR 1 APPLIC TOPICAL (09:53)
[2024-07-07] MEDS: FLOMAX 0.4 MG PO (09:53)
--- NOTE | 2024-07-07 10:41 | W.PN.NEPH.PH ---
Today's Communication / Plan
-
samsca
Assessment/Plan
-
Impression:
Hyponatremia
CKD stage IIIa (1.2)
History of congestive heart failure with preserved ejection
Nonischemic cardiomyopathy
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
Hypotension
Permanent A-fib
Left lower extremity wound
History of prostate cancer/duplicated renal pelvis parapelvic cyst
History of nonsustained ventricular tachycardia/pacer
Macrohematuria
Plan:
samsca again
follow BMP
FR
needs to be cautious with salt intake given HFpEF
continue lasix and spironolactone
holding OAT for hematuria
-
-
Date of Service: July 07, 2024
CC / HPI / ROS
-
Chief Complaint:
CKD
Hyponatremia
History of Present Illness:
Serum sodium 133 after samsca
Hemodynamically labile
Creatinine stable at 1.2
Review of Systems:
No overt shortness of breath
Microscopic hematuria noted on 07/04/2024, gross hematuria today
Nonoliguric
Labs
-
Labs:
WBC 6.7 10^3/uL (4.8-10.8) 07/06/24 07:30
RBC 4.70 10^6/uL (4.70-6.10) 07/06/24 07:30
Hgb 12.9 g/dL (13.0-18.0) L 07/06/24 07:30
Hct 39.1 % (39.0-52.0) 07/06/24 07:30
Plt Count 277 10^3/uL (130-400) 07/06/24 07:30
Sodium 133 mmol/L (135-145) L 07/07/24 07:21
Potassium 4.9 mmol/L (3.5-5.1) 07/07/24 07:21
Chloride 93 mmol/L (98-107) L 07/07/24 07:21
Carbon Dioxide 28 mmol/L (22-30) 07/07/24 07:21
BUN 35 mg/dl (9-20) H 07/07/24 07:21
Creatinine 1.2 mg/dL (0.7-1.3) 07/07/24 07:21
eGFR > 60.00 07/07/24 07:21
Glucose 118 mg/dl (70-99) H 07/07/24 07:21
Calcium 9.4 mg/dl (8.4-10.2) 07/07/24 07:21
Albumin 3.4 g/dl (3.5-5.0) L 07/02/24 09:08
Physical Exam
-
Vital Signs:
Vital Signs
Temp Pulse Resp BP Pulse Ox
98 F 80 20 100/68 95
07/07/24 07:35 07/07/24 07:35 07/07/24 07:35 07/07/24 07:35 07/07/24 07:35
Cardiovascular:: Regular rate and rhythm
Respiratory:: Bilateral: CTA
Lung Excursion:: Normal
Abdomen:: Nontender and Soft
Bowel Sounds:: Normal
Extremity Edema:: None: Bilateral:
[2024-07-07] MEDS: SAMSCA 7.5 MG PO (11:28)
[2024-07-07] MEDS: STERILE WATER FOR INJECTION 10 ML IV (14:43)
[2024-07-07] MEDS: ROCEPHIN 1000 MG IV (14:43)
[2024-07-07 14:56] VITALS: BP 113/70
--- NOTE | 2024-07-07 15:33 | PN.CDI ---
Addendum entered and electronically signed by Oscar John MD 07/08/24 12:08:
UTI was POA
Addendum entered and electronically signed by Oscar John MD 07/07/24 16:16:
Yes, UTI is related to/associated with/due to Hodges catheter.
Original Note:
CDI
- -
CDI:
Physician Documentation Request
Admit Date: 06/30/24 15:02
Dear Doctor Alvaro,
Please review the following and provide your response in the progress notes.
Clinical Indicators:
Pt admitted with worsening left leg wounds.
06/30 membership sales representative noted indwelling urinary catheter.
07/01 membership sales representative noted chronic indwelling urinary catheter.
07/04 Progress Note: 'Patient having gross hematuria per nurse -- will cancel discharge and consult urology.'
07/07 Urology PN: 'Diagnosis- Hematuria, UTI- Pseudomonas'
Please clarify the relationship between these conditions:
Yes, UTI is related to/associated with/due to Hodges catheter.
No, UTI is not related to/associated with/due to Hodges catheter.
Other
Please Document if UTI was POA
Use of terms such as suspected, likely, concern for, or probable (associated with a specific diagnosis that is being evaluated, monitored, or treated as if it exists) are acceptable and can be coded in the inpatient setting, when documented at the
time of discharge.
Thank you,
Sydnee Hoover RN, BSN
CDI Specialist
Available via [place] [employer]
Please use your independent medical judgment in providing your response.
--- NOTE | 2024-07-07 16:08 | CM ---
manager labor relations reviewed patient's chart and met with patient and patient's spouse and spoke with VN, plan is for equipment to be delivered tomorrow, spouse will need to be contacted with delivery details. Patient will have [facility] at home for wound
care and physical therapy. Patient has an appointment at the wound care center at [facility] on Saturday07/10/24 at 8:15am.
Plan; Home with [facility] and Wound care Center on Saturday07/10/24.
[2024-07-07] MEDS: MELATONIN 5 MG PO (20:26)
[2024-07-07 22:42] VITALS: PULSE 105
[2024-07-07 22:45] VITALS: BP 105/67
[2024-07-08 06:00] VITALS: BMI 26.5
[2024-07-08] MEDS: SYNTHROID 100 MCG PO (06:16)
--- NOTE | 2024-07-08 06:56 | W.PN.URO.CBU ---
Addendum entered and electronically signed by Capo Villeda Jr., MD 07/08/24 10:59:
today's PVR 0
Original Note:
Today's Communication / Plan
-
check pvr
continue flomax
resume eliquis and observe for hematuria
continue casodex
Assessment / Plan
-
84M with significant cardiac comorbidity and cellulitis
Newly diagnosed large rectal cancer
Prostate cancer history which has had no follow up since diagnosis 7 years ago with high PSA
Urinary retention and left hydronephrosis last admission s/p alvarez placement since removed
Urology consulted for episode of gross hematuria 07/04
Hematuria
seems to have resolved- likely due to UTI
may resume eliquis today and observe
UTI
- Continue ceftriaxone - await ucx results- still pending as of this am- would rec additional 7 days of outpt antibx at time of discharge
Urinary retention/hydronephrosis
- Large volume retention with L hydro last admission 05/2024
- Recommendation per Dr. Villeda was to maintain alvarez and continue tamsulosin until outpatient follow up
- Restarted tamsulosin. Continue tamsulosin at discharge
- PVR's below 200cc- will observe- final check today
Prostate cancer
- Continue bicalutamide.- outpt f/u with dr villeda
Rectal Cancer
appears to be locally invasive- seeing oncology and colo-rectal for plan
Diagnosis
-
Date of Service: July 08, 2024
-
Patient Diagnosis:
Hematuria
Prostate cancer
Urinary retention
Hydronephrosis
UTI- pseudomonas
Subjective
-
pt feels good
denies any trouble urinating- clear
ucx sens still pending
Objective
-
Vital Signs
Temp Pulse Resp BP Pulse Ox
97.9 F 95 20 105/67 96
07/07/24 22:45 07/07/24 22:45 07/07/24 22:45 07/07/24 22:45 07/07/24 22:45
Intake and Output
07/06/24 07/07/24 07/08/24
06:59 06:59 06:59
Intake Total 1020 / 1020 1440 / 1440 720 / 720
Output Total 675 / 675 2250 / 2250 1600 / 1600
Balance 345 / 345 -810 / -810 -880 / -880
Intake:
Oral fluids 1020 / 1020 1440 / 1440 720 / 720
Output:
Urine, Voided 675 / 675 2250 / 2250 1600 / 1600
Other:
Number of approximated MODERATE 1 1
amounts of urine
Review of Systems
-
Constitutional: Fatigue
Respiratory: No Symptoms
Cardiac: No Symptoms
Abdomen/GI: No Symptoms
: No Symptoms
Physical Exam
-
General - no acute distress
Abdomen - soft, non-tender,
Genitalia - normal
[2024-07-08 07:03] LABS: Hematocrit 39.7 % (39.0-52.0); Hemoglobin 12.8 g/dL (13.0-18.0); Mean Corp Hgb Conc. 32.2 g/dL (33.0-37.0); Mean Corpuscular Hgb 27.2 pg (27.0-31.0); Mean Corpuscular Volume 84.5 fL (80.0-94.0); Mean Platelet Volume 10.2 fL (7.4-10.4); Platelet Count 207 10^3/uL (130-400); Red Cell Dist. Width 15.2 % (11.5-14.5); White Blood Cell Count 7.3 10^3/uL (4.8-10.8)
[2024-07-08 07:20] VITALS: BP 105/67
[2024-07-08 07:38] LABS: Blood Urea Nitrogen 33 mg/dl (9-20); Calcium 9.3 mg/dl (8.4-10.2); Carbon Dioxide 30 mmol/L (22-30); Chloride 92 mmol/L (98-107); Estimated Creatinine Clearance 45 ml/min; Glucose 114 mg/dl (70-99); Potassium 4.5 mmol/L (3.5-5.1); Sodium 135 mmol/L (135-145); eGFR > 60.00
--- NOTE | 2024-07-08 08:40 | W.PN.HOSP.TC ---
Today's Communication/Plan
-
Pelvic MRI is resulted, f/w colorectal recommendations
Bladder scan and f/w urology recommendations
Resuming Eliquis today
Likely dc in am
Assessment / Plan
Assessment / Plan
Physical Exam
General: Not in acute distress
HEENT: Normocephalic
Respiratory: Clear
Cardiac: S1/S2 and Regular Rhythm
GI: Soft, Non Tender, Non Distended and Normal Bowel Sounds
Musculoskeletal: No Cyanosis and No Edema
Skin: Left lower extremity wounds/blisters with surround erythema -- covered in dressing
Neuro: Nonfocal/grossly intact
Psych: calm, pleasant
Assessment/Plan
# Worsening/chronic left lower extremity blisters/wounds
# Lower extremity edema
No pain over night. No fevers
-Wound care consulted
-General Surgery performed debridement on 07/02/[address] Bradley, no further surgical debridement recommended.
-ID consulted, appreciate their evaluation and recommendations
-Course of Linezolid was completed on 07/03/24
#Chronic HFmidrangeEF with recent hypercarbic/hypoxemic respiratory failure since resolved
-Continue spironolactone
-Continue Lasix 60 mg PO daily
-Continue dapagliflozin
-Cardiology hopes to add RAAS-i (ARNI or JOCELYN-I or ARB) as outpatient cardiology follow-up
-fluid restriction/education
#Permanent atrial fibrillation
-Continue Toprol-XL -- was initially at 50 mg BID but changed on 07/04/24 to reduced dose of 25 mg BID (changed due to nephrology recommendations, given patient's hyponatremia with low MAP and per [place] [facility]
discussion on 07/04/24 with on-call personal trainer Dr. Juarez)
-Held Eliquis, resuming today
#Gross Hematuria
UTI with pseudomonas
Await final culture data, c/w empiric Rocephin.
-Hematuria: mild and self resolved after brief episode 07/04. No intervention needed
-Urology consulted, appreciate their evaluation and recommendations
- per urology: held david Ca 07/08- . Hodges catheter is removed, bladder scan protocol
#AV block status post pacemaker
Nonsustained ventricular tachycardia
History of NSVT, asymptomatic: No syncope, EF more than 40. No ICD at this time
Bifascicular heart block (RBBB/LAFB)
Single chamber MDT pacer in place for periods of second degree AV block/pauses
#Lactic Acidosis - RESOLVED
#Essential hypertension
His SBP runs low, ok to c/w current medications,
#Hypothyroidism
-Continue levothyroxine
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
History of Hyponatremia
-Likely multifactorial
-Continue PO 48 ounce fluid restriction, s/p tolvaptan 7.5mg on 07/07.
-TSH ~7 and Free T4 is normal
-Consulted nephrology, appreciate their evaluation and recommendations.
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
-Patient intends on pursuing treatment once the wounds are treated
-Discussed case with GI, no need for GI consult at this time, and no need for PPI
-Colorectal surgery consulted, appreciate their evaluation and recommendations, MRI pelvis is resulted
#Prostate cancer
-Continue Casodex
#History of diverticulosis
Renal cyst
History of prostate Ca/Hydronephrosis (perhaps pseudo)
History of NSVT, asymptomatic
Bifascicular heart block (RBBB/LAFB)
Code Status: Full code
DVT prophylaxis�No Heparin or Lovenox DVT prophylaxis given patient's hematuria, as per [place] [facility] discussion on 07/05/[address] Whiting. Roby to be held for few days as above.
SCDs hard to do given patient's edema and wounds on LLE.
Total time spent to see the patient on the floor, examine the patient, review data and lab results, discuss treatment plan with patient, nursing staff around 55 minutes
Anticipated Discharge: Within 24 hours
Subjective/Interval History
-
Date of Service: July 08, 2024
Objective Data
-
Labs:
Laboratory Results
07/08/24
06:49
WBC 7.3
Hgb 12.8 L
Hct 39.7
Plt Count 207 D
Sodium 135
Potassium 4.5
Chloride 92 L
Carbon Dioxide 30
BUN 33 H
Creatinine 1.2
Glucose 114 H
Calcium 9.3
Vital Signs:
Vital Signs
Temp Pulse Resp BP Pulse Ox
97.8 F 77 18 105/67 98
07/08/24 07:20 07/08/24 07:20 07/08/24 07:20 07/08/24 07:20 07/08/24 07:20
I&O
07/07/24 07/08/24 07/09/24
06:59 06:59 06:59
Intake Total 1440 / 1440 720 / 720
Output Total 2250 / 2250 1600 / 1600
Balance -810 / -810 -880 / -880
[2024-07-08] MEDS: ALDACTONE 25 MG PO (09:14)
[2024-07-08] MEDS: CASODEX 50 MG PO (09:17)
[2024-07-08] MEDS: FARXIGA 10 MG PO (09:18)
[2024-07-08] MEDS: SANTYL OINTMENT 1 APPLIC TOPICAL ×2 (09:20→21:32)
[2024-07-08] MEDS: TOPROL XL 25 MG PO ×2 (09:21→20:56)
[2024-07-08] MEDS: LASIX 60 MG PO (09:21)
[2024-07-08] MEDS: VITAMIN C 500 MG PO (09:23)
[2024-07-08] MEDS: VITAMIN B-12 1000 MCG PO (09:23)
[2024-07-08] MEDS: VITAMIN D3 (cholecalciferol) 25 MCG PO (09:23)
[2024-07-08] MEDS: ZINC 50 MG PO (09:23)
[2024-07-08] MEDS: FLOMAX 0.4 MG PO (09:23)
[2024-07-08] MEDS: DESENEX/MITRAZOL/ZEASORB 1 APPLIC TOPICAL (09:24)
[2024-07-08] MEDS: HYDROPHOR 1 APPLIC TOPICAL (09:24)
--- NOTE | 2024-07-08 10:16 | VNURNOTE ---
Chart reviewed. Patient's spouse Makayla and PARVIN Janice aware of DME, they were both provided [employer] contact #s and delivery to be set up through [employer]. Tentative plan for DC tomorrow 07/09. Pt has appt w/ Wound care center Fri 07/10.
[facility] to start services Sat 07/11. Confirmed with Martina at [facility] intake office. DEREK Paige updated.
--- NOTE | 2024-07-08 11:51 | W.PN.NEPH.PH ---
Today's Communication / Plan
-
observe on FR , lasix
follow bmp
Assessment/Plan
-
Impression:
Hyponatremia
CKD stage IIIa (1.2)
History of congestive heart failure with preserved ejection
Nonischemic cardiomyopathy
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
Hypotension
Permanent A-fib
Left lower extremity wound
History of prostate cancer/duplicated renal pelvis parapelvic cyst
History of nonsustained ventricular tachycardia/pacer
Macrohematuria
Plan:
samsca was given again on 07/07 and sodium up to 135
creatinine stable at 1.2; non oliguric
follow BMP
FR to continue
needs to be cautious with salt intake given HFpEF
continue lasix and spironolactone
holding OAT for hematuria
-
-
Date of Service: July 08, 2024
CC / HPI / ROS
-
Chief Complaint:
CKD
Hyponatremia
History of Present Illness:
Serum sodium 135 after samsca
Hemodynamically labile
Creatinine stable at 1.2
Review of Systems:
No overt shortness of breath
Microscopic hematuria noted on 07/04/2024, gross hematuria today
Nonoliguric
Labs
-
Labs:
WBC 7.3 10^3/uL (4.8-10.8) 07/08/24 06:49
RBC 4.70 10^6/uL (4.70-6.10) 07/08/24 06:49
Hgb 12.8 g/dL (13.0-18.0) L 07/08/24 06:49
Hct 39.7 % (39.0-52.0) 07/08/24 06:49
Plt Count 207 10^3/uL (130-400) D 07/08/24 06:49
Sodium 135 mmol/L (135-145) 07/08/24 06:49
Potassium 4.5 mmol/L (3.5-5.1) 07/08/24 06:49
Chloride 92 mmol/L (98-107) L 07/08/24 06:49
Carbon Dioxide 30 mmol/L (22-30) 07/08/24 06:49
BUN 33 mg/dl (9-20) H 07/08/24 06:49
Creatinine 1.2 mg/dL (0.7-1.3) 07/08/24 06:49
eGFR > 60.00 07/08/24 06:49
Glucose 114 mg/dl (70-99) H 07/08/24 06:49
Calcium 9.3 mg/dl (8.4-10.2) 07/08/24 06:49
Albumin 3.4 g/dl (3.5-5.0) L 07/02/24 09:08
Physical Exam
-
Vital Signs:
Vital Signs
Temp Pulse Resp BP Pulse Ox
97.8 F 85 18 101/66 98
07/08/24 07:20 07/08/24 09:14 07/08/24 07:20 07/08/24 09:14 07/08/24 07:20
Cardiovascular:: Regular rate and rhythm
Respiratory:: Bilateral: CTA
Lung Excursion:: Normal
Abdomen:: Nontender and Soft
Bowel Sounds:: Normal
Extremity Edema:: None: Bilateral:
--- NOTE | 2024-07-08 14:12 | CM ---
Chart reviewed and family independence case manager met with patient this am, and patient is for possible discharge tomorrow to home, plan remains for BID dressing charges for wound, patient has been set up with [facility], patient will also go to [facility] wound [facility]
center, appointment has been set up for 07/10/24 at 8:15 am.
Plan; Home with [facility], patient's equipment will be delivered today and follow up with wound care center on Saturday at 8:15am, 07/10/24.
[2024-07-08 15:22] VITALS: BP 99/69
[2024-07-08] MEDS: ROCEPHIN 1000 MG IV (15:44)
[2024-07-08] MEDS: STERILE WATER FOR INJECTION 10 ML IV (15:44)
[2024-07-08] MEDS: DESENEX/MITRAZOL/ZEASORB TOPICAL (20:56)
[2024-07-08] MEDS: ELIQUIS 5 MG PO (20:57)
[2024-07-08] MEDS: MELATONIN 5 MG PO (20:57)
[2024-07-08 21:39] VITALS: PULSE 93
[2024-07-08 23:09] VITALS: BP 107/65
[2024-07-09] MEDS: SYNTHROID 100 MCG PO (05:50)
[2024-07-09 06:00] VITALS: BMI 26.2
[2024-07-09 08:00] VITALS: BP 99/63
--- NOTE | 2024-07-09 08:03 | W.PN.URO.CBU ---
Today's Communication / Plan
-
discharge with flomax/casodex and antibx
outpt f/u with dr villeda
Assessment / Plan
-
84M with significant cardiac comorbidity and cellulitis
Newly diagnosed large rectal cancer
Prostate cancer history which has had no follow up since diagnosis 7 years ago with high PSA
Urinary retention and left hydronephrosis last admission s/p alvarez placement since removed
Urology consulted for episode of gross hematuria 07/04
Hematuria
seems to have resolved- likely due to UTI
will observe
UTI
would rec additional 7 days of outpt antibx at time of discharge
Urinary retention/hydronephrosis
- Large volume retention with L hydro last admission 05/2024
- Recommendation per Dr. Villeda was to maintain alvarez and continue tamsulosin until outpatient follow up
- Restarted tamsulosin. Continue tamsulosin at discharge
- PVR's now minimal
Prostate cancer
- Continue bicalutamide.- outpt f/u with dr villeda
Rectal Cancer
appears to be locally invasive- seeing oncology and colo-rectal for plan
Diagnosis
-
Date of Service: July 09, 2024
-
Patient Diagnosis:
Hematuria
Prostate cancer
Urinary retention
Hydronephrosis
UTI- pseudomonas
Subjective
-
pt with no difficulty voiding
reports clear urine back on eliquis
pvr yesterday 0
Objective
-
Vital Signs
Temp Pulse Resp BP Pulse Ox
97.3 F 94 17 99/63 99
07/09/24 08:00 07/09/24 08:00 07/09/24 08:00 07/09/24 08:00 07/09/24 08:00
Intake and Output
11/07/09/24 07/10/24
06:59 06:59 06:59
Intake Total 720 / 720 720 / 720
Output Total 1600 / 1600 1060 / 1060
Balance -880 / -880 -340 / -340
Intake:
Oral fluids 720 / 720 720 / 720
Output:
Urine, Voided 1600 / 1600 1060 / 1060
Other:
Number of approximated MODERATE 1 4
amounts of urine
Laboratory Results
07/08/24 06:49
Review of Systems
-
Constitutional: No Symptoms
Respiratory: No Symptoms
Cardiac: No Symptoms
Abdomen/GI: No Symptoms
: No Symptoms
Physical Exam
-
General - no acute distress
[2024-07-09 08:08] LABS: Blood Urea Nitrogen 33 mg/dl (9-20); Calcium 9.4 mg/dl (8.4-10.2); Carbon Dioxide 33 mmol/L (22-30); Chloride 92 mmol/L (98-107); Estimated Creatinine Clearance 45 ml/min; Glucose 120 mg/dl (70-99); Potassium 4.6 mmol/L (3.5-5.1); Sodium 135 mmol/L (135-145); eGFR > 60.00
[2024-07-09] MEDS: VITAMIN D3 (cholecalciferol) 25 MCG PO (08:31)
[2024-07-09] MEDS: ZINC 50 MG PO (08:31)
[2024-07-09] MEDS: LASIX 60 MG PO (08:31)
[2024-07-09] MEDS: ELIQUIS 5 MG PO (08:33)
[2024-07-09] MEDS: TOPROL XL 25 MG PO (08:33)
[2024-07-09] MEDS: CASODEX 50 MG PO (08:33)
[2024-07-09] MEDS: ALDACTONE 25 MG PO (08:33)
[2024-07-09] MEDS: FARXIGA 10 MG PO (08:33)
[2024-07-09] MEDS: VITAMIN B-12 1000 MCG PO (08:33)
[2024-07-09] MEDS: FLOMAX 0.4 MG PO (08:33)
[2024-07-09] MEDS: VITAMIN C 500 MG PO (08:33)
[2024-07-09] MEDS: SANTYL OINTMENT 1 APPLIC TOPICAL (08:33)
[2024-07-09] MEDS: DESENEX/MITRAZOL/ZEASORB 1 APPLIC TOPICAL (08:34)
[2024-07-09] MEDS: HYDROPHOR 1 APPLIC TOPICAL (08:35)
--- NOTE | 2024-07-09 08:49 | W.PN.CRS1 ---
Today's Communication / Plan
-
As below
Assessment/Plan
-
�Care per primary and consultants
�No acute issues per colorectal standpoint; following peripherally for rectal cancer
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
�06/20 CT chest and 06/22 CTAP without evidence of metastatic disease; CEA 14.6 on 06/19
�Agree with current recommendations of MELCHOR with restaging for possible watch and wait depending on response
�Will discuss at [facility] tumor board
�Will schedule port placement as an outpatient
Subjective Data
Subjective Data
Date of Service: July 09, 2024
No overnight events.
Objective Data
-
Vital Signs
Temp Pulse Resp BP Pulse Ox
97.3 F 94 17 99/63 99
07/09/24 08:00 07/09/24 08:31 07/09/24 08:00 07/09/24 08:31 07/09/24 08:00
Intake & Output
07/08/24 07/09/24 07/10/24
06:59 06:59 06:59
Intake Total 720 / 720 720 / 720
Output Total 1600 / 1600 1060 / 1060
Balance -880 / -880 -340 / -340
Intake:
Oral fluids 720 / 720 720 / 720
Output:
Urine, Voided 1600 / 1600 1060 / 1060
Other:
Number of approximated MODERATE 1 4
amounts of urine
Lab Results
07/08/24 06:49
07/09/24 07:08
Physical Exam
-
General: No Acute Distress and AOx3
HEENT: Grossly Normal
Abdomen: Soft, Non Distended, Non Tender, No Guarding and No Rebound
Skin: Warm and Dry
--- NOTE | 2024-07-09 09:10 | WOUNDNOTE ---
[facility] RN note: Patient for possible discharge to home today with [facility]. L medial calf wounds with mostly yellow slough and small pink. Erythema and edema improved. +L pedal pulse. Current wound care appropriate. L knee high Valerio wrap applied. Skin on
heels and sacrum intact. Sacrum blanchable red. Heels blanchable mild red. Patient turns self in bed. He was reinstructed on heel elevation with pillow/s while in bed to prevent a pressure injury. Patient declined an air chair cushion. Appetite is
good. Wound care supplies at bedside. Gardners texted Dr. John requesting she give patient a script for Santyl. Instructed patient hand hygiene with wound care. Patient has family to help with wound care. He has an appointment at [facility] tomorrow.
Discussed with KORY Cox.
--- NOTE | 2024-07-09 09:20 | W.PN.HOSP.TC ---
Today's Communication/Plan
-
dc
Assessment / Plan
Assessment / Plan
Physical Exam
General: Not in acute distress
HEENT: Normocephalic
Respiratory: Clear
Cardiac: S1/S2 and Regular Rhythm
GI: Soft, Non Tender, Non Distended and Normal Bowel Sounds
Musculoskeletal: No Cyanosis and No Edema
Skin: Left lower extremity wounds/blisters with surround erythema -- covered in dressing
Neuro: Nonfocal/grossly intact
Psych: calm, pleasant
Assessment/Plan
# Worsening/chronic left lower extremity blisters/wounds
# Lower extremity edema
No pain over night. No fevers
-Wound care consulted
-General Surgery performed debridement on 07/02/[address] Bradley, no further surgical debridement recommended.
-ID consulted, appreciate their evaluation and recommendations
-Course of Linezolid was completed on 07/03/24
- Asked wound care nurse to check on wounds before discharge.
#Chronic HFmidrangeEF with recent hypercarbic/hypoxemic respiratory failure since resolved
-Continue spironolactone
-Continue Lasix 60 mg PO daily
-Continue dapagliflozin
-Cardiology hopes to add RAAS-i (ARNI or JOCELYN-I or ARB) as outpatient cardiology follow-up
-fluid restriction/education
#Permanent atrial fibrillation
-Continue Toprol-XL -- was initially at 50 mg BID but changed on 07/04/24 to reduced dose of 25 mg BID (changed due to nephrology recommendations, given patient's hyponatremia with low MAP and per [place] Text
discussion on 07/04/24 with on-call rehabilitation coordinator Dr. Juarez)
-Held Roby, resuming today
#Gross Hematuria
UTI with pseudomonas & klebsiella, dc on Cefdinir according o susceptibility
-Hematuria: mild and self resolved after brief episode 07/04. No intervention needed
-Urology consulted, appreciate their evaluation and recommendations
- per urology: held Roby, resume 07/08- . Hodges catheter is removed, bladder scan protocol
#AV block status post pacemaker
Nonsustained ventricular tachycardia
History of NSVT, asymptomatic: No syncope, EF more than 40. No ICD at this time
Bifascicular heart block (RBBB/LAFB)
Single chamber MDT pacer in place for periods of second degree AV block/pauses
#Lactic Acidosis - RESOLVED
#Essential hypertension
His SBP runs low, ok to c/w current medications,
#Hypothyroidism
-Continue levothyroxine
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
History of Hyponatremia
-Likely multifactorial
-Continue PO 48 ounce fluid restriction, s/p tolvaptan 7.5mg on 07/07.
-TSH ~7 and Free T4 is normal
-Consulted nephrology, appreciate their evaluation and recommendations.
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
-Patient intends on pursuing treatment once the wounds are treated
-Discussed case with GI, no need for GI consult at this time, and no need for PPI
-Colorectal surgery consulted, appreciate their evaluation and recommendations, MRI pelvis is resulted, pt has oncology alexey on 07/13
#Prostate cancer
-Continue Casodex
#History of diverticulosis
Renal cyst
History of prostate Ca/Hydronephrosis (perhaps pseudo)
History of NSVT, asymptomatic
Bifascicular heart block (RBBB/LAFB)
Code Status: Full code
DVT prophylaxis�No Heparin or Lovenox DVT prophylaxis given patient's hematuria, as per [place] Text discussion on 07/05/[address] Whiting. Roby to be held for few days as above.
SCDs hard to do given patient's edema and wounds on LLE.
Total discharge time spent to see the patient on the floor, examine the patient, review data and lab results, discuss discharge plan with patient, nursing staff around 67 minutes
Anticipated Discharge: Today
Subjective/Interval History
-
Date of Service: July 09, 2024
No complaints
he feels ready to go home
Objective Data
-
Labs:
Laboratory Results
07/09/24
07:08
Sodium 135
Potassium 4.6
Chloride 92 L
Carbon Dioxide 33 H
BUN 33 H
Creatinine 1.2
Glucose 120 H
Calcium 9.4
Vital Signs:
Vital Signs
Temp Pulse Resp BP Pulse Ox
97.3 F 94 17 99/63 99
07/09/24 08:00 07/09/24 08:31 07/09/24 08:00 07/09/24 08:31 07/09/24 08:00
I&O
07/08/24 07/09/24 07/10/24
06:59 06:59 06:59
Intake Total 720 / 720 720 / 720
Output Total 1600 / 1600 1060 / 1060
Balance -880 / -880 -340 / -340
--- NOTE | 2024-07-09 10:11 | CM ---
Patient or tentative d/c home today.
IMM completed and added to chart.
Spouse in room with patient to transport home.
Patient has wound care appointment tomorrow and oncology next week.
patient seen by wound care nurse this am.
Plan: home with [facility]
[2024-07-09] MEDS: OMNICEF 300 MG PO (12:46)
--- NOTE | 2024-07-09 13:54 | W.PN.NEPH.PH ---
Today's Communication / Plan
-
observe on lasix and FR
follow bmp
Assessment/Plan
-
Impression:
Hyponatremia
CKD stage IIIa (1.2)
History of congestive heart failure with preserved ejection
Nonischemic cardiomyopathy
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
Hypotension
Permanent A-fib
Left lower extremity wound
History of prostate cancer/duplicated renal pelvis parapelvic cyst
History of nonsustained ventricular tachycardia/pacer
Macrohematuria
Plan:
samsca was given again on 07/07 and sodium stabel at 135
creatinine stable at 1.2; non oliguric
follow BMP
FR to continue
needs to be cautious with salt intake given HFpEF
continue lasix and spironolactone
holding OAT for hematuria
-
-
Date of Service: July 09, 2024
CC / HPI / ROS
-
Chief Complaint:
CKD
Hyponatremia
History of Present Illness:
Serum sodium 135 after samsca
Hemodynamically labile
Creatinine stable at 1.2
Review of Systems:
No overt shortness of breath
Microscopic hematuria noted on 07/04/2024,
Nonoliguric
Labs
-
Labs:
WBC 7.3 10^3/uL (4.8-10.8) 07/08/24 06:49
RBC 4.70 10^6/uL (4.70-6.10) 07/08/24 06:49
Hgb 12.8 g/dL (13.0-18.0) L 07/08/24 06:49
Hct 39.7 % (39.0-52.0) 07/08/24 06:49
Plt Count 207 10^3/uL (130-400) D 07/08/24 06:49
Sodium 135 mmol/L (135-145) 07/09/24 07:08
Potassium 4.6 mmol/L (3.5-5.1) 07/09/24 07:08
Chloride 92 mmol/L (98-107) L 07/09/24 07:08
Carbon Dioxide 33 mmol/L (22-30) H 07/09/24 07:08
BUN 33 mg/dl (9-20) H 07/09/24 07:08
Creatinine 1.2 mg/dL (0.7-1.3) 07/09/24 07:08
eGFR > 60.00 07/09/24 07:08
Glucose 120 mg/dl (70-99) H 07/09/24 07:08
Calcium 9.4 mg/dl (8.4-10.2) 07/09/24 07:08
Albumin 3.4 g/dl (3.5-5.0) L 07/02/24 09:08
Physical Exam
-
Vital Signs:
Vital Signs
Temp Pulse Resp BP Pulse Ox
97.3 F 94 17 99/63 99
07/09/24 08:00 07/09/24 08:31 07/09/24 08:00 07/09/24 08:31 07/09/24 08:00
Cardiovascular:: Regular rate and rhythm
Respiratory:: Bilateral: CTA
Lung Excursion:: Normal
Abdomen:: Nontender and Soft
Bowel Sounds:: Normal
Extremity Edema:: None: Bilateral:
--- NOTE | 2024-07-09 14:18 | W.DCSUMMARY ---
Discharge Summary
Discharge Data
Date of Admission: 06/30/24
Date of Discharge: 07/09/24
-
Pending Results: No
Hospital Course
84 years old male presented to the hospital with nonhealing/worsening wounds on the left lower extremity. Patient was evaluated by surgery and wound care nurse. He underwent bedside debridement of the wound by Dr Bradley on 07/02/24. Wound care was
continued with clinical improvement. Patient was evaluated by ID doctor. Patient had urinary tract infection and was given antibiotic. Hodges catheter was removed and patient was maintained on Flomax, he was followed by urology. Patient was seen by
riveter helper, he was kept on diuretic treatment and Eliquis. Patient had hyponatremia and was treated by Tolvaptan and fluid restriction. Chemistry Technician recommended too continue diuretic and monitor fluid and sodium intake. Patient and family wanted
home health services. manager statistics was consulted. Patient remained hemodynamically stable and was discharged in a stable condition.
Discharge Plan
-
Patient Disposition: Home with Home Care
Discharge Diagnosis/Procedures: # Worsening/chronic left lower extremity blisters/wounds status post debridement on July 02, 2024
# Lower extremity edema
# Chronic HFmidrangeEF with recent hypercarbic/hypoxemic respiratory failure since resolved
# Permanent atrial fibrillation
# AV block status post pacemaker
# History of Nonsustained ventricular tachycardia
# Single chamber MDT pacer in place for periods of second degree AV block/pauses
# Lactic Acidosis - RESOLVED
# Essential hypertension
# Hypothyroidism
# Hyponatremia, Chronic
# History of Hyponatremia
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
# Bloody bowel movements secondary to rectal mass
# Prostate cancer
# History of diverticulosis
# Renal cyst
# History of prostate Ca/Hydronephrosis (perhaps pseudo)
# History of NSVT, asymptomatic
# Bifascicular heart block (RBBB/LAFB)
Condition: Fair
Diet: Low Sodium and Restrict fluids to 48 oz
Activity: As tolerated
Blood Work: Check CBC, CMP and Magnesium in 1 to 2 days with your PCP's office
Other Services: PT and OT
Specialty Instructions: Weigh Daily- Call MD for wt gain/loss 3 lbs overnight/5 lbs in 1 week
Activity Restrictions/Additional Instructions:
Hospitalist discussed patient's hyponatremia which has been mainly in the range of sodium low 130s to most recently 129 (which is lower than before). On-call wall attendant recommended decreasing Metoprolol given given patient's low mean arterial
perfusion pressures which stimulates Antidiuretic Hormone (ADH). Hospitalist discussed case with on-call riveter helper Dr. Juarez via [place] [employer] on July 04, 2024, and Dr. Juarez recommended decreasing patient's Toprol XL by 50% to Toprol XL 25 mg
BID. New prescription has been sent to patient's pharmacy.
Patient needs close nephrology, oncology and cardiology outpatient follow-up.
Wound Care Instructions
L leg: clean with saline, Santyl to eschar (ally thick) adaptic, abd pad and compressive Valerio Wrap, change twice a day.
mineral oil to dry skin daily
leg elevation when sitting
increase protein in diet
Follow up at wound care center call for an appointment (appointment is on Saturday07/10/24 08:15am).
Per surgeon's instructions: 'Continue to apply Santyl to areas of eschar with nonadherent skin dressing. Dry gauze. Dressing changes twice daily.
VALERIO bandage for compressive wrap and elevate extremity to minimize edema.'
Schedule outpatient follow up with Dr. Hobbs at [facility] - [phone]
To discuss urinary issues and prostate cancer evaluation
Referrals:
Joyce Whaley NP [Specified Professional Personl] - 07/14/24 11:40 am
Rahul Conti DO [Active] - in one to two weeks (Hospital hyponatremia follow-up)
Larry Starr MD [Family Provider] - in less than 1 week
Additional Discharge Medication Instructions: Santyl has been sent to your pharmacy.
Metoprolol Succinate dose has been reduced as per hospitalist discussion with cardiology and nephrology (see Additional Instructions section of discharge instructions).
Prescriptions:
New
Santyl 250 unit/gram ointment
1 applic topical BID Qty: 90 0RF
tamsulosin 0.4 mg Capsule
0.4 mg PO DAILY Qty: 30 0RF
cefdinir 300 mg Capsule
300 mg PO Q12 Qty: 10 0RF
bicalutamide 50 mg tablet
50 mg PO DAILY Qty: 30 0RF
dapagliflozin propanediol [Farxiga] 10 mg tablet
10 mg PO DAILY Qty: 30 0RF
spironolactone [Aldactone] 25 mg tablet
25 mg PO DAILY Qty: 30 0RF
Continued
ascorbic acid (vitamin C) [Vitamin C] 500 MG tablet
500 mg PO DAILY
Eliquis 5 MG tablet
5 mg PO BID
cholecalciferol (vitamin D3) 25 mcg (1,000 unit) Tablet
25 mcg PO DAILY
acetaminophen 325 mg Tablet
650 mg PO Q4HPRN PRN (Reason: fever>100.3/mild pain) Qty: 20 0RF
bisacodyl [Dulcolax (bisacodyl)] 10 mg Suppository
10 mg FL DAILYPRN PRN (Reason: if no bm aftr mom)
Fleet Enema 19-7 gram/118 mL Enema
118 ml FL DAILYPRN PRN (Reason: if no on 6th day)
miconazole nitrate [Miconazorb AF] 2 % powder
1 applic topical BID
white petrolatum [Hydrophor] 42 % ointment
1 applic topical DAILY
bicalutamide 50 mg tablet
50 mg PO DAILY
cyanocobalamin (vitamin B-12) 1,000 MCG tablet
1,000 mcg PO DAILY
spironolactone 25 mg tablet
25 mg PO DAILY
levothyroxine 100 MCG tablet
100 mcg PO DAILY@0700
furosemide 20 mg tablet
60 mg PO DAILY
zinc sulfate 220 MG capsule
220 mg PO DAILY
melatonin 5 MG tablet
5 mg PO HS
dapagliflozin propanediol 10 mg tablet
10 mg PO DAILY
Santyl 250 unit/gram ointment
1 applic topical BID Qty: 90 1RF
Rx Instructions:
APPLY TO LEFT LOWER EXTREMITY WOUND PER WOUND CARE INSTRUCTIONS
Changed
metoprolol succinate 50 MG tablet extended release 24 hr
25 mg PO BID Qty: 60 1RF
Discontinued
linezolid 600 mg tablet
600 mg PO BID
Discharge Orders:
Discharge Patient (As Directed); Ordered 07/09/24
Ordered By: Oscar John
Discharge Date and Time
Discharge Date/Time: 07/09/24 16:18
Print Language: ALGERIAN
[2024-07-09 15:27] VITALS: BP 98/64
== END 2024-07-09 16:18 | disposition home health service (06) | DRG 605 ==
LOC: 4 WEST ACU 15:02
PROVIDERS: Hospitalist; Nurse Practitioner Family; Specialist; Surgery; ADMITTING PHYSICIAN Hospitalist; ATTENDING PHYSICIAN Internal Medicine; CONSULT PHYSICIAN Internal Medicine Cardiovascular Disease; CONSULT PHYSICIAN Internal Medicine Infectious Disease; CONSULT PHYSICIAN Specialist; CONSULT PHYSICIAN Surgery; CONSULT PHYSICIAN Urology; EMERGENCY PHYSICIAN Emergency Medicine; FAMILY PHYSICIAN Family Medicine; OTHER PHYSICIAN Surgery
PROC: 0HBLXZZ Excision of Left Lower Leg Skin, External Approach (ICD-10-PCS; 2024-07-02)
DX: S81.802A Unspecified open wound, left lower leg, initial encounter (principal); L03.116 Cellulitis of left lower limb; C19 Malignant neoplasm of rectosigmoid junction; E87.1 Hypo-osmolality and hyponatremia; N39.0 Urinary tract infection, site not specified; T83.511A Infection and inflammatory reaction due to indwelling urethral catheter, initial encounter; I13.0 Hypertensive heart and chronic kidney disease with heart failure and stage 1 through stage 4 chronic kidney disease, or unspecified chronic kidney disease; I50.42 Chronic combined systolic (congestive) and diastolic (congestive) heart failure; I42.8 Other cardiomyopathies; I48.21 Permanent atrial fibrillation; E87.20 Acidosis, unspecified; N18.31 Chronic kidney disease, stage 3a; I95.9 Hypotension, unspecified; E03.9 Hypothyroidism, unspecified; Z79.01 Long term (current) use of anticoagulants; Y84.6 Urinary catheterization as the cause of abnormal reaction of the patient, or of later complication, without mention of misadventure at the time of the procedure
CPT/HCPCS: 72197; 80048; 80053; 81003; 81015; 82533; 83605; 83735; 83930; 83935; 84300; 84439; 84443; 85014; 85018; 85025; 85027; 87077; 87086; 87088; 87186; 94660; 97116; 97162; 97166; 97530; 97535; 99285; A9575

== ENCOUNTER → 2024-07-10 08:04 | Outpatient (REF) | payer MEDICARE, SELFPAY | LOC: WOUND 08:04 | PROVIDERS: ATTENDING PHYSICIAN Surgery; FAMILY PHYSICIAN Family Medicine | DX: L97.222 Non-pressure chronic ulcer of left calf with fat layer exposed (principal); I87.2 Venous insufficiency (chronic) (peripheral); I73.9 Peripheral vascular disease, unspecified; I48.91 Unspecified atrial fibrillation | CPT/HCPCS: 11042; 11045; 99204 ==

== ENCOUNTER → 2024-07-17 08:47 | Outpatient (REF) | payer MEDICARE, SELFPAY | LOC: WOUND 08:47 | PROVIDERS: ATTENDING PHYSICIAN Surgery; FAMILY PHYSICIAN Family Medicine | DX: L97.222 Non-pressure chronic ulcer of left calf with fat layer exposed (principal); I87.2 Venous insufficiency (chronic) (peripheral); I73.9 Peripheral vascular disease, unspecified; I48.91 Unspecified atrial fibrillation; I44.1 Atrioventricular block, second degree; I50.1 Left ventricular failure, unspecified | CPT/HCPCS: 11043; 11046 ==

== ENCOUNTER → 2024-07-21 08:56 | Outpatient (REF) | payer MEDICARE, SELFPAY | LOC: RAD 08:56 | PROVIDERS: ATTENDING PHYSICIAN Internal Medicine Hematology & Oncology; FAMILY PHYSICIAN Family Medicine | DX: C20 Malignant neoplasm of rectum (principal) | CPT/HCPCS: 78306; A9503 ==

== ENCOUNTER → 2024-07-21 10:11 | Outpatient (REF) | payer MEDICARE, SELFPAY | LOC: WOUND 10:11 | PROVIDERS: ATTENDING PHYSICIAN Surgery; FAMILY PHYSICIAN Family Medicine | DX: L97.222 Non-pressure chronic ulcer of left calf with fat layer exposed (principal); I87.2 Venous insufficiency (chronic) (peripheral); I73.9 Peripheral vascular disease, unspecified; E83.59 Other disorders of calcium metabolism; I48.91 Unspecified atrial fibrillation; I44.1 Atrioventricular block, second degree; I50.1 Left ventricular failure, unspecified | CPT/HCPCS: 88305; 11104; 11105; 99213 ==

== ENCOUNTER 2024-07-26 09:45 | Emergency (ER) | payer MEDICARE, SELFPAY ==
[2024-07-26 09:53] VITALS: BP 108/73
[2024-07-26 11:41] VITALS: BMI 27.7
[2024-07-26 12:00] VITALS: BP 93/64
[2024-07-26 12:00] LABS: % Basophils 0.9 % (0-2); % Eosinophils 3.1 % (0-6); % Immature Granulocytes 0.3 % (0-0.5); % Monocytes 11.3 % (1.7-9.3); % Neutrophils 70.4 % (42.2-75.2); Absolute Basophils 0.1 10^3/uL (0-0.2); Absolute Eosinophils 0.2 10^3/uL (0-0.7); Absolute Lymphocytes 0.8 10^3/uL (1.2-3.4); Absolute Monocytes 0.7 10^3/uL (0.1-0.6); Absolute Neutrophils 4.1 10^3/uL (1.4-6.5); Hematocrit 37.2 % (39.0-52.0); Hemoglobin 11.5 g/dL (13.0-18.0); Mean Corp Hgb Conc. 30.9 g/dL (33.0-37.0); Mean Corpuscular Hgb 25.9 pg (27.0-31.0); Mean Corpuscular Volume 83.8 fL (80.0-94.0); Mean Platelet Volume 10.4 fL (7.4-10.4); Nucleated Red Blood Cells % 0 % (-); Platelet Count 326 10^3/uL (130-400); Red Blood Cell Count 4.44 10^6/uL (4.70-6.10); Red Cell Dist. Width 15.9 % (11.5-14.5); White Blood Cell Count 5.9 10^3/uL (4.8-10.8)
--- NOTE | 2024-07-26 12:03 | ED.SKININJ ---
HPI-Injury
General
Chief Complaint: Skin Problem
Source: patient and spouse
Exam Limitations: none
Time Seen by Provider: 07/26/24 11:00
Nursing documentation reviewed up to this point in time: agreed with
History of Present Illness-Injury
Initial Injury comments:
84 yo male with hx of Afib on Eliquis, CHF, HTN, pacemaker, rectal and prostate CA, to have port inserted here tomorrow. to start chemotherapy in 2 days, chronic wounds LLE, followed by VN 3 x weekly, wound clinic, last visit 2 days ago, here for
worsening leg wounds, family state leg looks more red, foul odor. Pt is scheduled to see vascular doctor tomorrow.
Pt denies fever/chills/n/v.
Past History
Past History
ED Past Medical History: Arrthythmia (Atrial fibrillation), HTN, Hypothyroidism, Other (renal cyst) and Other (Sepsis January 2021)
ED Past Surgical History: Cardiac (pacemaker implantation December 2020)
Social History
Tobacco: Non-smoker
Alcohol: None
Drug: None
Personal:
Living: with family
Family History
Family History: Other (reviewed and noncontributory)
Review of Systems
Review of Systems
Allergies reviewed?: Yes
All Other Systems: ROS reviewed and negative except as documented in HPI and ROS
Constitutional: Denies fever or chills
Respiratory: Denies trouble breathing
Cardiac: Denies chest pain
ABD/GI: Denies abdominal pain or nausea
Musculoskeletal: Reports other (mild swelling, denies pain LLE)
Skin: Reports other (chronic wounds LLE)
Neurological: Reports no symptoms
Phy Exam
Physical Exam
Physical Exam:
GENERAL: No acute distress. A&Ox3.
CONSTITUTIONAL: Afebrile.
RESPIRATORY: Regular respirations, nonlabored, lungs clear.
CARDIOVASCULAR: Regular rate and rhythm, no murmurs, no rubs.
GI: Soft, nontender, normal BS
MUSCULOSKELETAL: LLE with chronic wounds, brawny/reddish brown color, calf non tender, pedal pulse 2/4, P/T pulse 1/4, foot warm, toes cool. Moves with ease. Well perfused.
SKIN: Warm, dry, pink
PSYCH: Normal mood and affect. Well kept, interactive and appropriate
NEUROLOGIC: Awake, alert and oriented. No focal neurological deficits
Course
Orders/Labs/Results
Orders:
Orders
07/26/24 11:40
Complete Blood Count/With Diff Urgent
Wound Culture [Wound/Abscess/Other Culture] Urgent
SAMMI Source: Leg
Specimen Description: Left
Date Specimen was Collected: 07/26/24
Time Specimen was Collected: 11:34
07/26/24 12:25
Comprehensive Metabolic Panel Urgent
Abnormal Lab Results
07/26/24 07/26/24
11:40 12:25
RBC 4.44 L 10^6/uL
(4.70-6.10)
Hgb 11.5 L g/dL
(13.0-18.0)
Hct 37.2 L %
(39.0-52.0)
MCH 25.9 L pg
(27.0-31.0)
MCHC 30.9 L g/dL
(33.0-37.0)
RDW 15.9 H %
(11.5-14.5)
Absolute Lymphs (auto) 0.8 L 10^3/uL
(1.2-3.4)
Absolute Monos (auto) 0.7 H 10^3/uL
(0.1-0.6)
Lymphocytes % 14.0 L %
(20.5-51.1)
Monocytes % 11.3 H %
(1.7-9.3)
Chloride 96 L mmol/L
(98-107)
Carbon Dioxide 33 H mmol/L
(22-30)
BUN 30 H mg/dl
(9-20)
Creatinine 1.4 H mg/dL
(0.7-1.3)
Glucose 120 H mg/dl
(70-99)
07/26/24 11:40
07/26/24 12:25
Vital Signs
Initial and Last Documented VS:
Initial Vital Signs
Temp Pulse Resp BP Pulse Ox
97.8 F 74 16 108/73 100
07/26/24 09:53 07/26/24 09:53 07/26/24 09:53 07/26/24 09:53 07/26/24 09:53
Last Documented Vital Signs
Temp Pulse Resp BP Pulse Ox
98.2 F 74 16 93/64 96
07/26/24 12:00 07/26/24 12:00 07/26/24 12:00 07/26/24 12:00 07/26/24 12:00
MDM/Problems Addressed
MDM/Problems Addressed:
84 yo male with hx of Afib on Eliquis, CHF, Hypothyroid, HTN, pacemaker, rectal and prostate CA, to have port inserted here tomorrow. to start chemotherapy in 2 days, chronic wounds LLE, followed by VN 3 x weekly, wound clinic, last visit 2 days
ago, here for worsening leg wounds, family state leg looks more red, foul odor. Pt is scheduled to see vascular doctor tomorrow.
Pt denies fever/chills/n/v.
AFebrile, NAD
CBC with no clinically significant abnormality
CMP
No calf tenderness, no warmth, Pt had neg US on 06/14/24, no indication to repeat.
No vascular compromise to foot. No significant swelling.
at bedside states 'it doesn't look bad now.' They were concerned that when he is hanging the leg down, it gets purple, daughter in law, a nurse said there was foul odor.
Reassured, pt afebrile, normal WBC, no significant foul odor noted, no indication for antibiotics at this time.
NAD, good distal circulation, no pain, no suspicion of DVT (on Eliquis), has appt. with vascular tomorrow
Labs unremarkable.
Stable for discharge. Pt and very comfortable going home
Instructed to keep leg elevated as much as possible.
Has Wound Care appt. Saturday.
*Critical Care Note
Total Time (30-74mins, 75-104mins- exclusive of procedures): Not Applicable
ED Attending Note
-
Portions of this chart may have been created with voice recognition software.� Occasional wrong word or��sound alike� substitutions may have occurred due to the inherent limitations of voice recognition software.
Discharge Plan
Departure
Patient Disposition: Home (Routine Discharge)
Date of Disposition: 07/26/24
Time of Disposition: 12:39
Patient with high blood pressure during this ER visit?: No
Condition: Good
Discharge Problem:
Wound of left lower extremity
Prescriptions:
No Action
ascorbic acid (vitamin C) [Vitamin C] 500 MG tablet
500 mg PO DAILY
Eliquis 5 MG tablet
5 mg PO BID
cholecalciferol (vitamin D3) 25 mcg (1,000 unit) Tablet
25 mcg PO DAILY
acetaminophen 325 mg Tablet
650 mg PO Q4HPRN PRN (Reason: fever>100.3/mild pain) Qty: 20 0RF
miconazole nitrate [Miconazorb AF] 2 % powder
1 applic topical BID
white petrolatum [Hydrophor] 42 % ointment
1 applic topical DAILY
bicalutamide 50 mg tablet
50 mg PO DAILY
cyanocobalamin (vitamin B-12) 1,000 MCG tablet
1,000 mcg PO DAILY
spironolactone 25 mg tablet
25 mg PO DAILY
levothyroxine 100 MCG tablet
100 mcg PO DAILY@0700
furosemide 20 mg tablet
60 mg PO DAILY
zinc sulfate 220 MG capsule
220 mg PO DAILY
melatonin 5 MG tablet
5 mg PO HS
dapagliflozin propanediol 10 mg tablet
10 mg PO DAILY
metoprolol succinate 50 MG tablet extended release 24 hr
25 mg PO BID Qty: 60 1RF
Santyl 250 unit/gram ointment
1 applic topical BID Qty: 90 1RF
Rx Instructions:
APPLY TO LEFT LOWER EXTREMITY WOUND PER WOUND CARE INSTRUCTIONS
tamsulosin 0.4 mg Capsule
0.4 mg PO DAILY Qty: 30 0RF
spironolactone [Aldactone] 25 mg tablet
25 mg PO DAILY Qty: 30 0RF
Referrals:
Vascular, Doctor [Other] - Tomorrow
Stephen Bingham MD [Family Provider] -
Activity Restrictions/Additional Instructions:
As we discussed, you blood work shows nothing worrisome.
There is no sign of infection, wound culture is pending.
No indication for antibiotics at this time.
No fever, WBC normal, no excessive drainage, good circulation to the foot (strong pedal pulse), no significant swelling, no significant discoloration.
Hanging your foot down will cause the purple discoloration. Keep foot elevated to the level of your heart as much as you can.
You are OK to go home and keep appointment with the Vascular doctor tomorrow.
Interventions
Interventions:
*Risk Screen - Suicide Last Done: 07/26/24 11:52
*General Assessment Last Done: 07/26/24 11:52
*Neglect/Abuse Screening Last Done: 07/26/24 11:52
ED- Fall Risk Assessment Last Done: 07/26/24 11:52
*ED COVID-19 Vaccine History Last Done: 07/26/24 11:52
*Nursing Disposition Last Done: 07/26/24 13:45
ED-Skin Assessment Last Done: 07/26/24 11:58
Discharge Date and Time
Discharge Date/Time: 07/26/24 13:46
Print Language: ARGENTINE
[2024-07-26 12:55] LABS: ALT (SGPT) 15 U/L (0-50); AST (SGOT) 17 U/L (17-59); Albumin 3.8 g/dl (3.5-5.0); Alkaline Phosphatase 98 U/L (38-126); Blood Urea Nitrogen 30 mg/dl (9-20); Calcium 9.3 mg/dl (8.4-10.2); Carbon Dioxide 33 mmol/L (22-30); Chloride 96 mmol/L (98-107); Estimated Creatinine Clearance 39 ml/min; Glucose 120 mg/dl (70-99); Potassium 4.5 mmol/L (3.5-5.1); Sodium 138 mmol/L (135-145); Total Bilirubin 0.9 mg/dl (0.2-1.3); Total Protein 6.5 g/dl (6.3-8.2); eGFR 49.87
== END 2024-07-26 13:46 | disposition home or self-care (01) ==
LOC: EMR 09:45
PROVIDERS: Registered Nurse; EMERGENCY PHYSICIAN Student in an Organized Health Care Education/Training Program; FAMILY PHYSICIAN Family Medicine
DX: S81.802A Unspecified open wound, left lower leg, initial encounter (principal); X58.XXXA Exposure to other specified factors, initial encounter; C61 Malignant neoplasm of prostate; C20 Malignant neoplasm of rectum; I11.0 Hypertensive heart disease with heart failure; I50.9 Heart failure, unspecified; I48.91 Unspecified atrial fibrillation; Z79.01 Long term (current) use of anticoagulants; Z95.0 Presence of cardiac pacemaker; E03.9 Hypothyroidism, unspecified
CPT/HCPCS: 99283; 80053; 85025; 87070; 87205

== ENCOUNTER 2024-07-27 17:53 | Inpatient (IN) | payer MEDICARE, SELFPAY ==
[2024-07-27 14:15] VITALS: BP 102/63
--- NOTE | 2024-07-27 14:26 | ED.SKININJ ---
HPI-Injury
General
Chief Complaint: Skin Problem
Source: patient and family
Exam Limitations: none
Time Seen by Provider: 07/27/24 14:28
Nursing documentation reviewed up to this point in time: agreed with
History of Present Illness-Injury
Initial Injury comments:
84 yo male with hx of Afib on , CHF, HTN, pacemaker, rectal and prostate CA, evaluated here yesterday for worsening chronic LLE wounds, pt denies fever/chills. Family had reported worsening swelling, foul odor, purple color to foot. Labs were
unremarkable, pt was afebrile, calf was nontender, and pt agreed leg didn't 'look bad' (it does get purple when it hangs down for a period). There was no significant foul odor yesterday. Pt was stable for discharge as he had appointment with
vascular today.
Sent in by Vascular who texts: Worsening lower extremity wounds with purulent drainage and odor. Plan for us it to admit to hospitalist service and consult vascular. Vascular service notified. Needs Iv abx as well as non invasive peripheral
arterial duplex with KYLAH/TBI today/tomorrow. Plan for wound debridement sat/....on
Past History
Past History
ED Past Medical History: Arrthythmia (Atrial fibrillation), HTN, Hypothyroidism, Other (renal cyst) and Other (Sepsis January 2021)
ED Past Surgical History: Cardiac (pacemaker implantation December 2020)
Social History
Tobacco: Non-smoker
Alcohol: None
Drug: None
Personal:
Living: with family
Family History
Family History: Other (reviewed and noncontributory)
Review of Systems
Review of Systems
Allergies reviewed?: Yes
All Other Systems: ROS reviewed and negative except as documented in HPI and ROS
Constitutional: Denies fever or chills
Respiratory: Denies trouble breathing
Cardiac: Denies chest pain
ABD/GI: Denies abdominal pain, nausea or vomiting
: Denies dysuria
Musculoskeletal: Reports other
Skin: Reports other (chronic wounds LLE)
Neurological: Reports no symptoms
Phy Exam
Physical Exam
Physical Exam:
GENERAL: No acute distress. A&Ox3.
CONSTITUTIONAL: Afebrile.
EYES: clear, conjunctivae normal
ENMT: moist mucus membranes, Pharynx nl
RESPIRATORY: Regular respirations, nonlabored, lungs clear.
CARDIOVASCULAR: Regular rate and rhythm, no murmurs, no rubs.
GI: Soft, nontender, normal BS
MUSCULOSKELETAL: LLE with chronic wounds, brawny/reddish brown color, calf non tender, pedal pulse 2/4, P/T pulse 1/4, foot warm, toes cool. Moves with ease. Pedal pulse 2/4, foot warm. Well perfused.
SKIN: Warm, dry, pink.
PSYCH: Normal mood and affect. Well kept, interactive and appropriate
NEUROLOGIC: Awake, alert and oriented. No focal neurological deficits
Course
Orders/Labs/Results
Orders:
Orders
07/27/24 14:38
Perip Venous LOWER Ext LT Urgent
Comment:
Reason For Exam: chronic wounds, swelling LLE
07/27/24 14:39
Complete Blood Count/With Diff Urgent
Comprehensive Metabolic Panel Urgent
PT/INR [Prothrombin Time] Urgent
07/27/24 14:40
Piperacillin/Tazo 3.375 Gram [Zosyn] 3.375 gram in 50 ml IV NOW
07/27/24 16:26
Vascular Surgery Consult Urgent
Consulting Provider: Julio Hodges III
Was physician already notified: Yes
Reason for consult: wounds LLE
07/27/24 16:29
Vancomycin [Vancocin] 2,000 mg 0.9% Sodium Chloride 500 ml [Nss] 500 ml IV NOW
07/27/24 17:02
Lower Ext Arterial & KYLAH US [US Periph Art LOWER Ext w KYLAH] Urgent
Comment: and TBI
Reason For Exam: LE wound
07/27/24 17:03
US KYLAH/TBI Only Stat
Comment:
Reason For Exam: LE wound
07/27/24 17:04
Admit/Transfer Patient As Directed
Co-Sign Provider:
Level of Care: Inpatient admission
Assign to:: Telemetry
Physician / Group: janie
Diagnosis: LE wound
Reason for Telemetry: Arrhythmia
Date to Stop Telemetry: 07/30/24
Time to Stop Telemetry: 11:00
Reason for Hospitalization: LE wound
Expected length of stay greater than two midnights?: Yes
ELOS- Estimated Length of Stay in days: 3
I certify the patient meets the requirements for IP care: Yes
INFECTIOUS DISEASE CONSULT Routine
Consulting Provider: Cassidy Daly
Was physician already notified: Yes
07/27/24 17:05
PRN Pain Medication Management As Directed
May give lesser potent ordered pain med per pt: Yes
preference::
Protocol:: Medication orders for pain may be administered in a
manner that supports deferring to patient preference
when the pt is:
- Requesting an ordered lesser potent pain medication.
Least to most potent pain medications are defined
as: acetaminophen < NSAID < tramadol < opioids
(morphine, oxycodone, hydromorphone).
- Requesting a lesser dose of the same medication IF
ORDERED.
- Requesting a less intrusive route of administration
if both routes are prescribed by the provider (PO <
IV).
07/27/24 17:07
Code Status As Directed
Resuscitation Status: Full Code
07/30/24 11:00
DC Protocol for Telemetry ONCE
Abnormal Lab Results
07/27/24
14:39
RBC 4.63 L 10^6/uL
(4.70-6.10)
Hgb 12.0 L g/dL
(13.0-18.0)
MCH 25.9 L pg
(27.0-31.0)
MCHC 30.6 L g/dL
(33.0-37.0)
RDW 15.9 H %
(11.5-14.5)
Absolute Lymphs (auto) 1.1 L 10^3/uL
(1.2-3.4)
Absolute Monos (auto) 0.8 H 10^3/uL
(0.1-0.6)
Immature Gran % 0.6 H %
(0-0.5)
Lymphocytes % 16.1 L %
(20.5-51.1)
Monocytes % 11.3 H %
(1.7-9.3)
PT 17.2 H Sec
(11.4-14.6)
Chloride 93 L mmol/L
(98-107)
Carbon Dioxide 31 H mmol/L
(22-30)
BUN 32 H mg/dl
(9-20)
Creatinine 1.4 H mg/dL
(0.7-1.3)
Glucose 130 H mg/dl
(70-99)
07/27/24 14:39
07/27/24 14:39
Vital Signs
Initial and Last Documented VS:
Initial Vital Signs
Temp Pulse BP Pulse Ox
98.1 F 72 102/63 98
07/27/24 14:15 07/27/24 14:15 07/27/24 14:15 07/27/24 14:15
Last Documented Vital Signs
Temp Pulse BP Pulse Ox
98.1 F 72 102/63 98
07/27/24 14:15 07/27/24 14:15 07/27/24 14:15 07/27/24 14:15
MDM/Problems Addressed
MDM/Problems Addressed:
84 yo male with hx of Afib on , CHF, HTN, pacemaker, rectal and prostate CA, evaluated here yesterday for worsening chronic LLE wounds, pt denies fever/chills. Family had reported worsening swelling, foul odor, purple color to foot. Labs were
unremarkable, pt was afebrile, calf was nontender, and pt agreed leg didn't 'look bad' (it does get purple when it hangs down for a period). There was no significant foul odor yesterday. Pt was stable for discharge as he had appointment with
vascular today.
Sent in by Vascular who texts: Worsening lower extremity wounds with purulent drainage and odor. Plan for us it to admit to hospitalist service and consult vascular. Vascular service notified. Needs Iv abx as well as non invasive peripheral
arterial duplex with KYLAH/TBI today/tomorrow. Plan for wound debridement sat/....on
Afebrile, NAD
4:30 p.m.
Labs are unremarkable no change from yesterday
patient just returned from ultrasound, result pending
hospitalist notified of admission
Dr. Hodges notified and consult for Vascular in.
*Critical Care Note
Total Time (30-74mins, 75-104mins- exclusive of procedures): Not Applicable
ED Attending Note
-
Portions of this chart may have been created with voice recognition software.� Occasional wrong word or��sound alike� substitutions may have occurred due to the inherent limitations of voice recognition software.
Discharge Plan
Departure
Patient Disposition: Admit
Date of Disposition: 07/27/24
Time of Disposition: 16:24
Admit to: Med/Surg
Presentation/result/management discussed w/ accepting MD/DO: Hospitalist
Condition: Fair
Discharge Problem:
Open leg wound
Interventions
Interventions:
*Risk Screen - Suicide Last Done: 07/27/24 14:27
*Neglect/Abuse Screening Last Done: 07/27/24 14:27
ED- Fall Risk Assessment Last Done: 07/27/24 15:56
ED-Skin Assessment Last Done: 07/27/24 15:56
--- NOTE | 2024-07-27 14:27 | W.PN.UPDATE ---
Update Note
Progress Note Update
Vascular consult: Office note today below
Plan:
-Admit to hospitalist
-IV antibiotics
-Wound care
-Arterial US/KYLAH/TBI
-Plan for debridement Saturday or
[2024-07-27 14:52] LABS: % Basophils 0.6 % (0-2); % Eosinophils 2.5 % (0-6); % Immature Granulocytes 0.6 % (0-0.5); % Lymphocytes 16.1 % (20.5-51.1); % Monocytes 11.3 % (1.7-9.3); % Neutrophils 68.9 % (42.2-75.2); Absolute Eosinophils 0.2 10^3/uL (0-0.7); Absolute Lymphocytes 1.1 10^3/uL (1.2-3.4); Absolute Monocytes 0.8 10^3/uL (0.1-0.6); Absolute Neutrophils 4.6 10^3/uL (1.4-6.5); Hematocrit 39.2 % (39.0-52.0); Mean Corp Hgb Conc. 30.6 g/dL (33.0-37.0); Mean Corpuscular Hgb 25.9 pg (27.0-31.0); Mean Corpuscular Volume 84.7 fL (80.0-94.0); Mean Platelet Volume 9.9 fL (7.4-10.4); Nucleated Red Blood Cells % 0 % (-); Platelet Count 335 10^3/uL (130-400); Red Blood Cell Count 4.63 10^6/uL (4.70-6.10); Red Cell Dist. Width 15.9 % (11.5-14.5); White Blood Cell Count 6.7 10^3/uL (4.8-10.8)
[2024-07-27 14:59] LABS: INR 1.38; PT 17.2 Sec (11.4-14.6)
[2024-07-27 15:04] LABS: ALT (SGPT) 15 U/L (0-50); AST (SGOT) 19 U/L (17-59); Albumin 4.2 g/dl (3.5-5.0); Alkaline Phosphatase 107 U/L (38-126); Blood Urea Nitrogen 32 mg/dl (9-20); Calcium 9.3 mg/dl (8.4-10.2); Carbon Dioxide 31 mmol/L (22-30); Chloride 93 mmol/L (98-107); Glucose 130 mg/dl (70-99); Potassium 4.1 mmol/L (3.5-5.1); Sodium 135 mmol/L (135-145); Total Bilirubin 0.6 mg/dl (0.2-1.3); eGFR 49.87
[2024-07-27] MEDS: ZOSYN 50 IV ×2 (15:52→22:32)
[2024-07-27 16:27] VITALS: BMI 26.6
--- NOTE | 2024-07-27 16:34 | HPS.HSE ---
Addendum entered and electronically signed by Evangelina Llamas MD 07/27/24 17:58:
see update note for addendum
Original Note:
Family Physician
-
Family Physician: Blaise Dennis
Chief Complaint
-
left LE wound
History of Present Illness
84-year-old with past medical history for A-fib, hypertension, rectal and prostate cancer presented to us with worsening left lower extremities wound. Patient was noted to have left lower extremities edema and blisters back in May. The
blisters busted and turned to wound. he was admitted here in June for worsening wound. the debridement were performed on wound at that time. he was followed by wound care and vascular as outpatient. noted worsening purulence and malodor. he was
evaluated by ER last night and Vascular as outpatient today. he was sent in by vascular. patient denied fever, chills chest pain, sob. denied KRISHNAMURTHY,dizzy or syncope. denied abdominal pain,n,v,d. denied dysuria or hematuria.
Patient was admitted for debridement on Saturday or initiated on Vanco and Zosyn. Arterial ultrasound/KYLAH TBI ordered by vascular. Admitting for further management
Medical History
Past Medical History
Past Medical History: Reports Other
Additional Past Medical History:
Hypertension
A-fib
Hypothyroidism
Hyperlipidemia secondary
Obstructive disease
chf
Past Surgical History: Reports Other
Additional Past Surgical History:
Pacemaker
Social History
Tobacco: Non-smoker
Alcohol: Former
Drug: None
Personal:
Living: With Family
Family History
Family History: Not pertinent
Allergies / Home Medications
Allergies reflects when Allergies were last updated in [facility].
Home Medications with original date entered in [facility]
Allergy/Medication List:
Allergies
Allergy/AdvReac Type Severity Reaction Status Date / Time
unknown antibiotic Allergy confusion Uncoded 07/27/24 14:31
Home Medications
ascorbic acid (vitamin C) 500 mg tablet (Vitamin C) 500 mg PO DAILY Supplement 01/06/21
apixaban 5 mg tablet (Eliquis) 5 mg PO BID Blood clot prevention/tx 03/21/21
cholecalciferol (vitamin D3) 25 mcg (1,000 unit) tablet 25 mcg PO DAILY Supplement 06/13/24
bicalutamide 50 mg tablet 50 mg PO DAILY Cancer 06/30/24
cyanocobalamin (vitamin B-12) 1,000 mcg tablet 1,000 mcg PO DAILY Supplement 06/30/24
dapagliflozin propanediol 10 mg tablet 10 mg PO DAILY Heart Failure 06/30/24
furosemide 20 mg tablet 60 mg PO DAILY Fluid Retention/Swelling 06/30/24
levothyroxine 100 mcg tablet 100 mcg PO DAILY@0700 Thyroid 06/30/24
melatonin 5 mg tablet 5 mg PO HS sleep 06/30/24
spironolactone 25 mg tablet 25 mg PO DAILY heart failure/BP 06/30/24
zinc sulfate 50 mg zinc (220 mg) capsule 220 mg PO DAILY Supplement 06/30/24
collagenase clostridium histo. 250 unit/gram topical ointment (Santyl) 1 applic topical BID #90 grams 07/04/24
metoprolol succinate 50 mg tablet,extended release 24 hr 25 mg (1/2 x 50 mg) PO BID Blood Pressure #60 tabs 07/04/24
tamsulosin 0.4 mg capsule 0.4 mg PO DAILY #30 caps 07/09/24
Review of Systems
-
Constitutional: Reports No Symptoms
EENT: Reports No Symptoms
Respiratory: Reports No Symptoms
Cardiac: Reports No Symptoms
Abdomen/GI: Reports No Symptoms
: Reports No Symptoms
Musculoskeletal: Reports No Symptoms
Skin: Reports Other (Left lower extremity wound)
Neurological: Reports No Symptoms
Endocrine: Reports No Symptoms
Hematologic/Lymphatic: Reports No Symptoms
Psych: Reports No Symptoms
Physical Exam
Vital Signs
Vital Signs
Temp Pulse BP Pulse Ox
98.1 F 72 102/63 98
07/27/24 14:15 07/27/24 14:15 07/27/24 14:15 07/27/24 14:15
Physical Exam
General: Well Developed, Well Nourished and No Apparent Distress
HEENT: NormoCephalic, Moist mucous membranes and Atraumatic
Respiratory: Clear
Cardiac: S1/S2 and Regular Rhythm; No Murmur or Rub
GI: Soft, Non Tender, Non Distended and Normal Bowel Sounds; No Organomegaly
Rectal: Deferred by Provider
Musculoskeletal: No Clubbing, No Cyanosis and No Edema
Skin: Other (Lower lower extremities with chronic wounds, radiation from collar, malodor)
Neuro: AO x 3 and Nonfocal/grossly intact
Psych: Calm
Laboratory Results
-
07/27/24 14:39
07/27/24 14:39
Laboratory Results
PT 17.2 Sec (11.4-14.6) H 07/27/24 14:39
INR 1.38 07/27/24 14:39
Total Bilirubin 0.6 mg/dl (0.2-1.3) 07/27/24 14:39
AST 19 U/L (17-59) 07/27/24 14:39
ALT 15 U/L (0-50) 07/27/24 14:39
Alkaline Phosphatase 107 U/L (38-126) 07/27/24 14:39
Data Reviewed
-
Lab Data: Labs Reviewed by me
Impression/Plan
-
# Worsening lower extremities wound wounds with purulent drainage and odor
-Vascular consulted
-Peripheral artery duplex with KYLAH/TBI
-Plan for wound debridement Saturday or
-Hold Eliquis
-Infectious disease consulted
-IV Zosyn and Vanco continued
# Acute kidney injury
-Creatinine 1.4
-ctm
# Rectal and prostate cancer
-Supposed to start on chemo and radiation
-Follows Dr. Knapp pain
-On bicalutamide as outpatient
#Chronic HF
-Patient not in acute exacerbation
-Continue spironolactone
-Continue Lasix 60 mg PO daily
-Continue dapagliflozin
-fluid restriction/education
#Permanent atrial fibrillation
-Hold Eliquis
-Metoprolol continued with hold parameters
#AV block status post pacemaker
#Essential hypertension
-Metoprolol continued
#Hypothyroidism
-Continue levothyroxine
Code Status: Full code
#DVT prophylaxis
-SCDs
[2024-07-27] MEDS: VANCOCIN 540 MG IV (17:09)
--- NOTE | 2024-07-27 17:58 | W.PN.UPDATE ---
Update Note
Progress Note Update
I saw and examined the patient.
The SUSTAINABILITY EXECUTIVE DIRECTOR or PA's note was reviewed and I agree with the note.
Comment: 84 y/o M, hx of Afib, HTN, Rectal/prostate cancer presented to ER with worsening LLE wounds. He was admitted in June and completed a course of antibiotics and debridement was performed. He was evaluated by wound care/vascular today and
wounds were felt to be worsening with odor and purulence. patient was asked to come to ER for admission. Denies any complaints at present.
Physical Exam
General: Well Developed, Well Nourished and No Apparent Distress
HEENT: Normocephalic, Moist mucous membranes and Atraumatic
Respiratory: Clear
Cardiac: S1/S2 and Regular Rhythm; No Murmur or Rub
GI: Soft, Non Tender, Non Distended and Normal Bowel Sounds; No Organomegaly
Rectal: Deferred by Provider
Musculoskeletal: No Clubbing, No Cyanosis and No Edema
Skin: Other (Lower lower extremities with chronic wounds, radiation from collar, malodor)
Neuro: AO x 3 and Nonfocal/grossly intact
Psych: Calm
Assessment:
LLE wound with acute infection
- ID and Vascular consults
- wound care consults
- KYLAH/TBI ordered
- holding Eliquis in preparation for debridement Saturday or
- continue Vanco/Zosyn, day 1
ZULEIKA
- monitor Cr
- IVF if Cr rises further in AM
- holding Lasix
Rectal and prostate cancer
- supposed to start on chemo and radiation; deferred due to wounds
- on bicalutamide as outpatient
Chronic HFmEF
- Patient not in acute exacerbation
- continue spironolactone
- hold Lasix 60 mg PO daily
- continue dapagliflozin
- fluid restriction, monitor I/Os, weights
Permanent atrial fibrillation
- hold Eliquis
- Metoprolol continued with hold parameters
AV block status post pacemaker
Essential hypertension
- Metoprolol continued
Hypothyroidism
- continue levothyroxine
Code Status: Full code
DVT ppx: SCDs
[2024-07-27 19:18] VITALS: BP 111/69
[2024-07-27 20:58] VITALS: BP 90/60
[2024-07-27] MEDS: TOPROL XL PO (21:00)
--- NOTE | 2024-07-27 21:14 | PHA.VAN.IN ---
Addendum entered and electronically signed by Jaci Navarro RPH 07/28/24 10:16:
Note: Vanc 750mg Q12H provided the following patient-specific PK in May 2024
Extrapolated Cmax (mcg/mL): 24 (Peak level was drawn: Appropriately)
Extrapolated Cmin (mcg/mL): 13 (Trough Drawn: Appropriately
Levels were drawn: At steady state
Calculated AUC (mcg*h/mL): 434
Calculated ke: 0.0523
Calculated half life (H): 13.2
Calculated Vd (L): 66
Calculated Vanc CL (ml/min): 57.6
Vanc was adjusted to Vanc 1250mg Q24H based on half-life and potential for accumulation. No levels were drawn on this regimen.
Original Note:
Assessment
- Assessment
Renal Function: Appears elevated from baseline (01/17/21 BASELINE SCR: 1.1)
Concomitant Antimicrobials: ZOSYN
- Previous Dosing Experience
Previous Regimen: 1500MG IV Q24H
Date of Regimen: 01/07/21
Provided Trough of: 12.2 PREDICTED
Provided AUC of: 552 PREDICTED
Patient's SCR is: Elevated compared to previous dosing experience (01/07/21 SCR = 1.2)
Patient's weight is: Decreased compared to previous dosing experience (01/07/21 WT = 95.1 KG)
Plan
- Plan
Initial / Loading Dose: 2GM
Maintenance Regimen: DOSING BY RANDOM LEVELS
Monitoring: RANDOM VANCOMYCIN LEVEL 07/28/24 AM
Pharmacokinetics Vancomycin I
- -
Patient Age: 84
Patient Sex: Male
Vancomycin Day #: 1
Indication: Skin And Soft Tissue (LLE WOUND)
Requesting Provider: VANESSA
Height / Weight:
Height 5 ft 8 in
Actual Weight 79.379 kg
Pertinent Past Medical History: RECTAL AND PROSTATE CA
- Vital Signs / Lab Results
Temp Pulse Resp BP Pulse Ox
98.1 F 85 18 90/60 95
07/27/24 14:15 07/27/24 21:00 07/27/24 20:58 07/27/24 21:00 07/27/24 20:58
Lab Results - Hematology
07/27/24
14:39
WBC 6.7
Lab Results - Chemistry
07/27/24
14:39
BUN 32 H
Creatinine 1.4 H
Albumin 4.2
[2024-07-27 21:30] VITALS: BP 92/62
[2024-07-27 21:51] VITALS: BMI 27.1
[2024-07-27 22:02] VITALS: BP 102/67
[2024-07-27 22:03] VITALS: BMI 27.1
[2024-07-27 22:22] VITALS: BMI 27.1
[2024-07-27] MEDS: MELATONIN 5 MG PO (22:31)
[2024-07-27 23:14] VITALS: BP 91/62
[2024-07-28] VITALS (7 sets, daily range): BP systolic 92–103; BP diastolic 59–66; PULSE 85; BMI 27.0
[2024-07-28] MEDS: ZOSYN 50 IV ×2 (03:40→08:56)
[2024-07-28] MEDS: SYNTHROID 100 MCG PO (06:19)
[2024-07-28 08:16] LABS: Hematocrit 37.3 % (39.0-52.0); Hemoglobin 11.4 g/dL (13.0-18.0); Mean Corp Hgb Conc. 30.6 g/dL (33.0-37.0); Mean Corpuscular Hgb 25.8 pg (27.0-31.0); Mean Corpuscular Volume 84.4 fL (80.0-94.0); Mean Platelet Volume 10.6 fL (7.4-10.4); Platelet Count 300 10^3/uL (130-400); Red Blood Cell Count 4.42 10^6/uL (4.70-6.10); Red Cell Dist. Width 15.9 % (11.5-14.5); White Blood Cell Count 6.8 10^3/uL (4.8-10.8)
[2024-07-28 08:29] LABS: Blood Urea Nitrogen 31 mg/dl (9-20); Carbon Dioxide 29 mmol/L (22-30); Chloride 96 mmol/L (98-107); Estimated Creatinine Clearance 36 ml/min; Glucose 99 mg/dl (70-99); Potassium 4.6 mmol/L (3.5-5.1); Sodium 136 mmol/L (135-145); eGFR 45.91
--- NOTE | 2024-07-28 08:35 | VNURNOTE ---
Chart reviewed. Patient is current with [facility] nursing. Will continue to follow hospital course and DC plans.
[2024-07-28] MEDS: FARXIGA 10 MG PO (08:50)
[2024-07-28] MEDS: ALDACTONE 25 MG PO (08:50)
[2024-07-28] MEDS: FLOMAX 0.4 MG PO (08:50)
[2024-07-28] MEDS: CASODEX 50 MG PO (08:51)
[2024-07-28] MEDS: DAKIN'S SOLUTION 0.125% 1/4 STRENGTH 1 ML TOPICAL (08:51)
[2024-07-28] MEDS: TOPROL XL PO ×2 (08:51→20:19)
--- NOTE | 2024-07-28 09:41 | WOUNDNOTE ---
CAMMIE RN note: Patient admitted with cellulitis of L leg wound.
See H&P for complete history.
PMH: a fib (Eliquis), pacer, HTN, L leg wound, I&D of L leg wound, follows vascular and [facility].
Wound Location and type/assessment: Patient known to service, last seen 07/09/24 for same L leg surgical wound, debrided last admission. Wound started out as a leg blister patient reports. Ambulates at home using walker. Today L leg with sanchez and
mayfield slough, redness and induration surrounding, foul odor. + palpable pedal pulse, heels intact. Reviewed vascular note, for debridement in next few days, patient was on Eliquis. Patient turned self in bed, using depends, Sacrum intact. Pillow
under calves and L leg elevated. Ultrasound negative for DVT, KYLAH on order.
Appetite: Good.
Pressure redistribution devices in place: Accumax, pillows under calves. Pressure ulcer prevention measures reviewed with patient, he states understanding.
Plan: L leg wound care dressing done by nurse Cesario this AM, assessed under dressing. Lisa's WTD order obtained from WILFR[facility] Kelley this morning, for reported odor.
Care plan to be updated and will follow along with surgery and update wound care as needed.
Note to case management of equipment requested for discharge: wound care.
Recommend follow up at wound care center upon discharge.
--- NOTE | 2024-07-28 10:11 | CON.ID ---
Consultation
-
Date/Time Consultation Requested: July 27, 2024 1704
Date/Time Consultation Performed: July 28, 2024 1011
Requesting Provider: Dr. Evangelina Llamas
Performing Provider: Dr. Cassidy Daly
Reason for Consultation: Leg wounds
Chief Complaint / Past History
Chief Complaint
Worsening Left leg wounds
History of Present Illness
84 year old male with hx Afib, HFpEF, PPM who was recently hospitalized 06/13 to 06/25 when he presented with heart failure, LE edema, respiratory failure-hypoxemic and hypercapnic, hypertensive urgency. Pt also with GIB; CT a/p with incidental
finding of rectal mass which was biopsied and showed adenocarcinoma. During hospital stay, ID was consulted for severe LLE cellulitis. He had blisters on LLE which drained leaving wounds. Cellulitis was slow to improve and therefore abx changed to
IV daptomycin. However, daptomycin was too costly for [facility] acceptance and therefore replaced with linezolid. He was discharged to SNF 06/25. Readmitted 06/30 to 07/09 LLE wound necrosis s/p bedside debridement; He completed linezolid in
the hospital.
Patient has been going to [facility]. Last week, the wound had increased malodor and erythema. He presented to ED 07/26 and discharged to home. He was referred to Vascular. However, wound continued to deteriorate with purulent drainage and slough. He came
back to ED 07/27 and admitted. He is started on Vancomycin and Zosyn. Seen by Vascular who ordered arterial duplex. He is currently on vancomycin and Zosyn. He denies any fevers chills or sweats. No nausea vomiting or diarrhea. He is supposed
to start chemotherapy today for rectal adenocarcinoma, but it is canceled due to ongoing issue with the chronic left leg wounds. He may undergo radiation first before chemotherapy.
Past History
Additional Past Medical History:
rectal cancer dx 05/2024, not on tx yet.
A-fib
HTN
HFpEF
AV block s/p PPM
Hypothyroidism
Renal cyst
BPH
hx prostate CA
Additional Past Surgical History:
PPM
Allergy History:
unknown antibiotic Allergy (Uncoded 07/27/24 14:31)
confusion
Medications Reviewed: Yes
Current Antibiotics:
Vancomycin
Zosyn
Social History
Tobacco: Non-Smoker
Alcohol: None
Drug: None
Personal:
Living: With Family
Employment: Retired
Family History
Family History: Not Pertinent
Review of Systems
Review of Systems
General: Negative Fever, Chills or Change in Appetite
HEENT: Negative Sinus Problems or Headache
Respiratory: Negative Dyspnea or Cough
Gasteroenterology: Negative Nausea, Vomiting or Diarrhea
Genital / Urological: Negative Dysuria or Flank Pain
Endocrine: Negative Weakness
Skin / Hair / Nails: Negative Rash
Neurological: Negative Dizziness
Vital Signs
Temp Pulse Resp BP Pulse Ox
97.8 F 95 18 92/61 98
07/28/24 07:35 07/28/24 07:35 07/28/24 07:35 07/28/24 07:35 07/28/24 07:35
Physical Exam
Physical Exam
Constitutional: No Acute Distress and Comfortable
Eyes: No Conjunctival Hemorrhage and Sclera Anicteric
Cardiovascular: Regular Rate, S1/S2 and Other (PPM site no eythema, induration)
Pulmonary: Clear
Gastrointestinal: Soft, Non Tender, Non Distended and Normal Bowel Sounds
Extremities: Edema (LLE 1+ edema)
Wound: Other (Reviewed today's wound photos: LLE anterior 2 large crater wounds with wet greenish slough, malodorous, + surrounding erythema. )
Neurological: AO x 3
Lab / Diagnostic Study Results
07/28/24 06:38
07/28/24 06:38
Abs Immat Gran (auto) 0.0 10^3/uL (0-0.05) 07/27/24 14:39
Absolute Neuts (auto) 4.6 10^3/uL (1.4-6.5) 07/27/24 14:39
Absolute Lymphs (auto) 1.1 10^3/uL (1.2-3.4) L 07/27/24 14:39
Absolute Monos (auto) 0.8 10^3/uL (0.1-0.6) H 07/27/24 14:39
Absolute Basos (auto) 0.0 10^3/uL (0-0.2) 07/27/24 14:39
Immature Gran % 0.6 % (0-0.5) H 07/27/24 14:39
Neutrophils % 68.9 % (42.2-75.2) 07/27/24 14:39
Lymphocytes % 16.1 % (20.5-51.1) L 07/27/24 14:39
Monocytes % 11.3 % (1.7-9.3) H 07/27/24 14:39
Eosinophils % 2.5 % (0-6) 07/27/24 14:39
Basophils % 0.6 % (0-2) 07/27/24 14:39
PT 17.2 Sec (11.4-14.6) H 07/27/24 14:39
INR 1.38 07/27/24 14:39
Microbiology Results
Micro:
07/27/24 22:29 MRSA Screen - Pending
Nose
07/27/24 peripheral vascular US: no DVT
Assessment / Plan
# Left lower extremity chronic wounds with acute infection
- hx Pseudomonas and ESBL-Kleb from wound.
- For PAD work-up.
- For OR debridement - please obtain deep cultures.
-DC Vanco, Zosyn.
-Start meropenem.
# Recent dx of rectal cancer.
-Chemo postponed due to chronic nonhealing leg wounds.
# Conditions prior to admission
rectal cancer dx 05/2024, not on tx yet.
A-fib
HTN
HFpEF
AV block s/p PPM
Hypothyroidism
Renal cyst
BPH
hx prostate CA
--- NOTE | 2024-07-28 10:13 | PHA.VAN.FU ---
Vancomycin Assessment / Plan
- Assessment
Renal Function: Stable
WBC's are: WNL
In the past 24 hrs, patient has been: Afebrile
Concomitant Antimicrobials: piperacillin/tazobactam
- Assessment - Therapeutic Drug Monitoring
Random Level: 16 - drawn ~13.5H after 2g loading dose
- Dosing Plan
Dosing by Level: Re-dose today (Vanc 1000mg)
- Monitoring Plan
Random Level: 07/29 600
- Follow Up
Pharmacy will continue to follow.
Vancomycin Follow UP
- -
Patient Age: 84
Patient Sex: Male
Vancomycin Day #: 2
Indication: Skin And Soft Tissue
Requesting Provider: Tyesha Nassar
Pertinent Antimicrobial Allergies:
unknown antibiotic - confusion
Height / Weight:
Height 5 ft 8 in
Actual Weight 80.513 kg
Pertinent Past Medical History: rectal and prostate cancer
- Vital Signs / Lab Results
Temp Pulse Resp BP Pulse Ox
97.8 F 95 18 92/61 98
07/28/24 07:35 07/28/24 07:35 07/28/24 07:35 07/28/24 07:35 07/28/24 07:35
Lab Results - Hematology
07/27/24 07/28/24
14:39 06:38
WBC 6.7 6.8
Lab Results - Chemistry
07/27/24 07/28/24
14:39 06:38
BUN 32 H 31 H
Creatinine 1.4 H 1.5 H
Estimated Creat Clear 36
Albumin 4.2
Therapeutic Drug Monitoring
Random Vancomycin 16.0 ug/ml 07/28/24 06:38
--- NOTE | 2024-07-28 11:55 | CM ---
Reviewed the chart notes and spoke with the patient at the bedside. The patient resides with his spouse in a two story home with no steps to enter. The patient's master bedroom and full bath are located on the first level. The patient reports DME
in the home includes: CPAP, shower chair, shower rails, and rolling walker. The patient is current with [facility] services. The patient confirmed his pharmacy of choice is the [facility]. Patient reports recent diagnosis of rectal and
prostate cancer. Per patient, once the leg wound is no longer infected he will begin radiation treatment then chemo. CM continues to be available to patient/family and is monitoring medical plan for needs at discharge.
Plan: Discharge plans will depend on the patient's progress.
[2024-07-28] MEDS: MERREM 500 MG IV ×2 (13:13→21:17)
--- NOTE | 2024-07-28 13:27 | W.PN.HOSP.TC ---
Today's Communication/Plan
-
NPO p MN for debridement
IVF overnight
continue IV abx
Assessment / Plan
Assessment / Plan
Assessment:
LLE wound (chronic) with acute infection
- KYLAH/TBI ordered
- Vascular following, for operative debridement (Eliquis held)
- continue Meropenem per ID and awaiting operative cultures (deep requested)
ZULEIKA
- monitor Cr
- holding Lasix
- 1 bag IVF overnight - gentle rate
Rectal and prostate cancer
- supposed to start on chemo and radiation; deferred due to wounds
- on bicalutamide as outpatient
Chronic HFmEF
- Patient not in acute exacerbation
- continue spironolactone
- hold Lasix 60 mg PO daily
- continue dapagliflozin
- fluid restriction, monitor I/Os, weights
Permanent atrial fibrillation
- hold Eliquis
- Metoprolol continued with hold parameters
AV block status post pacemaker
Essential hypertension
- Metoprolol continued
Hypothyroidism
- continue levothyroxine
DVT ppx: SCDs
Code Status: Full code
Anticipated Discharge: > 48 hours
Subjective/Interval History
-
Date of Service: July 28, 2024
denies any new complaints presently
heading for US now
Objective Data
-
Labs:
Laboratory Results
07/28/24
06:38
WBC 6.8
Hgb 11.4 L
Hct 37.3 L
Plt Count 300
Sodium 136
Potassium 4.6
Chloride 96 L
Carbon Dioxide 29
BUN 31 H
Creatinine 1.5 H
Glucose 99
Calcium 9.0
Vital Signs:
Vital Signs
Temp Pulse Resp BP Pulse Ox
97.6 F 92 17 95/60 98
07/28/24 11:10 07/28/24 11:10 07/28/24 11:10 07/28/24 11:10 07/28/24 11:10
I&O
07/27/24 07/28/24 07/29/24
06:59 06:59 06:59
Intake Total 340 / 340
Balance 340 / 340
Physical Exam
-
General: No Apparent Distress
HEENT: Normocephalic
Respiratory: Clear to Auscultation; Negative Wheezes or Rales
Cardiac: Regular Rhythm and S1/S2
GI: Soft
Skin: Other (Lower lower extremities with chronic wounds, radiation from collar, malodor)
Neuro: AO x 3
Hematologic / Lymphatic: No Lymphadenopathy
Psych: Calm
Data Reviewed
-
Total Time Spent with Patient (in minutes): 44
Labs: Labs Reviewed by me
[2024-07-28] MEDS: NSS 1000 IV (14:32)
--- NOTE | 2024-07-28 17:03 | W.PN.UPDATE ---
Update Note
Progress Note Update
Patient seen, explained due to scheduling issues plan is for OR on 07/30/24 for LLE debridement. Patient is agreeable.
[2024-07-28] MEDS: MELATONIN 5 MG PO (21:16)
[2024-07-28] MEDS: STERILE WATER FOR INJECTION 10 ML IV (21:17)
[2024-07-29] VITALS (7 sets, daily range): BP systolic 91–115; BP diastolic 63–69; PULSE 79; BMI 27.2
[2024-07-29] MEDS: STERILE WATER FOR INJECTION 10 ML IV ×3 (06:16→23:15)
[2024-07-29] MEDS: MERREM 500 MG IV ×3 (06:16→23:16)
[2024-07-29] MEDS: SYNTHROID 100 MCG PO (06:16)
[2024-07-29 07:14] LABS: Hematocrit 36.4 % (39.0-52.0); Hemoglobin 11.3 g/dL (13.0-18.0); Mean Corpuscular Hgb 25.8 pg (27.0-31.0); Mean Corpuscular Volume 83.1 fL (80.0-94.0); Mean Platelet Volume 10.2 fL (7.4-10.4); Platelet Count 271 10^3/uL (130-400); Red Blood Cell Count 4.38 10^6/uL (4.70-6.10); Red Cell Dist. Width 15.9 % (11.5-14.5); White Blood Cell Count 6.3 10^3/uL (4.8-10.8)
[2024-07-29 07:36] LABS: Blood Urea Nitrogen 26 mg/dl (9-20); Calcium 8.9 mg/dl (8.4-10.2); Carbon Dioxide 29 mmol/L (22-30); Chloride 101 mmol/L (98-107); Estimated Creatinine Clearance 42 ml/min; Glucose 99 mg/dl (70-99); Magnesium 2.4 mg/dl (1.6-2.3); Potassium 5.1 mmol/L (3.5-5.1); Sodium 138 mmol/L (135-145); eGFR 54.51
[2024-07-29] MEDS: FARXIGA 10 MG PO (08:04)
[2024-07-29] MEDS: CASODEX 50 MG PO (08:04)
[2024-07-29] MEDS: ALDACTONE 25 MG PO (08:05)
[2024-07-29] MEDS: DAKIN'S SOLUTION 0.125% 1/4 STRENGTH 1 ML TOPICAL (08:05)
[2024-07-29] MEDS: TOPROL XL PO (08:05)
[2024-07-29] MEDS: FLOMAX 0.4 MG PO (08:05)
--- NOTE | 2024-07-29 09:44 | CM ---
Reviewed the chart notes. Per notes, due to scheduling issues plan is for OR on 07/30/24 for LLE debridement. CM continues to be available to patient/family and is monitoring medical plan for needs at discharge.
Plan: Discharge to home with resumption of [facility] services. Referral sent in [facility].
--- NOTE | 2024-07-29 10:45 | W.PN.UPDATE ---
Update Note
Progress Note Update
Seen and evaluated. Palpable left pedal pulses. Noninvasive studies reviewed. No evidence of arterial insufficiency. Plans discussed with patient. Plan for left calf wound debridement tomorrow. Discussed continued wound care following.
Discussed if healing issues or greater concern going forward may require plastic surgery evaluation but we can determine that down the line.
--- NOTE | 2024-07-29 12:48 | W.PN.ID1 ---
Date of Service
Date of Service: July 29, 2024
Today's Communication
Continue meropenem.
Assessment / Plan
# Left lower extremity chronic wounds with acute infection
- hx Pseudomonas and ESBL-Kleb from wound.
- KYLAH normal
- For OR debridement tomorrow - please obtain deep cultures.
- Continue meropenem (d2)
# Recent dx of rectal cancer.
-Chemo postponed due to chronic nonhealing leg wounds.
# Conditions prior to admission
rectal cancer dx 05/2024, not on tx yet.
A-fib
HTN
HFpEF
AV block s/p PPM
Hypothyroidism
Renal cyst
BPH
hx prostate CA
Chief Complaint
-: Other (Wound infection)
Subjective / Review of Systems
To OR tomorrow. No complaints.
Vital Signs / Physical Exam
Vital Signs
Vital Signs
Temp Pulse Resp BP Pulse Ox
97.8 F 88 16 103/65 99
07/29/24 12:05 07/29/24 12:05 07/29/24 12:05 07/29/24 12:05 07/29/24 12:05
Physical Exam
Constitutional: No Acute Distress and Comfortable
Pulmonary: Clear
Gastrointestinal: Soft, Non Tender and Non Distended
Wound: Other (LLE dressing dry)
Neurological: AO x 3
Objective Data
Lab Data
Lab Results
07/29/24 06:51
07/29/24 06:51
PT 17.2 Sec (11.4-14.6) H 07/27/24 14:39
INR 1.38 07/27/24 14:39
Estimated Creat Clear 42 ml/min 07/29/24 06:51
Total Bilirubin 0.6 mg/dl (0.2-1.3) 12/02/24 14:39
AST 19 U/L (17-59) 07/27/24 14:39
ALT 15 U/L (0-50) 07/27/24 14:39
Alkaline Phosphatase 107 U/L (38-126) 07/27/24 14:39
Most recent labs reviewed.
Micro Results:
07/27/24 22:29 MRSA Screen - Final
Nose No Methicillin Resistant Staphylococcus aureus isolated.
07/27/24 peripheral vascular US: no DVT
--- NOTE | 2024-07-29 13:08 | W.PN.HOSP.TC ---
Today's Communication/Plan
-
OR tomorrow
Assessment / Plan
Assessment / Plan
Assessment:
LLE wound (chronic) with acute infection
- KYLAH/TBIs with normal indices
- Vascular following, for operative debridement 07/30 (Eliquis held)
- continue Meropenem per ID and awaiting operative cultures (deep requested)
ZULEIKA
- monitor Cr
- holding Lasix
- s/p IVF with improvement in Cr
Rectal and prostate cancer
- supposed to start on chemo and radiation; deferred due to wounds
- on bicalutamide as outpatient
Chronic HFmEF
- Patient not in acute exacerbation
- continue spironolactone
- hold Lasix 60 mg PO daily
- continue dapagliflozin
- fluid restriction, monitor I/Os, weights
Permanent atrial fibrillation
- hold Eliquis
- Metoprolol continued with hold parameters
AV block status post pacemaker
Essential hypertension
- Metoprolol continued
Hypothyroidism
- continue levothyroxine
DVT ppx: SCDs
Code Status: Full code
Anticipated Discharge: > 48 hours
Subjective/Interval History
-
Date of Service: July 29, 2024
no complaints
Objective Data
-
Labs:
Laboratory Results
07/29/24
06:51
WBC 6.3
Hgb 11.3 L
Hct 36.4 L
Plt Count 271
Sodium 138
Potassium 5.1
Chloride 101
Carbon Dioxide 29
BUN 26 H
Creatinine 1.3
Glucose 99
Calcium 8.9
Vital Signs:
Vital Signs
Temp Pulse Resp BP Pulse Ox
97.8 F 88 16 103/65 99
07/29/24 12:05 07/29/24 12:05 07/29/24 12:05 07/29/24 12:05 07/29/24 12:05
I&O
07/28/24 07/29/24 07/30/24
06:59 06:59 06:59
Intake Total 340 / 340 950 / 950
Balance 340 / 340 950 / 950
Physical Exam
-
General: No Apparent Distress
HEENT: Normocephalic and Atraumatic
Respiratory: Negative Wheezes
Cardiac: Regular Rhythm and S1/S2
GI: Soft
Genito-urinary: No Costovertebral Tender
Neuro: AO x 3
Psych: Calm
Data Reviewed
-
Total Time Spent with Patient (in minutes): 42
Labs: Labs Reviewed by me
[2024-07-29] MEDS: TOPROL XL 25 MG PO (20:32)
[2024-07-29] MEDS: MELATONIN 5 MG PO (23:13)
[2024-07-29] MEDS: NSS 1000 IV (23:22)
[2024-07-30] VITALS (17 sets, daily range): BP systolic 83–124; BP diastolic 51–80; BMI 27.3
[2024-07-30] MEDS: MERREM 500 MG IV ×3 (05:17→21:06)
[2024-07-30] MEDS: STERILE WATER FOR INJECTION 10 ML IV ×3 (05:17→21:06)
[2024-07-30] MEDS: PERIDEX 0.12% ORAL RINSE 15 ML PO (05:19)
[2024-07-30] MEDS: BACTROBAN 2% OINTMENT 1 APPLIC NASAL (05:20)
[2024-07-30 06:41] LABS: Hematocrit 40.5 % (39.0-52.0); Hemoglobin 12.2 g/dL (13.0-18.0); Mean Corp Hgb Conc. 30.1 g/dL (33.0-37.0); Mean Corpuscular Volume 86.4 fL (80.0-94.0); Mean Platelet Volume 10.6 fL (7.4-10.4); Platelet Count 300 10^3/uL (130-400); Red Blood Cell Count 4.69 10^6/uL (4.70-6.10); Red Cell Dist. Width 15.9 % (11.5-14.5); White Blood Cell Count 7.2 10^3/uL (4.8-10.8)
[2024-07-30 07:10] LABS: Blood Urea Nitrogen 21 mg/dl (9-20); Calcium 9.5 mg/dl (8.4-10.2); Carbon Dioxide 26 mmol/L (22-30); Chloride 99 mmol/L (98-107); Estimated Creatinine Clearance 49 ml/min; Glucose 108 mg/dl (70-99); Potassium 4.8 mmol/L (3.5-5.1); Sodium 137 mmol/L (135-145); eGFR > 60.00
--- NOTE | 2024-07-30 07:44 | W.SUR.PREOP ---
Pre-Operative Surgical Note
-
I have examined this patient prior to the performance of the scheduled procedure.
The patient's condition is unchanged from the time of the current History and
Physical and the patient is able to undergo the scheduled procedure.
[2024-07-30] MEDS: DAKIN'S SOLUTION 0.125% 1/4 STRENGTH TOPICAL (08:00)
--- NOTE | 2024-07-30 08:23 | W.PN.HOSP.TC ---
Today's Communication/Plan
-
OR debridement today
Assessment / Plan
Assessment / Plan
Assessment:
LLE wound (chronic) with acute infection
- KYLAH/TBIs with normal indices
- Vascular following, for operative debridement today (Eliquis held)
- continue Meropenem per ID and awaiting operative cultures (deep requested)
ZULEIKA
- monitor Cr
- holding Lasix
- s/p IVF with improvement in Cr
Rectal and prostate cancer
- supposed to start on chemo and radiation; deferred due to wounds
- on bicalutamide as outpatient
Chronic HFmEF
- Patient not in acute exacerbation
- continue spironolactone
- hold Lasix 60 mg PO daily
- continue dapagliflozin
- fluid restriction, monitor I/Os, weights
Permanent atrial fibrillation
- hold Eliquis
- Metoprolol continued with hold parameters
AV block status post pacemaker
Essential hypertension
- Metoprolol continued
Hypothyroidism
- continue levothyroxine
DVT ppx: SCDs
Code Status: Full code
Anticipated Discharge: > 48 hours
Subjective/Interval History
-
Date of Service: July 30, 2024
no complaints
for Debridement today in OR
Objective Data
-
Labs:
Laboratory Results
07/30/24
05:50
WBC 7.2
Hgb 12.2 L
Hct 40.5
Plt Count 300
Sodium 137
Potassium 4.8
Chloride 99
Carbon Dioxide 26
BUN 21 H
Creatinine 1.1
Glucose 108 H
Calcium 9.5
Vital Signs:
Vital Signs
Temp Pulse Resp BP Pulse Ox
97.6 F 82 19 113/65 98
07/30/24 03:28 12/05/24 03:28 07/30/24 03:28 07/30/24 03:28 07/30/24 03:28
I&O
07/29/24 07/30/24 07/31/24
06:59 06:59 06:59
Intake Total 950 / 950 1440 / 1440
Balance 950 / 950 1440 / 1440
Physical Exam
-
General: No Apparent Distress
HEENT: Normocephalic and Atraumatic
Respiratory: Negative Wheezes
Cardiac: Regular Rhythm and S1/S2
GI: Soft
Genito-urinary: No Costovertebral Tender
Musculoskeletal: No Edema
Neuro: AO x 3
Hematologic / Lymphatic: No Lymphadenopathy
Psych: Calm
Data Reviewed
-
Total Time Spent with Patient (in minutes): 44
Labs: Labs Reviewed by me
--- NOTE | 2024-07-30 08:28 | W.SUR.POST ---
Surgical Immediate Post Op
Note
Pre Op Diagnosis: Chronic wound
Post Op Diagnosis: Chronic wound
Procedure Performed: LLE wound debridement, pulse lavage
Primary Surgeon: Obed Loza MD
Sub Prior: GIOVANNA Solitario
Anesthesia: GETA
Estimated Blood Loss: 20 ml
Fluids: See anesthesia flowsheet
Drains/Shunts: N/A
Specimens/Cultures: Wound culture
Doppler/Duplex/Angio (Y/N): N
Complications: None
Operative Findings: purulent drainage
--- NOTE | 2024-07-30 08:44 | OR.RPT ---
Operative Report
Operative Report
PROCEDURE DATE: 07/30/2024
Preoperative diagnosis: Chronic left calf wounds with obvious necrotic tissue and concern for infection.
Postoperative diagnosis: Same
Procedure:
1. Debridement left calf wounds through skin and subcutaneous tissue and into muscle layer (excisional debridement) with entirety of debridement dimensions measuring approximately 9 cm x 5 cm x 2 cm depth.
2. Pulse lavage irrigation with 3 L of saline solution.
Surgeon: Dago
International Account Manager: KATY Regalado, required for all aspects of procedure including assistance with traction/countertraction, wound management.
Complications: None
Anesthesia: General
Indications for procedure:
Wounds left calf as noted. Risk/benefits/alternatives of debridement were also discussed. Patient understood all wished to proceed.
Description of procedure:
Patient was identified brought to the operating room placed on the table in supine position. After the adequate administration of anesthesia he was prepped and draped in the standard surgical fashion. A standard preoperative timeout was undertaken
and everybody was in agreement the plan. There were 2 moderate-sized anterior calf ulceration/wounds with necrotic tissue. There is a small skin bridge in between these. My finger tracked directly under the skin bridge as it was not adherent.
Therefore I cut out the skin bridge with a 15 blade. Once I did this I then used a 15 blade to thoroughly sharply debride all of the necrotic tissue. There is significant amount of somewhat dry but also somewhat wet necrotic tissue. Deeper wound
cultures were sent. Edges of skin that needed to be debrided were also sharply debrided. I continued until I reached healthy viable deep subcutaneous or muscular tissue. There was a reasonable granulation base deep. Once I was able to get to
this granulation base I finished debridement throughout such that I was down to that level throughout the base of the wound. Next I used a pulse lavage seal delivery vehicle officer to irrigate 3 L saline solution. Finally, I use electrocautery to achieve hemostasis.
Wet-to-dry dressings were applied and compressive Valerio bandages were applied. Patient tolerated procedure well.
[2024-07-30] MEDS: FARXIGA 10 MG PO (09:18)
[2024-07-30] MEDS: SYNTHROID 100 MCG PO (09:18)
[2024-07-30] MEDS: TOPROL XL 25 MG PO ×2 (09:18→21:06)
[2024-07-30] MEDS: CASODEX 50 MG PO (09:24)
[2024-07-30] MEDS: ALDACTONE 25 MG PO (09:24)
[2024-07-30] MEDS: FLOMAX 0.4 MG PO (09:25)
--- NOTE | 2024-07-30 10:21 | W.PN.ID1 ---
Date of Service
Date of Service: July 30, 2024
Today's Communication
Continue meropenem for now.
Assessment / Plan
# Left lower extremity chronic wounds with acute infection
- hx Pseudomonas and ESBL-Kleb from wound.
- KYLAH normal
- 07/30/24 s/p OR debridement to healthy tissue.
Appreciate Vascular - OR culture pending.
- Continue meropenem (d3)
# Recent dx of rectal cancer.
-Chemo postponed due to chronic nonhealing leg wounds.
# Conditions prior to admission
rectal cancer dx 05/2024, not on tx yet.
A-fib
HTN
HFpEF
AV block s/p PPM
Hypothyroidism
Renal cyst
BPH
hx prostate CA
Chief Complaint
-: Other (Wound infection)
Subjective / Review of Systems
He is very impressed with OR facility.
Vital Signs / Physical Exam
Vital Signs
Vital Signs
Temp Pulse Resp BP Pulse Ox
97.7 F 82 16 108/71 96
07/30/24 09:35 07/30/24 09:35 07/30/24 09:35 07/30/24 09:35 07/30/24 09:35
Physical Exam
Constitutional: No Acute Distress and Comfortable
Cardiovascular: Regular Rate and S1/S2
Pulmonary: Clear
Gastrointestinal: Soft, Non Tender and Non Distended
Wound: Other (LLE post-op dressing in place)
Neurological: AO x 3
Objective Data
Lab Data
Lab Results
07/30/24 05:50
07/30/24 05:50
PT 17.2 Sec (11.4-14.6) H 07/27/24 14:39
INR 1.38 07/27/24 14:39
Estimated Creat Clear 49 ml/min 07/30/24 05:50
Total Bilirubin 0.6 mg/dl (0.2-1.3) 07/27/24 14:39
AST 19 U/L (17-59) 07/27/24 14:39
ALT 15 U/L (0-50) 07/27/24 14:39
Alkaline Phosphatase 107 U/L (38-126) 07/27/24 14:39
Most recent labs reviewed.
Micro Results:
07/30/24 08:11 Wound Culture - Pending
Leg - Left Gram Stain - Pending
07/30/24 08:11 Anaerobic Culture - Pending
Leg - Left
07/27/24 22:29 MRSA Screen - Final
Nose No Methicillin Resistant Staphylococcus aureus isolated.
07/27/24 peripheral vascular US: no DVT
--- NOTE | 2024-07-30 12:21 | CM ---
Reviewed the chart notes. Patient had debridement of L calf today. Continues on IV meropenem. CM continues to be available to patient/family and is monitoring medical plan for needs at discharge.
Plan: Discharge to home when medically stable with resumption of [facility] services.
[2024-07-30] MEDS: MELATONIN 5 MG PO (21:06)
[2024-07-31] VITALS (9 sets, daily range): BP systolic 90–99; BP diastolic 61–64; PULSE 81–85; BMI 26.8
[2024-07-31] MEDS: MERREM 500 MG IV ×3 (05:16→21:47)
[2024-07-31] MEDS: STERILE WATER FOR INJECTION 10 ML IV ×3 (05:16→21:47)
[2024-07-31] MEDS: SYNTHROID 100 MCG PO (06:12)
[2024-07-31 07:02] LABS: Hematocrit 34.2 % (39.0-52.0); Hemoglobin 10.8 g/dL (13.0-18.0); Mean Corp Hgb Conc. 31.6 g/dL (33.0-37.0); Mean Corpuscular Hgb 26.2 pg (27.0-31.0); Mean Corpuscular Volume 82.8 fL (80.0-94.0); Mean Platelet Volume 10.6 fL (7.4-10.4); Platelet Count 271 10^3/uL (130-400); Red Blood Cell Count 4.13 10^6/uL (4.70-6.10); Red Cell Dist. Width 15.7 % (11.5-14.5); White Blood Cell Count 14.4 10^3/uL (4.8-10.8)
[2024-07-31 07:26] LABS: Blood Urea Nitrogen 27 mg/dl (9-20); Calcium 9.4 mg/dl (8.4-10.2); Carbon Dioxide 24 mmol/L (22-30); Chloride 101 mmol/L (98-107); Estimated Creatinine Clearance 42 ml/min; Glucose 142 mg/dl (70-99); Potassium 5.3 mmol/L (3.5-5.1); Sodium 137 mmol/L (135-145); eGFR 54.51
--- NOTE | 2024-07-31 08:20 | W.PN.UPDATE ---
Update Note
Progress Note Update
Patient with PMH of rectal cancer awaiting neoadjuvant treatment, admitted for chronic poorly healing left lower extremity wound, s/p debridement yesterday with vascular surgery. Discussed with patient that he is currently on the OR schedule for
Saturday for port placement. Will monitor his condition over the next few days to see if it would be safe to proceed with port placement as opposed to postponing. Discussed this with the patient and the patient is understanding and agreeable.
[2024-07-31] MEDS: ALDACTONE PO (08:58)
[2024-07-31] MEDS: DAKIN'S SOLUTION 0.125% 1/4 STRENGTH TOPICAL (09:04)
[2024-07-31] MEDS: CASODEX 50 MG PO (09:04)
[2024-07-31] MEDS: FLOMAX 0.4 MG PO (09:04)
[2024-07-31] MEDS: FARXIGA 10 MG PO (09:04)
[2024-07-31] MEDS: TOPROL XL PO ×2 (09:09→20:44)
--- NOTE | 2024-07-31 09:09 | W.PN.VS ---
Today's Communication / Plan
-
See below.
Assessment/Plan
-
Assessment: 84-year-old male POD #1 Debridement left calf wounds through skin and subcutaneous tissue and into muscle layer (excisional debridement) with entirety of debridement dimensions measuring approximately 9 cm x 5 cm x 2 cm depth. Pulse
lavage irrigation with 3 L of saline solution.
Plan:
Wound VAC placed to wound today, continue MWF changes, wound care following
Okay from a vascular surgical perspective to restart patient's home anticoagulation of Eliquis
From a vascular surgical perspective patient is safe for discharge to home once wound care and home VAC are established
Case management following for disposition planning as patient will need establishment of visiting nurse and home wound VAC
Subjective Data
-
Date of Service: July 31, 2024
Patient seen and exam at bedside, offers no complaints. Reports minimal to no pain at left lower extremity wound site. Denies nausea, vomiting, fever, and chills.
Objective Data
-
Vital Signs
Temp Pulse Resp BP Pulse Ox
97.5 F 82 17 97/62 96
07/31/24 07:15 07/31/24 07:15 07/31/24 07:15 07/31/24 07:15 07/31/24 07:15
Intake and Output
07/30/24 07/31/24 08/01/24
06:59 06:59 06:59
Intake Total 1440 / 1440 1010 / 1010
Balance 1440 / 1440 1010 / 1010
Intake:
Oral fluids 720 / 720 960 / 960
IV fluids (Total) 720 / 720 50 / 50
Normosol 50 / 50
Other:
Number of approximated MODERATE 4 2
amounts of urine
How many times incontinent 1
MODERATE amount urine
Lab Results
07/31/24 06:22
07/31/24 06:22
Calcium 9.4 mg/dl (8.4-10.2) 07/31/24 06:22
Magnesium 2.4 mg/dl (1.6-2.3) H 07/29/24 06:51
Total Bilirubin 0.6 mg/dl (0.2-1.3) 07/27/24 14:39
AST 19 U/L (17-59) 07/27/24 14:39
ALT 15 U/L (0-50) 07/27/24 14:39
Alkaline Phosphatase 107 U/L (38-126) 07/27/24 14:39
Total Protein 7.0 g/dl (6.3-8.2) 07/27/24 14:39
Albumin 4.2 g/dl (3.5-5.0) 07/27/24 14:39
Physical Exam
-
Awake alert oriented, no apparent distress resting in bed comfortably
No tachycardia
No dyspnea on room air
ABD flat, nontender, nondistended
Left lower extremity wound clean, dry, and intact; no evidence of active bleeding; good granulation tissue present; wound VAC placed; wound dimensions 9 cm x 5 cm x 2 cm, trace edema above the knee where previously Valerio wrapped
[2024-07-31] MEDS: LASIX PO (09:10)
--- NOTE | 2024-07-31 10:49 | W.PN.ID1 ---
Date of Service
Date of Service: July 31, 2024
Today's Communication
Continue meropenem pending final OR cx.
Assessment / Plan
# Left lower extremity chronic wounds with acute infection
- hx Pseudomonas and ESBL-Kleb from wound.
- KYLAH normal
- 07/30/24 s/p OR debridement to healthy tissue; wound vac in place
Appreciate Vascular - OR Gram stain: GNR, culture: pending.
- Continue meropenem (d4) pending final cx data
# Recent dx of rectal cancer.
-Chemo postponed due to chronic nonhealing leg wounds.
- For port placment Saturday.
# Conditions prior to admission
rectal cancer dx 05/2024, not on tx yet.
A-fib
HTN
HFpEF
AV block s/p PPM
Hypothyroidism
Renal cyst
BPH
hx prostate CA
Chief Complaint
-: Other (Wound infection)
Subjective / Review of Systems
No complaints
Vital Signs / Physical Exam
Vital Signs
Vital Signs
Temp Pulse Resp BP Pulse Ox
97.5 F 82 17 97/62 96
07/31/24 07:15 07/31/24 09:10 07/31/24 07:15 07/31/24 09:10 07/31/24 07:15
Physical Exam
Constitutional: No Acute Distress and Comfortable
Cardiovascular: Regular Rate and S1/S2
Pulmonary: Clear
Gastrointestinal: Soft, Non Tender and Non Distended
Wound: Other (LLE wounds with wound vac in place)
Objective Data
Lab Data
Lab Results
07/31/24 06:22
07/31/24 06:22
PT 17.2 Sec (11.4-14.6) H 07/27/24 14:39
INR 1.38 07/27/24 14:39
Estimated Creat Clear 42 ml/min 07/31/24 06:22
Total Bilirubin 0.6 mg/dl (0.2-1.3) 07/27/24 14:39
AST 19 U/L (17-59) 07/27/24 14:39
ALT 15 U/L (0-50) 07/27/24 14:39
Alkaline Phosphatase 107 U/L (38-126) 07/27/24 14:39
Most recent labs reviewed.
Micro Results:
07/30/24 08:11 Wound Culture - Pending
Leg - Left Gram Stain - Preliminary
07/30/24 08:11 Anaerobic Culture - Pending
Leg - Left
07/27/24 22:29 MRSA Screen - Final
Nose No Methicillin Resistant Staphylococcus aureus isolated.
07/27/24 peripheral vascular US: no DVT
--- NOTE | 2024-07-31 12:01 | W.PN.HOSP.TC ---
Today's Communication/Plan
-
continue wound vac
continue wound care
IV abx pending operative cultures
Assessment / Plan
Assessment / Plan
Assessment:
LLE wound (chronic) with acute infection
- KYLAH/TBIs with normal indices
- s/p Operative debridement 07/30 with Vascular surgery. with Wound vac. Follow wound care orders per Vascular
- continue Meropenem per ID and awaiting operative cultures
ZULEIKA
- monitor Cr
- holding Lasix
- s/p IVF with improvement in Cr
Rectal and prostate cancer
- supposed to start on chemo and radiation; deferred due to wounds
- on bicalutamide as outpatient
Chronic HFmEF
- Patient not in acute exacerbation
- continue spironolactone with parameters
- hold Lasix 60 mg PO daily
- continue dapagliflozin
- fluid restriction, monitor I/Os, weights
Permanent atrial fibrillation
- hold Eliquis
- Metoprolol continued with hold parameters
AV block status post pacemaker
Essential hypertension
- Metoprolol continued
Hypothyroidism
- continue levothyroxine
DVT ppx: SCDs
Code Status: Full code
Anticipated Discharge: > 48 hours
Subjective/Interval History
-
Date of Service: July 31, 2024
denies any new complaints
Objective Data
-
Labs:
Laboratory Results
07/31/24
06:22
WBC 14.4 H
Hgb 10.8 L
Hct 34.2 L
Plt Count 271
Sodium 137
Potassium 5.3 H
Chloride 101
Carbon Dioxide 24
BUN 27 H
Creatinine 1.3
Glucose 142 H
Calcium 9.4
Vital Signs:
Vital Signs
Temp Pulse Resp BP Pulse Ox
97.5 F 82 17 97/62 96
07/31/24 07:15 07/31/24 09:10 07/31/24 07:15 07/31/24 09:10 07/31/24 07:15
I&O
07/30/24 07/31/24 08/01/24
06:59 06:59 06:59
Intake Total 1440 / 1440 1010 / 1010
Balance 1440 / 1440 1010 / 1010
Physical Exam
-
General: No Apparent Distress
HEENT: Normocephalic and Atraumatic
Respiratory: Negative Wheezes
Cardiac: Regular Rhythm and S1/S2
GI: Soft and Nontender
Genito-urinary: No Costovertebral Tender
Musculoskeletal: Other (LLE wound wrapped in dressing, with wound ac)
Neuro: AO x 3
Psych: Calm
Data Reviewed
-
Total Time Spent with Patient (in minutes): 45
Labs: Labs Reviewed by me
--- NOTE | 2024-07-31 14:41 | WOUNDNOTE ---
WOC RN note: Faxed [employer] home vac (Deborah Ghotra) request paperwork to Jay[facility].
--- NOTE | 2024-07-31 16:00 | WOUNDNOTE ---
WO RN Note: Lori from [facility] called and said patient's home vac was approved. Douglas from [employer] confirmed home vac approval as well. His home vac is in this commercial real estate underwriter's office. Will bring up his home vac pump/equipment on day of discharge which may be
as early as Saturday. Patient's R heel red and intact. Instructed patient heel elevation while in bed. Sacral skin is intact. Patient moves self in bed. He reports a good appetite. Next vac dressing change due Saturday.
[2024-07-31] MEDS: MELATONIN 5 MG PO (21:47)
[2024-08-01 03:54] VITALS: BP 106/68
[2024-08-01] MEDS: STERILE WATER FOR INJECTION 10 ML IV ×3 (05:18→23:42)
[2024-08-01] MEDS: MERREM 500 MG IV (05:18)
[2024-08-01] MEDS: SYNTHROID 100 MCG PO (05:20)
[2024-08-01 05:56] LABS: Hematocrit 35.1 % (39.0-52.0); Hemoglobin 10.5 g/dL (13.0-18.0); Mean Corp Hgb Conc. 29.9 g/dL (33.0-37.0); Mean Corpuscular Hgb 25.2 pg (27.0-31.0); Mean Corpuscular Volume 84.2 fL (80.0-94.0); Mean Platelet Volume 10.3 fL (7.4-10.4); Platelet Count 260 10^3/uL (130-400); Red Blood Cell Count 4.17 10^6/uL (4.70-6.10); White Blood Cell Count 9.7 10^3/uL (4.8-10.8)
[2024-08-01 06:00] VITALS: BMI 27.5
[2024-08-01 06:26] LABS: Blood Urea Nitrogen 32 mg/dl (9-20); Calcium 9.3 mg/dl (8.4-10.2); Carbon Dioxide 25 mmol/L (22-30); Chloride 101 mmol/L (98-107); Estimated Creatinine Clearance 49 ml/min; Glucose 113 mg/dl (70-99); Potassium 4.9 mmol/L (3.5-5.1); Sodium 135 mmol/L (135-145); eGFR > 60.00
[2024-08-01 07:45] VITALS: BP 94/58
[2024-08-01] MEDS: FLOMAX 0.4 MG PO (09:47)
[2024-08-01] MEDS: ALDACTONE PO (09:47)
[2024-08-01] MEDS: TOPROL XL PO (09:47)
[2024-08-01] MEDS: CASODEX 50 MG PO (09:47)
[2024-08-01] MEDS: FARXIGA 10 MG PO (09:48)
[2024-08-01] MEDS: DAKIN'S SOLUTION 0.125% 1/4 STRENGTH TOPICAL (09:48)
[2024-08-01] MEDS: LASIX PO (09:50)
--- NOTE | 2024-08-01 10:43 | W.PN.ID1 ---
Date of Service
Date of Service: August 01, 2024
Today's Communication
Continue antibiotics. Narrow to cefepime based upon most recent wound culture.
Assessment / Plan
# Left lower extremity chronic wounds with acute infection
- hx Pseudomonas and ESBL-Kleb from wound.
- KYLAH normal
- 07/30/24 s/p OR debridement to healthy tissue; wound vac in place
Appreciate Vascular - OR Gram stain: GNR, culture: Pseudomonas aeruginosa.
- Narrow to cefepime 2 g IV every 12 hours
# Recent dx of rectal cancer.
-Chemo postponed due to chronic nonhealing leg wounds.
- For port placement Saturday.
# Conditions prior to admission
rectal cancer dx 05/2024, not on tx yet.
A-fib
HTN
HFpEF
AV block s/p PPM
Hypothyroidism
Renal cyst
BPH
hx prostate CA
Chief Complaint
-: Other (Wound infection)
Subjective / Review of Systems
Review of Systems: No Fever and No Chills
Vital Signs / Physical Exam
Vital Signs
Vital Signs
Temp Pulse Resp BP Pulse Ox
97.7 F 72 16 94/58 98
08/01/24 07:45 08/01/24 07:45 08/01/24 07:45 08/01/24 07:45 08/01/24 07:45
Physical Exam
Constitutional: No Acute Distress, Comfortable and Non-toxic
Eyes: Sclera Anicteric
Cardiovascular: Regular Rate and S1/S2
Pulmonary: Clear
Gastrointestinal: Soft, Non Tender and Non Distended
Wound: Other (LLE wrapped in Valerio wrap, with wound vac in place)
Neurological: Awake and Alert
Psychological: Calm
Objective Data
Lab Data
Lab Results
08/01/24 05:32
08/01/24 05:32
PT 17.2 Sec (11.4-14.6) H 07/27/24 14:39
INR 1.38 07/27/24 14:39
Estimated Creat Clear 49 ml/min 08/01/24 05:32
Total Bilirubin 0.6 mg/dl (0.2-1.3) 07/27/24 14:39
AST 19 U/L (17-59) 07/27/24 14:39
ALT 15 U/L (0-50) 07/27/24 14:39
Alkaline Phosphatase 107 U/L (38-126) 07/27/24 14:39
Most recent labs reviewed.
Micro Results:
07/30/24 08:11 Anaerobic Culture - Preliminary
Leg - Left Culture pending. Anaerobic cultures are examined after 3
days incubation. Additional information to follow.
07/30/24 08:11 Wound Culture - Preliminary
Leg - Left Pseudomonas aeruginosa
Gram Stain - Preliminary
08/01/24 05:32 Blood Culture - Pending
Blood/Venous
07/27/24 22:29 MRSA Screen - Final
Nose No Methicillin Resistant Staphylococcus aureus isolated.
Wound/abscess/other Cult Preliminary 08/01/24-17
Few Pseudomonas aeruginosa
Organism 1 Pseudomonas aeruginosa
1. Pseudomonas aeruginosa
M.I.C. RX
--------- ---
Aztreonam 8 S
Cefepime 4 S
Ceftazidime 8 S
Ciprofloxacin <=0.25 S
Meropenem <=1 S
Piperacillin/Tazobactam 16 S
Tobramycin <=2 S
07/27/24 peripheral vascular US: no DVT
[2024-08-01] MEDS: MAXIPIME 2000 MG IV ×2 (11:59→23:41)
--- NOTE | 2024-08-01 14:20 | W.PN.HOSP.TC ---
Today's Communication/Plan
-
start IV heparin as patient planned for PORT placement Saturday
continue IV abx
Assessment / Plan
Assessment / Plan
Assessment:
LLE wound (chronic) with acute infection
- KYLAH/TBIs with normal indices
- s/p Operative debridement 07/30 with Vascular surgery. with Wound vac. Follow wound care orders per Vascular
- continue cefepime per I; pseudomonas per operative cultures
ZULEIKA
- monitor Cr
- holding Lasix; resume when BP improves
- s/p IVF with improvement in Cr
Rectal and prostate cancer
- supposed to start on chemo and radiation; deferred due to wound management
- on bicalutamide as outpatient
- Colorectal planning PORT placement Saturday
Chronic HFmEF
- Patient not in acute exacerbation
- continue spironolactone, metoprolol with parameters
- holding Lasix; resume when BP improves
- continue dapagliflozin
- fluid restriction, monitor I/Os, weights
Permanent atrial fibrillation
- hold Eliquis; start IV heparin drip - requires intensive monitoring of PTTs
- Metoprolol continued with hold parameters
AV block status post pacemaker
Essential hypertension
- Metoprolol continued
Hypothyroidism
- continue levothyroxine
DVT ppx: IV Heparin
Code Status: Full code
Anticipated Discharge: > 48 hours
Subjective/Interval History
-
Date of Service: August 01, 2024
denies any new complaints at present
Objective Data
-
Labs:
Laboratory Results
08/01/24
05:32
WBC 9.7
Hgb 10.5 L
Hct 35.1 L
Plt Count 260
Sodium 135
Potassium 4.9
Chloride 101
Carbon Dioxide 25
BUN 32 H
Creatinine 1.1
Glucose 113 H
Calcium 9.3
Vital Signs:
Vital Signs
Temp Pulse Resp BP Pulse Ox
97.7 F 72 16 94/58 98
08/01/24 07:45 08/01/24 07:45 08/01/24 07:45 08/01/24 07:45 08/01/24 07:45
I&O
07/31/24 08/01/24 08/02/24
06:59 06:59 06:59
Intake Total 1010 / 1010 1050 / 1050
Balance 1010 / 1010 1050 / 1050
Physical Exam
-
General: No Apparent Distress
HEENT: Normocephalic and Atraumatic
Respiratory: Negative Wheezes
Cardiac: Regular Rhythm and S1/S2
GI: Soft
Musculoskeletal: No Edema and Other (LLE wound wrapped in dressing, with wound vac)
Neuro: AO x 3
Psych: Calm
Data Reviewed
-
Total Time Spent with Patient (in minutes): 51
Labs: Labs Reviewed by me
--- NOTE | 2024-08-01 14:40 | W.PN.UPDATE ---
Update Note
Progress Note Update
Seen and evaluated. VAC in place. No significant drainage. Plan/continue VAC. He is getting Fetiri-n-Aahx on Saturday. I think that is reasonable. In the operating room all infectious type concerning tissue had been significantly debrided back
to a very healthy remaining tissue. Should be okay to receive Agvviu-e-Pkaq. No evidence of arterial ischemia.
[2024-08-01 15:20] VITALS: BP 99/67
[2024-08-01 17:06] LABS: APTT 31.1 Sec (23.4-35.0)
[2024-08-01] MEDS: HEPARIN 25000 UNITS/250 ML IV (19:00)
[2024-08-01 19:14] VITALS: BP 101/60
[2024-08-01] MEDS: MELATONIN 5 MG PO (20:52)
[2024-08-01] MEDS: TOPROL XL 25 MG PO (20:52)
[2024-08-01 21:28] VITALS: PULSE 105
[2024-08-01 23:14] VITALS: BP 101/63
[2024-08-02] VITALS (8 sets, daily range): BP systolic 89–124; BP diastolic 57–94; PULSE 86; BMI 27.5
[2024-08-02] MEDS: SYNTHROID 100 MCG PO (05:42)
[2024-08-02 08:09] LABS: Hematocrit 36.8 % (39.0-52.0); Mean Corp Hgb Conc. 29.9 g/dL (33.0-37.0); Mean Corpuscular Volume 83.6 fL (80.0-94.0); Mean Platelet Volume 10.9 fL (7.4-10.4); Platelet Count 261 10^3/uL (130-400); Red Cell Dist. Width 15.7 % (11.5-14.5); White Blood Cell Count 7.5 10^3/uL (4.8-10.8)
[2024-08-02 08:12] LABS: APTT 101.9 Sec (23.4-35.0)
[2024-08-02 08:44] LABS: Blood Urea Nitrogen 32 mg/dl (9-20); Carbon Dioxide 27 mmol/L (22-30); Chloride 101 mmol/L (98-107); Estimated Creatinine Clearance 49 ml/min; Glucose 94 mg/dl (70-99); Potassium 4.6 mmol/L (3.5-5.1); Sodium 134 mmol/L (135-145); eGFR > 60.00
[2024-08-02] MEDS: FARXIGA 10 MG PO (08:53)
[2024-08-02] MEDS: CASODEX 50 MG PO (08:53)
[2024-08-02] MEDS: DAKIN'S SOLUTION 0.125% 1/4 STRENGTH TOPICAL (08:53)
[2024-08-02] MEDS: FLOMAX 0.4 MG PO (08:53)
[2024-08-02] MEDS: LASIX PO (08:56)
[2024-08-02] MEDS: TOPROL XL PO ×2 (08:56→20:37)
[2024-08-02] MEDS: ALDACTONE PO (08:56)
--- NOTE | 2024-08-02 11:14 | W.PN.HOSP.TC ---
Today's Communication/Plan
-
PORT placement tomorrow and continue IV heparin until 6 AM
continue Abx per ID, wound care/vac per Vascular
Assessment / Plan
Assessment / Plan
Assessment:
LLE wound (chronic) with acute infection
- KYLAH/TBIs with normal indices
- s/p Operative debridement 07/30 with Vascular surgery. with Wound vac. Follow wound care orders per Vascular
- continue cefepime per ID; pansensitive pseudomonas per operative cultures
ZULEIKA
- monitor Cr
- holding Lasix; resume when BP improves
- s/p IVF with improvement in Cr
Rectal and prostate cancer
- supposed to start on chemo and radiation; deferred due to wound management
- on bicalutamide as outpatient
- Colorectal planning PORT placement Saturday
Chronic HFmEF
- Patient not in acute exacerbation
- continue spironolactone, metoprolol with parameters
- holding Lasix; resume when BP improves
- continue dapagliflozin
- fluid restriction, monitor I/Os, weights
Permanent atrial fibrillation
- hold Eliquis; continue IV heparin drip - requires intensive monitoring of PTTs. Ordered to hold at 6 AM Saturday for PORT placement.
- Metoprolol continued with hold parameters
AV block status post pacemaker
Essential hypertension with post-op hypotension
- reviewed prior BP trends from prior admissions and patient usually runs between 90s-100s
- continue BP meds with parameters
Hypothyroidism
- continue levothyroxine
DVT ppx: IV Heparin
Code Status: Full code
Anticipated Discharge: > 48 hours
Subjective/Interval History
-
Date of Service: August 02, 2024
denies any complaints
Objective Data
-
Labs:
Laboratory Results
08/02/24 08/02/24 08/02/24
00:20 07:31 14:50
WBC 7.5
Hgb 11.0 L
Hct 36.8 L
Plt Count 261
APTT 56.0 H 101.9 H Pending
Sodium 134 L
Potassium 4.6
Chloride 101
Carbon Dioxide 27
BUN 32 H
Creatinine 1.1
Glucose 94
Calcium 9.0
Vital Signs:
Vital Signs
Temp Pulse Resp BP Pulse Ox
98.5 F 100 17 89/59 96
08/02/24 07:35 08/02/24 07:35 08/02/24 07:35 08/02/24 07:35 08/02/24 07:35
I&O
08/01/24 08/02/24 08/03/24
06:59 06:59 06:59
Intake Total 1050 / 1050 510 / 510
Output Total 400 / 400
Balance 1050 / 1050 110 / 110
Physical Exam
-
General: No Apparent Distress
HEENT: Normocephalic and Atraumatic
Respiratory: Negative Wheezes
Cardiac: Regular Rhythm and S1/S2
GI: Soft
Musculoskeletal: No Edema
Skin: Other (LLE wound wrapped in dressing, with wound vac)
Neuro: AO x 3
Hematologic / Lymphatic: No Lymphadenopathy
Psych: Calm
Data Reviewed
-
Total Time Spent with Patient (in minutes): 51
Labs: Labs Reviewed by me
[2024-08-02] MEDS: FLUSH (NSS) 2 FLUSH IV (12:44)
[2024-08-02] MEDS: STERILE WATER FOR INJECTION 10 ML IV (12:44)
[2024-08-02] MEDS: MAXIPIME 2000 MG IV (12:46)
[2024-08-02 15:04] LABS: APTT 98.9 Sec (23.4-35.0)
[2024-08-02] MEDS: HEPARIN 25000 UNITS/250 ML IV (16:47)
[2024-08-02] MEDS: MELATONIN 5 MG PO (22:15)
[2024-08-03] VITALS (14 sets, daily range): BP systolic 79–122; BP diastolic 44–87; PULSE 80; BMI 27.5
[2024-08-03] MEDS: STERILE WATER FOR INJECTION 10 ML IV (00:44)
[2024-08-03] MEDS: MAXIPIME 2000 MG IV (00:44)
[2024-08-03] MEDS: SYNTHROID 100 MCG PO (06:05)
[2024-08-03 07:21] LABS: Hematocrit 36.9 % (39.0-52.0); Hemoglobin 11.2 g/dL (13.0-18.0); Mean Corp Hgb Conc. 30.4 g/dL (33.0-37.0); Mean Corpuscular Hgb 25.6 pg (27.0-31.0); Mean Corpuscular Volume 84.2 fL (80.0-94.0); Mean Platelet Volume 10.7 fL (7.4-10.4); Platelet Count 255 10^3/uL (130-400); Red Blood Cell Count 4.38 10^6/uL (4.70-6.10); Red Cell Dist. Width 15.7 % (11.5-14.5); White Blood Cell Count 7.5 10^3/uL (4.8-10.8)
[2024-08-03 07:30] LABS: APTT 112.7 Sec (23.4-35.0)
[2024-08-03 07:43] LABS: Blood Urea Nitrogen 27 mg/dl (9-20); Calcium 9.1 mg/dl (8.4-10.2); Carbon Dioxide 28 mmol/L (22-30); Chloride 101 mmol/L (98-107); Estimated Creatinine Clearance 54 ml/min; Glucose 92 mg/dl (70-99); Potassium 4.8 mmol/L (3.5-5.1); Sodium 136 mmol/L (135-145); eGFR > 60.00
--- NOTE | 2024-08-03 08:29 | WOUNDNOTE ---
WOC RN note: Manjeet avelared Cassidy Kelley, Vascular ENGINE COWLING INSTALLER who is planning to change patient's vac dressing today. Will bring up and switch to his home vac if he's discharged today.
[2024-08-03 08:47] LABS: PT 14.5 Sec (11.4-14.6)
[2024-08-03] MEDS: DAKIN'S SOLUTION 0.125% 1/4 STRENGTH 10 ML TOPICAL (08:59)
[2024-08-03] MEDS: LASIX 60 MG PO (09:00)
[2024-08-03] MEDS: FLOMAX 0.4 MG PO (09:01)
[2024-08-03] MEDS: ALDACTONE PO (09:01)
[2024-08-03] MEDS: FARXIGA 10 MG PO (09:01)
[2024-08-03] MEDS: TOPROL XL PO ×2 (09:02→20:09)
[2024-08-03] MEDS: CASODEX 50 MG PO (09:02)
--- NOTE | 2024-08-03 09:17 | CON.CRS ---
Consultation
-
Performing Provider: Ramses Bashir MD
Reason for Consultation: port placement
Medical History
-
History of Present Illness:
84-year-old male with PMH of recent diagnosis of rectal cancer, prostate cancer, A-fib (on Eliquis), HFpEF, s/p PPM, LLE venous stasis wound complicated by infection and previous debridement (2 recent prior admissions for this issue); presents for
worsening LLE wound, seen by vascular as an outpatient and was sent to the ED; underwent operative debridement of LLE wound by vascular surgery on 07/30; on cefepime per ID; patient requiring port for neoadjuvant chemo and radiation for his rectal
cancer
Past Medical History
Past Medical History: Other (As above)
Past Surgical History: Other (PPM)
Social History
Tobacco: Non-Smoker
Alcohol: None
Personal:
Living: With Family
Family History
Family History: Reviewed & Not Pertinent
Allergies / Home Medications
Allergy/AdvReac Type Severity Reaction Status Date / Time
unknown antibiotic Allergy confusion Uncoded 07/27/24 14:31
�Medication �Instructions �Recorded �Confirmed �Type
ascorbic acid (vitamin C) 500 mg 500 mg PO DAILY Supplement 01/06/21 07/27/24 History
tablet (Vitamin C)
apixaban 5 mg tablet (Eliquis) 5 mg PO BID Blood clot 03/21/21 07/27/24 History
prevention/tx
cholecalciferol (vitamin D3) 25 25 mcg PO DAILY Supplement 06/13/24 07/27/24 History
mcg (1,000 unit) tablet
bicalutamide 50 mg tablet 50 mg PO DAILY Cancer 06/30/24 07/27/24 History
cyanocobalamin (vitamin B-12) 1,000 mcg PO DAILY Supplement 06/30/24 07/27/24 History
1,000 mcg tablet
dapagliflozin propanediol 10 mg 10 mg PO DAILY Heart Failure 06/30/24 07/27/24 History
tablet
furosemide 20 mg tablet 60 mg PO DAILY Fluid 06/30/24 07/27/24 History
Retention/Swelling
levothyroxine 100 mcg tablet 100 mcg PO DAILY@0700 Thyroid 06/30/24 07/27/24 History
melatonin 5 mg tablet 5 mg PO HS sleep 06/30/24 07/27/24 History
spironolactone 25 mg tablet 25 mg PO DAILY heart failure/BP 06/30/24 07/27/24 History
zinc sulfate 50 mg zinc (220 mg) 220 mg PO DAILY Supplement 06/30/24 07/27/24 History
capsule
collagenase clostridium histo. 250 1 applic topical BID #90 grams 07/04/24 07/27/24 Rx
unit/gram topical ointment (Santyl)
metoprolol succinate 50 mg 25 mg (1/2 x 50 mg) PO BID Blood 07/04/24 07/27/24 Rx
tablet,extended release 24 hr Pressure #60 tabs
tamsulosin 0.4 mg capsule 0.4 mg PO DAILY #30 caps 07/09/24 07/27/24 Rx
Review of Systems
-
A 10 point review of systems was completed, and was negative except as per HPI.
Physical Exam
Vital Signs
Temp 97.3 F 08/03/24 07:20
Pulse 82 08/03/24 09:02
Resp Rate 16 08/03/24 07:20
Blood pressure 101/68 08/03/24 09:02
SaO2 97 08/03/24 07:20
08/02/24 08/03/24 08/04/24
06:59 06:59 06:59
Actual Weight 81.873 kg 81.964 kg
Body Mass Index (BMI) 27.5
Lab Results / Allergies
08/03/24 06:45
08/03/24 06:45
WBC 7.5 10^3/uL (4.8-10.8) 08/03/24 06:45
Hgb 11.2 g/dL (13.0-18.0) L 08/03/24 06:45
Hct 36.9 % (39.0-52.0) L 08/03/24 06:45
Plt Count 255 10^3/uL (130-400) 08/03/24 06:45
Abs Immat Gran (auto) 0.0 10^3/uL (0-0.05) 07/27/24 14:39
Neutrophils % 68.9 % (42.2-75.2) 07/27/24 14:39
Allergy/AdvReac Type Severity Reaction Status Date / Time
unknown antibiotic Allergy confusion Uncoded 07/27/24 14:31
Physical Exam
General: Well Developed, Well Nourished and No Apparent Distress
HEENT: Normocephalic and Atraumatic
GI: Soft, Non Tender and Non Distended
Skin: Warm, Dry and Other (LLE wrapped in Valerio bandage)
Assessment / Plan
-
84-year-old male with PMH of recent diagnosis of rectal cancer, prostate cancer, A-fib (on Eliquis), HFpEF, s/p PPM, LLE venous stasis wound complicated by infection and previous debridement (2 recent prior admissions for this issue); presents for
worsening LLE wound, seen by vascular as an outpatient and was sent to the ED; underwent operative debridement of LLE wound by vascular surgery on 07/30; on cefepime per ID; patient requiring port for neoadjuvant chemo and radiation for his rectal
cancer
�Last blood culture on 08/01 no growth to date; okay to proceed with port placement for this afternoon
�No contraindications from vascular standpoint
� Keep n.p.o. until procedure
� Sent coags and type and screen
� Continue care per hospitalist and ID
--- NOTE | 2024-08-03 09:40 | CM ---
Reviewed the chart notes. Patient for port placement for this afternoon. PT recommending home health. CM continues to be available to patient/family and is monitoring medical plan for needs at discharge.
Plan: Discharge to home with resumption of VN services. Referral sent and accepted in [facility].
--- NOTE | 2024-08-03 10:07 | W.PN.ID1 ---
Date of Service
Date of Service: August 03, 2024
Today's Communication
Transition to cipro 500mg po bid x 10 more days.
Check ECG for QTc monitoring
If QTc<500, OK to dc home from ID standpoint.
Assessment / Plan
# Left lower extremity chronic wounds with acute infection
- hx Pseudomonas and ESBL-Kleb from wound.
- KYLAH normal
- 07/30/24 s/p OR debridement to healthy tissue; wound vac in place
Appreciate Vascular - OR culture: Pseudomonas aeruginosa, ESBL-E. coli
- Transition to cipro 500mg po bid x 10 more days.
Check ECG for QTc monitoring
- If QTc<500, OK to dc home from ID standpoint.
# Recent dx of rectal cancer.
-Chemo postponed due to chronic nonhealing leg wounds.
- For port placement today.
# Conditions prior to admission
rectal cancer dx 05/2024, not on tx yet.
A-fib
HTN
HFpEF
AV block s/p PPM
Hypothyroidism
Renal cyst
BPH
hx prostate CA
Chief Complaint
-: Other (Wound infection)
Subjective / Review of Systems
Feels well.
Vital Signs / Physical Exam
Vital Signs
Vital Signs
Temp Pulse Resp BP Pulse Ox
97.3 F 82 16 101/68 97
08/03/24 07:20 08/03/24 09:02 08/03/24 07:20 08/03/24 09:02 08/03/24 07:20
Physical Exam
Constitutional: No Acute Distress and Comfortable
Pulmonary: Clear
Gastrointestinal: Soft, Non Tender and Non Distended
Neurological: AO x 3
Objective Data
Lab Data
Lab Results
08/03/24 06:45
08/03/24 06:45
PT 14.5 Sec (11.4-14.6) 08/03/24 08:17
INR 1.10 08/03/24 08:17
APTT 112.7 Sec (23.4-35.0) H 08/03/24 06:45
Estimated Creat Clear 54 ml/min 08/03/24 06:45
Total Bilirubin 0.6 mg/dl (0.2-1.3) 07/27/24 14:39
AST 19 U/L (17-59) 07/27/24 14:39
ALT 15 U/L (0-50) 07/27/24 14:39
Alkaline Phosphatase 107 U/L (38-126) 07/27/24 14:39
Most recent labs reviewed.
Micro Results:
08/01/24 05:32 Blood Culture - Preliminary
Blood/Venous No Growth in 48 hours- Final report to follow
07/30/24 08:11 Anaerobic Culture - Preliminary
Leg - Left Culture pending. Anaerobic cultures are examined after 3
days incubation. Additional information to follow.
07/30/24 08:11 Wound Culture - Preliminary
Leg - Left Pseudomonas aeruginosa
Escherichia coli - ESBL
Gram Stain - Preliminary
07/27/24 22:29 MRSA Screen - Final
Nose No Methicillin Resistant Staphylococcus aureus isolated.
Wound/abscess/other Cult Preliminary 08/02/24
Few Pseudomonas aeruginosa
Rare Escherichia coli - ESBL
Resistance due to extended spectrum beta lactamase.
Decreased activity may occur with penicillins,
penicillin/inhibitor combinations, cephalosporins, and
monobactams.
Isolation Precautions Required
Rare Coagulase neg. staphylococcus
Organism 1 Pseudomonas aeruginosa
Organism 2 Escherichia coli - ESBL
P.AERU EC-ESBL
M.I.C. RX M.I.C. RX
--------- --- --------- ---
Amoxicillin/Potas. Clavulanate 16/8 I
Ampicillin >16 R
Ampicillin/Sulbactam >16/8 R
Aztreonam 8 S >16 R
Cefazolin >16 R
Cefepime 4 S >16 R
Ceftazidime 8 S 4 S
Ceftriaxone >2 R
Ertapenem <=0.5 S
Ciprofloxacin <=0.25 S <=0.25 S
Gentamicin <=2 S
Meropenem <=1 S <=1 S
Piperacillin/Tazobactam 16 S <=8 S
Tetracycline >8 R
Tobramycin <=2 S <=2 S
Trimethoprim/Sulfamethoxazole <=2/38 S
07/27/24 peripheral vascular US: no DVT
--- NOTE | 2024-08-03 10:32 | W.PN.VS ---
Today's Communication / Plan
-
See below.
Assessment/Plan
-
Assessment: 84-year-old male Ps/pDebridement left calf wounds through skin and subcutaneous tissue and into muscle layer (excisional debridement) with entirety of debridement dimensions measuring approximately 9 cm x 5 cm x 2 cm depth. Pulse lavage
irrigation with 3 L of saline solution.
Plan:
Wound VAC changed today, dimensions noted in physical exam, continue MWF changes, wound care following
From a vascular surgical perspective patient is safe for discharge to home once wound care and home VAC are established
Case management following for disposition planning as patient will need establishment of visiting nurse and home wound VAC
Follow up placed in discharge instructions
We will sign off please call with questions or concerns
Subjective Data
-
Date of Service: August 03, 2024
Patient seen and examined at bedside, offers no complaints. Reports eagerness for discharge to home when deemed medically cleared.
Objective Data
-
Vital Signs
Temp Pulse Resp BP Pulse Ox
97.3 F 82 16 101/68 97
08/03/24 07:20 08/03/24 09:02 08/03/24 07:20 08/03/24 09:02 08/03/24 07:20
Intake and Output
08/02/24 08/03/24 08/04/24
06:59 06:59 06:59
Intake Total 510 / 510 360 / 360
Output Total 400 / 400 750 / 750
Balance 110 / 110 -390 / -390
Intake:
Oral fluids 510 / 510 360 / 360
Output:
Urine, Voided 400 / 400 750 / 750
Other:
Number of approximated MODERATE 2 1
amounts of urine
Number of unmeasured liquid
stools
Rectum 1
Lab Results
08/03/24 06:45
08/03/24 06:45
Calcium 9.1 mg/dl (8.4-10.2) 08/03/24 06:45
Magnesium 2.4 mg/dl (1.6-2.3) H 07/29/24 06:51
Total Bilirubin 0.6 mg/dl (0.2-1.3) 07/27/24 14:39
AST 19 U/L (17-59) 07/27/24 14:39
ALT 15 U/L (0-50) 07/27/24 14:39
Alkaline Phosphatase 107 U/L (38-126) 07/27/24 14:39
Total Protein 7.0 g/dl (6.3-8.2) 07/27/24 14:39
Albumin 4.2 g/dl (3.5-5.0) 07/27/24 14:39
Physical Exam
-
Awake alert oriented, no apparent distress resting in bed comfortably
No tachycardia
No dyspnea on room air
ABD flat, nontender, nondistended
Left lower extremity wound clean, dry, and intact; no evidence of active bleeding; good granulation tissue present; wound VAC placed; wound dimensions 9 cm x 5 cm x 1.5 cm
[2024-08-03] MEDS: CIPRO 500 MG PO ×2 (11:06→20:06)
--- NOTE | 2024-08-03 13:32 | W.PN.HOSP.TC ---
Today's Communication/Plan
-
see A/P
Assessment / Plan
Assessment / Plan
A/P:
# Chronic LLE wound with acute infection
KYLAH/TBIs with normal indices
s/p Operative debridement 07/30 with Vascular surgery.
Cont Wound vac. Follow wound care orders per Vascular
pansensitive pseudomonas and ESBL E coli from operative cultures
IV cefepime -> PO Cipro per ID
# ZULEIKA, resolved
monitor Cr
s/p IVF with improvement in Cr
resume CHAR FILTER OPERATOR Lasix
# Rectal and prostate cancer
suppose to start chemo and radiation; deferred due to wound management
on bicalutamide as outpatient
Colorectal planning PORT placement Saturday
# Chronic HFmEF
Patient not in acute exacerbation
continue spironolactone, metoprolol with parameters
resume CHAR FILTER OPERATOR Lasix
Continue dapagliflozin
Fluid restriction, monitor I/Os, weights
# Permanent atrial fibrillation
hold Eliquis; continue IV heparin drip while off Eliquis- hold prior to PORT placement.
Metoprolol continued with hold parameters
# AV block status post pacemaker
# Essential hypertension with post-op hypotension
reviewed prior BP trends from prior admissions and patient usually runs between 90s-100s
continue BP meds with parameters
# Hypothyroidism
continue levothyroxine
DVT ppx: IV Heparin
Code Status: Full code
DW at bedside
DW RN
Anticipated Discharge: Within 24 hours
Subjective/Interval History
-
Date of Service: August 03, 2024
Objective Data
-
Labs:
Laboratory Results
08/03/24 08/03/24
06:45 08:17
WBC 7.5
Hgb 11.2 L
Hct 36.9 L
Plt Count 255
PT 14.5
INR 1.10
APTT 112.7 H
Sodium 136
Potassium 4.8
Chloride 101
Carbon Dioxide 28
BUN 27 H
Creatinine 1.0
Glucose 92
Calcium 9.1
Vital Signs:
Vital Signs
Temp Pulse Resp BP Pulse Ox
36.4 C 90 16 122/87 99
08/03/24 11:08 08/03/24 11:08 08/03/24 11:08 08/03/24 11:08 08/03/24 11:08
I&O
08/02/24 08/03/24 08/04/24
06:59 06:59 06:59
Intake Total 510 / 510 360 / 360
Output Total 400 / 400 750 / 750
Balance 110 / 110 -390 / -390
Review of Systems
-
All other systems: Reviewed and negative
Physical Exam
-
General: Well Developed, Well Nourished, No Apparent Distress, Comfortable and Conversant
HEENT: Normocephalic and Atraumatic
Respiratory: Clear to Auscultation and Non Labored Respirations; Negative Accessory Resp Muscle Use
Cardiac: Regular Rhythm and S1/S2
GI: Soft, Nontender and Nondistended
Skin: Other (LLE wound wrapped in dressing, with wound vac)
Neuro: Awake and Alert
Psych: Calm and Intact Judgement/Insight
Data Reviewed
-
Labs: Labs Reviewed by me
--- NOTE | 2024-08-03 16:01 | PTCARENOTE ---
Pt sent to the OR for port placement.
--- NOTE | 2024-08-03 16:01 | CM ---
Reviewed the chart notes and spoke with the patient at the bedside. IMM reviewed. The patient anticipates being discharged to home tomorrow with wound vac and [facility] services. Patient had port placed today. CM continues to be available to
patient/family and is monitoring medical plan for needs at discharge.
Plan: Discharge to home with [facility] services when medically stable.
--- NOTE | 2024-08-03 17:40 | W.IMMPOSTOP ---
Addendum entered and electronically signed by Ramses Bashir MD 08/03/24 18:02:
d/w primary; ok for diet and ok to restart eliquis tomorrow
Original Note:
Surgical Immed Post Op Note
-
Primary Surgeon: Ramses Bashir MD
Assisting Surgeon: None
Pre-op Diagnosis: Rectal cancer
Post-op Diagnosis: Rectal cancer
Procedure Performed: Right subclavian Mediport insertion
Anesthesia Type: Sedation with local
Specimen / Cultures: None
Estimated Blood Loss: 10 mL
Complications: None
Operative Findings: Obtained venous aspirate on second pass; passed guidewire and confirmed right subclavian vein location on fluoroscopy; tip seen at the cavoatrial junction; blood was easily aspirated and heparinized saline flushed without
resistance
--- NOTE | 2024-08-03 17:43 | OR.RPT ---
Operative Report
Operative Report
DATE OF OPERATION: 08/03/2024
SURGEON: Ramses Bashir MD
PREOPERATIVE DIAGNOSIS: Rectal cancer
POSTOPERATIVE DIAGNOSIS: Rectal cancer
OPERATION: Right subclavian Mediport insertion
ASSISTANTS:
1. None
ANESTHESIA: Sedation with local
ESTIMATED BLOOD LOSS: 10 mL
FINDINGS:
1. After placement, the tip of port catheter visualized at level of the cavoatrial junction on fluoroscopy
2. Once sutured in position, port tested with Headley needle and there was good withdrawal of blood and instillation of heparinized saline without resistance
SPECIMENS: None
DRAINS: None
COMPLICATIONS: No immediate complications.
INDICATIONS: The patient is a 84-year-old male with rectal cancer requiring neoadjuvant chemotherapy and radiation. Therefore, I recommended port placement. The operation was discussed with the patient in detail including risks and benefits. Risks
discussed included, but are not limited to, bleeding, infection, pneumothorax, hemothorax, post-operative malposition or movement of catheter, need for second surgery, DVT/PE, and anesthetic risks. The patient understood and agreed to proceed. The
consent was signed and placed in the chart.
PROCEDURE: Patient was taken to the operating room and placed on the operating table in supine position. Sequential compression devices were placed bilaterally. Sedation was commenced without complication. Bilateral arms were tucked and the head
was tilted toward the left. The right neck and chest wall area were shaved, prepped and draped in a sterile fashion. A time-out was then performed verifying the correct patient, procedure, operative site, positioning, and special equipment.
The patient was placed in Trendelenburg position. Local anesthetic consisting of 1% lidocaine with epinephrine was used to numb the skin and soft tissue near the angle of the right clavicle. Using bony landmarks as a guide, I passed the needle with
10mL syringe under the right collar bone in the direction of the sternal notch while simultaneously aspirating. On the second pass, good venous return was noted indicating that I had accessed the right subclavian vein. Under fluoroscopic guidance a
guidewire was passed through the needle into the patient down to the superior vena cava. This went smoothly.
The needle was removed over the guidewire and a skin opening was enlarged with an 11 blade scalpel. Next, I advanced the dilator and peel-away sheath together over the guidewire into the patient. This went smoothly as well. Next, the guidewire and
inner dilator were removed leaving the outer sheath in place. I advanced the white tubing through the outer sheath into the patient under fluoroscopic guidance to the superior vena cava near the right atrium. Next, the outer sheath was peeled away
while maintaining the white tubing in place.
Using a 15 blade scalpel, I made a 4cm incision over the chest wall. A subcutaneous pocket was created inferiorly to the incision with a combination of Bovie electrocautery and blunt dissection. There was good hemostasis. The white tubing was
connected to the tunneling device and brought through a newly created tunnel to the pocket area, taking care to avoid kinking of the tube. I confirmed with fluoroscopy that the tip was still at the cavoatrial junction after this manipulation. The
white tubing was trimmed, connected to the the port reservoir and secured with the locking mechanism. The port reservoir was accessed with good venous return and flushed with heparinized saline. One last round of fluoroscopy was performed. The tip
of the white tubing was at the level of the cavoatrial junction and there was no kink in the tubing.
The reservoir was then secured to the chest wall within the pocket with two 3-0 Prolene stitches. The port was accessed once more with the Headley needle and heparinized saline. The port withdrew promptly and flushed easily. The subcutaneous layer was
closed with deep dermal interrupted 3-0 Vicryl and the skin was closed with a running subcuticular 4-0 Vicryl. The remaining local was injected around the subcutaneous pocket, port incision and stab incision. Dermabond was used to dress the port
incision and stab incision.
At this point, the procedure was complete. All sponge, needle and instrument counts were correct. The patient tolerated the procedure well and was transferred to the recovery room in stable condition. A portable chest x-ray was ordered in recovery
to confirm port position and rule-out pneumothorax.
DICTATED BY: Ramses Bashir MD
--- NOTE | 2024-08-03 18:52 | SUR.PHASEI ---
comfortable in pacu , vss, CXR completed - Dr Bashir to view. wound vac in place on left foot, suction on. initial bp's low on left arm, switch to right arm and BP approx. 20 mmHg higher. Patient is comfortable - without c/o
--- NOTE | 2024-08-03 18:53 | PTCARENOTE ---
Pt returned from PACU s/p R SQ port placement. Incision c/d/i, Dermabond in place. Dinner ordered. VSS. Pt AOx3, denies pain.
[2024-08-03] MEDS: MELATONIN 5 MG PO (23:36)
[2024-08-04] VITALS (7 sets, daily range): BP systolic 97–118; BP diastolic 63–74; PULSE 82–98; O2SAT 97; BMI 26.5; BMI 26.6
[2024-08-04] MEDS: SYNTHROID 100 MCG PO (05:23)
[2024-08-04 08:28] LABS: Hematocrit 40.3 % (39.0-52.0); Hemoglobin 12.1 g/dL (13.0-18.0); Mean Corpuscular Hgb 25.1 pg (27.0-31.0); Mean Corpuscular Volume 83.6 fL (80.0-94.0); Mean Platelet Volume 11.1 fL (7.4-10.4); Platelet Count 272 10^3/uL (130-400); Red Blood Cell Count 4.82 10^6/uL (4.70-6.10); Red Cell Dist. Width 15.6 % (11.5-14.5); White Blood Cell Count 7.3 10^3/uL (4.8-10.8)
[2024-08-04 08:47] LABS: Blood Urea Nitrogen 32 mg/dl (9-20); Calcium 9.7 mg/dl (8.4-10.2); Carbon Dioxide 26 mmol/L (22-30); Chloride 96 mmol/L (98-107); Estimated Creatinine Clearance 42 ml/min; Glucose 142 mg/dl (70-99); Magnesium 2.3 mg/dl (1.6-2.3); Potassium 5.5 mmol/L (3.5-5.1); Sodium 135 mmol/L (135-145); eGFR 54.51
[2024-08-04] MEDS: ELIQUIS 5 MG PO (09:10)
[2024-08-04] MEDS: FARXIGA 10 MG PO (09:10)
[2024-08-04] MEDS: CIPRO 500 MG PO (09:10)
[2024-08-04] MEDS: LASIX PO (09:10)
[2024-08-04] MEDS: FLOMAX 0.4 MG PO (09:10)
[2024-08-04] MEDS: CASODEX 50 MG PO (09:11)
[2024-08-04] MEDS: ALDACTONE PO (09:11)
[2024-08-04] MEDS: DAKIN'S SOLUTION 0.125% 1/4 STRENGTH TOPICAL (09:11)
[2024-08-04] MEDS: TOPROL XL PO (09:11)
--- NOTE | 2024-08-04 12:07 | W.PN.CRS1 ---
Today's Communication / Plan
-
� As below
Assessment/Plan
-
84-year-old male with PMH of recent diagnosis of rectal cancer, prostate cancer, A-fib (on Eliquis), HFpEF, s/p PPM, LLE venous stasis wound complicated by infection and previous debridement (2 recent prior admissions for this issue); presents for
worsening LLE wound, seen by vascular as an outpatient and was sent to the ED; underwent operative debridement of LLE wound by vascular surgery on 07/30; on cefepime per ID; patient requiring port for neoadjuvant chemo and radiation for his rectal
cancer
POD 1 right subclavian port insertion
�Doing well status post port insertion; CXR�no pneumothorax, port tip at the cavoatrial junction
� Okay for diet
� Antibiotics per ID
�Wound care per vascular
� Care per hospitalist; colorectal will sign off; follow-up with me in 2 weeks
Subjective Data
Subjective Data
Date of Service: August 04, 2024
No overnight events. Pain controlled. Tolerating a diet.
Objective Data
-
Vital Signs
Temp Pulse Resp BP Pulse Ox
97.7 F 108 16 110/69 97
08/04/24 09:08 08/04/24 09:08 08/04/24 09:08 08/04/24 09:08 08/04/24 09:08
Intake & Output
08/03/24 08/04/24 08/05/24
06:59 06:59 06:59
Intake Total 360 / 360 630 / 630
Output Total 750 / 750 400 / 400
Balance -390 / -390 230 / 230
Intake:
Oral fluids 360 / 360 530 / 530
IV fluids (Total) 100 / 100
Normosol 100 / 100
Output:
Urine, Voided 750 / 750 400 / 400
Other:
Number of approximated MODERATE 1 2
amounts of urine
How many times incontinent 1
SMALL amount urine
Number of unmeasured liquid
stools
Rectum 1
Lab Results
08/04/24 07:26
08/04/24 07:26
Physical Exam
-
General: No Acute Distress and AOx3
HEENT: Grossly Normal
Abdomen: Soft, Non Distended and Non Tender
Extremities: Other (Left lower extremity wrapped in Valerio wrap, wound VAC functioning)
Skin: Warm and Dry
Wound: Other (Right upper chest port incisions dressed with Dermabond, no erythema or drainage)
--- NOTE | 2024-08-04 12:09 | PTOTSP ---
PATIENT ABLE TO TOLERATE INCREASED MOBILITY THIS SESSION. REVIEWED CAR TRANSFER TECHNIQUE WITH AND PATIENT. PATIENT HAS ROLLING WALKER AT HOME FOR HIS USE. WILL HAVE ASSIST FROM NEEDED. REPORTS THAT THEY WILL ONLY BE GOING OUT FOR
CHEMO/RADIATION TREATMENTS FOR PATIENT. WILL DISCHARGE FROM P.T. PATIENT INDEPENDENT WITH MOBILITY USING ROLLING WALKER.
--- NOTE | 2024-08-04 12:14 | CM ---
Reviewed the chart notes and spoke with the patient and spouse at the bedside. Patient anticipates being discharged to home today with VN services with wound vac. CM continues to be available to patient/family and is monitoring medical plan for
needs at discharge.
Plan: Discharge to home with VN today.
--- NOTE | 2024-08-04 12:49 | W.PN.HOSP.TC ---
Addendum entered and electronically signed by Lucy Pimentel MD 08/04/24 14:28:
total DC time 40 min
Original Note:
Today's Communication/Plan
-
see A/P
Assessment / Plan
Assessment / Plan
A/P:
# Chronic LLE wound with acute infection
KYLAH/TBIs with normal indices
s/p Operative debridement 07/30 with Vascular surgery.
Cont Wound vac. Follow wound care orders per Vascular
pansensitive pseudomonas and ESBL E coli from operative cultures
IV cefepime -> PO Cipro per ID for 10 days
# ZULEIKA, resolved
monitor Cr
s/p IVF with improvement in Cr
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
# Rectal and prostate cancer
suppose to start chemo and radiation; deferred due to wound management
on bicalutamide as outpatient
s/p PORT placement 08/03 by CRS
# Chronic HFmEF
Patient not in acute exacerbation
cont metoprolol
Holding spironolactone 2/2 hyperkalemia
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
Continue dapagliflozin
Fluid restriction, monitor I/Os, weights
# Permanent atrial fibrillation
resumed Eliquis
Metoprolol continued with hold parameters
# AV block status post pacemaker
# Essential hypertension with post-op hypotension
reviewed prior BP trends from prior admissions and patient usually runs between 90s-100s
continue BP meds with parameters
# Hypothyroidism
continue levothyroxine
DVT ppx: Eliquis
Code Status: Full code
DW at bedside
DW CM
Anticipated Discharge: Today
Subjective/Interval History
-
Date of Service: August 04, 2024
Objective Data
-
Labs:
Laboratory Results
08/04/24
07:26
WBC 7.3
Hgb 12.1 L
Hct 40.3
Plt Count 272
Sodium 135
Potassium 5.5 H
Chloride 96 L
Carbon Dioxide 26
BUN 32 H
Creatinine 1.3
Glucose 142 H
Calcium 9.7
Vital Signs:
Vital Signs
Temp Pulse Resp BP Pulse Ox
36.6 C 103 17 97/66 97
08/04/24 11:00 08/04/24 11:00 08/04/24 11:00 08/04/24 11:00 08/04/24 11:00
I&O
08/03/24 08/04/24 08/05/24
06:59 06:59 06:59
Intake Total 360 / 360 630 / 630
Output Total 750 / 750 400 / 400
Balance -390 / -390 230 / 230
Review of Systems
-
All other systems: Reviewed and negative
Physical Exam
-
General: Well Developed, Well Nourished, No Apparent Distress, Comfortable and Conversant
HEENT: Normocephalic and Atraumatic
Respiratory: Clear to Auscultation and Non Labored Respirations; Negative Accessory Resp Muscle Use
Cardiac: Regular Rhythm and S1/S2
GI: Soft, Nontender and Nondistended
Skin: Other (LLE wound wrapped in dressing, with wound vac)
Neuro: Awake and Alert
Psych: Calm and Intact Judgement/Insight
Data Reviewed
-
Labs: Labs Reviewed by me
--- NOTE | 2024-08-04 13:56 | W.PN.ID1 ---
Date of Service
Date of Service: August 04, 2024
Today's Communication
DC home on cipro and metronidazole x 10d.
Assessment / Plan
# Left lower extremity chronic wounds with acute infection
- hx Pseudomonas and ESBL-Kleb from wound.
- KYLAH normal
- 07/30/24 s/p OR debridement to healthy tissue; wound vac in place
Appreciate Vascular - OR culture: Pseudomonas aeruginosa, ESBL-E. coli, mixed anaerobes
- Transition to cipro 500mg po bid and metronidazole 500mg po bid x 10 more days.
QTc 460
-Discussed potential tendinitis/rupture with cipro.
# Recent dx of rectal cancer.
-Chemo postponed due to chronic nonhealing leg wounds.
- For port placement today.
# Conditions prior to admission
rectal cancer dx 05/2024, not on tx yet.
A-fib
HTN
HFpEF
AV block s/p PPM
Hypothyroidism
Renal cyst
BPH
hx prostate CA
Chief Complaint
-: Other (Wound infection)
Subjective / Review of Systems
Tolerating cipro.
Vital Signs / Physical Exam
Vital Signs
Vital Signs
Temp Pulse Resp BP Pulse Ox
97.8 F 103 17 97/66 97
08/04/24 11:00 08/04/24 11:00 08/04/24 11:00 08/04/24 11:00 08/04/24 11:00
Physical Exam
Constitutional: No Acute Distress and Comfortable
Pulmonary: Clear
Gastrointestinal: Soft, Non Tender and Non Distended
Wound: Other (LLE wound vac in place. )
Objective Data
Lab Data
Lab Results
08/04/24 07:26
08/04/24 07:26
PT 14.5 Sec (11.4-14.6) 08/03/24 08:17
INR 1.10 08/03/24 08:17
APTT 112.7 Sec (23.4-35.0) H 08/03/24 06:45
Estimated Creat Clear 42 ml/min 08/04/24 07:26
Total Bilirubin 0.6 mg/dl (0.2-1.3) 07/27/24 14:39
AST 19 U/L (17-59) 07/27/24 14:39
ALT 15 U/L (0-50) 07/27/24 14:39
Alkaline Phosphatase 107 U/L (38-126) 07/27/24 14:39
Most recent labs reviewed.
Micro Results:
07/30/24 08:11 Wound Culture - Final
Leg - Left Pseudomonas aeruginosa
Escherichia coli - ESBL
Gram Stain - Final
07/30/24 08:11 Anaerobic Culture - Final
Leg - Left
08/01/24 05:32 Blood Culture - Preliminary
Blood/Venous No Growth in 72 hours- Final report to follow
07/27/24 22:29 MRSA Screen - Final
Nose No Methicillin Resistant Staphylococcus aureus isolated.
Wound/abscess/other Cult Preliminary 08/02/24-41
Few Pseudomonas aeruginosa
Rare Escherichia coli - ESBL
Resistance due to extended spectrum beta lactamase.
Decreased activity may occur with penicillins,
penicillin/inhibitor combinations, cephalosporins, and
monobactams.
Isolation Precautions Required
Rare Coagulase neg. staphylococcus
Organism 1 Pseudomonas aeruginosa
Organism 2 Escherichia coli - ESBL
P.AERU EC-ESBL
M.I.C. RX M.I.C. RX
--------- --- --------- ---
Amoxicillin/Potas. Clavulanate 10/04 I
Ampicillin >16 R
Ampicillin/Sulbactam >16/8 R
Aztreonam 8 S >16 R
Cefazolin >16 R
Cefepime 4 S >16 R
Ceftazidime 8 S 4 S
Ceftriaxone >2 R
Ertapenem <=0.5 S
Ciprofloxacin <=0.25 S <=0.25 S
Gentamicin <=2 S
Meropenem <=1 S <=1 S
Piperacillin/Tazobactam 16 S <=8 S
Tetracycline >8 R
Tobramycin <=2 S <=2 S
Trimethoprim/Sulfamethoxazole <=2/38 S
07/27/24 peripheral vascular US: no DVT
Care Review
Plan reviewed with: Physician (Dr. Lucy Pimentel)
--- NOTE | 2024-08-04 14:17 | W.DCSUMMARY ---
Discharge Summary
Discharge Data
Date of Admission: 07/27/24
Date of Discharge: 08/04/24
-
Pending Results: No
Hospital Course
Principal Diagnosis:
Chronic LLE wound with acute infection
Resolved acute kidney injury (ZULEIKA)
Hyperkalemia
Chronic Diagnoses:�
Rectal and prostate cancer
Chronic heart failure with systolic and diastolic dysfunction
Permanent atrial fibrillation
AV block status post pacemaker
Essential hypertension with post-op hypotension
Hypothyroidism on levothyroxine
Consultations:�
Vascular surgery
Colorectal surgery
Infectious disease
Procedures:�
Operative debridement of left foot wound on 07/30 by Vascular surgery.
PORT placement on 08/03 by CRS
Clinical course:�
This is a 84-year-old male, with past medical history as stated above, who was sent in by vascular surgery for worsening chronic left lower extremity wound with purulent drainage and malodor.
Problem 1:
Chronic LLE wound with acute infection.
His KYLAH/TBIs were within normal indices.
He underwent operative debridement of the LLE wound on 07/30 by vascular surgery.
Wound VAC was placed which he can continue going forward following discharge.
His wound culture grew pansensitive pseudomonas and ESBL E coli.
He received IV cefepime while in the hospital, and was discharged with Cipro and Flagyl for 10 more days per ID.
Problem 2:
ZULEIKA, resolved following IV fluid.
Problem 3:
Hyperkalemia, potassium level 5.5.
His prior to admission Aldactone was stopped.
He can check repeat BMP for potassium level in 1 week, result to PCP.
As for the rest of his medical problems, they were stable during his hospital stay.
Discharge Plan
-
Patient Disposition: Home with Home Care
Discharge Diagnosis/Procedures: Chronic Left leg wound with acute infection status post operative debridement 07/30 with Vascular surgery;
Resolved acute kidney injury;
Rectal and prostate cancer;
Hyperkalemia
Condition: Fair
Diet: As tolerated, Low Fat, Low Cholesterol and 2 Gram Sodium
Activity: As tolerated
Driving Restrictions: No driving
Blood Work: BMP in 1 week, result to your PCP
Wound Care: Wound Care Instructions
L calf-negative pressure wound therapy, use black foam, Change every 48 - 72 hours (i. e. Snsoehr-Uikcfhbonx-Hnjuwge) and prn if unable to obtain a seal. Low Intensity, Continuous at 120 mmHg. Upon discharge or transfer to another facility, remove
VAC foam and apply NS moistened gauze dressing unless home VAC unit available.
S+N negative pressure wound vac, call the rep 18/03 for questions/problems Dwayne David cell phone #
Follow up with vascular surgeon.
Follow up at wound care center call for an appointment.
Referrals:
Blaise Dennis MD [Family Provider] - in less than 1 week
Ramses Bashir MD [Active] - in two weeks
Ellen Call CRNP [Specified Professional Personl] - 08/14/24 1:30 pm
Additional Discharge Medication Instructions: Your Aldactone was stopped due to hyperkalemia
Continue Cipro and Flagyl for 9 days
Prescriptions:
New
ciprofloxacin HCl 500 mg Tablet
500 mg PO BID 9 Days Qty: 18 0RF
metronidazole 500 mg tablet
500 mg PO Q8H 10 Days Qty: 30 0RF
Continued
ascorbic acid (vitamin C) [Vitamin C] 500 MG tablet
500 mg PO DAILY
Eliquis 5 MG tablet
5 mg PO BID
cholecalciferol (vitamin D3) 25 mcg (1,000 unit) Tablet
25 mcg PO DAILY
bicalutamide 50 mg tablet
50 mg PO DAILY
cyanocobalamin (vitamin B-12) 1,000 MCG tablet
1,000 mcg PO DAILY
levothyroxine 100 MCG tablet
100 mcg PO DAILY@0700
furosemide 20 mg tablet
60 mg PO DAILY
zinc sulfate 220 MG capsule
220 mg PO DAILY
melatonin 5 MG tablet
5 mg PO HS
dapagliflozin propanediol 10 mg tablet
10 mg PO DAILY
metoprolol succinate 50 MG tablet extended release 24 hr
25 mg PO BID Qty: 60 1RF
Santyl 250 unit/gram ointment
1 applic topical BID Qty: 90 1RF
Rx Instructions:
APPLY TO LEFT LOWER EXTREMITY WOUND PER WOUND CARE INSTRUCTIONS
tamsulosin 0.4 mg Capsule
0.4 mg PO DAILY Qty: 30 0RF
Discontinued
spironolactone 25 mg tablet
25 mg PO DAILY
Discharge Orders:
Discharge Patient (As Directed); Ordered 08/04/24
Ordered By: Lucy Pimentel
Discharge Date and Time
Print Language: SYRIAC
--- NOTE | 2024-08-04 14:59 | WOUNDNOTE ---
WOC RN NOTE: Patient for discharge to home today. [employer] vac changed to home vac with assistance of sharyn Cole and Mina. All questions answered. Plan is for home with VN. Old vac unit removed from room by Mina.
== END 2024-08-04 15:29 | disposition home health service (06) | DRG 580 ==
LOC: 2 NORTH 17:53
PROVIDERS: Registered Nurse; Surgery Vascular Surgery; ADMITTING PHYSICIAN Internal Medicine; ATTENDING PHYSICIAN Internal Medicine; CONSULT PHYSICIAN Internal Medicine Infectious Disease; EMERGENCY PHYSICIAN Emergency Medicine; FAMILY PHYSICIAN Internal Medicine; OTHER PHYSICIAN Surgery
PROC: 5A09357 Assistance with Respiratory Ventilation, Less than 24 Consecutive Hours, Continuous Positive Airway Pressure (ICD-10-PCS; 2024-07-28)
PROC: 0KBT0ZZ Excision of Left Lower Leg Muscle, Open Approach (ICD-10-PCS; 2024-07-30)
PROC: 0KDT0ZZ Extraction of Left Lower Leg Muscle, Open Approach (ICD-10-PCS; 2024-07-30)
PROC: 2W1RX6Z Compression of Left Lower Leg using Pressure Dressing (ICD-10-PCS; 2024-07-31)
PROC: B5181ZA Fluoroscopy of Superior Vena Cava using Low Osmolar Contrast, Guidance (ICD-10-PCS; 2024-08-03)
PROC: 02HV33Z Insertion of Infusion Device into Superior Vena Cava, Percutaneous Approach (ICD-10-PCS; 2024-08-03)
PROC: 0JH60WZ Insertion of Totally Implantable Vascular Access Device into Chest Subcutaneous Tissue and Fascia, Open Approach (ICD-10-PCS; 2024-08-03)
DX: L97.229 Non-pressure chronic ulcer of left calf with unspecified severity (principal); C20 Malignant neoplasm of rectum; I48.21 Permanent atrial fibrillation; N17.9 Acute kidney failure, unspecified; I50.22 Chronic systolic (congestive) heart failure; I96 Gangrene, not elsewhere classified; Z16.12 Extended spectrum beta lactamase (ESBL) resistance; L97.929 Non-pressure chronic ulcer of unspecified part of left lower leg with unspecified severity; R22.42 Localized swelling, mass and lump, left lower limb; I11.0 Hypertensive heart disease with heart failure; E03.9 Hypothyroidism, unspecified; N40.0 Benign prostatic hyperplasia without lower urinary tract symptoms; N28.1 Cyst of kidney, acquired; L97.222 Non-pressure chronic ulcer of left calf with fat layer exposed; I95.81 Postprocedural hypotension; I87.2 Venous insufficiency (chronic) (peripheral); B96.5 Pseudomonas (aeruginosa) (mallei) (pseudomallei) as the cause of diseases classified elsewhere; B96.20 Unspecified Escherichia coli [E. coli] as the cause of diseases classified elsewhere; E87.5 Hyperkalemia; E78.5 Hyperlipidemia, unspecified; Z88.1 Allergy status to other antibiotic agents; Z79.01 Long term (current) use of anticoagulants; Z95.0 Presence of cardiac pacemaker; Z85.46 Personal history of malignant neoplasm of prostate; Z79.890 Hormone replacement therapy
CPT/HCPCS: 11043; 11046; 71045; 76000; 80048; 80053; 80202; 83735; 85025; 85027; 85610; 85730; 86850; 86900; 86901; 87040; 87070; 87075; 87077; 87147; 87186; 87205; 93005; 93922; 93925; 93971; 94660; 96365; 97116; 97162; 97166; 97530; 99285; C1788

== ENCOUNTER 2024-08-24 14:19 | Inpatient (IN) | payer MEDICARE, SELFPAY ==
[2024-08-24] VITALS (12 sets, daily range): BP systolic 88–141; BP diastolic 50–99; PULSE 93; BMI 28.2
--- NOTE | 2024-08-24 11:40 | ED.GENMED ---
History of Present Illness
General
Chief Complaint: Breathing Problem
Source: patient and spouse
Time Seen by Provider: 08/24/24 11:20
History of Present Illness
History of Present Illness:
84-year-old male presents the emergency department with 'cold' symptoms over the weekend described as low-grade fever, chills, and a productive cough. He states that on Saturday at home nurse listen to his lungs and they were normal. However, over
the last few days he notes dyspnea particularly on exertion. He denies orthopnea or PND. He denies chest pain or pressure, abdominal pain, nausea, vomiting. He states that he was noted to be gaining weight a few days ago and his Lasix dose was
increased from 60 to 80 mg. He presents today with increasing dyspnea. Of note, patient went to his wound care appointment today and the wound was redressed. He has a VAC in place secondary to a chronic left lower extremity wound.
Past History
Past History
ED Past Medical History: Arrthythmia (Atrial fibrillation), HTN, Hypothyroidism, Other (renal cyst, colorectal cancer, heart failure, A-fib) and Other (Sepsis January 2021)
ED Past Surgical History: Cardiac (pacemaker implantation December 2020)
Social History
Tobacco: Non-smoker
Alcohol: None
Drug: None
Personal:
Living: with family
Family History
Family History: Other (reviewed and noncontributory)
Phy Exam
Physical Exam
Physical Exam:
GENERAL: Alert , in mild respiratory distress
EYE: pupils equal and reactive
NECK: Supple, no significant adenopathy.
ENT: o/p clr, mm dry
CARDIAC: Irregularly irregular, tachycardic
LUNGS: Equal breath sounds bilaterally, diffuse wheezing with bibasilar rales, no active cough
ABDOMEN: Soft, without focal tenderness, no r/g
NEUROLOGICAL: Alert and oriented, no focal neuro deficits
SKIN: Warm and dry, left chronic wound dressed
MUSCULOSKELETAL: Trace to 1+ bilateral lower extremity edema, well perfused.
PSYCH: Normal and appropriate interaction.
Scores
Heart Failure Risk
Heart Failure Risk Score: Not Applicable
Sepsis
Sepsis Screening
Sepsis Assessment: Sepsis
Sepsis Screen
Sepsis Screen: Sepsis
Date: 08/27/24
Time: 08:40
Course
Orders/Labs/Results
Orders:
Orders
08/24/24 Breakfast
Cholesterol Lowering
At Your Request: Full Participation
Fluid Restriction: 1200 mL/day (40 oz)
Cholesterol Lowering: Sodium, 2 Gram
08/24/24 10:50
Electrocardiogram (*1) Urgent
Reason for Study: Chest Pain
EKG- Treatment ONCE
08/24/24 11:27
Cardiac Monitoring- Treatment ONCE
CR Chest - 2 Views Urgent
Comment:
Reason For Exam: suspected infection
08/24/24 11:30
COVID-19 Antigen Urgent
Source: Nasal Swab
Influenza A+B Rapid Molecular Urgent
SAMMI Source: Nasal Swab
Specimen Description:
08/24/24 11:45
Furosemide [Lasix] 60 mg IV NOW STA
Ipratropium/Albuterol Sulfate [Duoneb] 3 ml INH R NOW ONE
08/24/24 11:54
Comprehensive Metabolic Panel Urgent
08/24/24 11:55
Complete Blood Count/With Diff Urgent
Lactic Acid Q4H
Comment: ON ICE, CANCEL 2ND ORDER IF FIRST LACTIC ACID LEVEL <2
NT-proBNP Urgent
Troponin I Urgent
08/24/24 12:15
Acetaminophen [Tylenol] 1,000 mg PO NOW STA
Oseltamivir Phosphate [Tamiflu] 75 mg PO NOW STA
08/24/24 12:23
Blood Culture Q30M
SAMMI Source: Blood/Venous
Specimen Description:
08/24/24 13:12
Azithromycin 500 mg/250 ml [Zithromax Infusion] 500 mg in 250 ml IV NOW
CefTRIAXone [Rocephin] 1,000 mg IV NOW STA
08/24/24 13:36
Blood Culture Q30M
SAMMI Source: Blood/Venous
Specimen Description:
08/24/24 13:58
Admit/Transfer Patient As Directed
Co-Sign Provider:
Level of Care: Inpatient admission
Assign to:: Telemetry
Physician / Group: corbin
Diagnosis: sepsis
Reason for Telemetry: Subacute Heart Failure
Date to Stop Telemetry: 08/26/24
Time to Stop Telemetry: 11:00
Reason for Hospitalization: sepsis
influenza A
CHF exacerbation
Expected length of stay greater than two midnights?: Yes
ELOS- Estimated Length of Stay in days: 3
I certify the patient meets the requirements for IP care: Yes
08/24/24 13:59
PRN Pain Medication Management As Directed
May give lesser potent ordered pain med per pt: Yes
preference::
Protocol:: Medication orders for pain may be administered in a
manner that supports deferring to patient preference
when the pt is:
- Requesting an ordered lesser potent pain medication.
Least to most potent pain medications are defined
as: acetaminophen < NSAID < tramadol < opioids
(morphine, oxycodone, hydromorphone).
- Requesting a lesser dose of the same medication IF
ORDERED.
- Requesting a less intrusive route of administration
if both routes are prescribed by the provider (PO <
IV).
08/24/24 14:01
Code Status As Directed
Resuscitation Status: Full Code
08/24/24 14:10
CARDIOLOGY CONSULT Routine
Consulting Provider: Maria Palomares
Was physician already notified: Yes
08/24/24 15:19
HF DIETARY CONSULT Routine
HF EDUCATOR CONSULT Routine
Comment:
WOUND/OSTOMY CONSULT Routine
Reason for Consult: right LE wound with wound vac
Activity As Directed
Activity Level: As Tolerated
Intake/ Output As Directed
Frequency: Per unit guidelines
Patient Education As Directed
Type: CHF folder
Comment: give on admission. Document in Interdisciplinary Education record
Sleep Apnea Assessment by RN As Directed
Comment:
Physician Instructions:
Vital Signs As Directed
Frequency: Other
Additional Instructions:: Q12 or per unit guidelines if more frequent.
Weight As Directed
Frequency: Daily
Type of Scale: Standing Scale
Comment: Daily morning weight. If unable to stand, use balanced bed scale.
Weight As Directed
Frequency: Once
Type of Scale: Standing Scale
Comment: Upon Admission. If unable to stand, use balanced bed scale.
Pulse Ox/cont/shift [RESP] Routine
Quantity: 1
Special Instructions: Daily pulse oximetry at rest. If greater than 92% at rest also obtain pulse oximetry
while ambulating as tolerated.
Pt Eval And Treat Routine
Activity Level: As Tolerated
08/24/24 16:00
Albuterol [ProAIR HFA INHALER] 1 puff INH R QID
08/24/24 16:10
Lactic Acid Q4H
Comment: ON ICE, CANCEL 2ND ORDER IF FIRST LACTIC ACID LEVEL <2
08/24/24 16:37
Urinalysis Reflex To Culture Urgent
Date Specimen was Collected: 08/24/24
Time Specimen was Collected: 16:35
08/24/24 17:58
Troponin I Q6H
Comment: at admission & every 6 hours x 2 (3 total), ECG to be done with each level
08/24/24 20:00
Apixaban [Eliquis] 5 mg PO BID
Collagenase [Santyl Ointment] See Dose Instructions TOPICAL BID
Metoprolol Xl [Toprol Xl] 25 mg PO BID
08/24/24 22:00
Melatonin 5 mg PO HS
08/25/24 00:34
Troponin I Q6H
Comment: at admission & every 6 hours x 2 (3 total), ECG to be done with each level
08/25/24 04:38
Cardiovascular Evaluation IN AM
Magnesium IN AM
08/25/24 04:39
Complete Blood Count/No Diff IN AM
TSH Reflex To Free T4 IN AM
08/25/24 06:00
Levothyroxine [Synthroid] 100 mcg PO DAILY@0600
08/25/24 08:00
Furosemide [Lasix] 60 mg IV DAILY
Oseltamivir Phosphate [Tamiflu] 30 mg PO BID
Tamsulosin [Flomax] 0.4 mg PO DAILY
08/26/24 06:20
Basic Metabolic Panel IN AM
Complete Blood Count/No Diff IN AM
08/26/24 11:00
DC Protocol for Telemetry ONCE
08/27/24 05:49
Basic Metabolic Panel IN AM
Complete Blood Count/No Diff IN AM
Abnormal Lab Results
08/24/24 08/24/24
11:54 11:55
RBC 4.27 L 10^6/uL
(4.70-6.10)
Hgb 10.0 L g/dL
(13.0-18.0)
Hct 32.9 L %
(39.0-52.0)
MCV 77.0 L fL
(80.0-94.0)
MCH 23.4 L pg
(27.0-31.0)
MCHC 30.4 L g/dL
(33.0-37.0)
RDW 17.0 H %
(11.5-14.5)
MPV 10.5 H fL
(7.4-10.4)
Absolute Lymphs (auto) 0.3 L 10^3/uL
(1.2-3.4)
Neutrophils % 89.4 H %
(42.2-75.2)
Lymphocytes % 4.3 L %
(20.5-51.1)
Sodium 132 L mmol/L
(135-145)
Chloride 94 L mmol/L
(98-107)
BUN 37 H mg/dl
(9-20)
Glucose 136 H mg/dl
(70-99)
Lactic Acid 2.6 H mmol/L
(0.7-2.0)
Troponin I 0.058 H* ng/ml
Total Protein 6.0 L g/dl
(6.3-8.2)
08/24/24 11:55
08/24/24 11:54
Vital Signs
Initial and Last Documented VS:
Initial Vital Signs
Temp Pulse Resp BP Pulse Ox
100.3 F 139 32 141/97 95
08/24/24 10:43 08/24/24 10:43 08/24/24 10:43 08/24/24 10:43 08/24/24 10:43
Last Documented Vital Signs
Temp Pulse Resp BP Pulse Ox
97.6 F 117 18 119/80 97
08/27/24 08:30 08/27/24 08:30 08/27/24 08:30 08/27/24 08:30 08/27/24 08:30
*Critical Care Note
Total Time (30-74mins, 75-104mins- exclusive of procedures): Not Applicable
Update Note
Update Note:
Patient presents to the Emergency Department with dyspnea___
Number and Complexity of Problems Addressed at the Encounter
� Chronic conditions affecting care:
� Acute Exacerbation and/or Progression of Chronic Illness:
� Differential Diagnosis includes: But not limited to heart failure, pneumonia, PE, ACS, etc. etc.
Amount and/or Complexity of Data to be Reviewed and Analyzed
� I performed an independent evaluation of and my interpretation is:
EKG:read by me, MARIANA, RBBB, n acute ischemima
CT:
Xrays:read by wesly powers ild chf
Laboratory Studies:newmild anemia, lactic acid elevation, trop elevation (suspect demand ischemia--no cp)
Other:
� Review of other/old records reveals: Patient was recently hospitalized and noted to have a chronic left lower extremity wound requiring surgical debridement. A port was placed on August 03.
� Clinical information was obtained by an independent historian:
� Prescriptions/Medications Considered but not given:
� Further testing considered but not performed:
Risk of Complications and/or Morbidity or Mortality of Patient Management
� Social determinants of health affecting care:
� Discussion with other providers (PCP, Hospitalists, Consultants, etc): Text sent to general surgery inquiring when port is able to be used given recent placement--response ok to use
� Escalation of care including admission/observation vs risk of discharge considered:Pt with resp insufficiency related to influenza, no secondary pna noted, assoc with mild hf exacerbation. Lasix given in ED, tamiflu given in
ED. Cautious IVF given hx of hf. Hypoxia relieved with oxygen NC here. Will admit, tt to hosptialist.
ED Attending Note
-
Portions of this chart may have been created with voice recognition software.� Occasional wrong word or��sound alike� substitutions may have occurred due to the inherent limitations of voice recognition software.
Discharge Plan
Departure
Patient Disposition: Admit
Date of Disposition: 08/24/24
Time of Disposition: 13:18
Presentation/result/management discussed w/ accepting MD/DO: Hospitalist
Condition: Fair
Discharge Problem:
Influenza A
Interventions
Interventions:
*General Assessment Last Done: 08/24/24 11:36
ED- Fall Risk Assessment Last Done: 08/24/24 14:36
*Nursing Disposition Last Done: 08/24/24 15:14
ED- Cardiac Assessment Last Done: 08/24/24 11:37
ED- Pulmonary Assessment Last Done: 08/24/24 11:37
Discharge Date and Time
Discharge Date/Time: 08/24/24 15:15
[2024-08-24 11:55] LABS: COVID-19 Antigen Negative (Negative)
[2024-08-24] MEDS: DUONEB 3 ML INH (11:56)
[2024-08-24 12:06] LABS: % Basophils 0.5 % (0-2); % Eosinophils 0.2 % (0-6); % Immature Granulocytes 0.5 % (0-0.5); % Lymphocytes 4.3 % (20.5-51.1); % Monocytes 5.1 % (1.7-9.3); % Neutrophils 89.4 % (42.2-75.2); Absolute Lymphocytes 0.3 10^3/uL (1.2-3.4); Absolute Monocytes 0.3 10^3/uL (0.1-0.6); Absolute Neutrophils 5.2 10^3/uL (1.4-6.5); Hematocrit 32.9 % (39.0-52.0); Mean Corp Hgb Conc. 30.4 g/dL (33.0-37.0); Mean Corpuscular Hgb 23.4 pg (27.0-31.0); Mean Platelet Volume 10.5 fL (7.4-10.4); Nucleated Red Blood Cells % 0 % (-); Platelet Count 286 10^3/uL (130-400); Red Blood Cell Count 4.27 10^6/uL (4.70-6.10); White Blood Cell Count 5.9 10^3/uL (4.8-10.8)
[2024-08-24] MEDS: LASIX 60 MG IV (12:11)
[2024-08-24 12:27] LABS: Lactic Acid 2.6 mmol/L (0.7-2.0)
[2024-08-24] MEDS: TYLENOL 1000 MG PO (12:31)
[2024-08-24] MEDS: TAMIFLU 75 MG PO (12:31)
[2024-08-24 12:35] LABS: NT-proBNP 6240 pg/ml; Troponin I 0.058 ng/ml
[2024-08-24 12:42] LABS: ALT (SGPT) 18 U/L (0-50); AST (SGOT) 26 U/L (17-59); Albumin 3.5 g/dl (3.5-5.0); Alkaline Phosphatase 87 U/L (38-126); Blood Urea Nitrogen 37 mg/dl (9-20); Calcium 8.5 mg/dl (8.4-10.2); Carbon Dioxide 28 mmol/L (22-30); Chloride 94 mmol/L (98-107); Estimated Creatinine Clearance 42 ml/min; Glucose 136 mg/dl (70-99); Potassium 3.8 mmol/L (3.5-5.1); Sodium 132 mmol/L (135-145); Total Bilirubin 0.8 mg/dl (0.2-1.3); eGFR 54.51
[2024-08-24] MEDS: ROCEPHIN 1000 MG IV (13:28)
[2024-08-24] MEDS: ZITHROMAX INFUSION 250 IV (13:28)
--- NOTE | 2024-08-24 13:34 | HPS.HSE ---
Family Physician
-
Family Physician: Blaise Dennis
Chief Complaint
-
Fever, cough, shortness breath, weight gain
History of Present Illness
84-year-old male with past medical history for A-fib, hypertension, hypothyroidism, CHF presents the emergency department with 'cold' symptoms over the weekend described as low-grade fever, chills, and a productive cough with yellowish sputum.
Since Saturday he noticed dyspneic on exertion. he denies orthopnea or PND. His Lasix was increased from 60-80 because of the weight gain and short of breath. Beginning of last week, patient was 179 pounds. By the end of this week he gained 5
pounds. He lost 4 pounds since his Lasix was increased. Patient denied any headache, dizzy, blurry vision, numbness, tingling. Patient denied chest pain. Patient denied abdominal pain, nausea, vomiting, diarrhea. Patient denied dysuria
hematuria. Of note, patient went to his wound care appointment today and the wound was redressed. He has a VAC in place secondary to a chronic left lower extremity wound.
Patient was noted sepsis in the ER .patient received Tylenol, azithromycin, ceftriaxone, Lasix, nebs, Tamiflu in ER
Admitted for further management
Medical History
Past Medical History
Past Medical History: Reports Other
Additional Past Medical History:
Hypertension
A-fib
Hypothyroidism
Hyperlipidemia
Second-degree heart block
Ventricular tachycardia
Restrictive lung disease
Pneumonia
Streptococcal bacteria
Lower extremities wound
Past Surgical History: Reports None and Other
Social History
Tobacco: Non-smoker
Alcohol: None
Drug: None
Personal:
Living: With Family
Family History
Family History: Not pertinent
Allergies / Home Medications
Allergies reflects when Allergies were last updated in [facility].
Home Medications with original date entered in [facility]
Allergy/Medication List:
Allergies
Allergy/AdvReac Type Severity Reaction Status Date / Time
unknown antibiotic Allergy confusion Uncoded 08/24/24 10:43
Home Medications
ascorbic acid (vitamin C) 500 mg tablet (Vitamin C) 500 mg PO DAILY Supplement 01/06/21
apixaban 5 mg tablet (Eliquis) 5 mg PO BID Blood clot prevention/tx 03/21/21
cholecalciferol (vitamin D3) 25 mcg (1,000 unit) tablet 25 mcg PO DAILY Supplement 06/13/24
cyanocobalamin (vitamin B-12) 1,000 mcg tablet 1,000 mcg PO DAILY Supplement 06/30/24
furosemide 20 mg tablet 60 mg PO DAILY Fluid Retention/Swelling 06/30/24
levothyroxine 100 mcg tablet 100 mcg PO DAILY@0700 Thyroid 06/30/24
melatonin 5 mg tablet 5 mg PO HS sleep 06/30/24
zinc sulfate 50 mg zinc (220 mg) capsule 220 mg PO DAILY Supplement 06/30/24
metoprolol succinate 50 mg tablet,extended release 24 hr 25 mg (1/2 x 50 mg) PO BID Blood Pressure #60 tabs 07/04/24
tamsulosin 0.4 mg capsule 0.4 mg PO DAILY #30 caps 07/09/24
acetaminophen 325 mg tablet (Tylenol) 650 mg PO Q4HPRN PRN mild pain 08/24/24
albuterol sulfate 90 mcg/actuation aerosol inhaler 1 inh inhalation R QID 08/24/24
collagenase clostridium histo. 250 unit/gram topical ointment (Santyl) 1 applic topical BID leg wound 08/24/24
Review of Systems
-
Constitutional: Reports No Symptoms, Fever, Weight Gain, Fatigue and Chills
EENT: Reports No Symptoms
Respiratory: Reports Cough (Yellowish sputum)
Cardiac: Reports No Symptoms
Abdomen/GI: Reports No Symptoms
: Reports No Symptoms
Musculoskeletal: Reports No Symptoms
Skin: Reports No Symptoms
Neurological: Reports No Symptoms
Endocrine: Reports No Symptoms
Hematologic/Lymphatic: Reports No Symptoms
Psych: Reports No Symptoms
Physical Exam
Vital Signs
Vital Signs
Temp Pulse Resp BP Pulse Ox
101.2 F H 119 47 112/62 98
08/24/24 11:26 08/24/24 12:30 08/24/24 12:30 08/24/24 13:00 08/24/24 13:00
Physical Exam
General: Well Developed, Well Nourished and No Apparent Distress
HEENT: NormoCephalic, Moist mucous membranes and Atraumatic
Respiratory: Rales
Cardiac: S1/S2 and Regular Rhythm; No Murmur or Rub
GI: Soft, Non Tender, Non Distended and Normal Bowel Sounds; No Organomegaly
Rectal: Deferred by Provider
Musculoskeletal: No Clubbing, No Cyanosis and Other (Lower extremities wound)
Skin: Rash and Other (Right lower extremities dressing with wound VAC in place)
Neuro: AO x 3 and Nonfocal/grossly intact
Psych: Calm
Laboratory Results
-
08/24/24 11:55
08/24/24 11:54
Laboratory Results
Lactic Acid 2.6 mmol/L (0.7-2.0) H 08/24/24 11:55
Total Bilirubin 0.8 mg/dl (0.2-1.3) 08/24/24 11:54
AST 26 U/L (17-59) 08/24/24 11:54
ALT 18 U/L (0-50) 08/24/24 11:54
Alkaline Phosphatase 87 U/L (38-126) 08/24/24 11:54
Troponin I 0.058 ng/ml H* 08/24/24 11:55
Data Reviewed
-
Diagnostic Radiology: Report Reviewed by me
Lab Data: Labs Reviewed by me
Impression/Plan
-
# Influenza A
-Sepsis as evident by lactate 2.6, tachycardia, temp 101 fever 2
-COVID-negative
-Blood cultures x 2
-UA pending
-Tamiflu continued
-Tylenol as needed for fever or pain
-defer abx at this time
-trend lactic curve HR and temp
# Congestive heart failure exacerbation
-BNP 6240
-Chest x-ray with impression of Mild cardiomegaly.Slightly increased pulmonary vascularity suggesting mild CHF.
-IV Lasix continued
-Strict ALAN, daily weight, fluid restriction
-Echo 06/15 with impression of Estimated Left ventricular ejection fraction is 45-50%.
Wall motion analysis is limited by the image quality.
-cardiology consulted
# Anemia of chronic disease
-Hemoglobin stable at 10.0
-No active bleeding
-Continue to monitor
# Acute hyponatremia likely hypovolemic
-Fluid restriction
-Diuretics
-BMP in a.m.
# Chronic Trop elevation
-Denies chest pain
-Continue
# Chronic LLE wound with acute infection
-s/p Operative debridement 07/30 with Vascular surgery.
Cont Wound vac.
pansensitive pseudomonas and ESBL E coli from operative cultures
# Rectal and prostate cancer
-suppose to start chemo and radiation; deferred due to wound management
# Permanent atrial fibrillation
- Eliquis
-Metoprolol continued with hold parameters
# AV block status post pacemaker
# Essential hypertension
# Hypothyroidism
-continue levothyroxine
# BPH
-Flomax
DVT ppx: Eliquis
Code Status: Full code
--- NOTE | 2024-08-24 14:22 | W.PN.UPDATE ---
Update Note
Progress Note Update
This is an addendum to the H&P written by Bindu Nassar on 08/24/2024. Patient seen and examined independently with ORTHOPEDIC CAST SPECIALIST.
84-year-old male past medical history of Chronic HFmrEF, permanent atrial fibrillation, AV block status post pacemaker, hypertension, hypothyroidism, rectal/prostate cancer not currently on chemo, chronic left lower extremity wound infection status
post operative debridement on 07/30 with wound VAC presenting with low-grade fever, chills, productive cough for the past few days with shortness of breath on exertion. Gaining weight so lasix was increased from 60 to 80 mg.
Patient clinically septic with fever, tachycardia.
Labs show cardiac BNP of 6200. Lactic acid 2.6. Chest x-ray shows mild cardiomegaly, slightly increased pulmonary vascularity suggesting mild CHF.
Patient also positive for influenza.
Presentation consistent with sepsis secondary to influenza infection. Also acute CHF exacerbation. Check blood cultures. IV Lasix 60 IV daily. Cardiology consulted. Tamiflu started.
--- NOTE | 2024-08-24 14:40 | CON.CAR ---
Addendum entered and electronically signed by Maria Palomares MD 08/24/24 17:11:
I saw and examined the patient.
The MARINE SERVICE MANAGER's note was reviewed and I agree with the note.
Comment: 84 y/o male (follows with Dr. Wayne) with permanent AFIB on Eliquis, hypertension, bifascicular block, pacemaker, NSVT, colorectal cancer, HFmEF EF 45-50%, LLE wound with wound vac, who is here for evaluation of cough, URIAS, fever. He also
had 5 lb weight gain, but increased lasix as instructed by our office. Despite this he had a fever and still sob. He is now dx with Flu A. He is feeling better. ON exam he is diffusely wheezing, rrr, no le edema. Overall, he has Sepsis from Flu
A, bp is soft, would hold additional lasix for his mild chf exacerbation. Will examine in the am and redose prn. remaining as below.
Original Note:
Consultation
Consultation Request
Date/Time Consultation Requested: 08/14/24 1410
Date/Time Consultation Performed: 08/14/24 1440
Requesting Provider: Bindu Nassar
Performing Provider: Dolores HEREDIA for Dr. Palomares
Reason for Consultation: CHF
Medical History
-
Chief Complaint: URIAS, fever, cough
History of Present Illness:
84 y/o male (follows with Dr. Wayne) with permanent AFIB on Eliquis, hypertension, bifascicular block, pacemaker, NSVT, colorectal cancer, HFmEF EF 45-50%, LLE wound with wound vac, who is here for evaluation of cough, URIAS, fever. He also had 5 lb
weight gain, but lost most of that with extra Lasix. He is admitted for sepsis related to flu, and CHF exacerbation. He has been given Tylenol, antibiotics, Lasix, Tamiflu, and breathing tx. He is in no distress at the time of my assessment.
Past Medical History
Past Medical History: Arrhythmias, Cancer, CHF, HTN and Other (as above)
Social History
Tobacco: Non-Smoker
Family History
Family History: Reviewed & Not Pertinent
Allergies / Home Medications
Allergy/AdvReac Type Severity Reaction Status Date / Time
unknown antibiotic Allergy confusion Uncoded 08/24/24 10:43
�Medication �Instructions �Recorded �Confirmed �Type
ascorbic acid (vitamin C) 500 mg 500 mg PO DAILY Supplement 01/06/21 08/24/24 History
tablet (Vitamin C)
apixaban 5 mg tablet (Eliquis) 5 mg PO BID Blood clot 03/21/21 08/24/24 History
prevention/tx
cholecalciferol (vitamin D3) 25 25 mcg PO DAILY Supplement 06/13/24 08/24/24 History
mcg (1,000 unit) tablet
cyanocobalamin (vitamin B-12) 1,000 mcg PO DAILY Supplement 06/30/24 08/24/24 History
1,000 mcg tablet
furosemide 20 mg tablet 60 mg PO DAILY Fluid 06/30/24 08/24/24 History
Retention/Swelling
levothyroxine 100 mcg tablet 100 mcg PO DAILY@0700 Thyroid 06/30/24 08/24/24 History
melatonin 5 mg tablet 5 mg PO HS sleep 06/30/24 08/24/24 History
zinc sulfate 50 mg zinc (220 mg) 220 mg PO DAILY Supplement 06/30/24 08/24/24 History
capsule
metoprolol succinate 50 mg 25 mg (1/2 x 50 mg) PO BID Blood 07/04/24 08/24/24 Rx
tablet,extended release 24 hr Pressure #60 tabs
tamsulosin 0.4 mg capsule 0.4 mg PO DAILY #30 caps 07/09/24 08/24/24 Rx
acetaminophen 325 mg tablet 650 mg PO Q4HPRN PRN mild pain 08/24/24 08/24/24 History
(Tylenol)
albuterol sulfate 90 mcg/actuation 1 inh inhalation R QID 08/24/24 08/24/24 History
aerosol inhaler
collagenase clostridium histo. 250 1 applic topical BID leg wound 08/24/24 08/24/24 History
unit/gram topical ointment (Santyl)
Review of Systems
-
History Source: Patient and Other (and chart)
Constitutional: Fever, Weight Gain (then loss) and Chills
Respiratory: Cough and Trouble Breathing
Physical Exam
Vital Signs
Temp Pulse Resp BP Pulse Ox
101.2 F H 107 27 93/50 95
08/24/24 11:26 08/24/24 14:30 08/24/24 14:30 08/24/24 14:26 08/24/24 14:15
Lab Results
08/24/24 11:55
08/24/24 11:54
Troponin I 0.058 ng/ml H* 08/24/24 11:55
[id number]-[id number] Pept 6240 pg/ml 08/24/24 11:55
Physical Exam
General: Well Developed, Well Nourished and No Apparent Distress
HEENT: Normocephalic and Anicteric
Respiratory: Crackles and Rhonchi
Cardiac: Irregular Rhythm
Musculoskeletal: No Edema
Skin: Warm and Dry
Neuro: AO x 3
Psych: Calm
Impression / Plan
-
Flu, sepsis:
-on Tamiflu, supportive per primary team
-blood cultures are pending, patient with chronic wound. He received antibiotics.
[id number] HFmEF:
-patient received IV Lasix, which requires intensive monitoring. Some hypotension/tachycardia noted- will stop daily diuresis for now and reassess in AM. May need to hold off on diuresis while underlying issue above treated. He is 84 kg and seems
like dry weight is closer to 82 kg.
-monitor volume status
-continue BB as tolerated, med therapy limited by BP per chart
Permanent AFIB:
-rates on fast side in setting of acute illness, as expected
-continue BB as tolerated
-follow telemetry
-continue Eliquis for OAC
Pacemaker in place:
-has been stable
-follow telemetry, continue device checks as OP
Anemia:
-follow
Abnormal troponin:
-acute non-ischemic myocardial injury in setting of acute illness as above
Data Reviewed
-
EKG: Tracing Personally Visualized and interpreted (AFIB with RVR 135 BPM, RBBB, PVC's)
Radiology: Report Reviewed by me (CXR: Mild cardiomegaly. Slightly increased pulmonary vascularity suggesting mild CHF.)
Medical Tests (Nuc Med, Echo etc): Report Reviewed by me (Echo 06/15/24: Technically difficult study with fair image quality. Mildly reduced LV function EF 45-50%. Wall motion analysis is limited by the image quality. Mild mitral regurgitation.)
Labs: Labs Reviewed by me
--- NOTE | 2024-08-24 16:00 | PTCARENOTE ---
Patient admitted from ED into room 2138. Patient AAOX3, VSS, HR 110s afib on monitor, cardiology at bedside and aware. Patient with audible wheezing, 96% on RA, lungs coarse, states hx of sleep apnea with CPAP at home, order for CPAP HS placed by
this RN and respiratory made aware. Patient with LLE wound vac for chronic wound, states wound vac was just changed today; wound care consult placed, this RN communicated with maxillofacial prosthodontist Roselyn who stated wound care nurse will round on patient in
AM and switch patient to hospital wound vac. LLE dressing C/D/I, palpable pedal pulses. Patient oriented to room and call collazo, ambulatory in room with x1 assist and RW, states no concerns at this time.
[2024-08-24] MEDS: ProAIR HFA INHALER 1 PUFF INH ×2 (16:06→20:34)
[2024-08-24 16:37] LABS: Lactic Acid 1.6 mmol/L (0.7-2.0)
[2024-08-24 16:58] LABS: Urine Albumin Negative (Neg - Trace); Urine Bilirubin Negative (Negative); Urine Character Clear (Clear); Urine Color Yellow; Urine Glucose Negative (Negative); Urine Ketone Negative (Negative); Urine Leukocyte Negative (Negative); Urine Nitrite Negative (Negative); Urine Occult Blood Negative (Negative); Urine Specific Gravity 1.015 (<1.030); Urine Urobilinogen Negative (Neg - 1+)
[2024-08-24 18:35] LABS: Troponin I 0.078 ng/ml
[2024-08-24] MEDS: SANTYL OINTMENT TOPICAL (20:01)
[2024-08-24] MEDS: TOPROL XL 25 MG PO (20:02)
[2024-08-24] MEDS: ELIQUIS 5 MG PO (20:02)
[2024-08-24] MEDS: MELATONIN 5 MG PO (20:02)
--- NOTE | 2024-08-24 21:14 | PTCARENOTE ---
Pt. observed to have an 11 beat run of vtach overnight on the tele monitor. Pt. asymptomatic and resting. Provider notified. Plan of care ongoing.
[2024-08-25] VITALS (8 sets, daily range): BP systolic 104–149; BP diastolic 69–96; PULSE 63; BMI 28.2
[2024-08-25] MEDS: LOPRESSOR 5 MG IV (01:03)
[2024-08-25 01:05] LABS: Troponin I 0.058 ng/ml
[2024-08-25] MEDS: SYNTHROID 100 MCG PO (04:47)
[2024-08-25 04:55] LABS: Hematocrit 30.6 % (39.0-52.0); Hemoglobin 9.5 g/dL (13.0-18.0); Mean Corpuscular Hgb 23.8 pg (27.0-31.0); Mean Corpuscular Volume 76.5 fL (80.0-94.0); Mean Platelet Volume 10.9 fL (7.4-10.4); Platelet Count 276 10^3/uL (130-400); Red Cell Dist. Width 16.8 % (11.5-14.5); White Blood Cell Count 6.5 10^3/uL (4.8-10.8)
[2024-08-25 06:02] LABS: ALT (SGPT) 16 U/L (0-50); AST (SGOT) 24 U/L (17-59); Albumin 3.2 g/dl (3.5-5.0); Alkaline Phosphatase 77 U/L (38-126); Blood Urea Nitrogen 37 mg/dl (9-20); Calcium 8.4 mg/dl (8.4-10.2); Carbon Dioxide 26 mmol/L (22-30); Chloride 93 mmol/L (98-107); Direct Bilirubin 0.2 mg/dl (0.0-0.4); Estimated Creatinine Clearance 45 ml/min; Glucose 130 mg/dl (70-99); HDL Cholesterol 26 mg/dl; LDL Cholesterol, Calculated 92 mg/dl; Magnesium 2.1 mg/dl (1.6-2.3); Potassium 3.9 mmol/L (3.5-5.1); Sodium 130 mmol/L (135-145); Total Bilirubin 0.6 mg/dl (0.2-1.3); Total Cholesterol 138 mg/dl (50-199); Total Protein 5.5 g/dl (6.3-8.2); Triglyceride 104 mg/dl (10-149); Very Low Density Lipoprotein 20 mg/dl (0-30); eGFR > 60.00
[2024-08-25] MEDS: COMPAZINE 5 MG IV (06:45)
[2024-08-25 06:47] LABS: TSH Reflex To Free T4 0.38 uIU/ml (0.47-4.68)
[2024-08-25 07:23] LABS: Free T4 1.35 ng/dl (0.78-2.19)
--- NOTE | 2024-08-25 08:16 | VNURNOTE ---
Chart reviewed. Patient is current with [facility] nursing. Will continue to follow hospital course and DC plans.
[2024-08-25] MEDS: TOPROL XL 25 MG PO ×2 (08:18→20:21)
[2024-08-25] MEDS: TAMIFLU 30 MG PO ×2 (08:18→20:21)
[2024-08-25] MEDS: FLOMAX 0.4 MG PO (08:18)
[2024-08-25] MEDS: SANTYL OINTMENT TOPICAL ×2 (08:18→19:41)
--- NOTE | 2024-08-25 08:34 | PTCARENOTE ---
pt with inc loose blood tinged stool, made aware. zach to hold this AM.
[2024-08-25] MEDS: ELIQUIS PO (08:35)
[2024-08-25] MEDS: ProAIR HFA INHALER 1 PUFF INH ×2 (08:51→11:30)
--- NOTE | 2024-08-25 08:57 | W.PN.CD ---
Today's Communication / Plan
-
tx of flu per primary team
resume oral diuretic
Impression / Plan
-
Flu, sepsis:
-on Tamiflu, supportive per primary team
-blood cultures are pending, patient with chronic wound. He received antibiotics.
Gjtzz-fp-pnnmhbp HFmEF:
-patient received IV Lasix, which requires intensive monitoring. Some hypotension/tachycardia noted- so it was held. currently stable. would resume oral diuretic
-monitor volume status
-continue BB as tolerated, med therapy limited by BP per chart
Permanent AFIB:
-continue BB as tolerated
-follow telemetry
-continue Eliquis for OAC
Pacemaker - stable
-follow telemetry, continue device checks as OP
Anemia: chronic component.
-monitor
Abnormal troponin:
-acute non-ischemic myocardial injury in setting of acute illness as above
Physical Exam
Vital Signs/Labs
Vital Signs
Temp Pulse Resp BP Pulse Ox
98.3 F 100 18 121/86 98
08/25/24 07:27 08/25/24 08:55 08/25/24 08:55 08/25/24 08:18 08/25/24 07:27
08/24/24 08/25/24 08/26/24
06:59 06:59 06:59
Actual Weight 84.005 kg
08/25/24 04:39
08/25/24 04:38
Magnesium 2.1 mg/dl (1.6-2.3) 08/25/24 04:38
Triglycerides 104 mg/dl (10-149) 08/25/24 04:38
LDL Cholesterol, Calc 92 mg/dl 08/25/24 04:38
VLDL Cholesterol, Calc 20 mg/dl (0-30) 08/25/24 04:38
HDL Cholesterol 26 mg/dl 08/25/24 04:38
Free T4 1.35 ng/dl (0.78-2.19) 08/25/24 04:39
08/24/24
11:55
Sjt-W-Lkrxujlsjlq Pept 6240
LAB Results
08/24/24 08/24/24 08/25/24
11:55 17:58 00:34
Troponin I 0.058 H* 0.078 H* D 0.058 H* D
Physical Exam
Constitutional: No acute distress
Cardiovascular: Rhythm/rate is irregular
Respiratory: Wheeze Present and Rhonchi Present
GI: Soft
Neuro/Psych: Alert
Data Reviewed
-
Date of Service: August 25, 2024
Medical Decision Making: Reviewed Test Results
X-Ray/CT/US/MRI/NUC/PET: Report Reviewed by me
Medical Tests (PFT, Pathology etc): Report Reviewed by me
Labs: Labs Reviewed by me
--- NOTE | 2024-08-25 13:02 | W.PN.HOSP.TC ---
Today's Communication/Plan
-
Colorectal surgery consultation for BRBPR in setting of rectal mass
Monitor hemoglobin, hold Eliquis for today
Tamiflu, DuoNebs
Follow-up cultures
Assessment / Plan
Assessment / Plan
General: Well Developed, Well Nourished and No Apparent Distress
HEENT: NormoCephalic, Moist mucous membranes and Atraumatic
Respiratory: diffuse exp wheezing
Cardiac: S1/S2 and Regular Rhythm; No Murmur or Rub
GI: Soft, Non Tender, Non Distended and Normal Bowel Sounds; No Organomegaly
Rectal: Deferred by Provider
Musculoskeletal: No Clubbing, No Cyanosis
Neuro: AO x 3 and Nonfocal/grossly intact
Psych: Calm
#Shortness of breath
# Influenza A
#Severe Sepsis
-Blood cultures x 2
-Tamiflu
-Tylenol as needed for fever or pain
� DuoNebs
-defer abx at this time - no source of bacterial infection - low threshold to initiate if becomes hemodynamically unstable, persistent fevers
#Diyyf-kf-wbtkjde HFmEF:
-received IV lasix yesterday
-hold due to sepsis for today, appears more euvolemic
-monitor volume status
-BB
-GDMT limited due to low BPs
-Echo 06/15 with impression of Estimated Left ventricular ejection fraction is 45-50%.
-cardiology consulted
# Anemia of chronic disease
-Hemoglobin stable at 10.0
-No active bleeding
-Continue to monitor
#Rectal bleeding
� Copious amount of blood found by nurse this morning in stool
� In setting of rectal mass, consult colorectal surgery
� Hold Eliquis today
� Monitor hemoglobin
# Hyponatremia
� Appears euvolemic
� Most likely likely SIADH in setting of influenza, pulmonary pathology
�Monitor with resuscitation
# Chronic Trop elevation
-Denies chest pain
-acute non-ischemic myocardial injury in setting of acute illness as above
# Chronic LLE wound with acute infection
-s/p Operative debridement 07/30 with Vascular surgery.
Cont Wound vac.
pansensitive pseudomonas and ESBL E coli from operative cultures
# Rectal and prostate cancer
-suppose to start chemo and radiation; deferred due to wound management
# Permanent atrial fibrillation
- Eliquis
-Metoprolol continued with hold parameters
# AV block status post pacemaker
# Essential hypertension
# Hypothyroidism
-continue levothyroxine
# BPH
-Flomax
DVT ppx: Eliquis
Code Status: Full code
Total time spent on today's encounter was 50 minutes which included time spent in counseling the patient/family regarding diagnosis and treatment plan as listed above, goals of care, and symptom management. Case was discussed with nursing staff,
specialists, and care coordinators/case management. All labs and imaging personally reviewed by me. Remainder the time spent in detailed review of previous records, lab data, imaging, and other medical provider documentation.
Anticipated Discharge: > 48 hours
Subjective/Interval History
-
Date of Service: August 25, 2024
Had rectal bleeding this morning
Objective Data
-
Labs:
Laboratory Results
08/25/24 08/25/24
04:38 04:39
WBC 6.5
Hgb 9.5 L
Hct 30.6 L
Plt Count 276
Sodium 130 L
Potassium 3.9
Chloride 93 L
Carbon Dioxide 26
BUN 37 H
Creatinine 1.2
Glucose 130 H
Calcium 8.4
Total Bilirubin 0.6
AST 24
ALT 16
Alkaline Phosphatase 77
Vital Signs:
Vital Signs
Temp Pulse Resp BP Pulse Ox
97.7 F 114 18 114/81 94
08/25/24 11:58 08/25/24 11:58 08/25/24 11:58 08/25/24 11:58 08/25/24 12:02
I&O
08/24/24 08/25/24 08/26/24
06:59 06:59 06:59
Intake Total 1260 / 1260
Output Total 550 / 550
Balance 710 / 710
Review of Systems
-
History Source: Patient
All other systems: Not reviewed unless documented
Physical Exam
-
General: Well Developed, Well Nourished, No Apparent Distress, Comfortable and Conversant
HEENT: Normocephalic and Atraumatic
Respiratory: Clear to Auscultation and Non Labored Respirations; Negative Accessory Resp Muscle Use
Cardiac: Regular Rhythm and S1/S2
GI: Soft, Nontender and Nondistended
Skin: Warm
Neuro: Awake and Alert
Psych: Calm and Intact Judgement/Insight
Data Reviewed
-
Diagnostic Radiology: Image personally visualized and interpreted and Report Reviewed by me
Labs: Labs Reviewed by me
[2024-08-25] MEDS: DUONEB 3 ML INH ×2 (15:02→19:43)
--- NOTE | 2024-08-25 15:12 | WOUNDNOTE ---
LEFT LOWER LEG
[2024-08-25] MEDS: LASIX 60 MG PO (15:13)
--- NOTE | 2024-08-25 16:05 | WOUNDNOTE ---
WO RN NOTE: Reviewed chart and met with patient. Patient admitted for flu/sepsis and had bloody stool this morning. Currently awaiting GI consult. Patient has left lower leg full thickness wound and is followed by vascular. Patient admitted with
home wound vac last changed 08/24 at vascular appointment prior to hospital admission. Today vac changed to [employer] vac by this staff writer. Left leg wound is shallow, granular and edges are slightly macerated. No sting barrier and drape applied to
periwound. Black foam was used and negative pressure set as ordered. Patient tolerated well. took home wound vac home with her. Plan is to pack wound with normal saline gauze upon discharge and for VN to resume vac therapy with home vac. Will
continue to follow during in-patient stay.
--- NOTE | 2024-08-25 17:15 | CM ---
channel manager reviewed patient's chart and patient was admitted from home, patient lives with his spouse in a 2 story home with no steps to enter, patient is independent with adl's and uses a walker with ambulation, patient has a shower chair, and
CPAP in home, patient also with a wound vac and per wound care note plan is for patient to return to home with wound vac, patient is current with [facility].
PCP: Dr. Dennis
Pharmacy [facility] on [facility].
Plan; Home with wound vac and [facility].
--- NOTE | 2024-08-25 17:30 | CON.CRS ---
Consultation
-
Requesting Provider: Bret Strong MD
Performing Provider: Ramses Bashir MD
Reason for Consultation: Blood per rectum
Medical History
-
History of Present Illness:
84-year-old male well-known to me for recently diagnosed rectal cancer who has been awaiting neoadjuvant therapy with radiation, complicated by LLE venous stasis wound, who presents with flulike symptoms after a family democrat on [employer]. He
was also noted to have dyspnea on exertion. He was diagnosed with influenza and is being treated for this as well as an acute on chronic CHF exacerbation. Incidentally, this morning, he was noted to have some blood in his stool. He says that this
is the first time in a while and it was not much. He denies any issues with abdominal pain, constipation or diarrhea. His stools have been looser than normal the last few days, but denies any increase in frequency.
Past Medical History
Past Medical History: Other (rectal cancer, prostate cancer, A-fib (on Eliquis), HFpEF (EF 45 to 50%), bifascicular block s/p PPM, HTN, Hypothyroidism, LLE venous stasis wound)
Past Surgical History: Other (PPM)
Social History
Tobacco: Non-Smoker
Alcohol: None
Personal:
Living: With Family
Family History
Family History: Reviewed & Not Pertinent
Allergies / Home Medications
Allergy/AdvReac Type Severity Reaction Status Date / Time
unknown antibiotic Allergy confusion Uncoded 08/24/24 10:43
�Medication �Instructions �Recorded �Confirmed �Type
ascorbic acid (vitamin C) 500 mg 500 mg PO DAILY Supplement 01/06/21 08/24/24 History
tablet (Vitamin C)
apixaban 5 mg tablet (Eliquis) 5 mg PO BID Blood clot 03/21/21 08/24/24 History
prevention/tx
cholecalciferol (vitamin D3) 25 25 mcg PO DAILY Supplement 06/13/24 08/24/24 History
mcg (1,000 unit) tablet
cyanocobalamin (vitamin B-12) 1,000 mcg PO DAILY Supplement 06/30/24 08/24/24 History
1,000 mcg tablet
furosemide 20 mg tablet 60 mg PO DAILY Fluid 06/30/24 08/24/24 History
Retention/Swelling
levothyroxine 100 mcg tablet 100 mcg PO DAILY@0700 Thyroid 06/30/24 08/24/24 History
melatonin 5 mg tablet 5 mg PO HS sleep 06/30/24 08/24/24 History
zinc sulfate 50 mg zinc (220 mg) 220 mg PO DAILY Supplement 06/30/24 08/24/24 History
capsule
metoprolol succinate 50 mg 25 mg (1/2 x 50 mg) PO BID Blood 07/04/24 08/24/24 Rx
tablet,extended release 24 hr Pressure #60 tabs
tamsulosin 0.4 mg capsule 0.4 mg PO DAILY #30 caps 07/09/24 08/24/24 Rx
acetaminophen 325 mg tablet 650 mg PO Q4HPRN PRN mild pain 08/24/24 08/24/24 History
(Tylenol)
albuterol sulfate 90 mcg/actuation 1 inh inhalation R QID 08/24/24 08/24/24 History
aerosol inhaler Lung/Breathing Issues
collagenase clostridium histo. 250 1 applic topical BID leg wound 08/24/24 08/24/24 History
unit/gram topical ointment (Santyl)
Review of Systems
-
A 10 point review of systems was completed, and was negative except as per HPI.
Physical Exam
Vital Signs
Temp 97.8 F 08/25/24 15:16
Pulse 88 08/25/24 15:16
Resp Rate 16 08/25/24 15:16
Blood pressure 105/69 08/25/24 15:16
SaO2 96 08/25/24 15:16
08/24/24 08/25/24 08/26/24
06:59 06:59 06:59
Actual Weight 84.005 kg
Body Mass Index (BMI) 28.2
Lab Results / Allergies
08/25/24 04:39
08/25/24 04:38
WBC 6.5 10^3/uL (4.8-10.8) 08/25/24 04:39
Hgb 9.5 g/dL (13.0-18.0) L 08/25/24 04:39
Hct 30.6 % (39.0-52.0) L 08/25/24 04:39
Plt Count 276 10^3/uL (130-400) 08/25/24 04:39
Abs Immat Gran (auto) 0.0 10^3/uL (0-0.05) 08/24/24 11:55
Neutrophils % 89.4 % (42.2-75.2) H 08/24/24 11:55
Allergy/AdvReac Type Severity Reaction Status Date / Time
unknown antibiotic Allergy confusion Uncoded 08/24/24 10:43
Physical Exam
General: Well Developed, Well Nourished, No Apparent Distress and Other (Congested)
HEENT: Normocephalic and Atraumatic
Respiratory: Other (Tachypneic)
GI: Soft, Non Tender and Non Distended
Rectal: Deferred by Provider
Skin: Warm and Dry
Neuro: AO x 3
Assessment / Plan
-
84-year-old male with PMH of recent diagnosis of rectal cancer, prostate cancer, A-fib (on Eliquis), HFpEF (EF 45 to 50%), bifascicular block s/p PPM, HTN, Hypothyroidism, LLE venous stasis wound complicated by infection and previous debridement now
with wound VAC; presents for worsening URIAS associated with flulike symptoms, found to be flu positive, being treated for acute on chronic CHF exacerbation; was noted to have some blood with his stool this morning, but states this was not much
Tmax 101.2, HR 80s to 110s, normotensive
Hb 9.5 from 10.0
�Bright red blood in the setting of rectal cancer
�Patient has had intermittent blood per rectum due to rectal cancer and Eliquis use; currently stating it is not very significant; hemoglobin without significant drop
�Continue to hold Eliquis and trend CBC, no reversal currently indicated
�If bleeding worsens, would reverse Eliquis and consider radiation oncology consult versus CTA for possible embolization versus flex sig with topical therapies
� Okay for diet
� Remainder of care per cardiology and hospitalist
[2024-08-25] MEDS: MELATONIN 5 MG PO (20:21)
[2024-08-26 03:54] VITALS: BP 115/75
[2024-08-26] MEDS: SYNTHROID 100 MCG PO (05:17)
[2024-08-26 05:22] VITALS: BMI 28.1
[2024-08-26 06:44] LABS: Hematocrit 31.1 % (39.0-52.0); Hemoglobin 9.6 g/dL (13.0-18.0); Mean Corp Hgb Conc. 30.9 g/dL (33.0-37.0); Mean Corpuscular Hgb 23.7 pg (27.0-31.0); Mean Corpuscular Volume 76.8 fL (80.0-94.0); Mean Platelet Volume 10.6 fL (7.4-10.4); Platelet Count 269 10^3/uL (130-400); Red Blood Cell Count 4.05 10^6/uL (4.70-6.10); Red Cell Dist. Width 16.9 % (11.5-14.5); White Blood Cell Count 4.9 10^3/uL (4.8-10.8)
[2024-08-26 07:04] LABS: Blood Urea Nitrogen 31 mg/dl (9-20); Calcium 8.4 mg/dl (8.4-10.2); Carbon Dioxide 32 mmol/L (22-30); Chloride 93 mmol/L (98-107); Estimated Creatinine Clearance 49 ml/min; Glucose 136 mg/dl (70-99); Potassium 3.4 mmol/L (3.5-5.1); Sodium 131 mmol/L (135-145); eGFR > 60.00
[2024-08-26 07:40] VITALS: BP 103/69
[2024-08-26] MEDS: DUONEB 3 ML INH ×4 (07:50→19:30)
[2024-08-26] MEDS: LASIX 60 MG PO (08:35)
[2024-08-26] MEDS: TAMIFLU 30 MG PO ×2 (08:35→20:43)
[2024-08-26] MEDS: FLOMAX 0.4 MG PO (08:35)
[2024-08-26] MEDS: TOPROL XL PO (08:36)
[2024-08-26] MEDS: SANTYL OINTMENT 1 APPLIC TOPICAL (08:36)
[2024-08-26 11:40] VITALS: BP 131/82
--- NOTE | 2024-08-26 11:53 | W.PN.CRS1 ---
Today's Communication / Plan
-
As below
Assessment/Plan
-
84-year-old male with PMH of recent diagnosis of rectal cancer, prostate cancer, A-fib (on Eliquis), HFpEF (EF 45 to 50%), bifascicular block s/p PPM, HTN, Hypothyroidism, LLE venous stasis wound complicated by infection and previous debridement now
with wound VAC; presents for worsening URIAS associated with flulike symptoms, found to be flu positive, being treated for acute on chronic CHF exacerbation; was noted to have some blood with his stool this morning, but states this was not much
Afebrile, HR 90s to 100s, normotensive
Hb 9.6 from 9.5
�Bright red blood in the setting of known rectal cancer and positive influenza
�Patient has previously had intermittent blood per rectum due to rectal cancer and Eliquis use; currently stating it is not very significant and only once yesterday so far; hemoglobin stable
�Okay to restart Eliquis tomorrow
�If bleeding worsens, recommended treatment for bleeding rectal cancer is radiation; for symptomatic bleeding, would consider CTA for possible embolization versus flex sig with topical therapies
� Continue diet
� Remainder of care per cardiology and hospitalist
� Colorectal to sign off; follow-up as previously scheduled
Subjective Data
Subjective Data
Date of Service: August 26, 2024
No further bleeding per rectum since yesterday. No BMs since last night.
Feeling a bit better from the fluid standpoint.
Denies abdominal pain.
Objective Data
-
Vital Signs
Temp Pulse Resp BP Pulse Ox
97.8 F 134 20 131/82 95
08/26/24 11:40 08/26/24 11:40 08/26/24 11:40 08/26/24 11:40 08/26/24 11:40
Intake & Output
08/25/24 08/26/24 08/27/24
06:59 06:59 06:59
Intake Total 1260 / 1260 960 / 960
Output Total 550 / 550 100 / 100
Balance 710 / 710 860 / 860
Intake:
Oral fluids 1260 / 1260 960 / 960
Output:
Urine, Voided 550 / 550 100 / 100
Other:
How many times incontinent 2
SATURATED amount urine
Lab Results
08/26/24 06:20
08/26/24 06:20
Physical Exam
-
General: No Acute Distress and AOx3
HEENT: Grossly Normal
Abdomen: Soft, Non Distended and Non Tender
Skin: Warm and Dry
--- NOTE | 2024-08-26 13:26 | W.PN.HOSP.TC ---
Today's Communication/Plan
-
resume eliquis
monitor hgb
supportive care
Assessment / Plan
Assessment / Plan
General: Well Developed, Well Nourished and No Apparent Distress
HEENT: NormoCephalic, Moist mucous membranes and Atraumatic
Respiratory: diffuse exp wheezing
Cardiac: S1/S2 and Regular Rhythm; No Murmur or Rub
GI: Soft, Non Tender, Non Distended and Normal Bowel Sounds; No Organomegaly
Rectal: Deferred by Provider
Musculoskeletal: No Clubbing, No Cyanosis
Neuro: AO x 3 and Nonfocal/grossly intact
Psych: Calm
#Shortness of breath
# Influenza A
#Severe Sepsis
-Blood cultures x 2
-Tamiflu
-Tylenol as needed for fever or pain
� DuoNebs
-defer abx at this time - no source of bacterial infection - low threshold to initiate if becomes hemodynamically unstable, persistent fevers
#Hlnqc-go-fgyjmue HFmEF:
-received IV lasix
-Resume diuretics
-monitor volume status
-BB
-GDMT limited due to low BPs
-Echo 06/15 with impression of Estimated Left ventricular ejection fraction is 45-50%.
-cardiology consulted
# Anemia of chronic disease
-Hemoglobin stable at 10.0
-No active bleeding
-Continue to monitor
#Rectal bleeding
� Copious amount of blood found by nurse this morning in stool
� In setting of rectal mass, consult colorectal surgery
� Resume Eliquis
� Monitor hemoglobin
� If bleeding worsens, recommend treatment for bleeding is radiation for the rectal cancer, will consider CTA for possible embolization versus Flex Sig with topical therapies
# Hyponatremia
� Appears euvolemic
� Most likely likely SIADH in setting of influenza, pulmonary pathology
�Monitor with resuscitation
#Hypokalemia
� Monitor and replete
# Chronic Trop elevation
-Denies chest pain
-acute non-ischemic myocardial injury in setting of acute illness as above
# Chronic LLE wound with acute infection
-s/p Operative debridement 07/30 with Vascular surgery.
Cont Wound vac.
pansensitive pseudomonas and ESBL E coli from operative cultures
# Rectal and prostate cancer
-suppose to start chemo and radiation; deferred due to wound management
# Permanent atrial fibrillation
- Eliquis
-Metoprolol continued with hold parameters
# AV block status post pacemaker
# Essential hypertension
# Hypothyroidism
-continue levothyroxine
# BPH
-Flomax
DVT ppx: Eliquis
Code Status: Full code
Anticipated Discharge: 24 - 48 hours
Subjective/Interval History
-
Date of Service: August 26, 2024
No further rectal bleeding
Objective Data
-
Labs:
Laboratory Results
08/26/24
06:20
WBC 4.9
Hgb 9.6 L
Hct 31.1 L
Plt Count 269
Sodium 131 L
Potassium 3.4 L
Chloride 93 L
Carbon Dioxide 32 H
BUN 31 H
Creatinine 1.1
Glucose 136 H
Calcium 8.4
Vital Signs:
Vital Signs
Temp Pulse Resp BP Pulse Ox
97.8 F 134 20 131/82 95
08/26/24 11:40 08/26/24 11:40 08/26/24 11:40 08/26/24 11:40 08/26/24 11:40
I&O
08/25/24 08/26/24 08/27/24
06:59 06:59 06:59
Intake Total 1260 / 1260 960 / 960
Output Total 550 / 550 100 / 100
Balance 710 / 710 860 / 860
Review of Systems
-
History Source: Patient
All other systems: Not reviewed unless documented
Physical Exam
-
General: Well Developed, Well Nourished, No Apparent Distress, Comfortable and Conversant
HEENT: Normocephalic and Atraumatic
Respiratory: Clear to Auscultation and Non Labored Respirations; Negative Accessory Resp Muscle Use
Cardiac: Regular Rhythm and S1/S2
GI: Soft, Nontender and Nondistended
Skin: Warm
Neuro: Awake and Alert
Psych: Calm and Intact Judgement/Insight
Data Reviewed
-
Diagnostic Radiology: Image personally visualized and interpreted and Report Reviewed by me
Labs: Labs Reviewed by me
--- NOTE | 2024-08-26 13:44 | W.PN.CD ---
Today's Communication / Plan
-
give IV lasix 60mg now,
40 Meq KCL
monitor intensely with IV lasix
increase metoprolol
Impression / Plan
-
Flu, sepsis:
-on Tamiflu, supportive per primary team
-blood cultures are pending, patient with chronic wound. He received antibiotics.
Gqszz-px-hfnpurq HFmEF:
-Left ventricular ejection fraction is 45-50%.
-patient received IV Lasix, which requires intensive monitoring. Some hypotension/tachycardia noted- so it was held.
-back on oral diuretic
-Volume status consistent with hypervolemia today, will give an additional dose of IV Lasix now with KCL supplement and reassess in the am.
-continue BB as tolerated, med therapy limited by BP per chart
Permanent AFIB:
-continue BB but rates up will increase dose and assess response, hopefully won't worsen his wheezing as is chronic medication
-follow telemetry
-typically on Eliquis for OAC--resume tomorrow
Bright red blood in the setting of known rectal cancer and positive influenza
-eliquis held 08/25/24, resolved
-ok to resume tomorrow
Pacemaker - stable
-follow telemetry, continue device checks as OP
Anemia: chronic component.
-monitor
Abnormal troponin:
-acute non-ischemic myocardial injury in setting of acute illness as above
subjective:
he is feeling better but still quite sob even with conversation
Physical Exam
Vital Signs/Labs
Vital Signs
Temp Pulse Resp BP Pulse Ox
97.8 F 134 20 131/82 95
08/26/24 11:40 08/26/24 11:40 08/26/24 11:40 08/26/24 11:40 08/26/24 11:40
08/25/24 08/26/24 08/27/24
06:59 06:59 06:59
Actual Weight 84.005 kg 83.824 kg
08/26/24 06:20
08/26/24 06:20
Magnesium 2.1 mg/dl (1.6-2.3) 08/25/24 04:38
Triglycerides 104 mg/dl (10-149) 08/25/24 04:38
LDL Cholesterol, Calc 92 mg/dl 08/25/24 04:38
VLDL Cholesterol, Calc 20 mg/dl (0-30) 08/25/24 04:38
HDL Cholesterol 26 mg/dl 08/25/24 04:38
Free T4 1.35 ng/dl (0.78-2.19) 08/25/24 04:39
08/24/24
11:55
Svu-Y-Xnngceubqjy Pept 6240
LAB Results
08/24/24 08/24/24 08/25/24
11:55 17:58 00:34
Troponin I 0.058 H* 0.078 H* D 0.058 H* D
Physical Exam
Constitutional: No acute distress
Cardiovascular: Rhythm & rate is regular, Pedal edema is absent, Systolic murmur absent and Diastolic murmur absent
Respiratory: Respiratory effort normal, Wheeze Present (mild,bilaterally), Crackles Present (bibasilar) and Other (increased respiratory effort)
Neuro/Psych: AO x 3
Data Reviewed
-
Date of Service: August 26, 2024
Medical Decision Making: Review of Case with other Provider (updated Dr Osborne, IV lasix and increase bb)
EKG: Other (tele afib with rvr)
[2024-08-26] MEDS: LASIX 60 MG IV (15:57)
[2024-08-26] MEDS: LOPRESSOR 12.5 MG PO (15:58)
[2024-08-26] MEDS: KCL 40 MEQ PO (15:58)
[2024-08-26 19:30] VITALS: BP 106/73
[2024-08-26] MEDS: TOPROL XL 37.5 MG PO (20:43)
[2024-08-26] MEDS: SANTYL OINTMENT TOPICAL ×2 (20:44→20:51)
[2024-08-26] MEDS: ELIQUIS 5 MG PO (20:44)
[2024-08-26] MEDS: MELATONIN 5 MG PO (22:26)
[2024-08-26 22:50] LABS: Blood Urea Nitrogen 26 mg/dl (9-20); Calcium 8.3 mg/dl (8.4-10.2); Carbon Dioxide 33 mmol/L (22-30); Chloride 93 mmol/L (98-107); Estimated Creatinine Clearance 54 ml/min; Glucose 154 mg/dl (70-99); Magnesium 1.9 mg/dl (1.6-2.3); Potassium 3.6 mmol/L (3.5-5.1); Sodium 132 mmol/L (135-145); eGFR > 60.00
[2024-08-26] MEDS: MAGNESIUM OXIDE 500 MG PO (23:08)
[2024-08-26] MEDS: KCL 20 MEQ PO (23:08)
[2024-08-26 23:58] VITALS: BP 112/75
[2024-08-27] VITALS (7 sets, daily range): BP systolic 107–119; BP diastolic 63–84; PULSE 115; O2SAT 98; BMI 28.6; BMI 28.4
--- NOTE | 2024-08-27 02:51 | PTCARENOTE ---
patient had run of Vent fib/tach on monitor, no prior strips shown same,patient was asymptomatic, picture of strip and update sent to HOST HOSTESS on duty Cass Wade who ordered stat BMP and a Mag, levels reviewed by her, PO K dur 20meq was given x1
and mag 500mg po x1, repeat labs to be drawn in AM.
[2024-08-27] MEDS: SYNTHROID 100 MCG PO (05:59)
[2024-08-27 06:05] LABS: Hematocrit 32.4 % (39.0-52.0); Hemoglobin 9.8 g/dL (13.0-18.0); Mean Corp Hgb Conc. 30.2 g/dL (33.0-37.0); Mean Corpuscular Hgb 23.4 pg (27.0-31.0); Mean Corpuscular Volume 77.5 fL (80.0-94.0); Mean Platelet Volume 10.2 fL (7.4-10.4); Platelet Count 282 10^3/uL (130-400); Red Blood Cell Count 4.18 10^6/uL (4.70-6.10); Red Cell Dist. Width 16.8 % (11.5-14.5); White Blood Cell Count 5.5 10^3/uL (4.8-10.8)
[2024-08-27 06:36] LABS: Blood Urea Nitrogen 25 mg/dl (9-20); Calcium 8.5 mg/dl (8.4-10.2); Carbon Dioxide 32 mmol/L (22-30); Chloride 95 mmol/L (98-107); Estimated Creatinine Clearance 54 ml/min; Glucose 105 mg/dl (70-99); Potassium 4.1 mmol/L (3.5-5.1); Sodium 135 mmol/L (135-145); eGFR > 60.00
[2024-08-27] MEDS: DUONEB 3 ML INH ×4 (08:21→19:16)
[2024-08-27] MEDS: TOPROL XL 37.5 MG PO ×2 (08:28→21:18)
[2024-08-27] MEDS: LASIX 60 MG PO (08:28)
[2024-08-27] MEDS: ELIQUIS 5 MG PO (08:28)
[2024-08-27] MEDS: FLOMAX 0.4 MG PO (08:29)
[2024-08-27] MEDS: TAMIFLU 30 MG PO ×2 (08:29→21:18)
[2024-08-27] MEDS: SANTYL OINTMENT TOPICAL ×2 (08:29→21:15)
--- NOTE | 2024-08-27 08:33 | W.PN.CD ---
Today's Communication / Plan
-
Give IV 60 mg of furosemide now, transition to IV for the morning tomorrow.
Continue current increased dose of beta-marivel, titration tomorrow if needed.
Continue telemetry
Impression / Plan
-
Flu, sepsis:
-on Tamiflu, supportive per primary team
-blood cultures are pending, patient with chronic wound. He received antibiotics.
Yvhsf-hv-etemkyy HFmEF:
-Left ventricular ejection fraction is 45-50%.
-patient received IV Lasix 08/26/24--he is negative but gained weight? seems erroneous
-He is feeling much better with some IV diuresis. Will give another dose of IV Lasix now, transition to IV for the morning as well. Continue to monitor intensely with vital signs and telemetry
-continue BB as tolerated, med therapy limited by BP per chart
Permanent AFIB:
-continue BB but rates up, bb dose increased 08/26/24(pm) dose, with improvement in rates, currently 105 at the bedside.
-follow telemetry
-typically on Eliquis for OAC--resume tomorrow
NSVT:
� 14 beats, asymptomatic
-Beta-marivel just increased. Lytes okay.
Bright red blood in the setting of known rectal cancer and positive influenza
-eliquis held 08/25/24, resolved
-ok to resume today
Pacemaker - stable
-follow telemetry, continue device checks as OP
Anemia: chronic component.
-monitor
Abnormal troponin:
-acute non-ischemic myocardial injury in setting of acute illness as above
subjective:
he is feeling much better since last night. Finally feeling some improvement in his shortness of breath.
Physical Exam
Vital Signs/Labs
Vital Signs
Temp Pulse Resp BP Pulse Ox
97.6 F 117 18 119/80 97
08/27/24 08:30 08/27/24 08:30 08/27/24 08:30 08/27/24 08:30 08/27/24 08:30
08/26/24 08/27/24 08/28/24
06:59 06:59 06:59
Actual Weight 83.824 kg 85.275 kg
08/27/24 05:49
08/27/24 05:49
Magnesium 1.9 mg/dl (1.6-2.3) 08/26/24 22:21
Triglycerides 104 mg/dl (10-149) 08/25/24 04:38
LDL Cholesterol, Calc 92 mg/dl 08/25/24 04:38
VLDL Cholesterol, Calc 20 mg/dl (0-30) 08/25/24 04:38
HDL Cholesterol 26 mg/dl 08/25/24 04:38
Free T4 1.35 ng/dl (0.78-2.19) 08/25/24 04:39
08/24/24
11:55
Sht-H-Mrrehqcghun Pept 6240
LAB Results
08/24/24 08/24/24 08/25/24
11:55 17:58 00:34
Troponin I 0.058 H* 0.078 H* D 0.058 H* D
Physical Exam
Constitutional: No acute distress
Cardiovascular: Pedal edema is absent, Systolic murmur absent, Diastolic murmur absent and Rhythm/rate is irregular
Respiratory: Respiratory effort normal, Wheeze Present (Diffusely, but not increased) and Crackles Present ( bibasilar)
Neuro/Psych: AO x 3
Data Reviewed
-
Date of Service: August 27, 2024
Medical Decision Making: Review of Case with other Provider (Dr. Christoph Clemente and nurse from the IVU give IV Lasix now)
EKG: Other (Telemetry with A-fib with RVR, rates finally improving. 14 beats of NSVT yesterday. Asymptomatic)
[2024-08-27] MEDS: LASIX 60 MG IV (11:15)
--- NOTE | 2024-08-27 14:04 | W.PN.HOSP.TC ---
Today's Communication/Plan
-
tamiflu
iv lasix
Assessment / Plan
Assessment / Plan
General: Well Developed, Well Nourished and No Apparent Distress
HEENT: NormoCephalic, Moist mucous membranes and Atraumatic
Respiratory: diffuse exp wheezing
Cardiac: S1/S2 and Regular Rhythm; No Murmur or Rub
GI: Soft, Non Tender, Non Distended and Normal Bowel Sounds; No Organomegaly
Rectal: Deferred by Provider
Musculoskeletal: No Clubbing, No Cyanosis
Neuro: AO x 3 and Nonfocal/grossly intact
Psych: Calm
#Shortness of breath
# Influenza A
#Severe Sepsis
-Blood cultures x 2
-Tamiflu
-Tylenol as needed for fever or pain
� DuoNebs
-defer abx at this time - no source of bacterial infection - low threshold to initiate if becomes hemodynamically unstable, persistent fevers
#Narxn-go-yvelcmt HFmEF:
-received IV lasix -cont
-monitor volume status
-BB
-GDMT limited due to low BPs
-Echo 06/15 with impression of Estimated Left ventricular ejection fraction is 45-50%.
-cardiology consulted
# Anemia of chronic disease
-Hemoglobin stable at 10.0
-No active bleeding
-Continue to monitor
#Rectal bleeding
� Copious amount of blood found by nurse this morning in stool
� In setting of rectal mass, consult colorectal surgery
� Resume Eliquis
� Monitor hemoglobin
� If bleeding worsens, recommend treatment for bleeding is radiation for the rectal cancer, will consider CTA for possible embolization versus Flex Sig with topical therapies
# Hyponatremia
� Appears euvolemic
� Most likely likely SIADH in setting of influenza, pulmonary pathology
�Monitor with resuscitation
#Hypokalemia
� Monitor and replete
# Chronic Trop elevation
-Denies chest pain
-acute non-ischemic myocardial injury in setting of acute illness as above
# Chronic LLE wound with acute infection
-s/p Operative debridement 07/30 with Vascular surgery.
Cont Wound vac.
pansensitive pseudomonas and ESBL E coli from operative cultures
# Rectal and prostate cancer
-suppose to start chemo and radiation; deferred due to wound management
# Permanent atrial fibrillation
- Eliquis
-Metoprolol continued with hold parameters
# AV block status post pacemaker
# Essential hypertension
# Hypothyroidism
-continue levothyroxine
# BPH
-Flomax
DVT ppx: Eliquis
Code Status: Full code
Anticipated Discharge: Within 24 hours
Subjective/Interval History
-
Date of Service: August 27, 2024
feels better today
Objective Data
-
Labs:
Laboratory Results
08/27/24
05:49
WBC 5.5
Hgb 9.8 L
Hct 32.4 L
Plt Count 282
Sodium 135
Potassium 4.1
Chloride 95 L
Carbon Dioxide 32 H
BUN 25 H
Creatinine 1.0
Glucose 105 H
Calcium 8.5
Vital Signs:
Vital Signs
Temp Pulse Resp BP Pulse Ox
97.9 F 108 16 115/80 97
08/27/24 11:27 08/27/24 11:27 08/27/24 11:27 08/27/24 11:27 08/27/24 11:27
I&O
08/26/24 08/27/24 08/28/24
06:59 06:59 06:59
Intake Total 960 / 960 880 / 880
Output Total 100 / 100 1600 / 1600
Balance 860 / 860 -720 / -720
Review of Systems
-
History Source: Patient
All other systems: Not reviewed unless documented
Physical Exam
-
General: Well Developed, Well Nourished, No Apparent Distress, Comfortable and Conversant
HEENT: Normocephalic and Atraumatic
Respiratory: Clear to Auscultation and Non Labored Respirations; Negative Accessory Resp Muscle Use
Cardiac: Regular Rhythm and S1/S2
GI: Soft, Nontender and Nondistended
Skin: Warm
Neuro: Awake and Alert
Psych: Calm and Intact Judgement/Insight
Data Reviewed
-
Diagnostic Radiology: Image personally visualized and interpreted and Report Reviewed by me
Labs: Labs Reviewed by me
--- NOTE | 2024-08-27 15:08 | CM ---
Reviewed the chart notes and spoke with the patient. IMM reviewed. Patient on room air. CM continues to be available to patient/family and is monitoring medical plan for needs at discharge.
Plan: Discharge to home with [facility] services.
--- NOTE | 2024-08-27 18:40 | PTCARENOTE ---
pt with large bloody bm this evening. MD and cardiology made aware.
[2024-08-27 19:29] LABS: Hematocrit 33.9 % (39.0-52.0); Hemoglobin 10.4 g/dL (13.0-18.0); Mean Corp Hgb Conc. 30.7 g/dL (33.0-37.0); Mean Corpuscular Hgb 23.9 pg (27.0-31.0); Mean Corpuscular Volume 77.8 fL (80.0-94.0); Mean Platelet Volume 9.9 fL (7.4-10.4); Platelet Count 313 10^3/uL (130-400); Red Blood Cell Count 4.36 10^6/uL (4.70-6.10); Red Cell Dist. Width 16.8 % (11.5-14.5); White Blood Cell Count 6.3 10^3/uL (4.8-10.8)
[2024-08-27] MEDS: ELIQUIS PO (21:16)
[2024-08-27] MEDS: MELATONIN 5 MG PO (21:18)
[2024-08-28] VITALS (7 sets, daily range): BP systolic 96–119; BP diastolic 66–83; PULSE 70; BMI 27.1
[2024-08-28 05:48] LABS: Hematocrit 34.3 % (39.0-52.0); Mean Corp Hgb Conc. 29.2 g/dL (33.0-37.0); Mean Corpuscular Hgb 23.2 pg (27.0-31.0); Mean Corpuscular Volume 79.6 fL (80.0-94.0); Mean Platelet Volume 10.2 fL (7.4-10.4); Platelet Count 303 10^3/uL (130-400); Red Blood Cell Count 4.31 10^6/uL (4.70-6.10); Red Cell Dist. Width 16.9 % (11.5-14.5); White Blood Cell Count 6.3 10^3/uL (4.8-10.8)
[2024-08-28 06:05] LABS: Blood Urea Nitrogen 22 mg/dl (9-20); Calcium 8.6 mg/dl (8.4-10.2); Carbon Dioxide 33 mmol/L (22-30); Chloride 94 mmol/L (98-107); Estimated Creatinine Clearance 60 ml/min; Glucose 105 mg/dl (70-99); Sodium 134 mmol/L (135-145); eGFR > 60.00
[2024-08-28] MEDS: SYNTHROID 100 MCG PO (06:11)
[2024-08-28] MEDS: DUONEB 3 ML INH ×4 (06:15→20:00)
[2024-08-28] MEDS: TAMIFLU 30 MG PO ×2 (08:48→21:25)
[2024-08-28] MEDS: FLOMAX 0.4 MG PO (08:49)
[2024-08-28] MEDS: SANTYL OINTMENT 1 APPLIC TOPICAL (08:49)
[2024-08-28] MEDS: TOPROL XL 37.5 MG PO (08:49)
[2024-08-28] MEDS: ELIQUIS PO ×3 (08:49→21:37)
[2024-08-28] MEDS: LASIX 60 MG IV (08:50)
--- NOTE | 2024-08-28 10:01 | W.PN.CRS1 ---
Today's Communication / Plan
-
As below
Assessment/Plan
-
84-year-old male with PMH of recent diagnosis of rectal cancer, prostate cancer, A-fib (on Eliquis), HFpEF (EF 45 to 50%), bifascicular block s/p PPM, HTN, Hypothyroidism, LLE venous stasis wound complicated by infection and previous debridement now
with wound VAC; presents for worsening URIAS associated with flulike symptoms, found to be flu positive, being treated for acute on chronic CHF exacerbation; was noted to have some blood with his stool
Afebrile, HR 100-110s, normotensive
Hb trend: 10.0>9.5>9.6>9.8>10.4>10.0
�Blood per rectum in the setting of known rectal cancer and positive influenza
� Had 1 or 2 episodes of blood in stool on 08/24, resolved after holding Eliquis; Eliquis was restarted on evening of 08/26 and had he had 1-2 BMs with blood seen last night
�Hemoglobin has been stable and patient does not report that it was 'a lot'; if low risk from a stroke perspective, I would recommend holding Eliquis for 5-7 days so that patient can be discharged and get to his radiation therapy, which would be
the definitive management for a bleeding rectal cancer; will discuss with hospitalist and Dr. Singh from rad onc
�Currently, no indication for CTA with possible embo versus flex sig for possible APC; however, if he continues to bleed, hemoglobin begins to drop or it starts to affect his vitals, this would be my next recommendation
� Continue diet
� Remainder of care per cardiology and hospitalist
Subjective Data
Subjective Data
Date of Service: August 28, 2024
Yesterday at around 6:30 PM, the nurse reported that the patient had a BM that was blood�tinged/bloody. The patient confirmed this and said that he had another BM in the middle of the night, but he is unsure if there was much blood. He said that
he saw at least a drop when he wiped. Otherwise, denies any issues. Denies abdominal pain. He is feeling better from his flu.
Objective Data
-
Vital Signs
Temp Pulse Resp BP Pulse Ox
97.6 F 110 20 111/69 96
08/28/24 07:46 08/28/24 08:50 08/28/24 07:46 08/28/24 08:50 08/28/24 07:46
Intake & Output
08/27/24 08/28/24 08/29/24
06:59 06:59 06:59
Intake Total 880 / 880 840 / 840
Output Total 1600 / 1600 1550 / 1550
Balance -720 / -720 -710 / -710
Intake:
Oral fluids 880 / 880 840 / 840
Output:
Urine, Voided 1600 / 1600 1550 / 1550
Other:
Number of approximated MODERATE 1
amounts of urine
Number of approximated LARGE 1
amounts of urine
How many times incontinent 3
SATURATED amount urine
Lab Results
08/28/24 05:29
08/28/24 05:29
Physical Exam
-
General: No Acute Distress and AOx3
HEENT: Grossly Normal
Abdomen: Soft, Non Distended and Non Tender
Rectal: Other (Ulcerated firm mass palpable in the posterior to right quadrant of the rectum, intact tone, no gross blood, soft stool noted with subtle blood-tinge)
Skin: Warm and Dry
--- NOTE | 2024-08-28 10:40 | CM ---
Reviewed the chart notes. Per notes, recommend holding Eliquis for 5-7 days so that patient can be discharged and get to his radiation therapy, which would be the definitive management for a bleeding rectal cancer. continues to be available to
patient/family and is monitoring medical plan for needs at discharge.
Plan: Discharge to home with [facility].
--- NOTE | 2024-08-28 10:50 | W.PN.CD ---
Today's Communication / Plan
-
- Switch IV lasix to PO.
- Home dose Metoprolol increased from 25 BID to 37.5 mg BID
- on Eliquis
- Please call cardiology if questions.
Impression / Plan
-
Flu, sepsis:
-on Tamiflu, supportive per primary team
-blood cultures are pending, patient with chronic wound. He received antibiotics.
Dtcpa-xp-eculhuo HFmEF:
-Left ventricular ejection fraction is 45-50%.
-s/p IV diuresis
-Continue to monitor intensely with vital signs and telemetry
-Switch IV lasix to PO from tomorrow - Home dose.
-continue BB as tolerated, med therapy limited by BP per chart
Permanent AFIB:
-continue BB but rates up, bb dose increased 08/26/24(pm) dose, with improvement in rates, currently 105 at the bedside.
-follow telemetry
-typically on Eliquis for OAC--resumed now
NSVT:
� 14 beats, asymptomatic
- No more NSVT nted.
-Beta-marivel increased. Lytes okay.
Bright red blood in the setting of known rectal cancer and positive influenza
-eliquis held 08/25/24, resolved
-Back on Eliquis
Pacemaker - stable
-follow telemetry, continue device checks as OP
Anemia: chronic component.
-monitor
Abnormal troponin:
-acute non-ischemic myocardial injury in setting of acute illness as above
subjective:
Feeling better.
Physical Exam
Vital Signs/Labs
Vital Signs
Temp Pulse Resp BP Pulse Ox
97.6 F 110 20 111/69 96
08/28/24 07:46 08/28/24 08:50 08/28/24 07:46 08/28/24 08:50 08/28/24 07:46
08/27/24 08/28/24 08/29/24
06:59 06:59 06:59
Actual Weight 84.68 kg 80.853 kg
08/28/24 05:29
08/28/24 05:29
Magnesium 1.9 mg/dl (1.6-2.3) 08/26/24 22:21
Triglycerides 104 mg/dl (10-149) 08/25/24 04:38
LDL Cholesterol, Calc 92 mg/dl 08/25/24 04:38
VLDL Cholesterol, Calc 20 mg/dl (0-30) 08/25/24 04:38
HDL Cholesterol 26 mg/dl 08/25/24 04:38
Free T4 1.35 ng/dl (0.78-2.19) 08/25/24 04:39
08/24/24
11:55
Jzv-N-Xhmozzuobrp Pept 6240
Physical Exam
Constitutional: No acute distress and Comfortable
EENT: Anicteric and Moist mucous membranes
Cardiovascular: Rhythm & rate is regular, Pedal edema is absent and JVD pressure is normal
Respiratory: Respiratory effort normal and Lungs clear to auscul.
GI: Soft, Flat and Normal bowel sounds
Neuro/Psych: Alert and Oriented
Data Reviewed
-
Date of Service: August 28, 2024
Medical Decision Making: Reviewed Test Results, Independent Historian Assessment, Test Interpretation and Review of Case with other Provider
EKG: Tracing Personally Visualized and interpreted
Echo: Report Reviewed by me
Labs: Labs Reviewed by me
Old Records: Reviewed
--- NOTE | 2024-08-28 14:35 | PN.CDI ---
CDI
- -
CDI:
Physician Documentation Request
Admit Date: 08/24/24 14:19
Dear Doctor [place],
Patient admitted with sever sepsis.
1/2 PN, 'Ykuoc-jv-ibtyzzr HFmEF.'
Please clarify in your note the most likely type of CHF you are evaluating, treating or monitoring:
Acute on chronic systolic CHF
Acute on chronic diastolic CHF
Other
Type
Systolic
Diastolic
Combined Systolic/Diastolic
Other
Unable to Determine
Use of terms such as suspected, likely, concern for, or probable (associated with a specific diagnosis that is being evaluated, monitored, or treated as if it exists) are acceptable and can be coded in the inpatient setting, when documented at the
time of discharge.
Thank you,
Juli MACK,RN,CCDS
CDI Specialist
Available via [place] text
Please use your independent medical judgment in providing your response.
--- NOTE | 2024-08-28 15:00 | WOUNDNOTE ---
LEFT MEDIAL LEG WOUND
--- NOTE | 2024-08-28 15:00 | WOUNDNOTE ---
LEFT MEDIAL LEG WOUND
--- NOTE | 2024-08-28 15:11 | W.PN.HOSP.TC ---
Today's Communication/Plan
-
holding eliquis x 7 days
cbc now and tomorrow
switch to Po lasix
Inc BB
Assessment / Plan
Assessment / Plan
General: Well Developed, Well Nourished and No Apparent Distress
HEENT: NormoCephalic, Moist mucous membranes and Atraumatic
Respiratory: diffuse exp wheezing
Cardiac: S1/S2 and Regular Rhythm; No Murmur or Rub
GI: Soft, Non Tender, Non Distended and Normal Bowel Sounds; No Organomegaly
Rectal: Deferred by Provider
Musculoskeletal: No Clubbing, No Cyanosis
Neuro: AO x 3 and Nonfocal/grossly intact
Psych: Calm
#Shortness of breath
# Influenza A
#Severe Sepsis
-Blood cultures x 2
-Tamiflu
-Tylenol as needed for fever or pain
� DuoNebs
-defer abx at this time - no source of bacterial infection - low threshold to initiate if becomes hemodynamically unstable, persistent fevers
#Eftwr-yd-xrukirb HFmEF:
-received IV lasix - switch to PO lasix
-monitor volume status
-BB - increased to 37.5
-GDMT limited due to low BPs
-Echo 06/15 with impression of Estimated Left ventricular ejection fraction is 45-50%.
-cardiology consulted
# Anemia of chronic disease
-Hemoglobin stable at 10.0
-No active bleeding
-Continue to monitor
#Rectal bleeding
� Copious amount of blood found by nurse this morning in stool
� In setting of rectal mass, consult colorectal surgery
� Holding Eliquis - x 7 days; Patient agrees with holding understanding risks and benefits; plan is for radiation to the mass which should hopefully resolve bleeding
� Monitor hemoglobin
� If bleeding worsens, recommend treatment for bleeding is radiation for the rectal cancer, will consider CTA for possible embolization versus Flex Sig with topical therapies
-F/u CBC this afternoon and tomrrow
# Hyponatremia
� Appears euvolemic
� Most likely SIADH in setting of influenza, pulmonary pathology
�Monitor with resuscitation
#Hypokalemia
� Monitor and replete
# Chronic Trop elevation
-Denies chest pain
-acute non-ischemic myocardial injury in setting of acute illness as above
# Chronic LLE wound with acute infection
-s/p Operative debridement 07/30 with Vascular surgery.
Cont Wound vac.
pansensitive pseudomonas and ESBL E coli from operative cultures
# Rectal and prostate cancer
-suppose to start chemo and radiation; deferred due to wound management
-CRS reached out to radiation for prompt planning
# Permanent atrial fibrillation
- holding Eliquis - see above
-Metoprolol continued with hold parameters
# AV block status post pacemaker
# Essential hypertension
# Hypothyroidism
-continue levothyroxine
# BPH
-Flomax
DVT ppx: Eliquis
Code Status: Full code
Total time spent on today's encounter was 51 minutes which included time spent in counseling the patient/family regarding diagnosis and treatment plan as listed above, goals of care, and symptom management. Case was discussed with nursing staff,
specialists, and care coordinators/case management. All labs and imaging personally reviewed by me. Remainder the time spent in detailed review of previous records, lab data, imaging, and other medical provider documentation.
Anticipated Discharge: Within 24 hours
Subjective/Interval History
-
Date of Service: August 28, 2024
had multiple bouts of BRBPR
Objective Data
-
Labs:
Laboratory Results
08/28/24
05:29
WBC 6.3
Hgb 10.0 L
Hct 34.3 L
Plt Count 303
Sodium 134 L
Potassium 4.0
Chloride 94 L
Carbon Dioxide 33 H
BUN 22 H
Creatinine 0.9
Glucose 105 H
Calcium 8.6
Vital Signs:
Vital Signs
Temp Pulse Resp BP Pulse Ox
97.5 F 98 16 103/71 95
08/28/24 11:12 08/28/24 11:45 08/28/24 11:45 08/28/24 11:12 08/28/24 11:12
I&O
08/27/24 08/28/24 08/29/24
06:59 06:59 06:59
Intake Total 880 / 880 840 / 840 240 / 240
Output Total 1600 / 1600 1550 / 1550 425 / 425
Balance -720 / -720 -710 / -710 -185 / -185
Review of Systems
-
History Source: Patient
All other systems: Not reviewed unless documented
Physical Exam
-
General: Well Developed, Well Nourished, No Apparent Distress, Comfortable and Conversant
HEENT: Normocephalic and Atraumatic
Respiratory: Clear to Auscultation and Non Labored Respirations; Negative Accessory Resp Muscle Use
Cardiac: Regular Rhythm and S1/S2
GI: Soft, Nontender and Nondistended
Skin: Warm
Neuro: Awake and Alert
Psych: Calm and Intact Judgement/Insight
Data Reviewed
-
Diagnostic Radiology: Image personally visualized and interpreted and Report Reviewed by me
Labs: Labs Reviewed by me
--- NOTE | 2024-08-28 15:15 | WOUNDNOTE ---
[facility] RN NOTE: Patient visited to change left leg wound vac. Per hospitalist plan is for discharge tomorrow. Dressing changed as ordered. Left leg wound is shallow, granular and edges are slightly macerated. No sting barrier and drape applied to
periwound. Black foam was used and negative pressure set as ordered. KORY Castro assisted with vac placement. Patient tolerated well. Plan is to pack wound with normal saline gauze upon discharge and for VN to resume vac therapy with home vac. RN
Gloria given updated. This travel writer TT Dolores in CM and Juli with plan.
[2024-08-28 17:01] LABS: Hematocrit 34.9 % (39.0-52.0); Hemoglobin 10.8 g/dL (13.0-18.0); Mean Corp Hgb Conc. 30.9 g/dL (33.0-37.0); Mean Corpuscular Hgb 24.2 pg (27.0-31.0); Mean Corpuscular Volume 78.1 fL (80.0-94.0); Mean Platelet Volume 9.9 fL (7.4-10.4); Platelet Count 341 10^3/uL (130-400); Red Blood Cell Count 4.47 10^6/uL (4.70-6.10); Red Cell Dist. Width 17.1 % (11.5-14.5); White Blood Cell Count 6.4 10^3/uL (4.8-10.8)
[2024-08-28] MEDS: MELATONIN 5 MG PO (21:25)
[2024-08-28] MEDS: SANTYL OINTMENT TOPICAL (21:27)
[2024-08-28] MEDS: TOPROL XL PO (21:32)
[2024-08-29 03:51] VITALS: BP 91/60
[2024-08-29 06:00] VITALS: BMI 26.8
[2024-08-29] MEDS: SYNTHROID 100 MCG PO (06:23)
[2024-08-29] MEDS: DUONEB 3 ML INH ×3 (07:54→14:48)
[2024-08-29] MEDS: TAMIFLU 30 MG PO (07:56)
[2024-08-29] MEDS: FLOMAX 0.4 MG PO (07:57)
[2024-08-29] MEDS: SANTYL OINTMENT 1 APPLIC TOPICAL (08:02)
[2024-08-29 08:05] VITALS: BP 92/58
[2024-08-29 08:35] LABS: Hematocrit 35.6 % (39.0-52.0); Hemoglobin 10.8 g/dL (13.0-18.0); Mean Corp Hgb Conc. 30.3 g/dL (33.0-37.0); Mean Corpuscular Hgb 23.5 pg (27.0-31.0); Mean Corpuscular Volume 77.6 fL (80.0-94.0); Mean Platelet Volume 10.3 fL (7.4-10.4); Platelet Count 360 10^3/uL (130-400); Red Blood Cell Count 4.59 10^6/uL (4.70-6.10); Red Cell Dist. Width 17.1 % (11.5-14.5); White Blood Cell Count 7.3 10^3/uL (4.8-10.8)
[2024-08-29 09:02] LABS: Blood Urea Nitrogen 21 mg/dl (9-20); Carbon Dioxide 35 mmol/L (22-30); Chloride 93 mmol/L (98-107); Estimated Creatinine Clearance 49 ml/min; Glucose 125 mg/dl (70-99); Potassium 4.4 mmol/L (3.5-5.1); Sodium 134 mmol/L (135-145); eGFR > 60.00
[2024-08-29] MEDS: LASIX 60 MG PO (10:08)
[2024-08-29] MEDS: TOPROL XL PO (10:09)
[2024-08-29 11:50] VITALS: BP 104/65
--- NOTE | 2024-08-29 13:31 | W.PN.HOSP.TC ---
Addendum entered and electronically signed by Bret Osborne MD 08/30/24 16:26:
[id number]
Original Note:
Today's Communication/Plan
-
hold eliquis - F/u cbc outpt
rad onc appt for rectal mass
tamiflu
F/u CBC outpt
if rectal bleeding is brisk, or dizziness/symptomatic - please come back to the hospital
f/u onc, pcp, cards, rad/onc
Assessment / Plan
Assessment / Plan
General: Well Developed, Well Nourished and No Apparent Distress
HEENT: NormoCephalic, Moist mucous membranes and Atraumatic
Respiratory: diffuse exp wheezing
Cardiac: S1/S2 and Regular Rhythm; No Murmur or Rub
GI: Soft, Non Tender, Non Distended and Normal Bowel Sounds; No Organomegaly
Rectal: Deferred by Provider
Musculoskeletal: No Clubbing, No Cyanosis
Neuro: AO x 3 and Nonfocal/grossly intact
Psych: Calm
#Shortness of breath
# Influenza A
#Severe Sepsis
-Blood cultures x 2
-Tamiflu�complete 5-day course
-Tylenol as needed for fever or pain
� DuoNebs
-defer abx at this time - no source of bacterial infection - low threshold to initiate if becomes hemodynamically unstable, persistent fevers
#Kgayf-rp-djugofa HFmEF:
-received IV lasix - switch to PO lasix
-monitor volume status
-BB - increased to 37.5
-GDMT limited due to low BPs
-Echo 06/15 with impression of Estimated Left ventricular ejection fraction is 45-50%.
-cardiology consulted
# Anemia of chronic disease
-Hemoglobin stable at 10.0
-No active bleeding
-Continue to monitor
#Rectal bleeding
� Copious amount of blood found by nurse this morning in stool
� In setting of rectal mass, consult colorectal surgery
� Holding Eliquis - x 7 days; Patient agrees with holding understanding risks and benefits; plan is for radiation to the mass which should hopefully resolve bleeding
� Monitor hemoglobin
� If bleeding worsens, recommend treatment for bleeding is radiation for the rectal cancer, will consider CTA for possible embolization versus Flex Sig with topical therapies
-CBC stable - f/u outpt
# Hyponatremia
� Appears euvolemic
� Most likely SIADH in setting of influenza, pulmonary pathology
�Monitor with resuscitation
-f/u outpt
#Hypokalemia
� Monitor and replete
-f/u outpt
# Chronic Trop elevation
-Denies chest pain
-acute non-ischemic myocardial injury in setting of acute illness as above
# Chronic LLE wound with acute infection
-s/p Operative debridement 07/30 with Vascular surgery.
Cont Wound vac.
pansensitive pseudomonas and ESBL E coli from operative cultures
# Rectal and prostate cancer
-suppose to start chemo and radiation; deferred due to wound management
-CRS reached out to radiation for prompt planning
# Permanent atrial fibrillation
- holding Eliquis - see above
-Metoprolol continued with hold parameters
# AV block status post pacemaker
# Essential hypertension
# Hypothyroidism
-continue levothyroxine
# BPH
-Flomax
DVT ppx: Eliquis
Code Status: Full code
More than 30 minutes spent in discharge including
Final examination of the patient
Summarizing hospital stay
Instructions for continuing care to all relevant caregivers
Preparation of discharge records, prescriptions, and referral forms
Total time spent (36 in minutes):
Anticipated Discharge: Today
Subjective/Interval History
-
Date of Service: August 29, 2024
No acute events overnight
Objective Data
-
Labs:
Laboratory Results
08/29/24
07:56
WBC 7.3
Hgb 10.8 L
Hct 35.6 L
Plt Count 360
Sodium 134 L
Potassium 4.4
Chloride 93 L
Carbon Dioxide 35 H
BUN 21 H
Creatinine 1.1
Glucose 125 H
Calcium 9.0
Vital Signs:
Vital Signs
Temp Pulse Resp BP Pulse Ox
97.5 F 94 16 104/65 99
08/29/24 11:50 08/29/24 11:50 08/29/24 11:50 08/29/24 11:50 08/29/24 11:50
I&O
08/28/24 08/29/24 08/30/24
06:59 06:59 06:59
Intake Total 840 / 840 480 / 480
Output Total 1550 / 1550 1085 / 1085
Balance -710 / -710 -605 / -605
Review of Systems
-
History Source: Patient
All other systems: Not reviewed unless documented
Physical Exam
-
General: Well Developed, Well Nourished, No Apparent Distress, Comfortable and Conversant
HEENT: Normocephalic and Atraumatic
Respiratory: Clear to Auscultation and Non Labored Respirations; Negative Accessory Resp Muscle Use
Cardiac: Regular Rhythm and S1/S2
GI: Soft, Nontender and Nondistended
Skin: Warm
Neuro: Awake and Alert
Psych: Calm and Intact Judgement/Insight
Data Reviewed
-
Diagnostic Radiology: Image personally visualized and interpreted and Report Reviewed by me
Labs: Labs Reviewed by me
--- NOTE | 2024-08-29 13:39 | W.DS.TRANS ---
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
-
Discharge Instructions:
Discharge Diagnosis/Procedures #Shortness of breath
#Influenza A
#Severe Sepsis
#[id number]
#Rectal bleeding
Diet Low Fat,Low Cholesterol,Low Residue
Activity As tolerated
Blood Work cbc and cmp in 3 days with pcp
Instructions:
Stand-Alone Forms:
Changes to Home Medications: Yes
Discharge Medications:
DC Medications w/original date entered in [employer]
ascorbic acid (vitamin C) 500 mg tablet (Vitamin C) 500 mg PO DAILY Supplement 01/06/21
apixaban 5 mg tablet (Eliquis) 5 mg PO BID Blood clot prevention/tx 03/21/21
cholecalciferol (vitamin D3) 25 mcg (1,000 unit) tablet 25 mcg PO DAILY Supplement 06/13/24
cyanocobalamin (vitamin B-12) 1,000 mcg tablet 1,000 mcg PO DAILY Supplement 06/30/24
furosemide 20 mg tablet 60 mg PO DAILY Fluid Retention/Swelling 06/30/24
levothyroxine 100 mcg tablet 100 mcg PO DAILY@0700 Thyroid 06/30/24
melatonin 5 mg tablet 5 mg PO HS sleep 06/30/24
zinc sulfate 50 mg zinc (220 mg) capsule 220 mg PO DAILY Supplement 06/30/24
tamsulosin 0.4 mg capsule 0.4 mg PO DAILY #30 caps 07/09/24
acetaminophen 325 mg tablet (Tylenol) 650 mg PO Q4HPRN PRN mild pain 08/24/24
albuterol sulfate 90 mcg/actuation aerosol inhaler 1 inh inhalation R QID Lung/Breathing Issues 08/24/24
collagenase clostridium histo. 250 unit/gram topical ointment (Santyl) 1 applic topical BID leg wound 08/24/24
metoprolol succinate 25 mg tablet,extended release 24 hr 37.5 mg (1.5 x 25 mg) PO BID 30 days #90 tabs 08/29/24
oseltamivir 30 mg capsule 30 mg PO BID 1 day #2 caps 08/29/24
Home Medication Changes
metoprolol succinate 25 mg tablet,extended release 24 hr 37.5 mg (1.5 x 25 mg) PO BID 30 days #90 tabs 08/29/24
oseltamivir 30 mg capsule 30 mg PO BID 1 day #2 caps 08/29/24
Pending Results: No
--- NOTE | 2024-08-29 13:47 | CM ---
Pt for discharge today
[facility] to follow
Plan - home with [facility]
[2024-08-29] MEDS: FLUAD (65 yr+) 2024-2025 FORMULA 0.5 ML IM (14:39)
[2024-08-29 15:58] VITALS: BP 117/81
== END 2024-08-29 16:37 | disposition home or self-care (01) | DRG 871 ==
LOC: 2 NORTH 14:19
PROVIDERS: Nurse Practitioner Family; Registered Nurse; ADMITTING PHYSICIAN Hospitalist; ATTENDING PHYSICIAN Internal Medicine; CONSULT PHYSICIAN Internal Medicine Cardiovascular Disease; CONSULT PHYSICIAN Surgery; EMERGENCY PHYSICIAN Emergency Medicine; FAMILY PHYSICIAN Internal Medicine
DX: A41.89 Other specified sepsis (principal); I50.23 Acute on chronic systolic (congestive) heart failure; I48.21 Permanent atrial fibrillation; E22.2 Syndrome of inappropriate secretion of antidiuretic hormone; I47.29 Other ventricular tachycardia; I5A Non-ischemic myocardial injury (non-traumatic); J10.1 Influenza due to other identified influenza virus with other respiratory manifestations; E87.6 Hypokalemia; I11.0 Hypertensive heart disease with heart failure; Z79.01 Long term (current) use of anticoagulants
CPT/HCPCS: 71046; 74174; 80048; 80053; 80061; 81003; 82248; 83605; 83735; 83880; 84439; 84443; 84484; 85025; 85027; 87040; 87070; 87502; 87811; 90662; 93005; 94640; 94660; 96365; 96375; 97116; 97162; 99285; G0008; Q9967

== ENCOUNTER → 2024-09-04 09:22 | Outpatient (REF) | payer MEDICARE, SELFPAY | LOC: WOUND 09:22 | PROVIDERS: ATTENDING PHYSICIAN Surgery; FAMILY PHYSICIAN Family Medicine | DX: L97.222 Non-pressure chronic ulcer of left calf with fat layer exposed (principal); I87.2 Venous insufficiency (chronic) (peripheral); I48.91 Unspecified atrial fibrillation; I44.1 Atrioventricular block, second degree; I50.1 Left ventricular failure, unspecified | CPT/HCPCS: 97605; 99213 ==

== ENCOUNTER → 2024-09-25 09:17 | Outpatient (REF) | payer MEDICARE, SELFPAY | LOC: WOUND 09:17 | PROVIDERS: ATTENDING PHYSICIAN Surgery; FAMILY PHYSICIAN Internal Medicine | DX: L97.222 Non-pressure chronic ulcer of left calf with fat layer exposed (principal); I87.2 Venous insufficiency (chronic) (peripheral); I48.91 Unspecified atrial fibrillation; I44.1 Atrioventricular block, second degree; I50.1 Left ventricular failure, unspecified | CPT/HCPCS: 97605; 99213 ==

== ENCOUNTER → 2024-10-16 10:21 | Outpatient (REF) | payer MEDICARE, SELFPAY | LOC: WOUND 10:21 | PROVIDERS: ATTENDING PHYSICIAN Surgery; FAMILY PHYSICIAN Internal Medicine | DX: L97.222 Non-pressure chronic ulcer of left calf with fat layer exposed (principal); I87.2 Venous insufficiency (chronic) (peripheral); I48.91 Unspecified atrial fibrillation; I50.1 Left ventricular failure, unspecified | CPT/HCPCS: 99213 ==

== ENCOUNTER → 2024-10-30 11:21 | Outpatient (REF) | payer MEDICARE, SELFPAY | LOC: WOUND 11:21 | PROVIDERS: ATTENDING PHYSICIAN Surgery; FAMILY PHYSICIAN Internal Medicine | DX: L97.222 Non-pressure chronic ulcer of left calf with fat layer exposed (principal); I87.2 Venous insufficiency (chronic) (peripheral); C19 Malignant neoplasm of rectosigmoid junction; Z92.21 Personal history of antineoplastic chemotherapy; I44.1 Atrioventricular block, second degree; I48.91 Unspecified atrial fibrillation; I50.1 Left ventricular failure, unspecified | CPT/HCPCS: 97597 ==

== ENCOUNTER → 2024-11-04 11:58 | Outpatient (REF) | payer MEDICARE, SELFPAY ==
[2024-11-04 12:06] LABS: % Basophils 0.4 % (0-2); % Eosinophils 11.4 % (0-6); % Immature Granulocytes 0.7 % (0-0.5); % Lymphocytes 7.9 % (20.5-51.1); % Monocytes 9.5 % (1.7-9.3); % Neutrophils 70.1 % (42.2-75.2); Absolute Eosinophils 0.8 10^3/uL (0-0.7); Absolute Immature Granulocytes 0.1 10^3/uL (0-0.05); Absolute Lymphocytes 0.5 10^3/uL (1.2-3.4); Absolute Monocytes 0.6 10^3/uL (0.1-0.6); Absolute Neutrophils 4.7 10^3/uL (1.4-6.5); Hematocrit 34.1 % (39.0-52.0); Hemoglobin 10.5 g/dL (13.0-18.0); Mean Corp Hgb Conc. 30.8 g/dL (33.0-37.0); Mean Corpuscular Hgb 25.7 pg (27.0-31.0); Mean Corpuscular Volume 83.6 fL (80.0-94.0); Platelet Count 103 10^3/uL (130-400); Red Blood Cell Count 4.08 10^6/uL (4.70-6.10); White Blood Cell Count 6.7 10^3/uL (4.8-10.8)
== END ==
LOC: OIDL 11:58
PROVIDERS: ATTENDING PHYSICIAN Internal Medicine Hematology & Oncology
DX: C61 Malignant neoplasm of prostate (principal); C20 Malignant neoplasm of rectum; S81.802D Unspecified open wound, left lower leg, subsequent encounter
CPT/HCPCS: 85025

== ENCOUNTER → 2024-11-13 10:58 | Outpatient (REF) | payer MEDICARE, SELFPAY | LOC: WOUND 10:58 | PROVIDERS: ATTENDING PHYSICIAN Surgery; FAMILY PHYSICIAN Internal Medicine | DX: L97.222 Non-pressure chronic ulcer of left calf with fat layer exposed (principal); I87.2 Venous insufficiency (chronic) (peripheral); C19 Malignant neoplasm of rectosigmoid junction; I48.91 Unspecified atrial fibrillation; I44.1 Atrioventricular block, second degree; I50.1 Left ventricular failure, unspecified; Z92.21 Personal history of antineoplastic chemotherapy | CPT/HCPCS: 99213 ==

== ENCOUNTER → 2024-11-27 10:25 | Outpatient (REF) | payer MEDICARE, SELFPAY | LOC: WOUND 10:25 | PROVIDERS: ATTENDING PHYSICIAN Surgery; FAMILY PHYSICIAN Internal Medicine | DX: L97.222 Non-pressure chronic ulcer of left calf with fat layer exposed (principal); I87.2 Venous insufficiency (chronic) (peripheral); C19 Malignant neoplasm of rectosigmoid junction; I48.91 Unspecified atrial fibrillation; I44.1 Atrioventricular block, second degree; I50.1 Left ventricular failure, unspecified | CPT/HCPCS: 11042 ==

== ENCOUNTER → 2024-12-10 13:00 | Outpatient (REF) | payer MEDICARE, SELFPAY ==
[2024-12-10 13:45] LABS: Hematocrit 36.5 % (39.0-52.0); Hemoglobin 11.4 g/dL (13.0-18.0); Mean Corp Hgb Conc. 31.2 g/dL (33.0-37.0); Mean Corpuscular Hgb 27.2 pg (27.0-31.0); Mean Corpuscular Volume 87.1 fL (80.0-94.0); Mean Platelet Volume 10.2 fL (7.4-10.4); Platelet Count 120 10^3/uL (130-400); Red Blood Cell Count 4.19 10^6/uL (4.70-6.10); Red Cell Dist. Width 21.9 % (11.5-14.5)
[2024-12-10 14:00] LABS: Absolute Neutrophils -Man Diff 0.7 10^3/uL (1.4-6.5); Anisocytosis Slight; Band Neutrophils 2 % (0-3); Eosinophils 13 % (0-6); Lymphocytes 32 % (20-51); Monocytes 16 % (2-9); Normal RBC Morphology No; Ovalocytes Slight; Platelets Checked Yes; Polychromasia Slight; Segmented Neutrophils 37 % (42-75); Total Cells Counted 100; White Blood Cell Count 1.8 10^3/uL (4.8-10.8)
== END ==
LOC: REG 13:00
PROVIDERS: ATTENDING PHYSICIAN Nurse Practitioner Adult Health; FAMILY PHYSICIAN Hospitalist
DX: C61 Malignant neoplasm of prostate (principal); C20 Malignant neoplasm of rectum; S81.802D Unspecified open wound, left lower leg, subsequent encounter
CPT/HCPCS: 36415; 85025

== ENCOUNTER → 2024-12-18 10:23 | Outpatient (REF) | payer MEDICARE, SELFPAY | LOC: WOUND 10:23 | PROVIDERS: ATTENDING PHYSICIAN Surgery; FAMILY PHYSICIAN Internal Medicine | DX: L97.222 Non-pressure chronic ulcer of left calf with fat layer exposed (principal); I87.2 Venous insufficiency (chronic) (peripheral); C19 Malignant neoplasm of rectosigmoid junction; I48.91 Unspecified atrial fibrillation; I44.1 Atrioventricular block, second degree; I50.1 Left ventricular failure, unspecified; Z92.21 Personal history of antineoplastic chemotherapy | CPT/HCPCS: 97597 ==

== ENCOUNTER → 2024-12-29 10:15 | Outpatient (REF) | payer MEDICARE, SELFPAY ==
[2024-12-29 12:21] LABS: Hematocrit 32.8 % (39.0-52.0); Hemoglobin 10.4 g/dL (13.0-18.0); Mean Corp Hgb Conc. 31.7 g/dL (33.0-37.0); Mean Corpuscular Hgb 29.3 pg (27.0-31.0); Mean Corpuscular Volume 92.4 fL (80.0-94.0); Red Blood Cell Count 3.55 10^6/uL (4.70-6.10); Red Cell Dist. Width 24.6 % (11.5-14.5); White Blood Cell Count 15.3 10^3/uL (4.8-10.8)
[2024-12-29 12:24] LABS: Absolute Neutrophils -Man Diff 11.9 10^3/uL (1.4-6.5); Band Neutrophils 7 % (0-3); Eosinophils 1 % (0-6); Lymphocytes 14 % (20-51); Monocytes 4 % (2-9); Platelet Count 78 10^3/uL (130-400); Segmented Neutrophils 71 % (42-75)
[2024-12-29 12:25] LABS: Metamyelocytes 3 % (-)
[2024-12-29 12:26] LABS: Anisocytosis 1+; Hypochromasia 1+; Normal RBC Morphology No; Nucleated Red Blood Cells 3 (-); Ovalocytes 1+; Platelets Checked Yes; Polychromasia 1+; Total Cells Counted 100
== END ==
LOC: REG 10:15
PROVIDERS: ATTENDING PHYSICIAN Internal Medicine Hematology & Oncology; FAMILY PHYSICIAN Hospitalist
DX: C61 Malignant neoplasm of prostate (principal); C20 Malignant neoplasm of rectum; S81.802D Unspecified open wound, left lower leg, subsequent encounter
CPT/HCPCS: 36415; 85025

== ENCOUNTER → 2025-01-01 10:26 | Outpatient (REF) | payer MEDICARE, SELFPAY | LOC: WOUND 10:26 | PROVIDERS: ATTENDING PHYSICIAN Surgery; FAMILY PHYSICIAN Internal Medicine | DX: L97.222 Non-pressure chronic ulcer of left calf with fat layer exposed (principal); I87.2 Venous insufficiency (chronic) (peripheral); C19 Malignant neoplasm of rectosigmoid junction; Z92.21 Personal history of antineoplastic chemotherapy; I48.91 Unspecified atrial fibrillation; I44.1 Atrioventricular block, second degree; I50.1 Left ventricular failure, unspecified | CPT/HCPCS: 97597 ==

== ENCOUNTER → 2025-01-15 10:43 | Outpatient (REF) | payer MEDICARE, SELFPAY | LOC: WOUND 10:43 | PROVIDERS: ATTENDING PHYSICIAN Surgery; FAMILY PHYSICIAN Internal Medicine | DX: L97.222 Non-pressure chronic ulcer of left calf with fat layer exposed (principal); I87.2 Venous insufficiency (chronic) (peripheral); C19 Malignant neoplasm of rectosigmoid junction; I48.91 Unspecified atrial fibrillation; I44.1 Atrioventricular block, second degree; I50.1 Left ventricular failure, unspecified; Z92.21 Personal history of antineoplastic chemotherapy | CPT/HCPCS: 99213 ==

== ENCOUNTER → 2025-01-15 15:05 | Outpatient (REF) | payer MEDICARE, SELFPAY | LOC: RAD 15:05 | PROVIDERS: ATTENDING PHYSICIAN Hospitalist | DX: J06.9 Acute upper respiratory infection, unspecified (principal) | CPT/HCPCS: 71046 ==

== ENCOUNTER → 2025-01-29 10:23 | Outpatient (REF) | payer MEDICARE, SELFPAY | LOC: WOUND 10:23 | PROVIDERS: ATTENDING PHYSICIAN Surgery; FAMILY PHYSICIAN Internal Medicine | DX: L97.222 Non-pressure chronic ulcer of left calf with fat layer exposed (principal); I87.2 Venous insufficiency (chronic) (peripheral); C19 Malignant neoplasm of rectosigmoid junction; I48.91 Unspecified atrial fibrillation; I44.1 Atrioventricular block, second degree; I50.1 Left ventricular failure, unspecified | CPT/HCPCS: 99212 ==

== ENCOUNTER → 2025-02-19 11:09 | Outpatient (REF) | payer MEDICARE, SELFPAY ==
[2025-02-19 13:02] LABS: CEA 2.84 ng/ml
== END ==
LOC: REG 11:09
PROVIDERS: ATTENDING PHYSICIAN Surgery; FAMILY PHYSICIAN Internal Medicine
DX: C20 Malignant neoplasm of rectum (principal)
CPT/HCPCS: 36415; 82378

== ENCOUNTER → 2025-02-22 12:39 | Outpatient (REF) | payer MEDICARE, SELFPAY | LOC: RAD 12:39 | PROVIDERS: ATTENDING PHYSICIAN Surgery; FAMILY PHYSICIAN Internal Medicine | DX: C20 Malignant neoplasm of rectum (principal) | CPT/HCPCS: 71260; 74177; Q9967 ==

== ENCOUNTER 2025-02-23 06:12 | Day surgery (SDC) | payer MEDICARE, SELFPAY ==
[2025-02-23 12:40] VITALS: BP 121/86
--- NOTE | 2025-02-23 12:42 | SUR.OPER ---
IV attempted by Jonna on patient and was unsuccessful. Patient then stated he had a port so IV team called to access port. Will monitor patient.
[2025-02-23 12:43] VITALS: BMI 28.0
[2025-02-23 12:43] LABS: Glucose - Point of Care 139 mg/dl (70-99)
[2025-02-23 16:09] LABS: Glucose - Point of Care 100 mg/dl (70-99)
[2025-02-23 17:13] VITALS: BP 120/75
[2025-02-23 17:15] VITALS: BP 122/86
[2025-02-23 17:30] VITALS: BP 105/87
[2025-02-23 17:45] VITALS: BP 119/86
== END 2025-02-23 18:26 | disposition home or self-care (01) ==
LOC: SDS 06:12
PROVIDERS: ATTENDING PHYSICIAN Surgery
DX: Z08 Encounter for follow-up examination after completed treatment for malignant neoplasm (principal); K62.89 Other specified diseases of anus and rectum; K57.30 Diverticulosis of large intestine without perforation or abscess without bleeding; C20 Malignant neoplasm of rectum; K64.4 Residual hemorrhoidal skin tags; D12.8 Benign neoplasm of rectum; Z85.048 Personal history of other malignant neoplasm of rectum, rectosigmoid junction, and anus
CPT/HCPCS: 45380; 82962; 88305; 88341; 88342

== ENCOUNTER → 2025-03-08 08:10 | Outpatient (REF) | payer MEDICARE, SELFPAY | LOC: MRI 3T 08:10 | PROVIDERS: ATTENDING PHYSICIAN Surgery; FAMILY PHYSICIAN Internal Medicine | DX: C20 Malignant neoplasm of rectum (principal) | CPT/HCPCS: 72197; A9575 ==

== ENCOUNTER → 2025-07-16 12:51 | Outpatient (REF) | payer MEDICARE, SELFPAY | LOC: RCS 12:51 | PROVIDERS: ATTENDING PHYSICIAN Internal Medicine Cardiovascular Disease; FAMILY PHYSICIAN Internal Medicine | DX: Z95.0 Presence of cardiac pacemaker (principal); I48.21 Permanent atrial fibrillation; I50.22 Chronic systolic (congestive) heart failure | CPT/HCPCS: 93306 ==

== ENCOUNTER 2025-07-20 06:21 | Day surgery (SDC) | payer MEDICARE, SELFPAY ==
[2025-07-20 08:16] LABS: Glucose - Point of Care 87 mg/dl (70-99)
== END 2025-07-20 10:41 | disposition home or self-care (01) ==
LOC: GI 06:21
PROVIDERS: ATTENDING PHYSICIAN Surgery; FAMILY PHYSICIAN Hospitalist
DX: Z08 Encounter for follow-up examination after completed treatment for malignant neoplasm (principal); Z85.048 Personal history of other malignant neoplasm of rectum, rectosigmoid junction, and anus; K64.4 Residual hemorrhoidal skin tags; K62.89 Other specified diseases of anus and rectum; L08.89 Other specified local infections of the skin and subcutaneous tissue; K62.6 Ulcer of anus and rectum
CPT/HCPCS: 45331; 82962; 88305